=== PATIENT | female | born 1930 | race Caucasian/White ===

== ENCOUNTER 2016-12-14 12:22 | Emergency (ER) | payer MEDICARE, BC ==
--- NOTE | 2016-12-14 14:28 | EDM.PDOC ---
ED HPI GENERAL MEDICAL PROBLEM - General Chief Complaint: Genitourinary Problem Stated Complaint: POST-OP BLEEDING Time Seen by Provider: 12/14/16 12:36 Source of Information: Reports: Patient, Family (Daughter, son-in-law), RN Notes Reviewed History Limitations: Reports: No Limitations - History of Present Illness INITIAL COMMENTS - FREE TEXT/NARRATIVE: The patient and her family state that the patient had 2 bladder ulcers, therefore underwent cystoscopy and cauterization per the Urologist Dr. Ring in [place], yesterday. The patient states that she was passing some clots when she left the facility, however, they have increased, and today she is passing large clots. The patient expressly denies having any pain. They have not contacted Dr. Lew. The patient is not on any anticoagulants. The patient's PCP is Lissa Tom. Abdominal Pain Score (Numeric/FACES): 2 - Related Data Allergies Allergy/AdvReac Type Severity Reaction Status Date / Time codeine Allergy Cannot Verified 02/02/16 10:58 Remember Sulfa (Sulfonamide Allergy Fatigue Verified 02/02/16 10:58 Antibiotics) Home Meds: Home Meds Estrogens, Conjugated [Premarin Vaginal Crm] 1 applic VAG ASDIRECTED 10/25/14 [ History] Gabapentin [Neurontin] 800 mg PO TID 10/25/14 [History] Hydrochlorothiazide 12.5 mg PO DAILY 10/25/14 [History] Losartan [Cozaar] 100 mg PO DAILY 10/25/14 [History] Meclizine [Antivert] 25 mg PO TID PRN 10/25/14 [History] Multivitamin [Qpd-Xkcvcu-Vnqve] 1 each PO DAILY 10/25/14 [History] Nitrofurantoin Macrocrystal [Macrodantin] 1 cap PO DAILY 10/25/14 [History] Oxybutynin 5 mg PO DAILY PRN 10/25/14 [History] Pentosan Polysulfate Sodium [Elmiron] 100 mg PO TID 10/25/14 [History] Potassium Chloride 10 meq PO DAILY 10/25/14 [History] Pravastatin Sodium [Pravastatin (Pravachol)] 40 mg PO DAILY 10/25/14 [History] Atropine/Diphenoxylate [Lomotil 0.025-2.5 MG] 1 tab PO BID PRN 10/26/14 [History ] Calcium Carbonate/Vitamin D3 [Calcium 600 + D Tablet] 1 tab PO BID 10/26/14 [ History] Cranberry Extract [Cranberry] 400 cap PO BID 10/26/14 [History] Cyanocobalamin (Vitamin B12) [Vitamin B12] 5,000 mcg PO DAILY 10/26/14 [History] Hydrocodone/Acetaminophen [Hydrocodon-Acetaminophn 10-325] 1 tab PO Q4HR PRN [History] Nystatin 100,000 gram TOP BID PRN 10/26/14 [History] Clopidogrel [Plavix] 75 mg PO DAILY 11/12/15 [History] Furosemide [Lasix] 20 mg PO ASDIRECTED 11/12/15 [History] Iron 2 tab PO DAILY 11/12/15 [History] Nitroglycerin [Nitrostat] 0.4 mg SL ASDIRECTED PRN 11/12/15 [History] Past Medical History HEENT History: Reports: Impaired Vision Cardiovascular History: Reports: Afib (paroxysmal), CAD, Heart Failure, High Cholesterol, Hypertension Gastrointestinal History: Reports: Colon Polyp Genitourinary History: Reports: Renal Calculus, Urinary Incontinence COAL DIGGER History: Reports: (x 8) Hematologic History: Reports: Blood Transfusion(s) - Past Surgical History HEENT Surgical History: Reports: Cataract Surgery, Tonsillectomy Cardiovascular Surgical History: Reports: Coronary Artery Stent (x 3), Valve Replacement (porcine aortic) GI Surgical History: Reports: Appendectomy, Cholecystectomy Female Surgical History: Reports: Hysterectomy Neurological Surgical History: Reports: Lumbar Spine (fusion) Musculoskeletal Surgical History: Reports: Carpal Tunnel (bilateral), Hip Replacement (left, x 2), Knee Replacement (bilateral), Shoulder Surgery ( bilateral, open), Other (See Below) (Bilateral hammertoes. Right 5th toe amputation.) Social & Family History - Family History Family Medical History: Noncontributory - Tobacco Use Smoking Status *Q: Never Smoker Second Hand Smoke Exposure: No - Caffeine Use Caffeine Use: Reports: None - Alcohol Use Alcohol Use History: Yes Alcohol Use Frequency: Rarely - Recreational Drug Use Recreational Drug Use: No - Living Situation & Occupation Living situation: Reports: , Assisted Living Occupation: Retired ED ROS GENERAL - Review of Systems Review Of Systems: See Below Constitutional: Reports: No Symptoms HEENT: Reports: No Symptoms Respiratory: Reports: No Symptoms Cardiovascular: Reports: No Symptoms Endocrine: Reports: No Symptoms GI/Abdominal: Reports: No Symptoms : Reports: No Symptoms Musculoskeletal: Reports: No Symptoms Skin: Reports: No Symptoms Neurological: Reports: No Symptoms Psychiatric: Reports: No Symptoms Hematologic/Lymphatic: Reports: No Symptoms Immunologic: Reports: No Symptoms ED EXAM, RENAL/ - Physical Exam Exam: See Below Exam Limited By: No Limitations General Appearance: Alert, WD/WN, No Apparent Distress Eye Exam: Bilateral Eye: Normal Inspection Ears: Normal External Exam, Hearing Grossly Normal Nose: Normal Inspection, No Blood Throat/Mouth: Normal Inspection, Normal Lips, Normal Voice, No Airway Compromise Head: Atraumatic, Normocephalic Neck: Normal Inspection, Full Range of Motion Respiratory/Chest: No Respiratory Distress, Lungs Clear, Normal Breath Sounds, No Accessory Muscle Use Cardiovascular: Normal Peripheral Pulses, Regular Rate, Rhythm, No Gallop, No JVD, No Murmur, No Rub GI/Abdominal: Normal Bowel Sounds, Soft, No Organomegaly, No Distention, No Abnormal Bruit, No Mass, Tender (Mild, generalized tenderness.) (Female) Exam: Deferred Rectal (Female) Exam: Deferred Back Exam: Normal Inspection, Full Range of Motion, NT Extremities: Normal Inspection, Normal Range of Motion, No Pedal Edema, Normal Capillary Refill Neurological: Alert, Oriented, Normal Cognition, No Motor/Sensory Deficits Psychiatric: Normal Affect Skin Exam: Warm, Dry, Intact, Normal Color, No Rash Lymphatic: No Adenopathy Course - Vital Signs Last Recorded V/S: Last Vital Signs Temp 36.9 C 12/14/16 12:31 Pulse 61 12/14/16 14:45 Resp 15 12/14/16 14:45 BP 122/43 L 12/14/16 14:45 Pulse Ox 98 12/14/16 14:45 Orthostatic Blood Pressure [ 136/50 Standing] Orthostatic Blood Pressure [ 151/53 Sitting] Orthostatic Blood Pressure [ 119/42 Supine] - Orders/Labs/Meds Orders: Active Orders 24 hr Category Date Time Status Bladder Irrigation [RC] CONTINUOUS Care 12/14/16 12:56 Active Contreras Catheter Insertion [Insert Urinary Catheter] [OM. Care 12/14/16 13:00 Ordered PC] Q24H Orthostatic Vital Signs [RC] STAT Care 12/14/16 12:59 Active Urinary Catheter Assessment [RC] ASDIRECTED Care 12/14/16 13:00 Active Labs: Laboratory Tests 12/14/16 12/14/16 Range/Units 13:30 13:30 WBC 9.59 (3.98-10.04) K/mm3 RBC 2.95 L (3.98-5.22) M/mm3 Hgb 9.2 L (11.2-15.7) gm/L Hct 28.7 L (34.1-44.9) % MCV 97.3 H (79.4-94.8) fl MCH 31.2 (25.6-32.2) pg MCHC 32.1 L (32.2-35.5) g/dl RDW Std Deviation 43.3 (36.4-46.3) fL Plt Count 145 L (182-369) K/mm3 MPV 9.4 (9.4-12.3) fl Neutrophils % (Manual) 78 H (40-60) % Band Neutrophils % 0 (0-10) % Lymphocytes % (Manual) 19 L (20-40) % Atypical Lymphs % 0 % Monocytes % (Manual) 2 (2-10) % Eosinophils % (Manual) 1 (0.7-5.8) % Basophils % (Manual) 0 L (0.1-1.2) Platelet Estimate Decreased Plt Morphology Comment Normal Basophilic Stippling 1+ slight Anisocytosis 1+ slight RBC Morph Comment Not Reportable Sodium 139 (136-145) mEq/L Potassium 4.7 (3.5-5.1) mEq/L Chloride 105 (98-107) mEq/L Carbon Dioxide 30 (21-32) mEq/L Anion Gap 8.7 (5-15) BUN 30 H (7-18) mg/dL Creatinine 1.2 H (0.55-1.02) mg/dL Est Cr Clr Drug Dosing 23.72 mL/min Estimated GFR (MDRD) 42 (>60) mL/min BUN/Creatinine Ratio 25.0 H (14-18) Glucose 91 (83-115) mg/dL Calcium 8.9 (8.5-10.1) mg/dL Total Bilirubin 0.4 (0.2-1.0) mg/dL AST 20 (15-37) U/L ALT 17 (14-59) U/L Alkaline Phosphatase 24 L (46-116) U/L Total Protein 6.0 L (6.4-8.2) g/dl Albumin 3.1 L (3.4-5.0) g/dl Globulin 2.9 gm/dL Albumin/Globulin Ratio 1.1 (1-2) - Re-Assessments/Exams Free Text/Narrative Re-Assessment/Exam: 12/14/16 13:40 The patient is not orthostatic. 12/14/16 14:28 The patient's CBI is currently running clear. I will have it discontinued and discharge her home. I'm recommending that the family contact their Urologist, Dr. Ring, to notify him of the patient's ED visit. Departure - Departure Time of Disposition: 14:31 Disposition: Home, Self-Care 01 Condition: Good Clinical Impression: Gross hematuria - Discharge Information Instructions: Hematuria, Adult Referrals: Sravan Ring MD [Ordering Only Provider] - Forms: ED Department Discharge Additional Instructions: Ms. Hernández was seen in the emergency room for urinating large clots, following bladder surgery yesterday. Workup in the ER included blood work, positional blood pressure checks, and continuous bladder irrigation. Her workup was unremarkable. Her blood pressure is stable, and while she is somewhat anemic, it is not low enough to require transfusion. Following bladder irrigation, her urine is now clear. We recommend that you contact the office of Dr. Ring to notify him of today's ER visit. If any other problems, please do not hesitate to return Ms. Hernández to the ER. - My Orders Last 24 Hours: My Active Orders 12/14/16 12:56 Bladder Irrigation [RC] CONTINUOUS 12/14/16 12:59 Orthostatic Vital Signs [RC] STAT 12/14/16 13:00 Contreras Catheter Insertion [Insert Urinary Catheter] [OM.PC] Q24H Urinary Catheter Assessment [RC] ASDIRECTED - Assessment/Plan Last 24 Hours: My Active Orders 12/14/16 12:56 Bladder Irrigation [RC] CONTINUOUS 12/14/16 12:59 Orthostatic Vital Signs [RC] STAT 12/14/16 13:00 Contreras Catheter Insertion [Insert Urinary Catheter] [OM.PC] Q24H Urinary Catheter Assessment [RC] ASDIRECTED
[2016-12-14 16:44] VITALS: BP 122/43
== END 2016-12-14 14:45 | disposition home or self-care (01) ==
LOC: JD.ED 12:22
DX: R31.0 Gross hematuria (principal); I48.0 Paroxysmal atrial fibrillation; I11.0 Hypertensive heart disease with heart failure; I50.9 Heart failure, unspecified; I25.10 Atherosclerotic heart disease of native coronary artery without angina pectoris; E78.00 Pure hypercholesterolemia, unspecified; Z88.2 Allergy status to sulfonamides; Z88.5 Allergy status to narcotic agent; Z79.02 Long term (current) use of antithrombotics/antiplatelets; Z79.899 Other long term (current) drug therapy; Z87.442 Personal history of urinary calculi; Z98.49 Cataract extraction status, unspecified eye; Z95.5 Presence of coronary angioplasty implant and graft; Z95.2 Presence of prosthetic heart valve; Z90.49 Acquired absence of other specified parts of digestive tract; Z90.710 Acquired absence of both cervix and uterus; Z96.653 Presence of artificial knee joint, bilateral; Z98.890 Other specified postprocedural states; Z96.643 Presence of artificial hip joint, bilateral
CPT/HCPCS: 36415; 51700; 51702; 80053; 85025; 99283; 99284-25

== ENCOUNTER 2017-03-13 10:30 | Observation (INO) | payer MEDICARE, BC ==
[2017-03-13] MEDS ORDERED: Sodium Chloride 0.9% 10 ML Syringe FLUSH PRN (11:08)
[2017-03-13] MEDS ORDERED: Sodium Chloride 0.9% 1,000 ML IV ONE (11:10)
--- NOTE | 2017-03-13 11:23 | EDM.PDOC ---
ED HPI GENERAL MEDICAL PROBLEM - General Chief Complaint: Genitourinary Problem Stated Complaint: POSS. UTI/WEAKNESS Time Seen by Provider: 03/13/17 10:48 Source of Information: Reports: Patient History Limitations: Reports: No Limitations - History of Present Illness INITIAL COMMENTS - FREE TEXT/NARRATIVE: Patient is a-year-old female presents ED complaining of increased fatigue, weakness, and chills. Patient states last night she had company over and at approximately 11:00 developed sudden onset of feeling tired with weakness. Patient states she had no strength to take her clothing off sitting on the edge of her bed. Patient states she could not get into her bed due to weakness. Patient developed fever and chills last night. States she has history of chronic uti's and has been taking macrobid daily up until a wk ago. States she has chronic dysuria and was feeling well thus prompting her to stop taking the macrobid. States at times she has hematuria but notes none as of recent. Son questions if patient was confused last night since she states was unable to locate bed remote that was sitting next to her. Patient needed assistance due to weakness. Per family patient is acting appropriately with admission. Patient denies fever, sore throat, cough, shortness of breath, chest pain, dizziness, abdominal pain, body aches, headache, digital the swelling, or any focal neurological deficits. - Related Data Allergies Allergy/AdvReac Type Severity Reaction Status Date / Time codeine Allergy Cannot Verified 03/13/17 17:06 Remember Sulfa (Sulfonamide Allergy Fatigue Verified 03/13/17 17:06 Antibiotics) sulfamethoxazole Allergy Rash Verified 03/13/17 17:06 [From Bactrim] trimethoprim [From Bactrim] Allergy Rash Verified 03/13/17 17:06 Home Meds: Home Meds Gabapentin [Neurontin] 800 mg PO TID 10/25/14 [History] Hydrochlorothiazide 12.5 mg PO DAILY 10/25/14 [History] Losartan [Cozaar] 100 mg PO DAILY 10/25/14 [History] Meclizine [Antivert] 25 mg PO TID PRN 10/25/14 [History] Multivitamin [Ozz-Ugrbbj-Jcvpt] 1 each PO DAILY 10/25/14 [History] Oxybutynin 5 mg PO DAILY PRN 10/25/14 [History] Pentosan Polysulfate Sodium [Elmiron] 100 mg PO TID 10/25/14 [History] Potassium Chloride 10 meq PO DAILY 10/25/14 [History] Pravastatin Sodium [Pravastatin (Pravachol)] 20 mg PO BEDTIME 10/25/14 [History] Hydrocodone/Acetaminophen [Hydrocodon-Acetaminophn 10-325] 5 - 325 mg PO Q4HR PRN 10/26/14 [History] Aspirin 162.5 mg PO DAILY 03/13/17 [History] Calc/D3/Mag/Zn/[place] [place] [Calcium 600 MG Plus Vit D] 1,200 mg PO BID [History] Cyanocobalamin (Vitamin B-12) [Vitamin B-12] 100 mcg PO DAILY 03/13/17 [History] Zolpidem [Ambien] 2.5 mg PO BEDTIME PRN 03/13/17 [History] Past Medical History HEENT History: Reports: Impaired Vision Cardiovascular History: Reports: Afib, CAD, Heart Failure, High Cholesterol, Hypertension Gastrointestinal History: Reports: Colon Polyp Genitourinary History: Reports: Renal Calculus, Urinary Incontinence, UTI, Recurrent Other Genitourinary History: cyst on kidney [employer] History: Reports: Other OB/BYN History: 8 pregnacies Neurological History: Reports: None Endocrine/Metabolic History: Reports: Diabetes, Type II Hematologic History: Reports: Anemia, Blood Transfusion(s), Iron Deficiency - Past Surgical History HEENT Surgical History: Reports: Cataract Surgery, Tonsillectomy Cardiovascular Surgical History: Reports: Coronary Artery Stent, Valve Replacement GI Surgical History: Reports: Appendectomy, Cholecystectomy Female Surgical History: Reports: Hysterectomy Neurological Surgical History: Reports: Lumbar Spine Musculoskeletal Surgical History: Reports: Carpal Tunnel, Hip Replacement, Knee Replacement, Shoulder Surgery, Other (See Below) Other Musculoskeletal Surgeries/Procedures:: bilateral knees, bilateral shoulders, and hip 2x Social & Family History - Family History Family Medical History: Noncontributory - Tobacco Use Smoking Status *Q: Never Smoker Second Hand Smoke Exposure: No - Caffeine Use Caffeine Use: Reports: None - Recreational Drug Use Recreational Drug Use: No - Living Situation & Occupation Living situation: Reports: , Assisted Living Occupation: Retired ED ROS GENERAL - Review of Systems Review Of Systems: See Below Constitutional: Reports: Chills, Malaise, Weakness, Fatigue, Decreased Appetite. Denies: Fever HEENT: Reports: No Symptoms Respiratory: Reports: No Symptoms Cardiovascular: Reports: No Symptoms GI/Abdominal: Reports: No Symptoms : Reports: Dysuria, Frequency, Urgency Musculoskeletal: Reports: No Symptoms Neurological: Reports: Difficulty Walking (weakness). Denies: Dizziness, Headache, Numbness, Tingling ED EXAM, RENAL/ - Physical Exam Exam: See Below Exam Limited By: No Limitations General Appearance: Alert, WD/WN, No Apparent Distress Eye Exam: Bilateral Eye: EOMI, PERRL Ears: Hearing Grossly Normal Nose: Normal Inspection Throat/Mouth: Normal Voice, No Airway Compromise, Other (dry oral mucosa) Neck: Normal Inspection, Supple Respiratory/Chest: No Respiratory Distress, Lungs Clear, Normal Breath Sounds, No Accessory Muscle Use, Chest Non-Tender Cardiovascular: Normal Peripheral Pulses, Regular Rate, Rhythm, Systolic Murmur (3/6) GI/Abdominal: Normal Bowel Sounds, Soft, Non-Tender, No Organomegaly, No Distention Back Exam: Normal Inspection Extremities: Normal Inspection, Normal Range of Motion, Non-Tender, No Pedal Edema Neurological: Alert, Oriented, CN II-XII Intact, Normal Cognition, No Motor/ Sensory Deficits Psychiatric: Normal Affect, Normal Mood Skin Exam: Warm, Dry, Intact, Normal Color, No Rash Course - Vital Signs Last Recorded V/S: Last Vital Signs Temp 98.4 F 03/13/17 19:51 Pulse 72 03/13/17 19:51 Resp 16 03/13/17 19:51 BP 107/80 03/13/17 19:51 Pulse Ox 92 L 03/13/17 19:51 Orthostatic Blood Pressure [ 138/52 Standing] Orthostatic Blood Pressure [ 127/50 Sitting] Orthostatic Blood Pressure [ 123/43 Supine] - Orders/Labs/Meds Orders: Active Orders 24 hr Category Date Time Status Admission Status [Patient Status] [ADT] Routine ADT 03/13/17 14:29 Active Cardiac Monitoring [RC] . DIRECTED Care 03/13/17 14:29 Active Insert Contreras Catheter [Insert Urinary Catheter] [OM.PC] Care 03/13/17 12:00 Ordered Q24H Orthostatic Vital Signs [RC] ASDIRECTED Care 03/13/17 11:10 Active Peripheral IV Care [RC] Q2HR Care 03/13/17 11:08 Active Urinary Catheter Assessment [RC] ASDIRECTED Care 03/13/17 12:00 Active CULTURE BLOOD [BC] Stat Lab 03/13/17 11:34 Received CULTURE BLOOD [BC] Stat Lab 03/13/17 11:45 Received CULTURE URINE [RM] Stat Lab 03/13/17 12:00 Received Sodium Chloride 0.9% [Saline Flush] Med 03/13/17 11:08 Active 10 ml FLUSH ASDIRECTED PRN Blood Culture x2 Reflex Set [OM.PC] Stat Oth 03/13/17 11:08 Ordered Peripheral IV Insertion Adult [OM.PC] Stat Oth 03/13/17 11:08 Ordered Medication Orders Acetaminophen (Tylenol) 650 mg PO Q4H PRN PRN Reason: Pain (Mild 1-3)/fever Hydrocodone Bitart/Acetaminophen ([place] 325-5 Mg) 1 tab PO Q4H PRN PRN Reason: Pain (moderate 4-6) Last Admin: 03/13/17 18:07 Dose: 1 tab Albuterol/Ipratropium (Duoneb 3.0-0.5 Mg/3 Ml) 3 ml NEB Q4H PRN PRN Reason: Shortness Of Breath/wheezing Bisacodyl (Dulcolax) 5 mg PO DAILY PRN PRN Reason: Constipation Dextrose/Water (Dextrose 50% In Water) 50 ml IVPUSH ASDIRECTED PRN PRN Reason: Hyperglycemia Enoxaparin Sodium (Lovenox) 30 mg SUBCUT DAILY [facility] Gabapentin (Neurontin) 200 mg PO TID [facility] Gabapentin (Neurontin) 600 mg PO ONETIME [facility] Last Admin: 03/13/17 18:20 Dose: 600 mg Gabapentin (Neurontin) 200 mg PO ONETIME [facility] Last Admin: 03/13/17 18:20 Dose: 200 mg Gabapentin (Neurontin) 600 mg PO TID [facility] Hydrochlorothiazide (Hydrochlorothiazide) 12.5 mg PO DAILY [facility] Hydromorphone HCl (Dilaudid) 0.25 mg IVPUSH Q2H PRN PRN Reason: Pain (severe 7-10) Promethazine HCl 12.5 mg/ (Sodium Chloride) 50.5 mls @ 100 mls/hr IV Q6H PRN PRN Reason: Nausea/Vomiting Levofloxacin/Dextrose 500 mg/ (Premix) 100 mls @ 100 mls/hr IV Q24H [facility] Insulin Aspart (Novolog) 0 unit SUBCUT ASDIRECTED [facility] PRN Reason: Protocol Lorazepam (Ativan) 0.25 mg IV Q6H PRN PRN Reason: Anxiety Losartan Potassium (Cozaar) 100 mg PO DAILY [facility] Meclizine HCl (Antivert) 25 mg PO TID PRN PRN Reason: Dizziness Multivitamins (Thera) 1 each PO DAILY [facility] Non-Formulary Medication (Cyanocobalamin (Vitamin B-12)) 100 mcg PO DAILY [facility] Non-Formulary Medication (Pentosan Polysulfate Sodium [Elmiron]) 100 mg PO TID [facility] Gabapanetin 400mg (CapPt Own) 800 each PO ONETIME ONE Stop: 03/13/17 23:01 Ondansetron HCl (Zofran) 4 mg IV Q6H PRN PRN Reason: Nausea/Vomiting Oxybutynin Chloride (Oxybutynin) 5 mg PO DAILY PRN PRN Reason: Other Polyethylene Glycol (Miralax) 17 gm PO DAILY PRN PRN Reason: Constipation Potassium Chloride (Klor-Con 10) 10 meq PO DAILY [facility] Saccharomyces Boulardii (Florastor) 250 mg PO DAILY [facility] Senna/Docusate Sodium (Senna Plus) 1 tab PO BID PRN PRN Reason: Constipation Simvastatin (Zocor) 10 mg PO BEDTIME [facility] Sodium Chloride (Saline Flush) 10 ml FLUSH ASDIRECTED PRN PRN Reason: Keep Vein Open Last Admin: 03/13/17 11:45 Dose: 10 ml Zolpidem Tartrate (Ambien) 2.5 mg PO BEDTIME PRN PRN Reason: Insomnia Labs: Laboratory Tests 03/13/17 03/13/17 03/13/17 Range/Units 11:34 11:34 11:34 WBC 27.31 H (3.98-10.04) K/mm3 RBC 3.25 L (3.98-5.22) M/mm3 Hgb 9.8 L (11.2-15.7) gm/L Hct 30.2 L (34.1-44.9) % MCV 92.9 (79.4-94.8) fl MCH 30.2 (25.6-32.2) pg MCHC 32.5 (32.2-35.5) g/dl RDW Std Deviation 41.9 (36.4-46.3) fL Plt Count 233 (182-369) K/mm3 MPV 8.4 L (9.4-12.3) fl Neut % (Auto) 93.9 H (34.0-71.1) % Lymph % (Auto) 3.6 L (19.3-51.7) % [place] % (Auto) 2.0 L (4.7-12.5) % Eos % (Auto) 0.2 L (0.7-5.8) Baso % (Auto) 0.1 (0.1-1.2) % Neut # (Auto) 25.66 H (1.56-6.13) K/mm3 Lymph # (Auto) 0.97 L (1.18-3.74) K/mm3 [place] # (Auto) 0.54 H (0.24-0.36) K/mm3 Eos # (Auto) 0.06 (0.04-0.36) K/mm3 Baso # (Auto) 0.02 (0.01-0.08) K/mm3 Manual Slide Review Abnormal smear Sodium 142 (136-145) mEq/L Potassium 4.0 (3.5-5.1) mEq/L Chloride 105 (98-107) mEq/L Carbon Dioxide 29 (21-32) mEq/L Anion Gap 12.0 (5-15) BUN 29 H (7-18) mg/dL Creatinine 1.1 H (0.55-1.02) mg/dL Est Cr Clr Drug Dosing 26.68 mL/min Estimated GFR (MDRD) 47 (>60) mL/min BUN/Creatinine Ratio 26.4 H (14-18) Glucose 153 H (83-115) mg/dL Lactic Acid 1.4 (0.4-2.0) mmol/L Calcium 9.1 (8.5-10.1) mg/dL Total Bilirubin 0.4 (0.2-1.0) mg/dL AST 22 (15-37) U/L ALT 28 (14-59) U/L Alkaline Phosphatase 33 L (46-116) U/L Troponin I (0.00-0.056) ng/mL C-Reactive Protein 11.7 H* (<1.0) mg/dL Total Protein 6.7 (6.4-8.2) g/dl Albumin 3.0 L (3.4-5.0) g/dl Globulin 3.7 gm/dL Albumin/Globulin Ratio 0.8 L (1-2) TSH 3rd Generation 0.413 (0.358-3.74) uIU/mL Urine Color (Yellow) Urine Appearance (Clear) Urine pH (5.0-8.0) Ur Specific [place] (1.005-1.030) Urine Protein (Negative) Urine Glucose (UA) (Negative) Urine Ketones (Negative) Urine Occult Blood (Negative) Urine Nitrite (Negative) Urine Bilirubin (Negative) Urine Urobilinogen (0.2-1.0) Ur Leukocyte Esterase (Negative) Urine RBC (0-5) /hpf Urine WBC (0-5) /hpf Ur Epithelial Cells (0-5) /hpf Amorphous Sediment (NOT SEEN) /hpf Urine Bacteria (FEW) /hpf Urine Mucus (FEW) /hpf 03/13/17 03/13/17 Range/Units 11:34 12:00 WBC (3.98-10.04) K/mm3 RBC (3.98-5.22) M/mm3 Hgb (11.2-15.7) gm/L Hct (34.1-44.9) % MCV (79.4-94.8) fl MCH (25.6-32.2) pg MCHC (32.2-35.5) g/dl RDW Std Deviation (36.4-46.3) fL Plt Count (182-369) K/mm3 MPV (9.4-12.3) fl Neut % (Auto) (34.0-71.1) % Lymph % (Auto) (19.3-51.7) % [place] % (Auto) (4.7-12.5) % Eos % (Auto) (0.7-5.8) Baso % (Auto) (0.1-1.2) % Neut # (Auto) (1.56-6.13) K/mm3 Lymph # (Auto) (1.18-3.74) K/mm3 [place] # (Auto) (0.24-0.36) K/mm3 Eos # (Auto) (0.04-0.36) K/mm3 Baso # (Auto) (0.01-0.08) K/mm3 Manual Slide Review Sodium (136-145) mEq/L Potassium (3.5-5.1) mEq/L Chloride (98-107) mEq/L Carbon Dioxide (21-32) mEq/L Anion Gap (5-15) BUN (7-18) mg/dL Creatinine (0.55-1.02) mg/dL Est Cr Clr Drug Dosing mL/min Estimated GFR (MDRD) (>60) mL/min BUN/Creatinine Ratio (14-18) Glucose (83-115) mg/dL Lactic Acid (0.4-2.0) mmol/L Calcium (8.5-10.1) mg/dL Total Bilirubin (0.2-1.0) mg/dL AST (15-37) U/L ALT (14-59) U/L Alkaline Phosphatase (46-116) U/L Troponin I 0.022 (0.00-0.056) ng/mL C-Reactive Protein (<1.0) mg/dL Total Protein (6.4-8.2) g/dl Albumin (3.4-5.0) g/dl Globulin gm/dL Albumin/Globulin Ratio (1-2) TSH 3rd Generation (0.358-3.74) uIU/mL Urine Color Yellow (Yellow) Urine Appearance Clear (Clear) Urine pH 7.0 (5.0-8.0) Ur Specific [place] 1.015 (1.005-1.030) Urine Protein Trace H (Negative) Urine Glucose (UA) Negative (Negative) Urine Ketones Negative (Negative) Urine Occult Blood 1+ H (Negative) Urine Nitrite Negative (Negative) Urine Bilirubin Negative (Negative) Urine Urobilinogen 0.2 (0.2-1.0) Ur Leukocyte Esterase 2+ H (Negative) Urine RBC 5-10 H (0-5) /hpf Urine WBC 20-30 H (0-5) /hpf Ur Epithelial Cells 0-5 (0-5) /hpf Amorphous Sediment Few H (NOT SEEN) /hpf Urine Bacteria Few (FEW) /hpf Urine Mucus Not seen (FEW) /hpf Meds: Medications Generic Name Dose Route Start Last Admin Trade Name Freq PRN Reason Stop Dose Admin Acetaminophen 650 mg 03/13/17 15:48 Tylenol PO Q4H PRN Pain (Mild 1-3)/fever Hydrocodone Bitart/Acetaminophen 1 tab 03/13/17 15:48 03/13/17 18:07 [place] 325-5 Mg PO 1 tab Q4H PRN Administration Pain (moderate 4-6) Albuterol/Ipratropium 3 ml 03/13/17 15:48 Duoneb 3.0-0.5 Mg/3 Ml NEB Q4H PRN Shortness Of Breath/wheezing Bisacodyl 5 mg 03/13/17 15:48 Dulcolax PO DAILY PRN Constipation Dextrose/Water 50 ml 03/13/17 15:59 Dextrose 50% In Water IVPUSH ASDIRECTED PRN Hyperglycemia Enoxaparin Sodium 30 mg 03/14/17 09:00 Lovenox SUBCUT DAILY [facility] Gabapentin 200 mg 03/14/17 09:00 Neurontin PO TID [facility] Gabapentin 600 mg 03/13/17 18:00 03/13/17 18:20 Neurontin PO 600 mg ONETIME [facility] Administration Gabapentin 200 mg 03/13/17 18:00 03/13/17 18:20 Neurontin PO 200 mg ONETIME [facility] Administration Gabapentin 600 mg 03/14/17 09:00 Neurontin PO TID [facility] Hydrochlorothiazide 12.5 mg 03/14/17 09:00 Hydrochlorothiazide PO DAILY [facility] Hydromorphone HCl 0.25 mg 03/13/17 15:48 Dilaudid IVPUSH Q2H PRN Pain (severe 7-10) Promethazine HCl 12.5 mg/ 50.5 mls @ 100 mls/hr 03/13/17 15:48 Sodium Chloride IV Q6H PRN Nausea/Vomiting Levofloxacin/Dextrose 500 mg/ 100 mls @ 100 mls/hr 03/14/17 09:00 Premix IV Q24H [facility] Insulin Aspart 0 unit 03/13/17 16:00 Novolog SUBCUT ASDIRECTED [facility] Protocol Lorazepam 0.25 mg 03/13/17 15:48 Ativan IV Q6H PRN Anxiety Losartan Potassium 100 mg 03/14/17 09:00 Cozaar PO DAILY [facility] Meclizine HCl 25 mg 03/13/17 17:09 Antivert PO TID PRN Dizziness Multivitamins 1 each 03/14/17 09:00 Thera PO DAILY [facility] Non-Formulary Medication 100 mcg 03/14/17 09:00 Cyanocobalamin (Vitamin B-12) PO DAILY [facility] Non-Formulary Medication 100 mg 03/13/17 21:00 Pentosan Polysulfate Sodium [Elmiron] PO TID [facility] Gabapanetin 400mg 800 each 03/13/17 23:00 CapPt Own PO 03/13/17 23:01 ONETIME ONE Ondansetron HCl 4 mg 03/13/17 15:48 Zofran IV Q6H PRN Nausea/Vomiting Oxybutynin Chloride 5 mg 03/13/17 15:53 Oxybutynin PO DAILY PRN Other Polyethylene Glycol 17 gm 03/13/17 15:48 Miralax PO DAILY PRN Constipation Potassium Chloride 10 meq 03/14/17 09:00 Klor-Con 10 PO DAILY [facility] Saccharomyces Boulardii 250 mg 03/14/17 09:00 Florastor PO DAILY [facility] Senna/Docusate Sodium 1 tab 03/13/17 15:48 Senna Plus PO BID PRN Constipation Simvastatin 10 mg 03/13/17 21:00 Zocor PO BEDTIME [facility] Sodium Chloride 10 ml 03/13/17 11:08 03/13/17 11:45 Saline Flush FLUSH 10 ml ASDIRECTED PRN Administration Keep Vein Open Zolpidem Tartrate 2.5 mg 03/13/17 15:53 Ambien PO BEDTIME PRN Insomnia Discontinued Medications Generic Name Dose Route Start Last Admin Trade Name Freq PRN Reason Stop Dose Admin Diphtheria/Tetanus/Acell Pertussis 0.5 ml 03/13/17 16:16 Adacel IM 03/13/17 16:17 .ONCE ONE Docusate Sodium 100 mg 03/13/17 15:48 Colace PO BID PRN Constipation Glipizide 2.5 mg 03/13/17 21:00 Glucotrol Xl PO BID [facility] Sodium Chloride 1,000 mls @ 150 mls/hr 03/13/17 11:10 03/13/17 18:14 Normal Saline IV 03/13/17 17:49 Not Given ONETIME ONE Levofloxacin/Dextrose 750 mg/ 150 mls @ 100 mls/hr 03/13/17 11:58 03/13/17 12 :20 Premix IV 03/13/17 13:27 100 mls/hr ONETIME ONE Administration Sodium Chloride 500 mls @ 250 mls/hr 03/13/17 12:02 03/13/17 12:19 Normal Saline IV 03/13/17 14:01 250 mls/hr .BOLUS ONE Administration Sodium Chloride Confirm 03/13/17 17:31 03/13/17 18:15 Normal Saline Administered 03/13/17 17:32 Not Given Dose 1,000 mls @ as directed .ROUTE .STK-MED ONE Pneumococcal Polyvalent Vaccine 0.5 ml 03/13/17 16:16 Pneumovax 23 IM 03/13/17 16:17 .ONCE ONE Temazepam 7.5 mg 03/13/17 15:48 Restoril PO BEDTIME PRN Sleep - Re-Assessments/Exams Free Text/Narrative Re-Assessment/Exam: IV established with normal saline 150 mL per hour. Initial labs and studies include CBC, chem 14, crp, troponin, TSH, UA, blood cultures 2, urine culture, EKG, orthostatic vitals, and chest x-ray one view. Due to patient's history of congestive heart failure will not be aggressive with fluid administration. Patient's vital signs are stable with a heart rate of 83. She is afebrile at this point. EKG sinus rhythm at a rate of 76, no acute ST changes. Normal EKG. 03/13/17 12:01 CBC indicated elevated white blood count of 27.31, hemoglobin 9.8 , platelet count 233, neutrophil percentage is 93.9 with a left shift of 25.66. Abnormal smear leukocytosis. Reviewed previous urine cultures from August 2016. Escherichia coli present. Susceptible to Levaquin. Ordered Levaquin 750 mg by IV. Still awaiting results of remaining labs. Ordered 250mls/hr to a total of 500 ml bolus of normal saline over two hours. 03/13/17 12:39 Sodium 142, potassium 4.0, AG 12.0, BUN 29, creatinine 1.1, glucose 153, lactic acid 1.4, CRP 11.7, troponin 0.022, and TSH 0.413. UA revealed protein trace, occult blood 1+, leukocyte esterase 2+, rbc's 5-10, wbc's 20-30, amorphous sediment. Discussed patient with Dr. Diana. He agrees to admit the patient. Will have MCG performed for admission to the hospital for UTI. 03/13/17 14:28 Nursing staff states patient meets observation due to MCG findings. Order for admission placed. Departure - Departure Time of Disposition: 14:29 Disposition: Refer to Observation Condition: Fair Clinical Impression: UTI, Urinary tract infectious disease - Discharge Information - My Orders Last 24 Hours: My Active Orders 03/13/17 11:08 Peripheral IV Care [RC] Q2HR Sodium Chloride 0.9% [Saline Flush] 10 ml FLUSH ASDIRECTED PRN Blood Culture x2 Reflex Set [OM.PC] Stat Peripheral IV Insertion Adult [OM.PC] Stat 03/13/17 11:10 Orthostatic Vital Signs [RC] ASDIRECTED 03/13/17 11:34 CULTURE BLOOD [BC] Stat 03/13/17 11:45 CULTURE BLOOD [BC] Stat 03/13/17 12:00 Insert Contreras Catheter [Insert Urinary Catheter] [OM.PC] Q24H Urinary Catheter Assessment [RC] ASDIRECTED CULTURE URINE [RM] Stat 03/13/17 14:29 Admission Status [Patient Status] [ADT] Routine Cardiac Monitoring [RC] . DIRECTED - Assessment/Plan Last 24 Hours: My Active Orders 03/13/17 11:08 Peripheral IV Care [RC] Q2HR Sodium Chloride 0.9% [Saline Flush] 10 ml FLUSH ASDIRECTED PRN Blood Culture x2 Reflex Set [OM.PC] Stat Peripheral IV Insertion Adult [OM.PC] Stat 03/13/17 11:10 Orthostatic Vital Signs [RC] ASDIRECTED 03/13/17 11:34 CULTURE BLOOD [BC] Stat 03/13/17 11:45 CULTURE BLOOD [BC] Stat 03/13/17 12:00 Insert Contreras Catheter [Insert Urinary Catheter] [OM.PC] Q24H Urinary Catheter Assessment [RC] ASDIRECTED CULTURE URINE [RM] Stat 03/13/17 14:29 Admission Status [Patient Status] [ADT] Routine Cardiac Monitoring [RC] . DIRECTED
[2017-03-13] MEDS ORDERED: Levofloxacin/Dextrose 5%-Water 750 MG in Premix Bag 1 BAG IV ONE (11:58)
[2017-03-13] MEDS ORDERED: Sodium Chloride 0.9% 500 ML IV ONE (12:02)
--- NOTE | 2017-03-13 14:50 | PCM.HP ---
H&P History of Present Illness - General Date of Service: 03/13/17 Admit Problem/Dx: UTI Source of Information: Patient, Old Records, Provider, RN Notes Reviewed History Limitations: Reports: Physical Impairment - History of Present Illness Initial Comments - Free Text/Narative: This is an 87 yo elderly white female with past medical hx/o Impaired Vision, Hx /o Atrial Fibrillation, on ASA, CAD S/p Stent Placement, HF with Unknown EF, HLD, HTN, DM2, Peripheral Neuropathy, OA, Anemia 2/2 JULIA and Hx/o MRSA who comes in with multiple complaints of: fatigue, malaise, generalized weakness, fever, chills, decreased appetite and some confusion that suddenly started last night. Patient also admits to having dysuria and urinary frequency. She however denies any sick contact. She further denies any other issues. Patient carries a hx/o urinary incontinence. She was on Macrobid daily up until a week ago due to recurrent UTIs. Her initial workup in the emergency department shows a CBC remarkable for WBC of 27.31, RBC of 2.25, hemoglobin of 9.8, hematocrit 30.2, neutrophils of 92.9% , lymphocytes of 2.6%, monocytes of 2%, and eosinophils of 0.2%. Her chemistry is remarkable for BUN of 29, creatinine of 1.1, glucose of 153, alkaline phosphatase of 33, CRP of 11.7, and albumin of 3. Her UA is suggestive of urinary tract infection. Patient is being admitted for medical treatment of urinary tract infection. She is full code. - Related Data Allergies/Adverse Reactions: Allergies Allergy/AdvReac Type Severity Reaction Status Date / Time codeine Allergy Cannot Verified 03/13/17 17:06 Remember Sulfa (Sulfonamide Allergy Fatigue Verified 03/13/17 17:06 Antibiotics) sulfamethoxazole Allergy Rash Verified 03/13/17 17:06 [From Bactrim] trimethoprim [From Bactrim] Allergy Rash Verified 03/13/17 17:06 Home Medications: Home Meds Gabapentin [Neurontin] 800 mg PO TID 10/25/14 [History] Hydrochlorothiazide 12.5 mg PO DAILY 10/25/14 [History] Losartan [Cozaar] 100 mg PO DAILY 10/25/14 [History] Meclizine [Antivert] 25 mg PO TID PRN 10/25/14 [History] Multivitamin [Pee-Nvzqrs-Qxrcy] 1 each PO DAILY 10/25/14 [History] Oxybutynin 5 mg PO DAILY PRN 10/25/14 [History] Pentosan Polysulfate Sodium [Elmiron] 100 mg PO TID 10/25/14 [History] Potassium Chloride 10 meq PO DAILY 10/25/14 [History] Pravastatin Sodium [Pravastatin (Pravachol)] 20 mg PO BEDTIME 10/25/14 [History] Hydrocodone/Acetaminophen [Hydrocodon-Acetaminophn 10-325] 5 - 325 mg PO Q4HR PRN 10/26/14 [History] Aspirin 162.5 mg PO DAILY 03/13/17 [History] Calc/D3/Mag/Zn/Style Advisor/Dante/[place] [Calcium 600 MG Plus Vit D] 1,200 mg PO BID [History] Cyanocobalamin (Vitamin B-12) [Vitamin B-12] 100 mcg PO DAILY 03/13/17 [History] Zolpidem [Ambien] 2.5 mg PO BEDTIME PRN 03/13/17 [History] Past Medical History HEENT History: Reports: Impaired Vision Cardiovascular History: Reports: Afib, CAD, Heart Failure, High Cholesterol, Hypertension Gastrointestinal History: Reports: Colon Polyp Genitourinary History: Reports: Renal Calculus, Urinary Incontinence, UTI, Recurrent Other Genitourinary History: cyst on kidney [employer] History: Reports: Other OB/BYN History: 8 pregnacies Neurological History: Reports: None Endocrine/Metabolic History: Reports: Diabetes, Type II Hematologic History: Reports: Anemia, Blood Transfusion(s), Iron Deficiency - Past Surgical History HEENT Surgical History: Reports: Cataract Surgery, Tonsillectomy Cardiovascular Surgical History: Reports: Coronary Artery Stent, Valve Replacement GI Surgical History: Reports: Appendectomy, Cholecystectomy Female Surgical History: Reports: Hysterectomy Neurological Surgical History: Reports: Lumbar Spine Musculoskeletal Surgical History: Reports: Carpal Tunnel, Hip Replacement, Knee Replacement, Shoulder Surgery, Other (See Below) Other Musculoskeletal Surgeries/Procedures:: bilateral knees, bilateral shoulders, and hip 2x Social & Family History - Family History Family Medical History: Noncontributory - Tobacco Use Smoking Status *Q: Never Smoker Second Hand Smoke Exposure: No - Caffeine Use Caffeine Use: Reports: None - Recreational Drug Use Recreational Drug Use: No - Living Situation & Occupation Living situation: Reports: , Assisted Living Occupation: Retired H&P Review of Systems - Review of Systems: Review Of Systems: See Below General: Reports: Chills, Malaise, Weakness, Fatigue, Decreased Appetite HEENT: Reports: No Symptoms Pulmonary: Reports: No Symptoms Cardiovascular: Denies: Chest Pain, Palpitations Gastrointestinal: Denies: Abdominal Pain, Decreased Appetite, Nausea, Vomiting Genitourinary: Reports: Dysuria, Frequency, Burning, Urgency, Incontinence. Denies: Hematuria Musculoskeletal: Reports: No Symptoms Skin: Denies: Cyanosis, Mottled, Pallor, Diaphoresis, Pruritis, Rash, Erythema Psychiatric: Denies: Depression, Anxiety, Agitation, Hallucinations Neurological: Reports: Difficulty Walking, Weakness, Gait Disturbance. Denies: Confusion Hematologic/Lymphatic: Reports: No Symptoms Immunologic: Reports: No Symptoms Exam - Exam Exam: See Below - Vital Signs Vital Signs: Last Vital Signs Temp 36.7 C 03/13/17 11:40 Pulse 76 03/13/17 11:40 Resp 16 03/13/17 11:40 BP 122/46 L 03/13/17 11:40 Pulse Ox 93 L 03/13/17 11:40 Weight: 58.513 kg - Exam General: Alert, Oriented, Cooperative HEENT: Conjunctiva Clear, EACs Clear, EOMI, Hearing Intact, Mucosa Moist & [place] , Nares Patent, Normal Nasal Septum, Posterior Pharynx Clear, Pupils Equal, Pupils Reactive Neck: Supple, Trachea Midline Lungs: Clear to Auscultation, Normal Respiratory Effort, Decreased Breath Sounds Cardiovascular: Regular Rate, Regular Rhythm, Systolic Murmur GI/Abdominal Exam: Normal Bowel Sounds, Soft, Non-Tender, No Organomegaly, No Distention, No Abnormal Bruit (Female) Exam: Other (Suprapubic tenderness) Rectal (Female) Exam: Deferred Back Exam: Normal Inspection, Decreased Range of Motion Extremities: Normal Inspection, Normal Range of Motion, Non-Tender, No Pedal Edema, Normal Capillary Refill Peripheral Pulses: 2+: Posterior Tibial (L), Posterior Tibial (R), Dorsalis Pedis (L), Dorsalis Pedis (R) Skin: Warm, Dry, Intact Neuro Extensive - Mental Status: Oriented x3, Normal Cognition, Memory Intact Neuro Extensive - Motor, Sensory, Reflexes: CN II-XII Intact (limited but grossly intact), Abnormal Gait Psychiatric: Alert, Normal Affect, Normal Mood - Patient Data Result Diagrams: 03/14/17 06:45 03/14/17 06:45 *Q Meaningful Use (ADM) - VTE *Q VTE Criteria *Q: - Stroke *Q Stroke Criteria *Q: - AMI *Q AMI Criteria *Q: Problem List Initiated/Reviewed/Updated: Yes Orders Last 24hrs: Medication Orders Sodium Chloride (Normal Saline) 1,000 mls @ 150 mls/hr IV ONETIME ONE Stop: 03/13/17 17:49 Sodium Chloride (Saline Flush) 10 ml FLUSH ASDIRECTED PRN PRN Reason: Keep Vein Open Last Admin: 03/13/17 11:45 Dose: 10 ml Assessment/Plan Comment:: Assessment/Plan: Acute: UTI - Risk factors: Urinary Incontinence and Recurrent UTI - UA pos for UTI - Symptomatic - Hx/o E. coli, Proteus Mirabilis and MRSA in the past - Received Iv Levaquin in ED; will continue ATB daily - UA Cx/Sx Leukocytosis - 2/2 Above - WBC is 27.30 and CRP is 11.7 - Treat underlying cause Generalized Weakness - PT/OT consult - Vit D and TFT in AM Chronic: Impaired Vision Hx/o Atrial Fibrillation, on ASA CAD S/p Stent Placement HF with Unknown EF HLD HTN Urinary Incontinence Recurrent UTI DM2, Accu-check AM/HS, A1C 5.60 on 12/20/16, diet controlled Peripheral Neuropathy OA Anemia, Hgb 9.8, Stable JULIA Hx/o MRSA Plan: Admit to Med-Surge with Tele Routine AM Labs Resume Home Meds PT/OT consult Fall Precautions SW/CM for d/c planning DVT/GI PPx: Additional orders as above Code status: 1
[2017-03-13] MEDS ORDERED: Albuterol/Ipratropium 3.0-0.5 MG/3 ML Neb Soln NEB PRN (15:48)
[2017-03-13] MEDS ORDERED: HYDROmorphone 1 MG/ML Syringe IVPUSH PRN (15:48)
[2017-03-13] MEDS ORDERED: Bisacodyl 5 MG Tab PO PRN (15:48)
[2017-03-13] MEDS ORDERED: Promethazine 12.5 MG in Sodium Chloride 0.9% 50 ML IV PRN (15:48)
[2017-03-13] MEDS ORDERED: LORazepam 2 MG/ML MDV IV PRN (15:48)
[2017-03-13] MEDS ORDERED: Polyethylene Glycol 3350 Powder 17 GM Packet PO PRN (15:48)
[2017-03-13] MEDS ORDERED: Docusate Sodium 100 MG Cap PO PRN (15:48)
[2017-03-13] MEDS ORDERED: Acetaminophen 325 MG Tab PO PRN (15:48)
[2017-03-13] MEDS ORDERED: Temazepam 7.5 MG Cap PO PRN (15:48)
[2017-03-13] MEDS ORDERED: Ondansetron 4 MG/2 ML SDV IV PRN (15:48)
[2017-03-13] MEDS ORDERED: Zolpidem 5 MG Tab PO PRN (15:53)
[2017-03-13] MEDS ORDERED: Oxybutynin 5 MG Tab PO PRN (15:53)
[2017-03-13] MEDS ORDERED: 50% Dextrose in Water 50 ML Syringe IVPUSH PRN (15:59)
[2017-03-13] MEDS ORDERED: Insulin Aspart 100 Units/ML 3 ML Pen SUBCUT SCH (16:00)
[2017-03-13] MEDS ORDERED: Diphtheria,Pertussis(Acell),Tetanus Vaccine 0.5 ML SDV IM ONE (16:16)
[2017-03-13] MEDS ORDERED: Pneumococcal Polyvalent-23 Vaccine 0.5 ML SDV IM ONE (16:16)
[2017-03-13] MEDS ORDERED: Sodium Chloride 0.9% 1,000 ML ONE (17:31)
[2017-03-13] MEDS ORDERED: Gabapentin 600 MG Tab PO SCH (18:00)
[2017-03-13] MEDS ORDERED: Gabapentin 100 MG Cap PO SCH (18:00)
[2017-03-13] MEDS: Acetaminophen/HYDROcodone 325-5 MG Tab PO PRN ×2 (18:07→23:05)
[2017-03-13] MEDS ORDERED: glipiZIDE 2.5 MG Tab.ER PO SCH (21:00)
[2017-03-13] MEDS ORDERED: GABAPENTIN 400 MG PO ONE (23:00)
[2017-03-13] MEDS: Simvastatin 10 MG Tab PO SCH (23:06)
[2017-03-13] MEDS ORDERED: Gabapentin 100 MG Cap PO ONE (23:45)
[2017-03-13] MEDS ORDERED: Gabapentin 600 MG Tab PO ONE (23:45)
[2017-03-14] MEDS ORDERED: HYDROmorphone 0.5 MG/0.5 ML Syringe IVPUSH PRN (07:45)
[2017-03-14] MEDS: Insulin Aspart 100 Units/ML 3 ML Pen SUBCUT SCH ×2 (07:52→23:37)
[2017-03-14] MEDS ORDERED: Gabapentin 100 MG Cap PO SCH (09:00)
[2017-03-14] MEDS ORDERED: Levofloxacin/Dextrose 5%-Water 500 MG in Premix Bag 1 BAG IV SCH (09:00)
[2017-03-14] MEDS: Aspirin 81 MG Tab.EC PO SCH (09:08)
[2017-03-14] MEDS: Multivitamins,Therapeutic Tab PO SCH (09:11)
[2017-03-14] MEDS: Potassium Chloride 10 MEQ Tab.ER**PT OWN PO SCH (09:11)
[2017-03-14] MEDS: Hydrochlorothiazide 25 MG Tab PO SCH (09:11)
[2017-03-14] MEDS: Losartan 100 MG Tab PO SCH (09:11)
[2017-03-14] MEDS: Enoxaparin 30 MG/0.3 ML Syringe SUBCUT SCH (09:12)
--- NOTE | 2017-03-14 10:47 | PCM.PN ---
- General Info Date of Service: 03/14/17 Admission Dx/Problem (Free Text): CHLOÉ Saeed is a pleasant 87yo female seen this morning, doing well. States "still hurts when I urinate" but otherwise has no other complaints or concerns. Denies SOB, CP, palpitations, dizziness, STARKS, abdominal pain, n/v/d or back pain. Did have BM this morning without difficulty. States feels "a little stronger than yesterday". PT/OT is working with her. Tells me she stopped her Macrobid a week ago for chronic UTI's and felt burning with urination a day or so ago and became very weak. Functional Status: Reports: Pain Controlled, Tolerating Diet, Ambulating, Urinating - Review of Systems General: Reports: Weakness. Denies: Fever HEENT: Reports: No Symptoms Pulmonary: Denies: Shortness of Breath, Cough Cardiovascular: Denies: Chest Pain, Dyspnea on Exertion Gastrointestinal: Reports: No Symptoms. Denies: Abdominal Pain, Diarrhea, Nausea, Vomiting Genitourinary: Reports: Dysuria, Other (hx frequent UTI's -- recently stopped/DC 'd daily macrobid) Neurological: Reports: No Symptoms Psychiatric: Reports: No Symptoms - Patient Data Vitals - Most Recent: Last Vital Signs Temp 98.2 F 03/14/17 04:14 Pulse 68 03/14/17 04:15 Resp 12 03/14/17 04:14 BP 111/48 L 03/14/17 09:11 Pulse Ox 91 L 03/14/17 04:15 Weight - Most Recent: 129 lb I&O - Last 24 Hours: Intake & Output 03/13/17 03/14/17 03/14/17 22:59 06:59 14:59 Intake Total 800 480 Balance 800 480 Lab Results Last 24 Hours: Laboratory Results - last 24 hr 03/13/17 03/13/17 03/14/17 Range/Units 17:30 21:06 06:45 WBC 12.63 H (3.98-10.04) K/mm3 RBC 3.15 L (3.98-5.22) M/mm3 Hgb 9.5 L (11.2-15.7) gm/L Hct 29.8 L (34.1-44.9) % MCV 94.6 (79.4-94.8) fl MCH 30.2 (25.6-32.2) pg MCHC 31.9 L (32.2-35.5) g/dl RDW Std Deviation 43.0 (36.4-46.3) fL Plt Count 206 (182-369) K/mm3 MPV 8.8 L (9.4-12.3) fl Neut % (Auto) 83.2 H (34.0-71.1) % Lymph % (Auto) 7.5 L (19.3-51.7) % [place] % (Auto) 4.4 L (4.7-12.5) % Eos % (Auto) 4.4 (0.7-5.8) Baso % (Auto) 0.2 (0.1-1.2) % Neut # (Auto) 10.51 H (1.56-6.13) K/mm3 Lymph # (Auto) 0.95 L (1.18-3.74) K/mm3 [place] # (Auto) 0.56 H (0.24-0.36) K/mm3 Eos # (Auto) 0.55 H (0.04-0.36) K/mm3 Baso # (Auto) 0.02 (0.01-0.08) K/mm3 Manual Slide Review Abnormal smear Sodium (136-145) mEq/L Potassium (3.5-5.1) mEq/L Chloride (98-107) mEq/L Carbon Dioxide (21-32) mEq/L Anion Gap (5-15) BUN (7-18) mg/dL Creatinine (0.55-1.02) mg/dL Est Cr Clr Drug Dosing mL/min Estimated GFR (MDRD) (>60) mL/min BUN/Creatinine Ratio (14-18) Glucose (83-115) mg/dL POC Glucose 101 (83-110) mg/dL Calcium (8.5-10.1) mg/dL Magnesium (1.8-2.4) mg/dl C-Reactive Protein (<1.0) mg/dL Free T4 (0.76-1.46) ng/dL TSH 3rd Generation (0.358-3.74) uIU/mL MRSA (PCR) Positive H 03/14/17 03/14/17 Range/Units 06:45 06:46 WBC (3.98-10.04) K/mm3 RBC (3.98-5.22) M/mm3 Hgb (11.2-15.7) gm/L Hct (34.1-44.9) % MCV (79.4-94.8) fl MCH (25.6-32.2) pg MCHC (32.2-35.5) g/dl RDW Std Deviation (36.4-46.3) fL Plt Count (182-369) K/mm3 MPV (9.4-12.3) fl Neut % (Auto) (34.0-71.1) % Lymph % (Auto) (19.3-51.7) % [place] % (Auto) (4.7-12.5) % Eos % (Auto) (0.7-5.8) Baso % (Auto) (0.1-1.2) % Neut # (Auto) (1.56-6.13) K/mm3 Lymph # (Auto) (1.18-3.74) K/mm3 [place] # (Auto) (0.24-0.36) K/mm3 Eos # (Auto) (0.04-0.36) K/mm3 Baso # (Auto) (0.01-0.08) K/mm3 Manual Slide Review Sodium 145 (136-145) mEq/L Potassium 4.0 (3.5-5.1) mEq/L Chloride 109 H (98-107) mEq/L Carbon Dioxide 27 (21-32) mEq/L Anion Gap 13.0 (5-15) BUN 25 H (7-18) mg/dL Creatinine 1.1 H (0.55-1.02) mg/dL Est Cr Clr Drug Dosing 26.68 mL/min Estimated GFR (MDRD) 47 (>60) mL/min BUN/Creatinine Ratio 22.7 H (14-18) Glucose 100 (83-115) mg/dL POC Glucose 100 (83-110) mg/dL Calcium 9.0 (8.5-10.1) mg/dL Magnesium 1.7 L (1.8-2.4) mg/dl C-Reactive Protein 14.1 H* (<1.0) mg/dL Free T4 1.10 (0.76-1.46) ng/dL TSH 3rd Generation 0.424 (0.358-3.74) uIU/mL MRSA (PCR) Med Orders - Current: Current Medications Acetaminophen (Tylenol) 650 mg PO Q4H PRN PRN Reason: Pain (Mild 1-3)/fever Hydrocodone Bitart/Acetaminophen (Buchtel 325-5 Mg) 1 tab PO Q4H PRN PRN Reason: Pain (moderate 4-6) Last Admin: 03/13/17 23:05 Dose: 1 tab Albuterol/Ipratropium (Duoneb 3.0-0.5 Mg/3 Ml) 3 ml NEB Q4H PRN PRN Reason: Shortness Of Breath/wheezing Aspirin (Halfprin) 162 mg PO DAILY [facility] Last Admin: 03/14/17 09:08 Dose: 162 mg Bisacodyl (Dulcolax) 5 mg PO DAILY PRN PRN Reason: Constipation Dextrose/Water (Dextrose 50% In Water) 50 ml IVPUSH ASDIRECTED PRN PRN Reason: Hyperglycemia Enoxaparin Sodium (Lovenox) 30 mg SUBCUT DAILY [facility] Last Admin: 03/14/17 09:12 Dose: 30 mg Hydrochlorothiazide (Hydrochlorothiazide) 12.5 mg PO DAILY [facility] Last Admin: 03/14/17 09:11 Dose: 12.5 mg Hydromorphone HCl (Dilaudid) 0.25 mg IVPUSH Q2H PRN PRN Reason: Pain (severe 7-10) Promethazine HCl 12.5 mg/ (Sodium Chloride) 50.5 mls @ 100 mls/hr IV Q6H PRN PRN Reason: Nausea/Vomiting Levofloxacin/Dextrose 250 mg/ (Premix) 50 mls @ 50 mls/hr IV Q24H [facility] Insulin Aspart (Novolog) 0 unit SUBCUT ,21 [facility] PRN Reason: Protocol Last Admin: 03/14/17 07:52 Dose: Not Given Lorazepam (Ativan) 0.25 mg IV Q6H PRN PRN Reason: Anxiety Losartan Potassium (Cozaar) 100 mg PO DAILY [facility] Last Admin: 03/14/17 09:11 Dose: 100 mg Meclizine HCl (Antivert) 25 mg PO TID PRN PRN Reason: Dizziness Multivitamins (Thera) 1 each PO DAILY [facility] Last Admin: 03/14/17 09:11 Dose: 1 each Non-Formulary Medication (Cyanocobalamin (Vitamin B-12)) 100 mcg PO DAILY [facility] Gabapentin 400mg (CapsPt Own) 800 each PO TID [facility] Ondansetron HCl (Zofran) 4 mg IV Q6H PRN PRN Reason: Nausea/Vomiting Oxybutynin Chloride (Oxybutynin) 5 mg PO DAILY PRN PRN Reason: Other Pentosan Polysulfate Sodium [Elmiron] 100 Mg) 0 each PO TID [facility] Polyethylene Glycol (Miralax) 17 gm PO DAILY PRN PRN Reason: Constipation Potassium Chloride (Klor-Con 10) 10 meq PO DAILY [facility] Last Admin: 03/14/17 09:11 Dose: 10 meq Saccharomyces Boulardii (Florastor) 250 mg PO DAILY [facility] Senna/Docusate Sodium (Senna Plus) 1 tab PO BID PRN PRN Reason: Constipation Last Admin: 03/13/17 23:05 Dose: 1 tab Simvastatin (Zocor) 10 mg PO BEDTIME [facility] Last Admin: 03/13/17 23:06 Dose: 10 mg Sodium Chloride (Saline Flush) 10 ml FLUSH ASDIRECTED PRN PRN Reason: Keep Vein Open Last Admin: 03/13/17 11:45 Dose: 10 ml Zolpidem Tartrate (Ambien) 2.5 mg PO BEDTIME PRN PRN Reason: Insomnia Discontinued Medications Diphtheria/Tetanus/Acell Pertussis (Adacel) 0.5 ml IM .ONCE ONE Stop: 03/13/17 16:17 Docusate Sodium (Colace) 100 mg PO BID PRN PRN Reason: Constipation Gabapentin (Neurontin) 600 mg PO ONETIME [facility] Last Admin: 03/13/17 18:20 Dose: 600 mg Gabapentin (Neurontin) 200 mg PO ONETIME [facility] Last Admin: 03/13/17 18:20 Dose: 200 mg Gabapentin (Neurontin) 600 mg PO ONETIME ONE Stop: 03/13/17 23:46 Glipizide (Glucotrol Xl) 2.5 mg PO BID [facility] Hydromorphone HCl (Dilaudid) 0.25 mg IVPUSH Q2H PRN PRN Reason: Pain (severe 7-10) Sodium Chloride (Normal Saline) 1,000 mls @ 150 mls/hr IV ONETIME ONE Stop: 03/13/17 17:49 Last Admin: 03/13/17 18:14 Dose: Not Given Levofloxacin/Dextrose 750 mg/ (Premix) 150 mls @ 100 mls/hr IV ONETIME ONE Stop: 03/13/17 13:27 Last Admin: 03/13/17 12:20 Dose: 100 mls/hr Sodium Chloride (Normal Saline) 500 mls @ 250 mls/hr IV .BOLUS ONE Stop: 03/13/17 14:01 Last Admin: 03/13/17 12:19 Dose: 250 mls/hr Levofloxacin/Dextrose 500 mg/ (Premix) 100 mls @ 100 mls/hr IV Q24H [facility] Sodium Chloride (Normal Saline) Confirm Administered Dose 1,000 mls @ as directed .ROUTE .STK-MED ONE Stop: 03/13/17 17:32 Last Admin: 03/13/17 18:15 Dose: Not Given Insulin Aspart (Novolog) 0 unit SUBCUT ASDIRECTED MARCELLO PRN Reason: Protocol Gabapanetin 400mg (CapPt Own) 800 each PO ONETIME ONE Stop: 03/13/17 23:01 Last Admin: 03/13/17 23:05 Dose: 800 each Pneumococcal Polyvalent Vaccine (Pneumovax 23) 0.5 ml IM .ONCE ONE Stop: 03/13/17 16:17 Temazepam (Restoril) 7.5 mg PO BEDTIME PRN PRN Reason: Sleep - Exam Quality Assessment: DVT Prophylaxis General: Alert, Oriented, Cooperative, No Acute Distress HEENT: Pupils Equal, Pupils Reactive, EOMI Neck: Supple, No JVD Lungs: Clear to Auscultation, Normal Respiratory Effort, Decreased Breath Sounds (bases) Cardiovascular: Regular Rate, Regular Rhythm GI/Abdominal Exam: Normal Bowel Sounds, Soft, Non-Tender (Female) Exam: Deferred Extremities: Normal Inspection, No Pedal Edema, Normal Capillary Refill Neurological: No New Focal Deficit Psy/Mental Status: Alert, Normal Affect, Normal Mood - Problem List & Annotations (1) Generalized weakness SNOMED Code(s): 51435916 Code(s): R53.1 - WEAKNESS Status: Acute Priority: High Current Visit: Yes (2) UTI, Urinary tract infectious disease SNOMED Code(s): 27238310 Code(s): N39.0 - URINARY TRACT INFECTION, SITE NOT SPECIFIED Status: Acute Priority: High Current Visit: Yes (3) Diabetes mellitus type 2 in nonobese SNOMED Code(s): 503385341 Code(s): E11.9 - TYPE 2 DIABETES MELLITUS WITHOUT COMPLICATIONS Status: Chronic Priority: Medium Current Visit: Yes (4) Diabetic neuropathy SNOMED Code(s): 804568201 Code(s): E11.40 - TYPE 2 DIABETES MELLITUS WITH DIABETIC NEUROPATHY, UNSP Status: Chronic Priority: Medium Current Visit: No Qualifiers: Diabetes mellitus type: type 2 (5) Hypertension SNOMED Code(s): 48420206 Code(s): I10 - ESSENTIAL (PRIMARY) HYPERTENSION Status: Chronic Priority : Medium Current Visit: No Qualifiers: Hypertension type: essential hypertension Qualified Code(s): I10 - Essential (primary) hypertension - Problem List Review Problem List Initiated/Reviewed/Updated: Yes - My Orders Last 24 Hours: My Active Orders 03/14/17 10:43 Chest 2V [CR] Routine - Plan Plan:: Assessment/Plan: Acute: UTI - Risk factors: Urinary Incontinence and Recurrent UTI - UA pos for UTI; Symptomatic - Hx/o E. coli, Proteus Mirabilis and MRSA in the past on UC - Received Iv Levaquin in ED; will continue levaquin daily - UA Cx/Sx--no growth as of yet Leukocytosis - 2/2 Above - WBC is 27.30 and CRP is 11.7; repeat today is with WBC of 12.63 and CRP 14.6 - Treat underlying cause Generalized Weakness - PT/OT consult - Vit D and TFT in AM -TSH WNL. -CXR obtained also; shows bilateral blunting of costophrenic angles- await radiologist final interp and order BNP. Documented hx of CHF but unknown EF; will also obtain Echo. Hx of CAD Chronic: Impaired Vision Hx/o Atrial Fibrillation, on ASA- rate controlled CAD S/p Stent Placement HF with Unknown EF HLD HTN- stable Urinary Incontinence with hx of recurrent UTI DM2, Accu-check AM/HS, A1C 5.60 on 12/20/16, diet controlled Peripheral Neuropathy- on gabapentin OA Anemia, Hgb 9.8, Stable JULIA Hx/o MRSA via urine in the past Plan: Admit to Med-Surge with Tele Routine AM Labs Resume Home Meds PT/OT consult Fall Precautions SW/CM for d/c planning--PT recommendations today are SNF vs [facility] vs [facility] on discharge- will cont to assess. DVT/GI PPx Additional orders as above Code status: 1 PCP is Jessy Galeana PA-C with [facility] in [place]
[2017-03-14] MEDS ORDERED: Magnesium Oxide 400 MG Tab PO ONE (11:30)
--- NOTE | 2017-03-14 12:22 | CR ---
Chest: Two views of the chest were obtained. Comparison: Prior chest x-ray of 12/01/16. Aortic stent is seen. Mitral annulus calcification is noted. Heart does not appear enlarged. Tortuous thoracic aorta is seen. Lungs are hyperinflated compatible with emphysematous change. Lungs show no acute infiltrates. Questionable small pleural effusions are present. Previous lumbar spine surgery is noted. Kyphosis, degenerative change and mild scoliosis is seen within the spine. Impression: 1. Possible small pleural effusions. 2. Emphysematous change. 3. Other incidental findings. Diagnostic code #2
[2017-03-14] MEDS: Levofloxacin/Dextrose 5%-Water 250 MG in Premix Bag 1 BAG IV SCH (12:52)
[2017-03-14] MEDS: Saccharomyces Boulardii (Probiotic) 250 MG Cap PO SCH (12:52)
[2017-03-14] MEDS: Pentosan Polysulfate Sodium [Elmiron] 100 MG) PO SCH ×4 (13:22→21:49)
[2017-03-14] MEDS: CYANOCOBALAMIN 100 MCG PO SCH (13:24)
[2017-03-14] MEDS: Acetaminophen/HYDROcodone 325-5 MG Tab PO PRN ×2 (13:25→18:18)
[2017-03-14] MEDS: GABAPENTIN 400 MG PO SCH ×4 (13:26→23:32)
[2017-03-14] MEDS ORDERED: Furosemide 20 MG Tab PO ONE (15:04)
[2017-03-14] MEDS: HYDROCODONE PO PRN (23:32)
[2017-03-14] MEDS: Simvastatin 10 MG Tab PO SCH (23:32)
[2017-03-14] MEDS: ACETAMINOPHEN PO PRN (23:32)
[2017-03-15] MEDS: Insulin Aspart 100 Units/ML 3 ML Pen SUBCUT SCH (08:12)
[2017-03-15] MEDS ORDERED: Cholecalciferol (Vitamin D3) 1,000 Unit Tab PO SCH (09:00)
[2017-03-15] MEDS: Saccharomyces Boulardii (Probiotic) 250 MG Cap PO SCH (10:00)
[2017-03-15] MEDS: Aspirin 81 MG Tab.EC PO SCH (10:15)
[2017-03-15] MEDS: Multivitamins,Therapeutic Tab PO SCH (10:15)
[2017-03-15] MEDS: Potassium Chloride 10 MEQ Tab.ER**PT OWN PO SCH (10:15)
[2017-03-15] MEDS: Losartan 100 MG Tab PO SCH (10:15)
[2017-03-15] MEDS: Enoxaparin 30 MG/0.3 ML Syringe SUBCUT SCH (10:15)
[2017-03-15] MEDS: Hydrochlorothiazide 25 MG Tab PO SCH (10:16)
[2017-03-15] MEDS: GABAPENTIN 400 MG PO SCH ×2 (12:58→15:46)
[2017-03-15] MEDS: Levofloxacin/Dextrose 5%-Water 250 MG in Premix Bag 1 BAG IV SCH (12:58)
[2017-03-15] MEDS: ACETAMINOPHEN PO PRN (13:00)
[2017-03-15] MEDS: HYDROCODONE PO PRN (13:00)
--- NOTE | 2017-03-15 13:24 | PCM.DCSUM1 ---
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 Patient also admits to having dysuria and urinary frequency. She however denies any sick contact. She further denies any other issues. Patient carries a hx/o urinary incontinence. She was on Macrobid daily up until a week ago due to recurrent UTIs. Her initial workup in the emergency department shows a CBC remarkable for WBC of 27.31, RBC of 2.25, hemoglobin of 9.8, hematocrit 30.2, neutrophils of 92.9% , lymphocytes of 2.6%, monocytes of 2%, and eosinophils of 0.2%. Her chemistry is remarkable for BUN of 29, creatinine of 1.1, glucose of 153, alkaline phosphatase of 33, CRP of 11.7, and albumin of 3. Her UA is suggestive of urinary tract infection. Patient is being admitted for medical treatment of urinary tract infection. She is full code. PCP is Jessy Galeana PAC with [facility] here in [place]. Patient was hydrated, started on IV levaquin with good response. Lower abdominal pain and dysuria are improved to resolved. She had CXR that showed mild pleural effusions, BNP was obtained and was with slight increase result. She was given increased dose of lasix with good amount of diuresis. She was asymptomatic from CHF standpoint through her stay. She worked with PT/OT, did well but with recommendations to continue outpatient PT upon discharge, orders are signed and sent to therapy. She will be discharged on PO levaquin x 3 more doses, cranberry tablets and with recommendations to f/up with Jessy Galeana PCP within one week of discharge. - Discharge Data Discharge Date: 03/15/17 (admit date03/13/17) Discharge Disposition: Home, Self-Care 01 Condition: Good - Discharge Diagnosis/Problem(s) (1) Generalized weakness SNOMED Code(s): 93398545 ICD Code: R53.1 - WEAKNESS Status: Acute Priority: High Current Visit: Yes (2) UTI, Urinary tract infectious disease SNOMED Code(s): 97857280 ICD Code: N39.0 - URINARY TRACT INFECTION, SITE NOT SPECIFIED Status: Acute Priority: High Current Visit: Yes (3) Diabetes mellitus type 2 in nonobese SNOMED Code(s): 889614204 ICD Code: E11.9 - TYPE 2 DIABETES MELLITUS WITHOUT COMPLICATIONS Status: Chronic Priority: Medium Current Visit: Yes (4) Diabetic neuropathy SNOMED Code(s): 985219676 ICD Code: E11.40 - TYPE 2 DIABETES MELLITUS WITH DIABETIC NEUROPATHY, UNSP Status: Chronic Priority: Medium Current Visit: No Qualifiers: Diabetes mellitus type: type 2 (5) Hypertension SNOMED Code(s): 22836008 ICD Code: I10 - ESSENTIAL (PRIMARY) HYPERTENSION Status: Chronic Priority : Medium Current Visit: No Qualifiers: Hypertension type: essential hypertension Qualified Code(s): I10 - Essential (primary) hypertension - Patient Summary/Data Operative Procedure(s) Performed: None Complications: None Consults: Consultations 03/13/17 15:52 Consult to Case Management [CONS] Routine Consult to Audience Coordinator [CONS] Routine Consult to Spiritual Care [CONS] Routine OT Evaluation and Treatment [CONS] Routine PT Evaluation and Treatment [CONS] Routine Labs Pending at D/C: None Recommended Follow-up Testing/Procedures: Patient DC instructions: weight yourself every day and keep a record for your doctor Continue with Outpatient Physical Therapy Push fluids Follow up with PCP, Jessy Galeana PA-C within one week of discharge for further evaluation of recurrent/return of UTI Planned Operative Procedure(s) after DC: None Hospital Course: As above - Patient Instructions Diet: Usual Diet as Tolerated, Drink 8-10+ Glasses/Day, Diabetic Diet Activity: As Tolerated (Continue outpatient PT for weakness, strenthening and balance) Driving: Do Not Drive Showering/Bathing: May Shower Notify Provider of: Fever, Increased Pain, Nausea and/or Vomiting - Discharge Plan Prescriptions/Med Rec: Cholecalciferol (Vitamin D3) [Vitamin D3] 1,000 units PO DAILY #30 tablet Cranberry 400 mg PO BID #60 capsule Levofloxacin [Levaquin] 500 mg PO Q24H #3 tablet Home Medications: Home Meds Gabapentin [Neurontin] 800 mg PO TID 10/25/14 [History] Hydrochlorothiazide 12.5 mg PO DAILY 10/25/14 [History] Losartan [Cozaar] 100 mg PO DAILY 10/25/14 [History] Meclizine [Antivert] 25 mg PO TID PRN 10/25/14 [History] Multivitamin [Yof-Bqirit-Enbdp] 1 each PO DAILY 10/25/14 [History] Oxybutynin 5 mg PO DAILY PRN 10/25/14 [History] Potassium Chloride 10 meq PO DAILY 10/25/14 [History] Pravastatin Sodium [Pravastatin (Pravachol)] 20 mg PO BEDTIME 10/25/14 [History] Hydrocodone/Acetaminophen [Hydrocodon-Acetaminophn 10-325] 10 - 325 mg PO TID PRN 10/26/14 [History] Aspirin 162.5 mg PO DAILY 03/13/17 [History] Calc/D3/Mag/Zn/Head [place] [Calcium 600 MG Plus Vit D] 1,200 mg PO BID [History] Cyanocobalamin (Vitamin B-12) [Vitamin B-12] 100 mcg PO DAILY 03/13/17 [History] Zolpidem [Ambien] 2.5 mg PO BEDTIME PRN 03/13/17 [History] Cholecalciferol (Vitamin D3) [Vitamin D3] 1,000 units PO DAILY #30 tablet [Rx] Cranberry 400 mg PO BID #60 capsule 03/15/17 [Rx] Levofloxacin [Levaquin] 500 mg PO Q24H #3 tablet 03/15/17 [Rx] Patient Handouts: Weakness, [id number], Urinary Tract Infection, Adult, Heart Failure, [id number] Referrals: Jessy Galeana PA [Primary Care Provider] - - Discharge Summary/Plan Comment DC Time >30 min.: Yes (40 min) - General Info Date of Service: 03/15/17 Admission Dx/Problem (Free Text: UTI Darlin is seen today; doing much better. Pain to bladder and lower abdomen is minimal to resolved. Dysuria is also resolved. Appetite is improved as is energy and strength. She will be dc'd home today with oral abx. Functional Status: Reports: Pain Controlled, Tolerating Diet, Ambulating, Urinating. Denies: New Symptoms - Review of Systems General: Reports: Weakness (improved). Denies: Fever HEENT: Reports: No Symptoms Pulmonary: Reports: No Symptoms. Denies: Shortness of Breath, Cough Cardiovascular: Reports: No Symptoms. Denies: Chest Pain, Palpitations, Dyspnea on Exertion Gastrointestinal: Reports: No Symptoms. Denies: Abdominal Pain, Diarrhea, Nausea, Vomiting Genitourinary: Reports: Dysuria (resolving and much improved), Urgency (chronic and unchanged), Incontinence (chronic and unchanged). Denies: Frequency, Hematuria, Flank Pain Musculoskeletal: Reports: No Symptoms Skin: Reports: No Symptoms Neurological: Reports: No Symptoms Psychiatric: Reports: No Symptoms - Patient Data Vitals - Most Recent: Last Vital Signs Temp 97.5 F 03/15/17 08:04 Pulse 63 03/15/17 08:04 Resp 18 03/15/17 08:04 BP 156/49 H 03/15/17 10:15 Pulse Ox 93 L 03/15/17 08:04 Weight - Most Recent: 125 lb 6.4 oz I&O - Last 24 hours: Intake & Output 03/14/17 03/15/17 03/15/17 22:59 06:59 14:59 Intake Total 1010 800 210 Balance 1010 800 210 Lab Results - Last 24 hrs: Laboratory Results - last 24 hr 03/14/17 03/14/17 03/15/17 Range/Units 06:45 23:37 05:45 WBC 8.14 (3.98-10.04) K/mm3 RBC 3.27 L (3.98-5.22) M/mm3 Hgb 9.6 L (11.2-15.7) gm/L Hct 30.8 L (34.1-44.9) % MCV 94.2 (79.4-94.8) fl MCH 29.4 (25.6-32.2) pg MCHC 31.2 L (32.2-35.5) g/dl RDW Std Deviation 42.5 (36.4-46.3) fL Plt Count 233 (182-369) K/mm3 MPV 9.1 L (9.4-12.3) fl Neut % (Auto) 69.0 (34.0-71.1) % Lymph % (Auto) 17.4 L (19.3-51.7) % Payne % (Auto) 6.1 (4.7-12.5) % Eos % (Auto) 7.1 H (0.7-5.8) Baso % (Auto) 0.2 (0.1-1.2) % Neut # (Auto) 5.60 (1.56-6.13) K/mm3 Lymph # (Auto) 1.42 (1.18-3.74) K/mm3 Payne # (Auto) 0.50 H (0.24-0.36) K/mm3 Eos # (Auto) 0.58 H (0.04-0.36) K/mm3 Baso # (Auto) 0.02 (0.01-0.08) K/mm3 Sodium (136-145) mEq/L Potassium (3.5-5.1) mEq/L Chloride (98-107) mEq/L Carbon Dioxide (21-32) mEq/L Anion Gap (5-15) BUN (7-18) mg/dL Creatinine (0.55-1.02) mg/dL Est Cr Clr Drug Dosing mL/min Estimated GFR (MDRD) (>60) mL/min BUN/Creatinine Ratio (14-18) Glucose (83-115) mg/dL POC Glucose 112 H (83-110) mg/dL Calcium (8.5-10.1) mg/dL Magnesium (1.8-2.4) mg/dl C-Reactive Protein (<1.0) mg/dL Vitamin D 25-Hydroxy 27 L (30-100) ng/mL 03/15/17 03/15/17 Range/Units 05:45 07:37 WBC (3.98-10.04) K/mm3 RBC (3.98-5.22) M/mm3 Hgb (11.2-15.7) gm/L Hct (34.1-44.9) % MCV (79.4-94.8) fl MCH (25.6-32.2) pg MCHC (32.2-35.5) g/dl RDW Std Deviation (36.4-46.3) fL Plt Count (182-369) K/mm3 MPV (9.4-12.3) fl Neut % (Auto) (34.0-71.1) % Lymph % (Auto) (19.3-51.7) % Payne % (Auto) (4.7-12.5) % Eos % (Auto) (0.7-5.8) Baso % (Auto) (0.1-1.2) % Neut # (Auto) (1.56-6.13) K/mm3 Lymph # (Auto) (1.18-3.74) K/mm3 Payne # (Auto) (0.24-0.36) K/mm3 Eos # (Auto) (0.04-0.36) K/mm3 Baso # (Auto) (0.01-0.08) K/mm3 Sodium 144 (136-145) mEq/L Potassium 3.8 (3.5-5.1) mEq/L Chloride 108 H (98-107) mEq/L Carbon Dioxide 26 (21-32) mEq/L Anion Gap 13.8 (5-15) BUN 26 H (7-18) mg/dL Creatinine 1.1 H (0.55-1.02) mg/dL Est Cr Clr Drug Dosing 26.68 mL/min Estimated GFR (MDRD) 47 (>60) mL/min BUN/Creatinine Ratio 23.6 H (14-18) Glucose 100 (83-115) mg/dL POC Glucose 97 (83-110) mg/dL Calcium 9.3 (8.5-10.1) mg/dL Magnesium 1.6 L (1.8-2.4) mg/dl C-Reactive Protein 7.1 H* (<1.0) mg/dL Vitamin D 25-Hydroxy (30-100) ng/mL Med Orders - Current: Current Medications Acetaminophen (Tylenol) 650 mg PO Q4H PRN PRN Reason: Pain (Mild 1-3)/fever Albuterol/Ipratropium (Duoneb 3.0-0.5 Mg/3 Ml) 3 ml NEB Q4H PRN PRN Reason: Shortness Of Breath/wheezing Aspirin (Halfprin) 162 mg PO DAILY [facility] Last Admin: 03/15/17 10:15 Dose: 162 mg Bisacodyl (Dulcolax) 5 mg PO DAILY PRN PRN Reason: Constipation Cholecalciferol (Vitamin D3) 1,000 units PO DAILY [facility] Last Admin: 03/15/17 10:14 Dose: 1,000 units Dextrose/Water (Dextrose 50% In Water) 50 ml IVPUSH ASDIRECTED PRN PRN Reason: Hyperglycemia Enoxaparin Sodium (Lovenox) 30 mg SUBCUT DAILY [facility] Last Admin: 03/15/17 10:15 Dose: 30 mg Hydrochlorothiazide (Hydrochlorothiazide) 12.5 mg PO DAILY [facility] Last Admin: 03/15/17 10:16 Dose: 12.5 mg Hydromorphone HCl (Dilaudid) 0.25 mg IVPUSH Q2H PRN PRN Reason: Pain (severe 7-10) Levofloxacin/Dextrose 250 mg/ (Premix) 50 mls @ 50 mls/hr IV Q24H [facility] Last Admin: 03/15/17 12:58 Dose: 50 mls/hr Insulin Aspart (Novolog) 0 unit SUBCUT 07,21 [facility] PRN Reason: Protocol Last Admin: 03/15/17 08:12 Dose: Not Given Lorazepam (Ativan) 0.25 mg IV Q6H PRN PRN Reason: Anxiety Losartan Potassium (Cozaar) 100 mg PO DAILY [facility] Last Admin: 03/15/17 10:15 Dose: 100 mg Multivitamins (Thera) 1 each PO DAILY [facility] Last Admin: 03/15/17 10:15 Dose: 1 each Non-Formulary Medication (Cyanocobalamin (Vitamin B-12)) 100 mcg PO DAILY [facility] Last Admin: 03/14/17 13:24 Dose: Not Given Gabapentin 400mg (CapsPt Own) 800 each PO TID [facility] Last Admin: 03/15/17 12:58 Dose: 800 each Acetaminophen/Hydrocodone 325/10mg Pt Own 10 - 325 mg PO TID PRN PRN Reason: Pain Last Admin: 03/15/17 13:00 Dose: 10 mg Ondansetron HCl (Zofran) 4 mg IV Q6H PRN PRN Reason: Nausea/Vomiting Oxybutynin Chloride (Oxybutynin) 5 mg PO DAILY PRN PRN Reason: Other Polyethylene Glycol (Miralax) 17 gm PO DAILY PRN PRN Reason: Constipation Potassium Chloride (Klor-Con 10) 10 meq PO DAILY [facility] Last Admin: 03/15/17 10:15 Dose: 10 meq Saccharomyces Boulardii (Florastor) 250 mg PO DAILY [facility] Last Admin: 03/14/17 12:52 Dose: 250 mg Senna/Docusate Sodium (Senna Plus) 1 tab PO BID PRN PRN Reason: Constipation Last Admin: 03/13/17 23:05 Dose: 1 tab Simvastatin (Zocor) 10 mg PO BEDTIME MARCELLO Last Admin: 03/14/17 23:32 Dose: 10 mg Sodium Chloride (Saline Flush) 10 ml FLUSH ASDIRECTED PRN PRN Reason: Keep Vein Open Last Admin: 03/13/17 11:45 Dose: 10 ml Zolpidem Tartrate (Ambien) 2.5 mg PO BEDTIME PRN PRN Reason: Insomnia Last Admin: 03/15/17 01:53 Dose: 2.5 mg Discontinued Medications Hydrocodone Bitart/Acetaminophen (Fred 325-5 Mg) 1 tab PO Q4H PRN PRN Reason: Pain (moderate 4-6) Last Admin: 03/14/17 18:18 Dose: 1 tab Diphtheria/Tetanus/Acell Pertussis (Adacel) 0.5 ml IM .ONCE ONE Stop: 03/13/17 16:17 Docusate Sodium (Colace) 100 mg PO BID PRN PRN Reason: Constipation Furosemide (Lasix) 20 mg PO ONETIME ONE Stop: 03/14/17 15:05 Last Admin: 03/14/17 15:46 Dose: 20 mg Gabapentin (Neurontin) 600 mg PO ONETIME [facility] Last Admin: 03/13/17 18:20 Dose: 600 mg Gabapentin (Neurontin) 200 mg PO ONETIME [facility] Last Admin: 03/13/17 18:20 Dose: 200 mg Gabapentin (Neurontin) 600 mg PO ONETIME ONE Stop: 03/13/17 23:46 Glipizide (Glucotrol Xl) 2.5 mg PO BID MARCELLO Hydromorphone HCl (Dilaudid) 0.25 mg IVPUSH Q2H PRN PRN Reason: Pain (severe 7-10) Sodium Chloride (Normal Saline) 1,000 mls @ 150 mls/hr IV ONETIME ONE Stop: 03/13/17 17:49 Last Admin: 03/13/17 18:14 Dose: Not Given Levofloxacin/Dextrose 750 mg/ (Premix) 150 mls @ 100 mls/hr IV ONETIME ONE Stop: 03/13/17 13:27 Last Admin: 03/13/17 12:20 Dose: 100 mls/hr Sodium Chloride (Normal Saline) 500 mls @ 250 mls/hr IV .BOLUS ONE Stop: 03/13/17 14:01 Last Admin: 03/13/17 12:19 Dose: 250 mls/hr Promethazine HCl 12.5 mg/ (Sodium Chloride) 50.5 mls @ 100 mls/hr IV Q6H PRN PRN Reason: Nausea/Vomiting Levofloxacin/Dextrose 500 mg/ (Premix) 100 mls @ 100 mls/hr IV Q24H [facility] Sodium Chloride (Normal Saline) Confirm Administered Dose 1,000 mls @ as directed .ROUTE .STK-MED ONE Stop: 03/13/17 17:32 Last Admin: 03/13/17 18:15 Dose: Not Given Insulin Aspart (Novolog) 0 unit SUBCUT ASDIRECTED [facility] PRN Reason: Protocol Magnesium Oxide (Magnesium Oxide) 400 mg PO ONETIME ONE Stop: 03/14/17 11:31 Last Admin: 03/14/17 12:52 Dose: 400 mg Meclizine HCl (Antivert) 25 mg PO TID PRN PRN Reason: Dizziness Gabapanetin 400mg (CapPt Own) 800 each PO ONETIME ONE Stop: 03/13/17 23:01 Last Admin: 03/13/17 23:05 Dose: 800 each Pentosan Polysulfate Sodium [Elmiron] 100 Mg) 0 each PO TID [facility] Last Admin: 03/14/17 21:49 Dose: Not Given Pneumococcal Polyvalent Vaccine (Pneumovax 23) 0.5 ml IM .ONCE ONE Stop: 03/13/17 16:17 Temazepam (Restoril) 7.5 mg PO BEDTIME PRN PRN Reason: Sleep - Exam Quality Assessment: Reports: DVT Prophylaxis General: Reports: Alert, Oriented, Cooperative, No Acute Distress HEENT: Reports: Pupils Equal, EOMI, Mucous Membr. Moist/[place] Neck: Reports: Supple Lungs: Reports: Clear to Auscultation, Normal Respiratory Effort Cardiovascular: Reports: Regular Rate, Regular Rhythm, No Murmurs GI/Abdominal Exam: Normal Bowel Sounds, Soft, Non-Tender (Female) Exam: Deferred Rectal (Female) Exam: Deferred Back Exam: Reports: Normal Inspection. Denies: CVA Tenderness (L), CVA Tenderness (R) Extremities: Normal Inspection, No Pedal Edema, Normal Capillary Refill Neurological: Reports: No New Focal Deficit Psy/Mental Status: Reports: Alert, Normal Affect, Normal Mood *Q Meaningful Use (DIS) - VTE *Q VTE Criteria *Q: - Stroke *Q Stroke Criteria *Q: - AMI *Q AMI Criteria *Q:
[2017-03-15] MEDS: CYANOCOBALAMIN 100 MCG PO SCH (15:46)
[2017-03-15 15:58] VITALS: BP 134/72
== END 2017-03-15 14:40 | disposition home or self-care (01) ==
LOC: JD.ED 10:30 → JD.MS 14:31
PROVIDERS: ADMIT Internal Medicine; ATTEND Internal Medicine
DX: N39.0 Urinary tract infection, site not specified (principal); R53.1 Weakness; I48.91 Unspecified atrial fibrillation; R30.0 Dysuria; R39.15 Urgency of urination; R32 Unspecified urinary incontinence; I11.0 Hypertensive heart disease with heart failure; I50.9 Heart failure, unspecified; I25.10 Atherosclerotic heart disease of native coronary artery without angina pectoris; M19.90 Unspecified osteoarthritis, unspecified site; D50.9 Iron deficiency anemia, unspecified; E78.00 Pure hypercholesterolemia, unspecified; Z88.1 Allergy status to other antibiotic agents; Z88.5 Allergy status to narcotic agent; Z88.2 Allergy status to sulfonamides; Z79.82 Long term (current) use of aspirin; Z79.899 Other long term (current) drug therapy; Z86.14 Personal history of Methicillin resistant Staphylococcus aureus infection; Z86.010 Personal history of colon polyps; Z87.440 Personal history of urinary (tract) infections; Z87.442 Personal history of urinary calculi; Z95.4 Presence of other heart-valve replacement; Z95.5 Presence of coronary angioplasty implant and graft; Z96.649 Presence of unspecified artificial hip joint; Z96.659 Presence of unspecified artificial knee joint; Z90.49 Acquired absence of other specified parts of digestive tract; Z98.890 Other specified postprocedural states
CPT/HCPCS: 36415; 71020; 80048; 80053; 81001; 82306; 82962; 83605; 83735; 83880; 84439; 84443; 84484; 85025; 86140; 87040; 87086; 87641; 93005; 96365; 96366; 96372; 97110; 97116; 97162; 97166; 97530; 99285; A9270; G0378; J1650; J1956; J7040; J7050; P9612; 93010

== ENCOUNTER 2017-03-23 18:15 | Emergency (ER) | payer MEDICARE, BC ==
--- NOTE | 2017-03-23 19:20 | EDM.PDOC ---
ED HPI GENERAL MEDICAL PROBLEM - General Chief Complaint: Genitourinary Problem Stated Complaint: POSS UTI Time Seen by Provider: 03/23/17 19:10 - History of Present Illness INITIAL COMMENTS - FREE TEXT/NARRATIVE: 87-year-old female presents emergency room with fevers chills and suspected repeat urinary tract infection. Patient developed fevers earlier today and has had significant weakness with this this has not been associated with any nausea vomiting no breathing difficulty shortness of breath no chest pain or chest pressure. Patient denies any other problems at this time. Patient was recently admitted with similar symptoms she was here a couple weeks ago. Her last admission on the of this month she was treated with Levaquin and finished an outpatient course of oral Levaquin. When she developed her symptoms this morning she did take a Macrobid however her primary physician advised her not to take anymore of these she is scheduled to have follow-up appointment with her regular physician early this next week. - Related Data Allergies Allergy/AdvReac Type Severity Reaction Status Date / Time codeine Allergy Cannot Verified 03/23/17 18:37 Remember Sulfa (Sulfonamide Allergy Fatigue Verified 03/23/17 18:37 Antibiotics) sulfamethoxazole Allergy Rash Verified 03/23/17 18:37 [From Bactrim] trimethoprim [From Bactrim] Allergy Rash Verified 03/23/17 18:37 Home Meds: Home Meds Gabapentin [Neurontin] 800 mg PO TID 10/25/14 [History] Hydrochlorothiazide 12.5 mg PO DAILY 10/25/14 [History] Losartan [Cozaar] 100 mg PO DAILY 10/25/14 [History] Meclizine [Antivert] 25 mg PO TID PRN 10/25/14 [History] Multivitamin [Hyg-Whoxbn-Ovffs] 1 each PO DAILY 10/25/14 [History] Oxybutynin 5 mg PO DAILY PRN 10/25/14 [History] Potassium Chloride 10 meq PO DAILY 10/25/14 [History] Pravastatin Sodium [Pravastatin (Pravachol)] 20 mg PO BEDTIME 10/25/14 [History] Hydrocodone/Acetaminophen [Hydrocodon-Acetaminophn 10-325] 10 - 325 mg PO TID PRN 10/26/14 [History] Aspirin 162.5 mg PO DAILY 03/13/17 [History] Calc/D3/Mag/Zn/Recycling Director/Adnte/[place] [Calcium 600 MG Plus Vit D] 1,200 mg PO BID [History] Cyanocobalamin (Vitamin B-12) [Vitamin B-12] 100 mcg PO DAILY 03/13/17 [History] Zolpidem [Ambien] 2.5 mg PO BEDTIME PRN 03/13/17 [History] Cholecalciferol (Vitamin D3) [Vitamin D3] 1,000 units PO DAILY #30 tablet [Rx] Cranberry 400 mg PO BID #60 capsule 03/15/17 [Rx] Nitrofurantoin Macrocrystal [Macrodantin] 100 mg PO DAILY 03/23/17 [History] Past Medical History HEENT History: Reports: Impaired Vision Cardiovascular History: Reports: Afib, CAD, Heart Failure, High Cholesterol, Hypertension Gastrointestinal History: Reports: Colon Polyp Genitourinary History: Reports: Renal Calculus, Urinary Incontinence, UTI, Recurrent Other Genitourinary History: cyst on kidney [employer] History: Reports: Other OB/BYN History: 8 pregnacies Musculoskeletal History: Reports: Arthritis Neurological History: Reports: None Endocrine/Metabolic History: Reports: Diabetes, Type II Hematologic History: Reports: Anemia, Blood Transfusion(s), Iron Deficiency - Infectious Disease History Infectious Disease History: Reports: Chicken Pox, Measles, MRSA, Mumps - Past Surgical History HEENT Surgical History: Reports: Cataract Surgery, Tonsillectomy Cardiovascular Surgical History: Reports: Coronary Artery Stent, Valve Replacement GI Surgical History: Reports: Appendectomy, Cholecystectomy Female Surgical History: Reports: Hysterectomy Neurological Surgical History: Reports: Lumbar Spine Musculoskeletal Surgical History: Reports: Carpal Tunnel, Hip Replacement, Knee Replacement, Shoulder Surgery, Other (See Below) Other Musculoskeletal Surgeries/Procedures:: bilateral knees, bilateral shoulders, and hip 2x Social & Family History - Family History Family Medical History: Noncontributory - Tobacco Use Smoking Status *Q: Never Smoker Second Hand Smoke Exposure: No - Caffeine Use Caffeine Use: Reports: None Other Caffeine Use: 1 every other day - Recreational Drug Use Recreational Drug Use: No - Living Situation & Occupation Living situation: Reports: , Assisted Living Occupation: Retired ED ROS GENERAL - Review of Systems Review Of Systems: See Below Constitutional: Reports: Fever, Chills, Malaise, Weakness. Denies: No Symptoms HEENT: Reports: No Symptoms Respiratory: Reports: No Symptoms. Denies: Cough Cardiovascular: Denies: No Symptoms, Chest Pain Endocrine: Reports: No Symptoms GI/Abdominal: Reports: No Symptoms : Reports: Frequency, Urgency. Denies: Hematuria Musculoskeletal: Reports: No Symptoms Skin: Reports: No Symptoms Neurological: Reports: No Symptoms Psychiatric: Reports: No Symptoms ED EXAM, RENAL/ - Physical Exam Exam: See Below Exam Limited By: No Limitations General Appearance: Alert, No Apparent Distress Ears: Normal External Exam, Normal Canal, Hearing Grossly Normal, Normal TMs Nose: Normal Inspection, Normal Mucosa, No Blood Throat/Mouth: Normal Inspection, Normal Lips, Normal Gums, Normal Oropharynx, Normal Voice, No Airway Compromise Head: Atraumatic, Normocephalic Neck: Normal Inspection, Supple, Non-Tender, Full Range of Motion Respiratory/Chest: No Respiratory Distress, Lungs Clear, Normal Breath Sounds Cardiovascular: Regular Rate, Rhythm, No Edema, No Murmur GI/Abdominal: Normal Bowel Sounds, Soft, Other (She has some suprapubic discomfort no rigidity rebound or guarding noted) Back Exam: Normal Inspection. No: CVA Tenderness (L), CVA Tenderness (R) Extremities: Normal Inspection, No Pedal Edema Neurological: Alert Psychiatric: Normal Affect, Normal Mood Skin Exam: Warm, Dry, Intact Course - Vital Signs Last Recorded V/S: Last Vital Signs Temp 38.1 C 03/23/17 22:21 Pulse 113 H 03/23/17 22:21 Resp 20 03/23/17 22:21 BP 134/49 L 03/23/17 22:21 Pulse Ox 92 L 03/23/17 22:21 - Orders/Labs/Meds Orders: Active Orders 24 hr Category Date Time Status EKG Documentation Completion [RC] STAT Care 03/23/17 19:24 Active Chest 1V Frontal [CR] Stat Exams 03/23/17 19:24 Taken CULTURE BLOOD [BC] Stat Lab 03/23/17 19:44 Received CULTURE BLOOD [BC] Stat Lab 03/23/17 19:53 Received Sodium Chloride 0.9% [Normal Saline] 1,000 ml Med 03/23/17 22:15 Active IV ASDIRECTED cefTRIAXone [Rocephin] Med 03/23/17 22:15 Active 1,000 mg IVPUSH Q24H cefTRIAXone [Rocephin] 1 gm Med 03/23/17 22:08 Active Sodium Chloride 0.9% [Normal Saline] 100 ml IV ONETIME Blood Culture x2 Reflex Set [OM.PC] Stat Oth 03/23/17 19:24 Ordered Medication Orders Ceftriaxone Sodium (Rocephin) 1,000 mg IVPUSH Q24H [facility] Last Admin: 03/23/17 22:07 Dose: Not Given Sodium Chloride (Normal Saline) 1,000 mls @ 125 mls/hr IV ASDIRECTED [facility] Last Admin: 03/23/17 22:13 Dose: 125 mls/hr Ceftriaxone Sodium 1 gm/ (Sodium Chloride) 100 mls @ 200 mls/hr IV ONETIME ONE Stop: 03/23/17 22:37 Last Admin: 03/23/17 22:13 Dose: 200 mls/hr Labs: Laboratory Tests 03/23/17 03/23/17 03/23/17 Range/Units 19:00 19:44 19:44 WBC 18.26 H (3.98-10.04) K/mm3 RBC 3.61 L (3.98-5.22) M/mm3 Hgb 10.9 L (11.2-15.7) gm/L Hct 33.4 L (34.1-44.9) % MCV 92.5 (79.4-94.8) fl MCH 30.2 (25.6-32.2) pg MCHC 32.6 (32.2-35.5) g/dl RDW Std Deviation 42.6 (36.4-46.3) fL Plt Count 234 (182-369) K/mm3 MPV 9.5 (9.4-12.3) fl Neutrophils % (Manual) 87 H (40-60) % Band Neutrophils % 10 (0-10) % Lymphocytes % (Manual) 1 L (20-40) % Atypical Lymphs % 0 % Monocytes % (Manual) 2 (2-10) % Eosinophils % (Manual) 0 L (0.7-5.8) % Basophils % (Manual) 0 L (0.1-1.2) Toxic Granulation See note Platelet Estimate Adequate Plt Morphology Comment Normal RBC Morph Comment Normal Sodium 141 (136-145) mEq/L Potassium 4.1 (3.5-5.1) mEq/L Chloride 103 (98-107) mEq/L Carbon Dioxide 26 (21-32) mEq/L Anion Gap 16.1 H (5-15) BUN 30 H (7-18) mg/dL Creatinine 1.3 H (0.55-1.02) mg/dL Est Cr Clr Drug Dosing 22.57 mL/min Estimated GFR (MDRD) 39 (>60) mL/min BUN/Creatinine Ratio 23.1 H (14-18) Glucose 137 H (83-115) mg/dL Lactic Acid (0.4-2.0) mmol/L Calcium 10.1 (8.5-10.1) mg/dL Total Bilirubin 0.5 (0.2-1.0) mg/dL AST 24 (15-37) U/L ALT 23 (14-59) U/L Alkaline Phosphatase 34 L (46-116) U/L Troponin I < 0.017 (0.00-0.056) ng/mL Total Protein 7.3 (6.4-8.2) g/dl Albumin 3.5 (3.4-5.0) g/dl Globulin 3.8 gm/dL Albumin/Globulin Ratio 0.9 L (1-2) Urine Color Yellow (Yellow) Urine Appearance Clear (Clear) Urine pH 6.0 (5.0-8.0) Ur Specific [place] 1.015 (1.005-1.030) Urine Protein Negative (Negative) Urine Glucose (UA) Negative (Negative) Urine Ketones 1+ H (Negative) Urine Occult Blood Trace-intact H (Negative) Urine Nitrite Negative (Negative) Urine Bilirubin Negative (Negative) Urine Urobilinogen 0.2 (0.2-1.0) Ur Leukocyte Esterase 1+ H (Negative) Urine RBC 0-5 (0-5) /hpf Urine WBC 50-75 H (0-5) /hpf Ur Epithelial Cells 0-5 (0-5) /hpf Urine Bacteria Few (FEW) /hpf Urine Mucus Not seen (FEW) /hpf 03/23/17 Range/Units 19:44 WBC (3.98-10.04) K/mm3 RBC (3.98-5.22) M/mm3 Hgb (11.2-15.7) gm/L Hct (34.1-44.9) % MCV (79.4-94.8) fl MCH (25.6-32.2) pg MCHC (32.2-35.5) g/dl RDW Std Deviation (36.4-46.3) fL Plt Count (182-369) K/mm3 MPV (9.4-12.3) fl Neutrophils % (Manual) (40-60) % Band Neutrophils % (0-10) % Lymphocytes % (Manual) (20-40) % Atypical Lymphs % % Monocytes % (Manual) (2-10) % Eosinophils % (Manual) (0.7-5.8) % Basophils % (Manual) (0.1-1.2) Toxic Granulation Platelet Estimate Plt Morphology Comment RBC Morph Comment Sodium (136-145) mEq/L Potassium (3.5-5.1) mEq/L Chloride (98-107) mEq/L Carbon Dioxide (21-32) mEq/L Anion Gap (5-15) BUN (7-18) mg/dL Creatinine (0.55-1.02) mg/dL Est Cr Clr Drug Dosing mL/min Estimated GFR (MDRD) (>60) mL/min BUN/Creatinine Ratio (14-18) Glucose (83-115) mg/dL Lactic Acid 1.4 (0.4-2.0) mmol/L Calcium (8.5-10.1) mg/dL Total Bilirubin (0.2-1.0) mg/dL AST (15-37) U/L ALT (14-59) U/L Alkaline Phosphatase (46-116) U/L Troponin I (0.00-0.056) ng/mL Total Protein (6.4-8.2) g/dl Albumin (3.4-5.0) g/dl Globulin gm/dL Albumin/Globulin Ratio (1-2) Urine Color (Yellow) Urine Appearance (Clear) Urine pH (5.0-8.0) Ur Specific [place] (1.005-1.030) Urine Protein (Negative) Urine Glucose (UA) (Negative) Urine Ketones (Negative) Urine Occult Blood (Negative) Urine Nitrite (Negative) Urine Bilirubin (Negative) Urine Urobilinogen (0.2-1.0) Ur Leukocyte Esterase (Negative) Urine RBC (0-5) /hpf Urine WBC (0-5) /hpf Ur Epithelial Cells (0-5) /hpf Urine Bacteria (FEW) /hpf Urine Mucus (FEW) /hpf Meds: Medications Generic Name Dose Route Start Last Admin Trade Name Freq PRN Reason Stop Dose Admin Ceftriaxone Sodium 1,000 mg 03/23/17 22:15 03/23/17 22:07 Rocephin IVPUSH Not Given Q24H MARCELLO Sodium Chloride 1,000 mls @ 125 mls/hr 03/23/17 22:15 03/23/17 22:13 Normal Saline IV 125 mls/hr ASDIRECTED MARCELLO Administration Ceftriaxone Sodium 1 gm/ 100 mls @ 200 mls/hr 03/23/17 22:08 03/23/17 22:13 Sodium Chloride IV 03/23/17 22:37 200 mls/hr ONETIME ONE Administration Discontinued Medications Generic Name Dose Route Start Last Admin Trade Name Freq PRN Reason Stop Dose Admin Acetaminophen 650 mg 03/23/17 19:28 03/23/17 20:04 Tylenol PO 03/23/17 19:29 650 mg NOW ONE Administration Gabapentin 800 mg 03/23/17 21:51 03/23/17 22:06 Neurontin PO 03/23/17 21:52 800 mg ONETIME ONE Administration Lactated Ringer's 1,000 mls @ 125 mls/hr 03/23/17 19:30 03/23/17 20:05 Ringers, Lactated IV 125 mls/hr ASDIRECTED MARCELLO Administration - Re-Assessments/Exams Free Text/Narrative Re-Assessment/Exam: 03/23/17 19:32 Labs ordered fluids started we'll give a dose of Tylenol patient be started on LR 125 mL an hour her blood pressure is good at this time she is mildly tachycardic 03/23/17 21:43 At this time the patient should be admitted back to the hospital for IV antibiotics however we have no beds available I've attempted to call the hospitalist at [facility] and am waiting for them to return my call. 03/23/17 22:11 Patient will be transferred to [facility] in [place] excepting as we have no beds remaining at our hospital. This is been discussed with the family and the patient they concur Departure - Departure Time of Disposition: 21:40 Disposition: DC/Tfer to Acute Hospital 02 Clinical Impression: Urinary tract infection - Discharge Information Referrals: Jessy Galeana PA [Primary Care Provider] - Forms: ED Department Discharge - My Orders Last 24 Hours: My Active Orders 03/23/17 19:24 EKG Documentation Completion [RC] STAT Chest 1V Frontal [CR] Stat Blood Culture x2 Reflex Set [OM.PC] Stat 03/23/17 19:44 CULTURE BLOOD [BC] Stat 03/23/17 19:53 CULTURE BLOOD [BC] Stat 03/23/17 22:08 cefTRIAXone [Rocephin] 1 gm Sodium Chloride 0.9% [Normal Saline] 100 ml IV ONETIME 03/23/17 22:15 Sodium Chloride 0.9% [Normal Saline] 1,000 ml IV ASDIRECTED cefTRIAXone [Rocephin] 1,000 mg IVPUSH Q24H - Assessment/Plan Last 24 Hours: My Active Orders 03/23/17 19:24 EKG Documentation Completion [RC] STAT Chest 1V Frontal [CR] Stat Blood Culture x2 Reflex Set [OM.PC] Stat 03/23/17 19:44 CULTURE BLOOD [BC] Stat 03/23/17 19:53 CULTURE BLOOD [BC] Stat 03/23/17 22:08 cefTRIAXone [Rocephin] 1 gm Sodium Chloride 0.9% [Normal Saline] 100 ml IV ONETIME 03/23/17 22:15 Sodium Chloride 0.9% [Normal Saline] 1,000 ml IV ASDIRECTED cefTRIAXone [Rocephin] 1,000 mg IVPUSH Q24H
[2017-03-23] MEDS ORDERED: Acetaminophen 325 MG Tab PO ONE (19:28)
[2017-03-23] MEDS ORDERED: Lactated Ringers 1,000 ML IV SCH (19:30)
[2017-03-23] MEDS ORDERED: Gabapentin 300 MG Cap PO ONE (21:51)
[2017-03-23] MEDS ORDERED: cefTRIAXone 1 GM in Sodium Chloride 0.9% 100 ML IV ONE (22:08)
[2017-03-23] MEDS ORDERED: Sodium Chloride 0.9% 1,000 ML IV SCH (22:15)
[2017-03-23] MEDS ORDERED: cefTRIAXone 1,000 MG VIAL IVPUSH SCH (22:15)
[2017-03-23 22:22] VITALS: BP 134/49
--- NOTE | 2017-03-28 12:10 | CR ---
Chest: Portable view of the chest was obtained. Comparison: Prior chest x-ray of 03/14/17. Vascular stent is seen. Heart size is normal. Mild tortuosity of the thoracic aorta is noted. Lungs are hyperinflated compatible with emphysematous change. No acute appearing infiltrates are seen. Bony structures are osteopenic. Calcification is seen around both shoulders most likely representing changes of calcific bursitis and tendinitis. Scoliosis is present within the spine with scattered degenerative endplate spurring and disc space narrowing. Previous lumbar spine surgery is partially seen. Impression: 1. Multiple findings as noted above. Nothing acute is appreciated. Diagnostic code #2
== END 2017-03-23 22:35 ==
LOC: JD.ED 18:15
DX: N39.0 Urinary tract infection, site not specified (principal); I11.0 Hypertensive heart disease with heart failure; I50.9 Heart failure, unspecified; E11.9 Type 2 diabetes mellitus without complications; Z88.5 Allergy status to narcotic agent; Z88.2 Allergy status to sulfonamides; Z88.1 Allergy status to other antibiotic agents; Z79.899 Other long term (current) drug therapy; Z79.82 Long term (current) use of aspirin
CPT/HCPCS: 36415; 71010; 80053; 81001; 83605; 84484; 85025; 87040; 93005; 96361; 96365; 99285; A9270; J0696; J7030; J7040; J7120; P9612; 93010; 99284

== ENCOUNTER 2017-04-08 18:10 | Inpatient (IN) | payer MEDICARE, BC ==
--- NOTE | 2017-04-08 18:35 | EDM.PDOC ---
<Grant Dunn - Last Filed: 04/08/17 19:14> ED HPI GENERAL MEDICAL PROBLEM - General Chief Complaint: Fever Stated Complaint: [facility] Time Seen by Provider: 04/08/17 18:25 - History of Present Illness INITIAL COMMENTS - FREE TEXT/NARRATIVE: 87-year-old female presents emergency room with fevers. These fever started this afternoon. The patient has a complicated history of recurrent urinary tract infections. She was admitted to [facility] after being evaluated in this emergency room on the of last month she was in the hospital for 4 days she went back to her assisted living center with outpatient physical therapy and is done fairly well she was discharged on Augmentin yesterday was her last day. She was supposed to start Macrobid daily today and she did. However she starts running fevers again. The patient complains of some lower abdominal discomfort and some discomfort associated with her restless leg. She has not had any chest pain chest pressure breathing difficulties or shortness of breath no nausea no vomiting. - Related Data Allergies Allergy/AdvReac Type Severity Reaction Status Date / Time codeine Allergy Cannot Verified 04/08/17 18:17 Remember Sulfa (Sulfonamide Allergy Fatigue Verified 04/08/17 18:17 Antibiotics) sulfamethoxazole Allergy Rash Verified 04/08/17 18:17 [From Bactrim] trimethoprim [From Bactrim] Allergy Rash Verified 04/08/17 18:17 Home Meds: Home Meds Gabapentin [Neurontin] 800 mg PO TID 10/25/14 [History] Hydrochlorothiazide 12.5 mg PO DAILY 10/25/14 [History] Losartan [Cozaar] 100 mg PO DAILY 10/25/14 [History] Meclizine [Antivert] 25 mg PO TID PRN 10/25/14 [History] Multivitamin [Puk-Xezqrg-Bffxm] 1 each PO DAILY 10/25/14 [History] Oxybutynin 5 mg PO DAILY PRN 10/25/14 [History] Potassium Chloride 10 meq PO DAILY 10/25/14 [History] Pravastatin Sodium [Pravastatin (Pravachol)] 20 mg PO BEDTIME 10/25/14 [History] Hydrocodone/Acetaminophen [Hydrocodon-Acetaminophn 10-325] 10 - 325 mg PO Q6H PRN 10/26/14 [History] Calc/D3/Mag/Zn/Liquor Tester/Dante/Greenleaf [Calcium 600 MG Plus Vit D] 1,200 mg PO BID [History] Cyanocobalamin (Vitamin B-12) [Vitamin B-12] 100 mcg PO DAILY 03/13/17 [History] Zolpidem [Ambien] 2.5 mg PO BEDTIME PRN 03/13/17 [History] Aspirin [Halfprin] 81 mg PO DAILY 04/08/17 [History] Hydrocodone/Acetaminophen [Hydrocodon-Acetaminophen 5-325] 1 tab PO Q4H PRN 12/16 [History] Pentosan Polysulfate Sodium [Elmiron] 100 mg PO TID 04/08/17 [History] Past Medical History HEENT History: Reports: Impaired Vision Cardiovascular History: Reports: Afib, CAD, Heart Failure, High Cholesterol, Hypertension Gastrointestinal History: Reports: Colon Polyp Genitourinary History: Reports: Renal Calculus, Urinary Incontinence, UTI, Recurrent Other Genitourinary History: cyst on kidney OUTSOLE ROUNDER History: Reports: Other OB/BYN History: 8 pregnacies Musculoskeletal History: Reports: Arthritis Neurological History: Reports: None Endocrine/Metabolic History: Reports: Diabetes, Type II Hematologic History: Reports: Anemia, Blood Transfusion(s), Iron Deficiency - Infectious Disease History Infectious Disease History: Reports: Chicken Pox, Measles, MRSA, Mumps - Past Surgical History HEENT Surgical History: Reports: Cataract Surgery, Tonsillectomy Cardiovascular Surgical History: Reports: Coronary Artery Stent, Valve Replacement GI Surgical History: Reports: Appendectomy, Cholecystectomy Female Surgical History: Reports: Hysterectomy Neurological Surgical History: Reports: Lumbar Spine Musculoskeletal Surgical History: Reports: Carpal Tunnel, Hip Replacement, Knee Replacement, Shoulder Surgery, Other (See Below) Other Musculoskeletal Surgeries/Procedures:: bilateral knees, bilateral shoulders, and hip 2x Social & Family History - Family History Family Medical History: Noncontributory - Tobacco Use Smoking Status *Q: Never Smoker Second Hand Smoke Exposure: No - Caffeine Use Caffeine Use: Reports: None Other Caffeine Use: 1 every other day - Recreational Drug Use Recreational Drug Use: No - Living Situation & Occupation Living situation: Reports: , Assisted Living Occupation: Retired ED ROS GENERAL - Review of Systems Review Of Systems: See Below Constitutional: Reports: Fever, Chills. Denies: Night Sweats HEENT: Reports: No Symptoms Respiratory: Reports: No Symptoms Cardiovascular: Reports: No Symptoms GI/Abdominal: Reports: Abdominal Pain. Denies: Constipation, Diarrhea, Nausea, Vomiting : Reports: Pain Musculoskeletal: Reports: Other (The patient has been in physical therapy from the time of her discharge and this seems to be helping) Skin: Reports: No Symptoms Neurological: Reports: No Symptoms Psychiatric: Reports: No Symptoms ED EXAM, SEPSIS - Physical Exam Exam: See Below Exam Limited By: No Limitations General Appearance: Alert, No Apparent Distress Eye Exam: Bilateral Eye: Normal Inspection Ears: Normal External Exam, Normal Canal, Hearing Grossly Normal, Normal TMs Nose: Normal Inspection, Normal Mucosa Throat/Mouth: Normal Inspection, Normal Lips, Normal Oropharynx, Normal Voice, No Airway Compromise Head: Atraumatic, Normocephalic Neck: Normal Inspection, Supple, Non-Tender, Full Range of Motion. No: Lymphadenopathy (L), Lymphadenopathy (R) Respiratory/Chest: No Respiratory Distress, Lungs Clear, Normal Breath Sounds Cardiovascular: Regular Rate, Rhythm, No Edema, Systolic Murmur (She has a 2 to 3/6 systolic murmur heard best in the aortic position). No: No Murmur GI/Abdominal Exam: Normal Bowel Sounds, Soft, Non-Tender Back: Normal Inspection. No: CVA Tenderness (L), CVA Tenderness (R) Extremities: Normal Inspection, No Pedal Edema, Other (On the base of her right foot high in the medial arch she hasn't callus this is mildly tender no erythema or drainage noted) Neurological: Alert, Oriented, Normal Cognition Psychiatric: Normal Affect, Normal Mood Course - Vital Signs Last Recorded V/S: Last Vital Signs Temp 39.0 C H 04/08/17 19:06 Pulse 106 H 04/08/17 18:18 Resp BP 161/66 H 04/08/17 18:18 Pulse Ox 93 L 04/08/17 18:18 - Orders/Labs/Meds Orders: Active Orders 24 hr Category Date Time Status Chest 1V Frontal [CR] Stat Exams 04/08/17 18:50 Taken CULTURE BLOOD [BC] Stat Lab 04/08/17 19:25 Received CULTURE BLOOD [BC] Stat Lab 04/08/17 19:35 Received Blood Culture x2 Reflex Set [OM.PC] Stat Oth 04/08/17 18:51 Ordered Medication Orders Acetaminophen (Tylenol) 650 mg PO Q4H PRN PRN Reason: Pain (Mild 1-3)/fever Albuterol/Ipratropium (Duoneb 3.0-0.5 Mg/3 Ml) 3 ml NEB Q4H PRN PRN Reason: Shortness Of Breath/wheezing Bisacodyl (Dulcolax) 5 mg PO DAILY PRN PRN Reason: Constipation Docusate Sodium (Colace) 100 mg PO BID PRN PRN Reason: Constipation Sodium Chloride (Normal Saline) 1,000 mls @ 75 mls/hr IV ASDIRECTED [facility] Ondansetron HCl (Zofran Odt) 4 mg PO Q6H PRN PRN Reason: nausea, able to take PO Ondansetron HCl (Zofran) 4 mg IV Q6H PRN PRN Reason: Nausea/Vomiting Polyethylene Glycol (Miralax) 17 gm PO DAILY PRN PRN Reason: Constipation Senna/Docusate Sodium (Senna Plus) 1 tab PO BID PRN PRN Reason: Constipation Temazepam (Restoril) 7.5 mg PO BEDTIME PRN PRN Reason: Sleep Labs: Laboratory Tests 04/08/17 04/08/17 04/08/17 Range/Units 18:55 19:25 19:25 WBC 11.37 H (3.98-10.04) K/mm3 RBC 3.56 L (3.98-5.22) M/mm3 Hgb 10.5 L (11.2-15.7) gm/L Hct 33.2 L (34.1-44.9) % MCV 93.3 (79.4-94.8) fl MCH 29.5 (25.6-32.2) pg MCHC 31.6 L (32.2-35.5) g/dl RDW Std Deviation 44.5 (36.4-46.3) fL Plt Count 201 (182-369) K/mm3 MPV 9.8 (9.4-12.3) fl Neutrophils % (Manual) 84 H (40-60) % Band Neutrophils % 4 (0-10) % Lymphocytes % (Manual) 9 L (20-40) % Atypical Lymphs % 0 % Monocytes % (Manual) 3 (2-10) % Eosinophils % (Manual) 0 L (0.7-5.8) % Basophils % (Manual) 0 L (0.1-1.2) Platelet Estimate Adequate Plt Morphology Comment Normal Hypochromasia 1+ slight Anisocytosis 1+ slight RBC Morph Comment Not Reportable PT 11.4 (8.0-13.0) SECONDS INR 1.04 Sodium (136-145) mEq/L Potassium (3.5-5.1) mEq/L Chloride (98-107) mEq/L Carbon Dioxide (21-32) mEq/L Anion Gap (5-15) BUN (7-18) mg/dL Creatinine (0.55-1.02) mg/dL Est Cr Clr Drug Dosing mL/min Estimated GFR (MDRD) (>60) mL/min BUN/Creatinine Ratio (14-18) Glucose (83-115) mg/dL Lactic Acid (0.4-2.0) mmol/L Calcium (8.5-10.1) mg/dL Total Bilirubin (0.2-1.0) mg/dL AST (15-37) U/L ALT (14-59) U/L Alkaline Phosphatase (46-116) U/L Total Protein (6.4-8.2) g/dl Albumin (3.4-5.0) g/dl Globulin gm/dL Albumin/Globulin Ratio (1-2) Urine Color Light yellow (Yellow) Urine Appearance Clear (Clear) Urine pH 6.0 (5.0-8.0) Ur Specific [place] 1.020 (1.005-1.030) Urine Protein 1+ H (Negative) Urine Glucose (UA) Negative (Negative) Urine Ketones Negative (Negative) Urine Occult Blood Trace-intact H (Negative) Urine Nitrite Negative (Negative) Urine Bilirubin Negative (Negative) Urine Urobilinogen 0.2 (0.2-1.0) Ur Leukocyte Esterase Negative (Negative) Urine RBC 10-20 H (0-5) /hpf Urine WBC 5-10 H (0-5) /hpf Ur Epithelial Cells 0-5 (0-5) /hpf Urine Bacteria Rare (FEW) /hpf Urine Mucus Not seen (FEW) /hpf 04/08/17 04/08/17 Range/Units 19:25 19:25 WBC (3.98-10.04) K/mm3 RBC (3.98-5.22) M/mm3 Hgb (11.2-15.7) gm/L Hct (34.1-44.9) % MCV (79.4-94.8) fl MCH (25.6-32.2) pg MCHC (32.2-35.5) g/dl RDW Std Deviation (36.4-46.3) fL Plt Count (182-369) K/mm3 MPV (9.4-12.3) fl Neutrophils % (Manual) (40-60) % Band Neutrophils % (0-10) % Lymphocytes % (Manual) (20-40) % Atypical Lymphs % % Monocytes % (Manual) (2-10) % Eosinophils % (Manual) (0.7-5.8) % Basophils % (Manual) (0.1-1.2) Platelet Estimate Plt Morphology Comment Hypochromasia Anisocytosis RBC Morph Comment PT (8.0-13.0) SECONDS INR Sodium 140 (136-145) mEq/L Potassium 4.2 (3.5-5.1) mEq/L Chloride 105 (98-107) mEq/L Carbon Dioxide 26 (21-32) mEq/L Anion Gap 13.2 (5-15) BUN 27 H (7-18) mg/dL Creatinine 1.2 H (0.55-1.02) mg/dL Est Cr Clr Drug Dosing 24.45 mL/min Estimated GFR (MDRD) 42 (>60) mL/min BUN/Creatinine Ratio 22.5 H (14-18) Glucose 196 H (83-115) mg/dL Lactic Acid 1.3 (0.4-2.0) mmol/L Calcium 9.9 (8.5-10.1) mg/dL Total Bilirubin 0.4 (0.2-1.0) mg/dL AST 23 (15-37) U/L ALT 21 (14-59) U/L Alkaline Phosphatase 34 L (46-116) U/L Total Protein 7.2 (6.4-8.2) g/dl Albumin 3.5 (3.4-5.0) g/dl Globulin 3.7 gm/dL Albumin/Globulin Ratio 1.0 (1-2) Urine Color (Yellow) Urine Appearance (Clear) Urine pH (5.0-8.0) Ur Specific [place] (1.005-1.030) Urine Protein (Negative) Urine Glucose (UA) (Negative) Urine Ketones (Negative) Urine Occult Blood (Negative) Urine Nitrite (Negative) Urine Bilirubin (Negative) Urine Urobilinogen (0.2-1.0) Ur Leukocyte Esterase (Negative) Urine RBC (0-5) /hpf Urine WBC (0-5) /hpf Ur Epithelial Cells (0-5) /hpf Urine Bacteria (FEW) /hpf Urine Mucus (FEW) /hpf Meds: Medications Generic Name Dose Route Start Last Admin Trade Name Trung PRN Reason Stop Dose Admin Acetaminophen 650 mg 04/08/17 22:41 Tylenol PO Q4H PRN Pain (Mild 1-3)/fever Albuterol/Ipratropium 3 ml 04/08/17 22:41 Duoneb 3.0-0.5 Mg/3 Ml NEB Q4H PRN Shortness Of Breath/wheezing Bisacodyl 5 mg 04/08/17 22:41 Dulcolax PO DAILY PRN Constipation Docusate Sodium 100 mg 04/08/17 22:41 Colace PO BID PRN Constipation Sodium Chloride 1,000 mls @ 75 mls/hr 04/08/17 23:00 Normal Saline IV ASDIRECTED [facility] Ondansetron HCl 4 mg 04/08/17 22:41 Zofran Odt PO Q6H PRN nausea, able to take PO Ondansetron HCl 4 mg 04/08/17 22:41 Zofran IV Q6H PRN Nausea/Vomiting Polyethylene Glycol 17 gm 04/08/17 22:41 Miralax PO DAILY PRN Constipation Senna/Docusate Sodium 1 tab 04/08/17 22:41 Senna Plus PO BID PRN Constipation Temazepam 7.5 mg 04/08/17 22:41 Restoril PO BEDTIME PRN Sleep Discontinued Medications Generic Name Dose Route Start Last Admin Trade Name Freparth PRN Reason Stop Dose Admin Gabapentin 800 mg 04/08/17 19:50 04/08/17 20:02 Neurontin PO 04/08/17 19:51 800 mg ONETIME ONE Administration Departure - Departure Disposition: Refer to Observation Clinical Impression: Febrile illness, acute - Discharge Information <Cesar Glass - Last Filed: 04/09/17 00:35> Course - Re-Assessments/Exams Free Text/Narrative Re-Assessment/Exam: 04/08/17 20:25 Portable chest radiograph reviewed. Cardiac silhouette is within normal limits. No pulmonary vascular congestion. No pleural effusions. No focal infiltrate. No pneumothorax. Aortic stent noted. Hyperinflation and bilateral diaphragmatic flattening, consistent with COPD, noted. Lumbar fusion hardware noted. Formal read per the Radiologist pending. 04/08/17 20:53 Test results discussed with the patient and her son, at the bedside. Today's workup is grossly unremarkable, and does not explain the cause of the patient's fever. She has a mildly elevated WBC count, but only 4% bandemia. Her urinalysis does not reflect a UTI. Her influenza swab returned negative, and her chest radiograph does not find an infiltrate consistent with pneumonia. I am concerned that the patient is weak and confused, and not safe for discharge back to her assisted living. I therefore recommended placement into observation overnight. The patient's son is in agreement. Case discussed with the Hospitalist Dr. Finnegan at 20:49. He [facility] Departure - Departure Time of Disposition: 20:55 Condition: Fair
[2017-04-08] MEDS ORDERED: Gabapentin 100 MG Cap PO ONE (19:50)
[2017-04-08] MEDS ORDERED: Ondansetron 4 MG Tab.DIS PO PRN (22:41)
[2017-04-08] MEDS ORDERED: Docusate Sodium 100 MG Cap PO PRN (22:41)
[2017-04-08] MEDS ORDERED: Albuterol/Ipratropium 3.0-0.5 MG/3 ML Neb Soln NEB PRN (22:41)
[2017-04-08] MEDS ORDERED: Bisacodyl 5 MG Tab PO PRN (22:41)
[2017-04-08] MEDS ORDERED: Polyethylene Glycol 3350 Powder 17 GM Packet PO PRN (22:41)
[2017-04-08] MEDS ORDERED: Ondansetron 4 MG/2 ML SDV IV PRN (22:41)
--- NOTE | 2017-04-08 23:02 | PCM.HP ---
H&P History of Present Illness - General Date of Service: 04/08/17 Admit Problem/Dx: Admission Diagnosis/Problem Admission Diagnosis/Problem Fever Source of Information: Patient, Family, Old Records, Provider, RN History Limitations: Reports: No Limitations - History of Present Illness Initial Comments - Free Text/Narative: Ju Hernández is an 87 yo female who presents to our ED via [facility] with a fever that started this afternoon. She has a rather complex history of recurrent urinary tract infections. On the of last month she was seen in the ED and then admitted to [facility]. She was in the hospital a total of 4 days. She'll return to her assisted-living center and have outpatient physical therapy. She was discharged on Augmentin from the hospital and has done fairly well. Her last day of Augmentin was yesterday. She reportedly talked with her urologist today and was told to start Macrobid daily, which she did, having her first pill this morning. She also complains of some lower abdominal discomfort and pain from her prior restless legs. Denies chest pain, chest pressure, shortness of breath, palpitations, nausea, or vomiting. In the ED temperature 39C. Pulse 106. Blood pressure 161/66. Pulse ox 93%. She was placed on 1 L of oxygen. Labs are obtained: She does have a slight white count at 11.37. Hemoglobin is low at 10.5. Hematocrit low at 33.2. She is normocytic. Platelets 201,000. Neutrophils 84%. Band neutrophils 4%. PT is 11.4. INR 1.04. Sodium is 140. Potassium 4.2. Chloride 105. Carbon dioxide 26. Anion gap 13.2. BUN 27. Creatinine 1.2. EGFR is 42. Glucose is high at 196. Lactic acid is 1.3. Calcium 9.9. Total bilirubin 0.4. AST is 23 , ALT 21, alkaline phosphatase 34. Protein 7.2. Albumin 3.5. UA is negative however one plus protein, trace intact occult blood, 10-20 red blood cells, 5- 10 white blood cells, and rare urine bacteria are noted. Chest x-ray was obtained showing a cardiac silhouette within normal limits. No pulmonary vascular congestion. No pleural effusions, no focal infiltrate, no pneumothorax. Aortic stent is noted. Hyperinflation and bilateral diaphragmatic flattening consistent with COPD as noted. Lumbar fusion hardware is noted. That was interpreted by the ED provider and formal radiologist read is pending. Influenza A and B were both negative. She carries a history of: Impaired vision, A. fib, CAD, CHF, HLD, HTN, recurrent UTIs, arthritis, iron deficiency anemia. 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 She was never a smoker. She is subsequently admitted to the medical floor under observation status. She is a full code. Her PCP is Jessy graham PA-C here at . - Related Data Allergies/Adverse Reactions: Allergies Allergy/AdvReac Type Severity Reaction Status Date / Time codeine Allergy Cannot Verified 04/08/17 18:17 Remember Sulfa (Sulfonamide Allergy Fatigue Verified 04/08/17 18:17 Antibiotics) sulfamethoxazole Allergy Rash Verified 04/08/17 18:17 [From Bactrim] trimethoprim [From Bactrim] Allergy Rash Verified 04/08/17 18:17 Home Medications: Home Meds Gabapentin [Neurontin] 800 mg PO TID 10/25/14 [History] Hydrochlorothiazide 12.5 mg PO DAILY 10/25/14 [History] Losartan [Cozaar] 100 mg PO DAILY 10/25/14 [History] Meclizine [Antivert] 25 mg PO TID PRN 10/25/14 [History] Multivitamin [Zio-Cnilyz-Mixmf] 1 each PO DAILY 10/25/14 [History] Oxybutynin 5 mg PO DAILY PRN 10/25/14 [History] Potassium Chloride 10 meq PO DAILY 10/25/14 [History] Pravastatin Sodium [Pravastatin (Pravachol)] 20 mg PO BEDTIME 10/25/14 [History] Hydrocodone/Acetaminophen [Hydrocodon-Acetaminophn 10-325] 10 - 325 mg PO Q6H PRN 10/26/14 [History] Calc/D3/Mag/Zn/Cruise Agent/Dante/[place] [Calcium 600 MG Plus Vit D] 1,200 mg PO BID [History] Cyanocobalamin (Vitamin B-12) [Vitamin B-12] 100 mcg PO DAILY 03/13/17 [History] Zolpidem [Ambien] 2.5 mg PO BEDTIME PRN 03/13/17 [History] Aspirin [Halfprin] 81 mg PO DAILY 04/08/17 [History] Hydrocodone/Acetaminophen [Hydrocodon-Acetaminophen 5-325] 1 tab PO Q4H PRN 12/16 [History] Pentosan Polysulfate Sodium [Elmiron] 100 mg PO TID 04/08/17 [History] Past Medical History HEENT History: Reports: Impaired Vision Other HEENT History: pt wears glasses Cardiovascular History: Reports: Afib, CAD, Heart Failure, Heart Murmur, High Cholesterol, Hypertension Other Cardiovascular History: aortic valve stenosis Gastrointestinal History: Reports: Colon Polyp Genitourinary History: Reports: Renal Calculus, Urinary Incontinence, UTI, Recurrent Other Genitourinary History: cyst on kidney LIBRARY SERVICES ASSISTANT History: Reports: Other OB/BYN History: 8 pregnacies Musculoskeletal History: Reports: Arthritis Other Musculoskeletal History: restless leg syndrome Neurological History: Reports: None Psychiatric History: Reports: Anxiety, Depression Endocrine/Metabolic History: Reports: Diabetes, Type II Hematologic History: Reports: Anemia, Blood Transfusion(s), Iron Deficiency - Infectious Disease History Infectious Disease History: Reports: Influenza, Measles, MRSA - Past Surgical History HEENT Surgical History: Reports: Cataract Surgery, Tonsillectomy Cardiovascular Surgical History: Reports: Coronary Artery Stent, Valve Replacement GI Surgical History: Reports: Appendectomy, Cholecystectomy Female Surgical History: Reports: Hysterectomy Endocrine Surgical History: Reports: None Neurological Surgical History: Reports: Lumbar Spine Musculoskeletal Surgical History: Reports: Carpal Tunnel, Hip Replacement, Knee Replacement, Shoulder Surgery, Other (See Below) Other Musculoskeletal Surgeries/Procedures:: bilateral knees, bilateral shoulders, and hip 2x Oncologic Surgical History: Reports: None Social & Family History - Family History Family Medical History: Noncontributory - Tobacco Use Smoking Status *Q: Never Smoker Second Hand Smoke Exposure: No - Caffeine Use Caffeine Use: Reports: Coffee Other Caffeine Use: one cup of coffee ever da - Recreational Drug Use Recreational Drug Use: No - Living Situation & Occupation Living situation: Reports: , Assisted Living Occupation: Retired H&P Review of Systems - Review of Systems: Review Of Systems: See Below General: Reports: Fever, Chills, Malaise, Weakness, Fatigue, Decreased Appetite. Denies: Night Sweats, Diaphoresis HEENT: Reports: No Symptoms. Denies: Ear Pain, Eye Pain, Headaches, Hearing Changes, Sinus Congestion, Sore Throat, Visual Changes Pulmonary: Reports: No Symptoms. Denies: Shortness of Breath, Wheezing, Pleuritic Chest Pain, Cough, Sputum Cardiovascular: Reports: No Symptoms. Denies: Chest Pain, Palpitations, Edema Gastrointestinal: Reports: Abdominal Pain, Decreased Appetite. Denies: Constipation, Diarrhea, Difficulty Swallowing, Nausea, Vomiting Genitourinary: Reports: Dysuria, Pain. Denies: Frequency, Burning, Urgency Musculoskeletal: Reports: Leg Pain. Denies: Neck Pain, Shoulder Pain, Arm Pain , Back Pain, Hand Pain, Muscle Pain Skin: Reports: No Symptoms Psychiatric: Reports: No Symptoms Neurological: Reports: No Symptoms. Denies: Confusion, Dizziness, Headache, Numbness, Tingling, Trouble Speaking, Difficulty Walking, Change in Speech Hematologic/Lymphatic: Reports: Anemia (hx/o JULIA ) Immunologic: Reports: No Symptoms Exam - Exam Exam: See Below - Vital Signs Vital Signs: Last Vital Signs Temp 102.2 F H 04/08/17 19:06 Pulse 106 H 04/08/17 18:18 Resp BP 161/66 H 04/08/17 18:18 Pulse Ox 93 L 04/08/17 18:18 Weight: 122 lb 9.6 oz - Exam Quality Assessment: Supplemental Oxygen (1L), DVT Prophylaxis General: Alert, Oriented, Cooperative. No: Mild Distress HEENT: Conjunctiva Clear, EACs Clear, EOMI, Hearing Intact, Mucosa Moist & Petty , Nares Patent, Normal Nasal Septum, Posterior Pharynx Clear, PERRLA Neck: Supple, Trachea Midline. No: JVD, Thyromegaly Lungs: Clear to Auscultation, Normal Respiratory Effort, Other (Mildly tachypnic ). No: Crackles, Rales, Rhonchi, Rub, Stridor, Wheezing Cardiovascular: Regular Rhythm, Tachycardia GI/Abdominal Exam: Normal Bowel Sounds, Soft, Non-Tender, No Organomegaly, No Distention, No Abnormal Bruit, No Mass, Pelvis Stable (Female) Exam: Deferred Rectal (Female) Exam: Deferred Back Exam: Normal Inspection, Full Range of Motion Extremities: Normal Inspection, Normal Range of Motion, Non-Tender, No Pedal Edema, Normal Capillary Refill Peripheral Pulses: 3+: Radial (L), Radial (R), Posterior Tibial (L), Posterior Tibial (R), Dorsalis Pedis (L), Dorsalis Pedis (R) Skin: Warm, Dry, Intact Neurological: Cranial Nerves Intact Neuro Extensive - Mental Status: Alert (Grossly), Oriented x3, Normal Mood/ Affect, Normal Cognition, Memory Intact Neuro Extensive - Motor, Sensory, Reflexes: CN II-XII Intact (Grossly) Psychiatric: Alert, Normal Affect, Normal Mood - Patient Data Result Diagrams: 04/08/17 19:25 04/08/17 19:25 *Q Meaningful Use (ADM) - VTE *Q VTE Criteria *Q: - Stroke *Q Stroke Criteria *Q: - AMI *Q AMI Criteria *Q: - Problem List (1) Febrile illness, acute SNOMED Code(s): 047476004 ICD Code: R50.9 - FEVER, UNSPECIFIED Status: Acute Current Visit: Yes (2) Abdominal pain SNOMED Code(s): 48879497 ICD Code: R10.9 - UNSPECIFIED ABDOMINAL PAIN Status: Acute Current Visit : Yes Qualifiers: Abdominal location: unspecified location Qualified Code(s): R10.9 - Unspecified abdominal pain (3) Generalized weakness SNOMED Code(s): 06463833 ICD Code: R53.1 - WEAKNESS Status: Acute Priority: High Current Visit: Yes Problem List Initiated/Reviewed/Updated: Yes Orders Last 24hrs: Active Orders 24 hr Category Date Time Status Patient Status [ADT] Routine ADT 04/08/17 21:53 Active Ambulate [RC] PER UNIT ROUTINE Care 04/08/17 22:43 Ordered Antiembolic Devices [RC] PER UNIT ROUTINE Care 04/08/17 22:45 Ordered Blood Glucose Check, Bedside [RC] QIDACANDBED Care 04/08/17 22:41 Inactive Height and Weight [RC] DAILY Care 04/08/17 22:41 Ordered Intake and Output [RC] QSHIFT Care 04/08/17 22:43 Ordered Oxygen Therapy [RC] PRN Care 04/08/17 22:43 Ordered Pulse Oximetry [RC] PRN Care 04/08/17 22:43 Ordered RT Aerosol Therapy [RC] ASDIRECTED Care 04/08/17 22:45 Ordered Up With Assistance [RC] ASDIRECTED Care 04/08/17 22:41 Ordered VTE/DVT Education [RC] PER UNIT ROUTINE Care 04/08/17 22:43 Ordered Vital Signs [RC] Q4H Care 04/08/17 22:43 Ordered Consult to Case Management [CONS] Routine Cons 04/08/17 22:41 Ordered Consult to Snow Removal Supervisor [CONS] Routine Cons 04/08/17 22:41 Ordered Consult to Spiritual Care [CONS] Routine Cons 04/08/17 22:41 Ordered OT Evaluation and Treatment [CONS] Routine Cons 04/08/17 22:41 Ordered PT Evaluation and Treatment [CONS] Routine Cons 04/08/17 22:41 Ordered Heart Healthy Diet [DIET] Diet 04/09/17 Breakfast Ordered Acetaminophen [Tylenol] Med 04/08/17 22:41 Ordered 650 mg PO Q4H PRN Albuterol/Ipratropium [DuoNeb 3.0-0.5 MG/3 ML] Med 04/08/17 22:41 Ordered 3 ml NEB Q4H PRN Bisacodyl [Dulcolax] Med 04/08/17 22:41 Ordered 5 mg PO DAILY PRN Docusate Sodium [Colace] Med 04/08/17 22:41 Ordered 100 mg PO BID PRN Docusate Sodium/Sennosides [Senna Plus] Med 04/08/17 22:41 Ordered 1 tab PO BID PRN Ondansetron [Zofran ODT] Med 04/08/17 22:41 Ordered 4 mg PO Q6H PRN Ondansetron [Zofran] Med 04/08/17 22:41 Ordered 4 mg IV Q6H PRN Polyethylene Glycol 3350 [MiraLAX] Med 04/08/17 22:41 Ordered 17 gm PO DAILY PRN Sodium Chloride 0.9% [Normal Saline] 1,000 ml Med 04/08/17 23:00 Ordered IV ASDIRECTED Temazepam [Restoril] Med 04/08/17 22:41 Ordered 7.5 mg PO BEDTIME PRN Antiembolic Hose [OM.PC] Per Unit Routine Oth 04/08/17 22:43 Ordered Resuscitation Status Routine Resus Stat 04/08/17 22:41 Ordered Medication Orders Acetaminophen (Tylenol) 650 mg PO Q4H PRN PRN Reason: Pain (Mild 1-3)/fever Albuterol/Ipratropium (Duoneb 3.0-0.5 Mg/3 Ml) 3 ml NEB Q4H PRN PRN Reason: Shortness Of Breath/wheezing Bisacodyl (Dulcolax) 5 mg PO DAILY PRN PRN Reason: Constipation Docusate Sodium (Colace) 100 mg PO BID PRN PRN Reason: Constipation Sodium Chloride (Normal Saline) 1,000 mls @ 75 mls/hr IV ASDIRECTED MARCELLO Ondansetron HCl (Zofran Odt) 4 mg PO Q6H PRN PRN Reason: nausea, able to take PO Ondansetron HCl (Zofran) 4 mg IV Q6H PRN PRN Reason: Nausea/Vomiting Polyethylene Glycol (Miralax) 17 gm PO DAILY PRN PRN Reason: Constipation Senna/Docusate Sodium (Senna Plus) 1 tab PO BID PRN PRN Reason: Constipation Temazepam (Restoril) 7.5 mg PO BEDTIME PRN PRN Reason: Sleep Assessment/Plan Comment:: I/P: Acute: Acute febrile illness of unknown origin -Started today -Hx/o recurrent UTIs - was recently hospitalized and just finished course of augmentin -Was started on macrobid today, took one pill -Denies cough -Oxygen saturations low in ED and was placed on supplemental O2 at 1L. -IV fluids -Blood cultures ordered -Lactic acid 1.3 -CRP ordered -Tylenol for fever -Consider repeat CXR in 24-48 hours -Consider chest CT -Consider echo Abdominal pain -Suprapubic > LLQ -Hx/o recent UTI -Denies any constipation/diarrhea/changes in bowel habits -Consider abdominal x-ray if pain continues Generalized weakness -Acute on chronic -Has been working with PT since recent hospital discharge -Continue PT/OT here -Likely 2/2 above Chronic: Impaired vision A-fib CAD CHF HLD HTN Recurrent UTIs Arthirits JULIA "Pre-diabetic" - A1C ordered hx/o MRSA infection. Plan: CM/SW for discharge planning PT/OT Other orders as indicated above Home medications as ordered DVT/PE prophylaxis: SOREN hose and lovenox GI prophylaxis: Pepcid Routine AM Labs Code Status: Full Code. Her PCP is Jessy Graham PA-C here at .
[2017-04-09] MEDS: Sodium Chloride 0.9% 1,000 ML IV SCH ×2 (06:11→19:14)
[2017-04-09] MEDS ORDERED: MAG PO SCH (09:00)
[2017-04-09] MEDS ORDERED: Aspirin 81 MG Tab.EC PO SCH (09:00)
[2017-04-09] MEDS ORDERED: HOPS PO SCH (09:00)
[2017-04-09] MEDS ORDERED: VIT D3 PO SCH (09:00)
[2017-04-09] MEDS ORDERED: HYDROCHLOROTHIAZIDE 12.5 MG PO SCH (09:00)
[2017-04-09] MEDS ORDERED: IRON CARBONYL PO SCH (09:00)
[2017-04-09] MEDS ORDERED: Cyanocobalamin (Vitamin B-12) 100 MCG PO SCH (09:00)
[2017-04-09] MEDS ORDERED: [UNRECOGNIZED DRUG - OTHER] PO SCH (09:00)
[2017-04-09] MEDS ORDERED: [UNRECOGNIZED DRUG - OTHER] PO SCH (09:00)
[2017-04-09] MEDS ORDERED: COP PO SCH (09:00)
[2017-04-09] MEDS ORDERED: VIT B12 PO SCH (09:00)
[2017-04-09] MEDS ORDERED: BORON PO SCH (09:00)
[2017-04-09] MEDS ORDERED: BERBERINE HCL PO SCH (09:00)
[2017-04-09] MEDS ORDERED: Acetaminophen/HYDROcodone 325-5 MG Tab PO SCH (09:00)
[2017-04-09] MEDS ORDERED: [UNRECOGNIZED DRUG - OTHER] PO SCH (09:00)
[2017-04-09] MEDS ORDERED: VIT C PO SCH (09:00)
[2017-04-09] MEDS ORDERED: D3 PO SCH (09:00)
[2017-04-09] MEDS ORDERED: [UNRECOGNIZED DRUG - OTHER] PO SCH (09:00)
[2017-04-09] MEDS ORDERED: CALC PO SCH (09:00)
[2017-04-09] MEDS ORDERED: POTASSIUM CHLORIDE 10 MEQ PO SCH (09:00)
[2017-04-09] MEDS ORDERED: MANG PO SCH (09:00)
[2017-04-09] MEDS: GABAPENTIN 400 MG PO SCH ×3 (11:23→21:21)
[2017-04-09] MEDS: ASCORBIC ACID PO SCH ×3 (11:23→21:21)
[2017-04-09] MEDS: [UNRECOGNIZED DRUG - OTHER] PO SCH ×3 (11:23→21:21)
[2017-04-09] MEDS: Nitrofurantoin Monohydrate/Macrocrystalline 100 MG Cap **PTOM PO SCH (11:25)
[2017-04-09] MEDS: METHENAMINE HIPPURATE 1 GM PO SCH ×2 (11:25→21:21)
[2017-04-09] MEDS: Acetaminophen/HYDROcodone 325-5 MG Tab PO SCH ×3 (11:34→21:20)
--- NOTE | 2017-04-09 14:33 | PCM.PN ---
- General Info Date of Service: 04/09/17 Functional Status: Reports: Pain Controlled, Tolerating Diet, Urinating - Review of Systems General: Reports: No Symptoms HEENT: Reports: No Symptoms Pulmonary: Reports: No Symptoms Cardiovascular: Reports: No Symptoms Gastrointestinal: Reports: No Symptoms Genitourinary: Reports: No Symptoms Musculoskeletal: Reports: No Symptoms Skin: Reports: No Symptoms Neurological: Reports: No Symptoms Psychiatric: Reports: No Symptoms - Patient Data Vitals - Most Recent: Last Vital Signs Temp 36.4 C 04/09/17 11:37 Pulse 71 04/09/17 11:37 Resp 20 04/09/17 11:37 BP 116/48 L 04/09/17 11:37 Pulse Ox 98 04/09/17 11:37 Weight - Most Recent: 56.291 kg I&O - Last 24 Hours: Intake & Output 04/08/17 04/09/17 04/09/17 22:59 06:59 14:59 Intake Total 736 200 Balance 736 200 Lab Results Last 24 Hours: Laboratory Results - last 24 hr 04/09/17 04/09/17 04/09/17 Range/Units 06:30 06:30 06:30 WBC 17.27 H (3.98-10.04) K/mm3 RBC 3.07 L (3.98-5.22) M/mm3 Hgb 9.0 L (11.2-15.7) gm/L Hct 28.6 L (34.1-44.9) % MCV 93.2 (79.4-94.8) fl MCH 29.3 (25.6-32.2) pg MCHC 31.5 L (32.2-35.5) g/dl RDW Std Deviation 45.0 (36.4-46.3) fL Plt Count 182 (182-369) K/mm3 MPV 10.1 (9.4-12.3) fl Neut % (Auto) 89.8 H (34.0-71.1) % Lymph % (Auto) 5.6 L (19.3-51.7) % Whiteside % (Auto) 4.1 L (4.7-12.5) % Eos % (Auto) 0.1 L (0.7-5.8) Baso % (Auto) 0.1 (0.1-1.2) % Neut # (Auto) 15.53 H (1.56-6.13) K/mm3 Lymph # (Auto) 0.97 L (1.18-3.74) K/mm3 Whiteside # (Auto) 0.70 H (0.24-0.36) K/mm3 Eos # (Auto) 0.01 L (0.04-0.36) K/mm3 Baso # (Auto) 0.01 (0.01-0.08) K/mm3 Manual Slide Review Abnormal smear Sodium 142 (136-145) mEq/L Potassium 4.0 (3.5-5.1) mEq/L Chloride 107 (98-107) mEq/L Carbon Dioxide 29 (21-32) mEq/L Anion Gap 10.0 (5-15) BUN 23 H (7-18) mg/dL Creatinine 0.9 (0.55-1.02) mg/dL Est Cr Clr Drug Dosing 35.74 mL/min Estimated GFR (MDRD) 59 (>60) mL/min BUN/Creatinine Ratio 25.6 H (14-18) Glucose 135 H (83-115) mg/dL POC Glucose (83-110) mg/dL Hemoglobin A1c (4.50-6.20) % Lactic Acid 1.0 (0.4-2.0) mmol/L Calcium 8.5 (8.5-10.1) mg/dL Magnesium 1.6 L (1.8-2.4) mg/dl C-Reactive Protein 11.6 H* (<1.0) mg/dL Mycoplasma pneumon IgM Negative (NEGATIVE) 04/09/17 04/09/17 04/09/17 Range/Units 06:30 07:07 12:36 WBC (3.98-10.04) K/mm3 RBC (3.98-5.22) M/mm3 Hgb (11.2-15.7) gm/L Hct (34.1-44.9) % MCV (79.4-94.8) fl MCH (25.6-32.2) pg MCHC (32.2-35.5) g/dl RDW Std Deviation (36.4-46.3) fL Plt Count (182-369) K/mm3 MPV (9.4-12.3) fl Neut % (Auto) (34.0-71.1) % Lymph % (Auto) (19.3-51.7) % Whiteside % (Auto) (4.7-12.5) % Eos % (Auto) (0.7-5.8) Baso % (Auto) (0.1-1.2) % Neut # (Auto) (1.56-6.13) K/mm3 Lymph # (Auto) (1.18-3.74) K/mm3 Whiteside # (Auto) (0.24-0.36) K/mm3 Eos # (Auto) (0.04-0.36) K/mm3 Baso # (Auto) (0.01-0.08) K/mm3 Manual Slide Review Sodium (136-145) mEq/L Potassium (3.5-5.1) mEq/L Chloride (98-107) mEq/L Carbon Dioxide (21-32) mEq/L Anion Gap (5-15) BUN (7-18) mg/dL Creatinine (0.55-1.02) mg/dL Est Cr Clr Drug Dosing mL/min Estimated GFR (MDRD) (>60) mL/min BUN/Creatinine Ratio (14-18) Glucose (83-115) mg/dL POC Glucose 135 H 137 H (83-110) mg/dL Hemoglobin A1c 6.20 (4.50-6.20) % Lactic Acid (0.4-2.0) mmol/L Calcium (8.5-10.1) mg/dL Magnesium (1.8-2.4) mg/dl C-Reactive Protein (<1.0) mg/dL Mycoplasma pneumon IgM (NEGATIVE) Med Orders - Current: Current Medications Acetaminophen (Tylenol) 650 mg PO Q4H PRN PRN Reason: Pain (Mild 1-3)/fever Hydrocodone Bitart/Acetaminophen ([place] 325-5 Mg) 1 tab PO TID [facility] Last Admin: 04/09/17 11:34 Dose: 1 tab Albuterol/Ipratropium (Duoneb 3.0-0.5 Mg/3 Ml) 3 ml NEB Q4H PRN PRN Reason: Shortness Of Breath/wheezing Bisacodyl (Dulcolax) 5 mg PO DAILY PRN PRN Reason: Constipation Docusate Sodium (Colace) 100 mg PO BID PRN PRN Reason: Constipation Sodium Chloride (Normal Saline) 1,000 mls @ 75 mls/hr IV ASDIRECTED [facility] Last Admin: 04/09/17 06:11 Dose: 75 mls/hr Nitrofurantoin Macrocrystals (Macrobid) 100 mg PO WITHLUNCH [facility] Last Admin: 04/09/17 11:25 Dose: 100 mg Ondansetron HCl (Zofran Odt) 4 mg PO Q6H PRN PRN Reason: nausea, able to take PO Ondansetron HCl (Zofran) 4 mg IV Q6H PRN PRN Reason: Nausea/Vomiting Gabapentin 400mg (Capsules) 0 each PO TID [facility] Last Admin: 04/09/17 11:23 Dose: 2 each L Acidophil/B Lactis /B Longum [Florajen3 ] 1 Cap 0 each PO ACBRK [facility] Methenamine (Hippurate 1g Tablets) 0 each PO BID [facility] Last Admin: 04/09/17 11:25 Dose: 1 each Vit C With (Flavonoids 500mg Cap) 0 each PO TID [facility] Last Admin: 04/09/17 11:23 Dose: 1 each Polyethylene Glycol (Miralax) 17 gm PO DAILY PRN PRN Reason: Constipation Senna/Docusate Sodium (Senna Plus) 1 tab PO BID PRN PRN Reason: Constipation Temazepam (Restoril) 7.5 mg PO BEDTIME PRN PRN Reason: Sleep Discontinued Medications Hydrocodone Bitart/Acetaminophen ([place] 325-5 Mg) 1 tab PO TID [facility] Last Admin: 04/09/17 11:59 Dose: Not Given Aspirin (Halfprin) 81 mg PO DAILY [facility] Last Admin: 04/09/17 11:58 Dose: Not Given Gabapentin (Neurontin) 800 mg PO ONETIME ONE Stop: 04/08/17 19:51 Last Admin: 04/08/17 20:02 Dose: 800 mg Hydrochlorothiazide (Hydrochlorothiazide) 12.5 mg PO DAILY [facility] Last Admin: 04/09/17 11:59 Dose: Not Given Non-Formulary Medication (Vit D3 & K/Berberine Hcl/Hops [Ostera]) 1 cap PO DAILY [facility] Last Admin: 04/09/17 12:00 Dose: Not Given Calc/D3/Mag/Zn/Watch Technician/Dante/[place] [Calcium 600 Mg Plus Vit D] 0 each PO BID [facility] Last Admin: 04/09/17 11:59 Dose: Not Given Cyanocobalamin ( Vitamin B-12) 100 Mcg 0 each PO DAILY [facility] Last Admin: 04/09/17 12:00 Dose: Not Given Iron,Carbonyl/Vit C/Vit B12/Fa [Iron 100 Plus Softgel] 0 each PO DAILY [facility] Last Admin: 04/09/17 12:00 Dose: Not Given Centrum Silver - (Multivitamins) 0 each PO DAILY [facility] Last Admin: 04/09/17 11:59 Dose: Not Given Potassium Chloride [ Potassium Chloride] 10 Meq 0 each PO DAILY [facility] Last Admin: 04/09/17 12:00 Dose: Not Given Pravastatin 20 Mg 20 each PO BEDTIME [facility] Senna/Docusate Sodium (Senna Plus) 1 tab PO BID [facility] Last Admin: 04/09/17 12:00 Dose: Not Given - Exam Quality Assessment: DVT Prophylaxis General: Alert, Oriented, Cooperative, No Acute Distress HEENT: Pupils Equal, Pupils Reactive, EOMI Neck: Supple, Trachea Midline Lungs: Normal Respiratory Effort Cardiovascular: Regular Rate GI/Abdominal Exam: Normal Bowel Sounds, Soft, Non-Tender, No Organomegaly, No Distention (Female) Exam: Deferred Back Exam: Normal Inspection Extremities: Normal Inspection, No Pedal Edema Skin: Warm Neurological: No New Focal Deficit Psy/Mental Status: Alert, Normal Affect - Problem List Review Problem List Initiated/Reviewed/Updated: Yes - My Orders Last 24 Hours: My Active Orders 04/10/17 08:00 Chest 2V [CR] Routine - Plan Plan:: I/P: Acute: Acute febrile illness of unknown origin -Started today -Hx/o recurrent UTIs - was recently hospitalized and just finished course of augmentin -Was started on macrobid today, took one pill -Denies cough -Oxygen saturations low in ED and was placed on supplemental O2 at 1L. -IV fluids -Blood cultures ordered -Lactic acid 1.3 -CRP ordered -Tylenol for fever -Consider repeat CXR in 24-48 hours -Consider chest CT -Consider echo Abdominal pain -Suprapubic > LLQ -Hx/o recent UTI -Denies any constipation/diarrhea/changes in bowel habits -Consider abdominal x-ray if pain continues Generalized weakness -Acute on chronic -Has been working with PT since recent hospital discharge -Continue PT/OT here -Likely 2/2 above Chronic: Impaired vision A-fib CAD CHF HLD HTN Recurrent UTIs Arthirits JULIA "Pre-diabetic" - A1C ordered hx/o MRSA infection. Plan: CM/SW for discharge planning PT/OT Other orders as indicated above Home medications as ordered DVT/PE prophylaxis: SOREN hose and lovenox GI prophylaxis: Pepcid Routine AM Labs Code Status: Full Code. Her PCP is Jessy Galeana PA-C here at [facility]. DC 24-48 hours
--- NOTE | 2017-04-09 16:07 | CR ---
Chest: Portable view of the chest was obtained. Comparison: Prior chest x-ray of 03/23/17. Heart size is normal. Mild tortuosity of the thoracic aorta is seen. Intracardiac stent is seen. Lung markings are mildly increased which appear stable from prior exam. Scoliosis and degenerative change is noted within the spine. Previous lower lumbar spine surgery is noted. Degenerative change is partially seen within the right shoulder. Impression: 1. Findings as noted above believed to be stable. Nothing acute is appreciated. Diagnostic code #2
[2017-04-09] MEDS ORDERED: Magnesium Sulfate/Water 2 GM in Premix Bag 1 BAG IV ONE (16:25)
[2017-04-09] MEDS: Acetaminophen 325 MG Tab PO PRN (21:19)
[2017-04-09] MEDS: Temazepam 7.5 MG Cap PO PRN (23:23)
[2017-04-10] MEDS: ACIDOPHIL PO SCH (06:21)
[2017-04-10] MEDS: B LONGUM PO SCH (06:21)
[2017-04-10] MEDS: B LACTIS PO SCH (06:21)
--- NOTE | 2017-04-10 08:30 | CR ---
Chest: 2 views of the chest were obtained. Comparison: Prior chest x-ray of 04/08/17. Heart size is within normal limits. Mild tortuosity of the thoracic aorta is seen. Blunting of the costophrenic angles are seen which is slightly more prominent than on prior study suspicious for small pleural effusions. Lung markings are diffusely increased which appear stable. Intracardiac stent is again noted. Degenerative change, scoliosis and previous surgery is noted within the spine. Impression: 1. Small pleural effusions were are an interval change from previous exam. 2. Diffuse increased lung markings which are remaining fairly stable. 3. Other incidental findings. Diagnostic code #3
[2017-04-10] MEDS: Acetaminophen/HYDROcodone 325-5 MG Tab PO SCH ×2 (08:31→20:13)
[2017-04-10] MEDS: GABAPENTIN 400 MG PO SCH ×3 (08:32→20:14)
[2017-04-10] MEDS: METHENAMINE HIPPURATE 1 GM PO SCH ×2 (08:33→20:14)
[2017-04-10] MEDS: ASCORBIC ACID PO SCH ×3 (08:33→20:14)
[2017-04-10] MEDS: [UNRECOGNIZED DRUG - OTHER] PO SCH ×3 (08:33→20:14)
[2017-04-10] MEDS: Sodium Chloride 0.9% 1,000 ML IV SCH (08:37)
[2017-04-10] MEDS: Nitrofurantoin Monohydrate/Macrocrystalline 100 MG Cap **PTOM PO SCH (08:39)
[2017-04-10] MEDS: Losartan 100 MG Tab PO SCH ×2 (11:23→20:12)
--- NOTE | 2017-04-10 15:06 | PCM.PN ---
- General Info Date of Service: 04/10/17 Functional Status: Reports: Tolerating Diet, Ambulating, Urinating - Review of Systems General: Reports: Weakness HEENT: Reports: No Symptoms Pulmonary: Reports: Shortness of Breath Cardiovascular: Reports: No Symptoms Gastrointestinal: Reports: No Symptoms Genitourinary: Reports: No Symptoms Musculoskeletal: Reports: No Symptoms Skin: Reports: No Symptoms Neurological: Reports: No Symptoms Psychiatric: Reports: No Symptoms - Patient Data Vitals - Most Recent: Last Vital Signs Temp 36.7 C 04/10/17 11:28 Pulse 67 04/10/17 11:29 Resp 18 04/10/17 11:28 BP 138/42 L 04/10/17 11:28 Pulse Ox 94 L 04/10/17 11:29 Weight - Most Recent: 56.291 kg I&O - Last 24 Hours: Intake & Output 04/10/17 04/10/17 04/10/17 06:59 14:59 22:59 Intake Total 2200 340 Output Total 250 Balance 1950 340 Lab Results Last 24 Hours: Laboratory Results - last 24 hr 04/09/17 04/10/17 04/10/17 Range/Units 20:31 06:15 06:15 WBC 12.20 H (3.98-10.04) K/mm3 RBC 3.03 L (3.98-5.22) M/mm3 Hgb 9.0 L (11.2-15.7) gm/L Hct 28.4 L (34.1-44.9) % MCV 93.7 (79.4-94.8) fl MCH 29.7 (25.6-32.2) pg MCHC 31.7 L (32.2-35.5) g/dl RDW Std Deviation 45.4 (36.4-46.3) fL Plt Count 147 L (182-369) K/mm3 MPV 10.0 (9.4-12.3) fl Neut % (Auto) 88.9 H (34.0-71.1) % Lymph % (Auto) 8.1 L (19.3-51.7) % Benzie % (Auto) 2.7 L (4.7-12.5) % Eos % (Auto) 0 L (0.7-5.8) Baso % (Auto) 0.1 (0.1-1.2) % Neut # (Auto) 10.85 H (1.56-6.13) K/mm3 Lymph # (Auto) 0.99 L (1.18-3.74) K/mm3 Benzie # (Auto) 0.33 (0.24-0.36) K/mm3 Eos # (Auto) 0.00 L (0.04-0.36) K/mm3 Baso # (Auto) 0.01 (0.01-0.08) K/mm3 Manual Slide Review Abnormal smear Sodium 142 (136-145) mEq/L Potassium 3.8 (3.5-5.1) mEq/L Chloride 107 (98-107) mEq/L Carbon Dioxide 26 (21-32) mEq/L Anion Gap 12.8 (5-15) BUN 21 H (7-18) mg/dL Creatinine 0.9 (0.55-1.02) mg/dL Est Cr Clr Drug Dosing 35.74 mL/min Estimated GFR (MDRD) 59 (>60) mL/min BUN/Creatinine Ratio 23.3 H (14-18) Glucose 124 H (83-115) mg/dL POC Glucose 107 (83-110) mg/dL Calcium 8.4 L (8.5-10.1) mg/dL Magnesium 2.0 (1.8-2.4) mg/dl C-Reactive Protein 17.8 H* (<1.0) mg/dL 04/10/17 04/10/17 Range/Units 06:17 10:50 WBC (3.98-10.04) K/mm3 RBC (3.98-5.22) M/mm3 Hgb (11.2-15.7) gm/L Hct (34.1-44.9) % MCV (79.4-94.8) fl MCH (25.6-32.2) pg MCHC (32.2-35.5) g/dl RDW Std Deviation (36.4-46.3) fL Plt Count (182-369) K/mm3 MPV (9.4-12.3) fl Neut % (Auto) (34.0-71.1) % Lymph % (Auto) (19.3-51.7) % Benzie % (Auto) (4.7-12.5) % Eos % (Auto) (0.7-5.8) Baso % (Auto) (0.1-1.2) % Neut # (Auto) (1.56-6.13) K/mm3 Lymph # (Auto) (1.18-3.74) K/mm3 Benzie # (Auto) (0.24-0.36) K/mm3 Eos # (Auto) (0.04-0.36) K/mm3 Baso # (Auto) (0.01-0.08) K/mm3 Manual Slide Review Sodium (136-145) mEq/L Potassium (3.5-5.1) mEq/L Chloride (98-107) mEq/L Carbon Dioxide (21-32) mEq/L Anion Gap (5-15) BUN (7-18) mg/dL Creatinine (0.55-1.02) mg/dL Est Cr Clr Drug Dosing mL/min Estimated GFR (MDRD) (>60) mL/min BUN/Creatinine Ratio (14-18) Glucose (83-115) mg/dL POC Glucose 126 H 141 H (83-110) mg/dL Calcium (8.5-10.1) mg/dL Magnesium (1.8-2.4) mg/dl C-Reactive Protein (<1.0) mg/dL Med Orders - Current: Current Medications Acetaminophen (Tylenol) 650 mg PO Q4H PRN PRN Reason: Pain (Mild 1-3)/fever Last Admin: 04/09/17 21:19 Dose: 650 mg Hydrocodone Bitart/Acetaminophen ([place] 325-5 Mg) 1 tab PO BID [facility] Albuterol/Ipratropium (Duoneb 3.0-0.5 Mg/3 Ml) 3 ml NEB Q4H PRN PRN Reason: Shortness Of Breath/wheezing Bisacodyl (Dulcolax) 5 mg PO DAILY PRN PRN Reason: Constipation Docusate Sodium (Colace) 100 mg PO BID PRN PRN Reason: Constipation Losartan Potassium (Cozaar) 50 mg PO BID [facility] Last Admin: 04/10/17 11:23 Dose: 50 mg Ondansetron HCl (Zofran Odt) 4 mg PO Q6H PRN PRN Reason: nausea, able to take PO Ondansetron HCl (Zofran) 4 mg IV Q6H PRN PRN Reason: Nausea/Vomiting Gabapentin 400mg (Capsules) 0 each PO TID [facility] Last Admin: 04/10/17 14:01 Dose: 2 each L Acidophil/B Lactis /B Longum [Florajen3 ] 1 Cap 0 each PO ACBRK [facility] Last Admin: 04/10/17 06:21 Dose: 1 each Methenamine (Hippurate 1g Tablets) 0 each PO BID [facility] Last Admin: 04/10/17 08:33 Dose: 1 each Vit C With (Flavonoids 500mg Cap) 0 each PO TID [facility] Last Admin: 04/10/17 14:02 Dose: 1 each Polyethylene Glycol (Miralax) 17 gm PO DAILY PRN PRN Reason: Constipation Senna/Docusate Sodium (Senna Plus) 1 tab PO BID PRN PRN Reason: Constipation Temazepam (Restoril) 7.5 mg PO BEDTIME PRN PRN Reason: Sleep Last Admin: 04/09/17 23:23 Dose: 7.5 mg Discontinued Medications Hydrocodone Bitart/Acetaminophen ([place] 325-5 Mg) 1 tab PO TID [facility] Last Admin: 04/09/17 11:59 Dose: Not Given Hydrocodone Bitart/Acetaminophen ([place] 325-5 Mg) 1 tab PO TID [facility] Last Admin: 04/10/17 08:31 Dose: 1 tab Aspirin (Halfprin) 81 mg PO DAILY [facility] Last Admin: 04/09/17 11:58 Dose: Not Given Gabapentin (Neurontin) 800 mg PO ONETIME ONE Stop: 04/08/17 19:51 Last Admin: 04/08/17 20:02 Dose: 800 mg Hydrochlorothiazide (Hydrochlorothiazide) 12.5 mg PO DAILY [facility] Last Admin: 04/09/17 11:59 Dose: Not Given Sodium Chloride (Normal Saline) 1,000 mls @ 75 mls/hr IV ASDIRECTED [facility] Last Admin: 04/10/17 08:37 Dose: 75 mls/hr Magnesium Sulfate 2 gm/ Premix 50 mls @ 25 mls/hr IV ONETIME ONE Stop: 04/09/17 18:24 Last Admin: 04/09/17 16:53 Dose: 25 mls/hr Losartan Potassium (Cozaar) 50 mg PO BID [facility] Nitrofurantoin Macrocrystals (Macrobid) 100 mg PO WITHLUNCH [facility] Last Admin: 04/10/17 08:39 Dose: 100 mg Non-Formulary Medication (Vit D3 & K/Berberine Hcl/Hops [Ostera]) 1 cap PO DAILY [facility] Last Admin: 04/09/17 12:00 Dose: Not Given Calc/D3/Mag/Zn/Shingle Trimmer/Dante/[place] [Calcium 600 Mg Plus Vit D] 0 each PO BID [facility] Last Admin: 04/09/17 11:59 Dose: Not Given Cyanocobalamin ( Vitamin B-12) 100 Mcg 0 each PO DAILY [facility] Last Admin: 04/09/17 12:00 Dose: Not Given Iron,Carbonyl/Vit C/Vit B12/Fa [Iron 100 Plus Softgel] 0 each PO DAILY [facility] Last Admin: 04/09/17 12:00 Dose: Not Given Centrum Silver - (Multivitamins) 0 each PO DAILY [facility] Last Admin: 04/09/17 11:59 Dose: Not Given Potassium Chloride [ Potassium Chloride] 10 Meq 0 each PO DAILY [facility] Last Admin: 04/09/17 12:00 Dose: Not Given Pravastatin 20 Mg 20 each PO BEDTIME [facility] Senna/Docusate Sodium (Senna Plus) 1 tab PO BID [facility] Last Admin: 04/09/17 12:00 Dose: Not Given - Exam Quality Assessment: DVT Prophylaxis General: Alert, Oriented, Cooperative HEENT: Pupils Equal, Pupils Reactive, EOMI Neck: Supple, Trachea Midline Lungs: Normal Respiratory Effort, Decreased Breath Sounds Cardiovascular: Regular Rate GI/Abdominal Exam: Normal Bowel Sounds, Soft, Non-Tender, No Organomegaly, No Distention (Female) Exam: Deferred Back Exam: Normal Inspection Extremities: Normal Inspection, Normal Range of Motion, Non-Tender Skin: Warm Neurological: No New Focal Deficit Psy/Mental Status: Alert - Problem List Review Problem List Initiated/Reviewed/Updated: Yes - My Orders Last 24 Hours: My Active Orders 04/09/17 17:30 Patient Status [ADT] Routine 04/10/17 10:30 Losartan [Cozaar] 50 mg PO BID 04/10/17 21:00 Acetaminophen/HYDROcodone [[place] 325-5 MG] 1 tab PO BID - Plan Plan:: I/P: Acute: Acute febrile illness of unknown origin -Started today -Hx/o recurrent UTIs - was recently hospitalized and just finished course of augmentin -Was started on macrobid today, took one pill -Denies cough -Oxygen saturations low in ED and was placed on supplemental O2 at 1L. -IV fluids -Blood cultures ordered -Lactic acid 1.3 -CRP ordered -Tylenol for fever -Consider repeat CXR in 24-48 hours -Consider chest CT -Consider echo Abdominal pain -Suprapubic > LLQ -Hx/o recent UTI -Denies any constipation/diarrhea/changes in bowel habits -Consider abdominal x-ray if pain continues Generalized weakness -Acute on chronic -Has been working with PT since recent hospital discharge -Continue PT/OT here -Likely 2/2 above Chronic: Impaired vision A-fib CAD CHF HLD HTN Recurrent UTIs Arthirits JULIA "Pre-diabetic" - A1C ordered hx/o MRSA infection. Plan: CM/SW for discharge planning PT/OT Other orders as indicated above Home medications as ordered DVT/PE prophylaxis: SOREN hose and lovenox GI prophylaxis: Pepcid Routine AM Labs Code Status: Full Code. Her PCP is Jessy Galeana PA-C here at [facility]. DC 24-48 hours
[2017-04-10] MEDS: Acetaminophen 325 MG Tab PO PRN (20:11)
[2017-04-10] MEDS ORDERED: Losartan 100 MG Tab PO SCH (21:00)
[2017-04-10] MEDS: Temazepam 7.5 MG Cap PO PRN (21:44)
[2017-04-11] MEDS: ACIDOPHIL PO SCH (05:35)
[2017-04-11] MEDS: B LONGUM PO SCH (05:35)
[2017-04-11] MEDS: B LACTIS PO SCH (05:35)
[2017-04-11] MEDS ORDERED: hydrALAZINE 20 MG/ML SDV IVPUSH ONE (06:33)
[2017-04-11] MEDS: Acetaminophen/HYDROcodone 325-5 MG Tab PO SCH ×3 (08:38→20:32)
[2017-04-11] MEDS ORDERED: Furosemide 40 MG/4 ML VIAL IVPUSH ONE ×2 (08:40→14:00)
[2017-04-11] MEDS: ASCORBIC ACID PO SCH ×3 (08:47→20:33)
[2017-04-11] MEDS: GABAPENTIN 400 MG PO SCH ×3 (08:47→20:31)
[2017-04-11] MEDS: [UNRECOGNIZED DRUG - OTHER] PO SCH ×3 (08:47→20:33)
[2017-04-11] MEDS: Losartan 100 MG Tab PO SCH ×2 (08:47→20:30)
[2017-04-11] MEDS: METHENAMINE HIPPURATE 1 GM PO SCH ×2 (08:47→20:33)
--- NOTE | 2017-04-11 08:52 | PCM.DCSUM1 ---
Discharge Summary - Hospital Course Free Text/Narrative:: Ju Hernández is an 87 yo female who presents to our ED via [facility] with a fever that started this afternoon. She has a rather complex history of recurrent urinary tract infections. On the of last month she was seen in the ED and then admitted to [facility] in [place]. She was in the hospital a total of 4 days. She'll return to her assisted-living center and have outpatient physical therapy. She was discharged on Augmentin from the hospital and has done fairly well. Her last day of Augmentin was yesterday. She reportedly talked with her urologist today and was told to start Macrobid daily, which she did, having her first pill this morning. She also complains of some lower abdominal discomfort and pain from her prior restless legs. Denies chest pain, chest pressure, shortness of breath, palpitations, nausea, or vomiting. In the ED temperature 39C. Pulse 106. Blood pressure 161/66. Pulse ox 93%. She was placed on 1 L of oxygen. Labs are obtained: She does have a slight white count at 11.37. Hemoglobin is low at 10.5. Hematocrit low at 33.2. She is normocytic. Platelets 201,000. Neutrophils 84%. Band neutrophils 4%. PT is 11.4. INR 1.04. Sodium is 140. Potassium 4.2. Chloride 105. Carbon dioxide 26. Anion gap 13.2. BUN 27. Creatinine 1.2. EGFR is 42. Glucose is high at 196. Lactic acid is 1.3. Calcium 9.9. Total bilirubin 0.4. AST is 23 , ALT 21, alkaline phosphatase 34. Protein 7.2. Albumin 3.5. UA is negative however one plus protein, trace intact occult blood, 10-20 red blood cells, 5- 10 white blood cells, and rare urine bacteria are noted. Chest x-ray was obtained showing a cardiac silhouette within normal limits. No pulmonary vascular congestion. No pleural effusions, no focal infiltrate, no pneumothorax. Aortic stent is noted. Hyperinflation and bilateral diaphragmatic flattening consistent with COPD as noted. Lumbar fusion hardware is noted. That was interpreted by the ED provider and formal radiologist read is pending. Influenza A and B were both negative. She carries a history of: Impaired vision, A. fib, CAD, CHF, HLD, HTN, recurrent UTIs, arthritis, iron deficiency anemia. 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 She was never a smoker. She is subsequently admitted to the medical floor under observation status. She is a full code. Her PCP is Jessy graham PA-C here at [facility]. - Discharge Data Discharge Date: 04/11/17 (admit date 04/09/17) Discharge Disposition: Home, Self-Care 01 Condition: Good - Discharge Diagnosis/Problem(s) (1) H/O recurrent urinary tract infection SNOMED Code(s): 466591094 ICD Code: Z87.440 - PERSONAL HISTORY OF URINARY (TRACT) INFECTIONS Status: Chronic Priority: High Current Visit: Yes (2) Abdominal pain SNOMED Code(s): 45931719 ICD Code: R10.9 - UNSPECIFIED ABDOMINAL PAIN Status: Resolved Priority: High Current Visit: Yes Qualifiers: Abdominal location: unspecified location Qualified Code(s): R10.9 - Unspecified abdominal pain (3) Febrile illness, acute SNOMED Code(s): 235021493 ICD Code: R50.9 - FEVER, UNSPECIFIED Status: Resolved Priority: High Current Visit: Yes (4) Generalized weakness SNOMED Code(s): 20934935 ICD Code: R53.1 - WEAKNESS Status: Acute Priority: Medium Current Visit : Yes (5) Diabetes mellitus type 2 in nonobese SNOMED Code(s): 359987014 ICD Code: E11.9 - TYPE 2 DIABETES MELLITUS WITHOUT COMPLICATIONS Status: Chronic Priority: Medium Current Visit: Yes (6) Hypertension SNOMED Code(s): 63067161 ICD Code: I10 - ESSENTIAL (PRIMARY) HYPERTENSION Status: Chronic Priority : Medium Current Visit: Yes Qualifiers: Hypertension type: essential hypertension Qualified Code(s): I10 - Essential (primary) hypertension - Patient Summary/Data Operative Procedure(s) Performed: None Complications: None Consults: None--consider Urology eval as outpatient for recurrent UTI's. Labs Pending at D/C: None Recommended Follow-up Testing/Procedures: Patient DC instructions: Follow up with PCP, Jessy Graham PA-C within one week of discharge. Push fluids. Continue all usual home medications. Consider follow up/consult with Urology for recurrent UTI's/bladder infections. Planned Operative Procedure(s) after DC: None Hospital Course: As above - Patient Instructions Diet: Heart Healthy Diet, Drink 8-10+ Glasses/Day Activity: As Tolerated Showering/Bathing: May Shower Notify Provider of: Fever, Increased Pain, Nausea and/or Vomiting - Discharge Plan Home Medications: Home Meds Gabapentin [Neurontin] 800 mg PO TID 10/25/14 [History] Hydrochlorothiazide 12.5 mg PO DAILY 10/25/14 [History] Multivitamin [[id number]] 1 each PO DAILY 10/25/14 [History] Potassium Chloride 10 meq PO DAILY 10/25/14 [History] Pravastatin Sodium [Pravastatin (Pravachol)] 20 mg PO BEDTIME 10/25/14 [History] Calc/D3/Mag/Zn/Granulating Machine Operator/Dante/[place] [Calcium 600 MG Plus Vit D] 600 mg PO BID [History] Cyanocobalamin (Vitamin B-12) [Vitamin B-12] 100 mcg PO DAILY 03/13/17 [History] Aspirin [Halfprin] 81 mg PO DAILY 04/08/17 [History] Cholecalciferol (Vitamin D3) [Vitamin D] 5,000 unit PO 04/08/17 [History] Hydrocodone/Acetaminophen [Hydrocodon-Acetaminophen 5-325] 1 tab PO TID [History] Nitrofurantoin Monohyd/M-Cryst [Macrobid 100 mg Capsule] 100 mg PO DAILY [History] Sennosides [Senna] 1 tab PO BID 04/08/17 [History] Iron,Carbonyl/Vit C/Vit B12/Fa [Iron 100 Plus Tablet] 2 tab PO DAILY 04/09/17 [ History] L Acidophil/B Lactis/B Longum [Florajen3] 1 cap PO DAILY 04/09/17 [History] Losartan [Cozaar] 100 mg PO DAILY 04/09/17 [History] Methenamine Hippurate 1 tab PO BID 04/09/17 [History] Vit C/Hesperidin/Bioflavonoids [Pleitez-C 500 Tablet] 1 cap PO TID 04/09/17 [History ] Vit D3 & K/Berberine HCl/Hops [Ostera] 1 cap PO DAILY 04/09/17 [History] Patient Handouts: Type 2 Diabetes Mellitus, Adult, Hypomagnesemia, Urinary Tract Infection, Adult, Hypertension - Discharge Summary/Plan Comment DC Time >30 min.: Yes (40min) - General Info Date of Service: 04/11/17 Admission Dx/Problem (Free Text: Admission Diagnosis/Problem Admission Diagnosis/Problem Fever Suspected UTI on admit with hx of recurrent UTI; all other labs and eval are unremarkable. She had just finished course of augmentin as OP, took macrobid day [employer] OFF[employer]. Doing well today. Plans for DC home later today. Functional Status: Reports: Pain Controlled, Tolerating Diet, Ambulating, Urinating - Review of Systems General: Reports: Weakness (improved). Denies: Fever HEENT: Reports: No Symptoms Pulmonary: Reports: No Symptoms Cardiovascular: Reports: No Symptoms Gastrointestinal: Reports: No Symptoms. Denies: Abdominal Pain, Nausea, Vomiting Genitourinary: Reports: No Symptoms Musculoskeletal: Reports: No Symptoms - Patient Data Vitals - Most Recent: Last Vital Signs Temp 98.8 F 04/11/17 07:35 Pulse 96 04/11/17 08:45 Resp 16 04/11/17 07:36 BP 136/51 L 04/11/17 08:47 Pulse Ox 95 04/11/17 08:45 Weight - Most Recent: 125 lb 1.6 oz I&O - Last 24 hours: Intake & Output 04/10/17 04/11/17 04/11/17 22:59 06:59 14:59 Intake Total 2326 500 Output Total 200 100 Balance 2126 400 Lab Results - Last 24 hrs: Laboratory Results - last 24 hr 04/10/17 04/10/17 04/10/17 Range/Units 10:50 17:13 20:49 WBC (3.98-10.04) K/mm3 RBC (3.98-5.22) M/mm3 Hgb (11.2-15.7) gm/L Hct (34.1-44.9) % MCV (79.4-94.8) fl MCH (25.6-32.2) pg MCHC (32.2-35.5) g/dl RDW Std Deviation (36.4-46.3) fL Plt Count (182-369) K/mm3 MPV (9.4-12.3) fl Neut % (Auto) (34.0-71.1) % Lymph % (Auto) (19.3-51.7) % Mitchell % (Auto) (4.7-12.5) % Eos % (Auto) (0.7-5.8) Baso % (Auto) (0.1-1.2) % Neut # (Auto) (1.56-6.13) K/mm3 Lymph # (Auto) (1.18-3.74) K/mm3 Mitchell # (Auto) (0.24-0.36) K/mm3 Eos # (Auto) (0.04-0.36) K/mm3 Baso # (Auto) (0.01-0.08) K/mm3 Sodium (136-145) mEq/L Potassium (3.5-5.1) mEq/L Chloride (98-107) mEq/L Carbon Dioxide (21-32) mEq/L Anion Gap (5-15) BUN (7-18) mg/dL Creatinine (0.55-1.02) mg/dL Est Cr Clr Drug Dosing mL/min Estimated GFR (MDRD) (>60) mL/min BUN/Creatinine Ratio (14-18) Glucose (83-115) mg/dL POC Glucose 141 H 101 148 H (83-110) mg/dL Calcium (8.5-10.1) mg/dL Magnesium (1.8-2.4) mg/dl C-Reactive Protein (<1.0) mg/dL 04/11/17 04/11/17 04/11/17 Range/Units 05:34 06:05 06:05 WBC 7.08 (3.98-10.04) K/mm3 RBC 3.36 L (3.98-5.22) M/mm3 Hgb 9.8 L (11.2-15.7) gm/L Hct 31.3 L (34.1-44.9) % MCV 93.2 (79.4-94.8) fl MCH 29.2 (25.6-32.2) pg MCHC 31.3 L (32.2-35.5) g/dl RDW Std Deviation 45.6 (36.4-46.3) fL Plt Count 178 L (182-369) K/mm3 MPV 10.0 (9.4-12.3) fl Neut % (Auto) 75.9 H (34.0-71.1) % Lymph % (Auto) 13.1 L (19.3-51.7) % Mitchell % (Auto) 6.4 (4.7-12.5) % Eos % (Auto) 4.2 (0.7-5.8) Baso % (Auto) 0.1 (0.1-1.2) % Neut # (Auto) 5.37 (1.56-6.13) K/mm3 Lymph # (Auto) 0.93 L (1.18-3.74) K/mm3 Mitchell # (Auto) 0.45 H (0.24-0.36) K/mm3 Eos # (Auto) 0.30 (0.04-0.36) K/mm3 Baso # (Auto) 0.01 (0.01-0.08) K/mm3 Sodium 143 (136-145) mEq/L Potassium 3.8 (3.5-5.1) mEq/L Chloride 108 H (98-107) mEq/L Carbon Dioxide 27 (21-32) mEq/L Anion Gap 11.8 (5-15) BUN 17 (7-18) mg/dL Creatinine 0.9 (0.55-1.02) mg/dL Est Cr Clr Drug Dosing 35.74 mL/min Estimated GFR (MDRD) 59 (>60) mL/min BUN/Creatinine Ratio 18.9 H (14-18) Glucose 98 (83-115) mg/dL POC Glucose 110 (83-110) mg/dL Calcium 9.2 (8.5-10.1) mg/dL Magnesium 1.8 (1.8-2.4) mg/dl C-Reactive Protein 16.5 H* (<1.0) mg/dL Med Orders - Current: Current Medications Acetaminophen (Tylenol) 650 mg PO Q4H PRN PRN Reason: Pain (Mild 1-3)/fever Last Admin: 04/10/17 20:11 Dose: 650 mg Hydrocodone Bitart/Acetaminophen ([place] 325-5 Mg) 1 tab PO BID [facility] Last Admin: 04/11/17 08:38 Dose: Not Given Albuterol/Ipratropium (Duoneb 3.0-0.5 Mg/3 Ml) 3 ml NEB Q4H PRN PRN Reason: Shortness Of Breath/wheezing Bisacodyl (Dulcolax) 5 mg PO DAILY PRN PRN Reason: Constipation Docusate Sodium (Colace) 100 mg PO BID PRN PRN Reason: Constipation Losartan Potassium (Cozaar) 50 mg PO BID [facility] Last Admin: 04/11/17 08:47 Dose: 50 mg Ondansetron HCl (Zofran Odt) 4 mg PO Q6H PRN PRN Reason: nausea, able to take PO Ondansetron HCl (Zofran) 4 mg IV Q6H PRN PRN Reason: Nausea/Vomiting Gabapentin 400mg (Capsules) 0 each PO TID [facility] Last Admin: 04/11/17 08:47 Dose: 2 each L Acidophil/B Lactis /B Longum [Florajen3 ] 1 Cap 0 each PO ACBRK [facility] Last Admin: 04/11/17 05:35 Dose: 1 each Methenamine (Hippurate 1g Tablets) 0 each PO BID [facility] Last Admin: 04/11/17 08:47 Dose: 1 each Vit C With (Flavonoids 500mg Cap) 0 each PO TID [facility] Last Admin: 04/11/17 08:47 Dose: 1 each Polyethylene Glycol (Miralax) 17 gm PO DAILY PRN PRN Reason: Constipation Senna/Docusate Sodium (Senna Plus) 1 tab PO BID PRN PRN Reason: Constipation Temazepam (Restoril) 7.5 mg PO BEDTIME PRN PRN Reason: Sleep Last Admin: 04/10/17 21:44 Dose: 7.5 mg Discontinued Medications Hydrocodone Bitart/Acetaminophen ([place] 325-5 Mg) 1 tab PO TID [facility] Last Admin: 04/09/17 11:59 Dose: Not Given Hydrocodone Bitart/Acetaminophen ([place] 325-5 Mg) 1 tab PO TID [facility] Last Admin: 04/10/17 08:31 Dose: 1 tab Aspirin (Halfprin) 81 mg PO DAILY [facility] Last Admin: 04/09/17 11:58 Dose: Not Given Furosemide (Lasix) 10 mg IVPUSH NOW ONE Stop: 04/11/17 08:41 Gabapentin (Neurontin) 800 mg PO ONETIME ONE Stop: 04/08/17 19:51 Last Admin: 04/08/17 20:02 Dose: 800 mg Hydralazine HCl (Apresoline) 10 mg IVPUSH ONETIME ONE Stop: 04/11/17 06:34 Last Admin: 04/11/17 06:58 Dose: 10 mg Hydrochlorothiazide (Hydrochlorothiazide) 12.5 mg PO DAILY [facility] Last Admin: 04/09/17 11:59 Dose: Not Given Sodium Chloride (Normal Saline) 1,000 mls @ 75 mls/hr IV ASDIRECTED [facility] Last Admin: 04/10/17 08:37 Dose: 75 mls/hr Magnesium Sulfate 2 gm/ Premix 50 mls @ 25 mls/hr IV ONETIME ONE Stop: 04/09/17 18:24 Last Admin: 04/09/17 16:53 Dose: 25 mls/hr Losartan Potassium (Cozaar) 50 mg PO BID [facility] Nitrofurantoin Macrocrystals (Macrobid) 100 mg PO WITHLUNCH [facility] Last Admin: 04/10/17 08:39 Dose: 100 mg Non-Formulary Medication (Vit D3 & K/Berberine Hcl/Hops [Ostera]) 1 cap PO DAILY [facility] Last Admin: 04/09/17 12:00 Dose: Not Given Calc/D3/Mag/Zn/Granulating Machine Operator/Dante/[place] [Calcium 600 Mg Plus Vit D] 0 each PO BID [facility] Last Admin: 04/09/17 11:59 Dose: Not Given Cyanocobalamin ( Vitamin B-12) 100 Mcg 0 each PO DAILY [facility] Last Admin: 04/09/17 12:00 Dose: Not Given Iron,Carbonyl/Vit C/Vit B12/Fa [Iron 100 Plus Softgel] 0 each PO DAILY [facility] Last Admin: 04/09/17 12:00 Dose: Not Given Centrum Silver - (Multivitamins) 0 each PO DAILY [facility] Last Admin: 04/09/17 11:59 Dose: Not Given Potassium Chloride [ Potassium Chloride] 10 Meq 0 each PO DAILY [facility] Last Admin: 04/09/17 12:00 Dose: Not Given Pravastatin 20 Mg 20 each PO BEDTIME [facility] Senna/Docusate Sodium (Senna Plus) 1 tab PO BID [facility] Last Admin: 04/09/17 12:00 Dose: Not Given - Exam Quality Assessment: Reports: DVT Prophylaxis General: Reports: Alert, Cooperative, No Acute Distress HEENT: Reports: Pupils Equal, EOMI, Mucous Membr. Moist/[place] Neck: Reports: Supple Lungs: Reports: Clear to Auscultation, Normal Respiratory Effort, Decreased Breath Sounds (bases) Cardiovascular: Reports: Regular Rate, Regular Rhythm GI/Abdominal Exam: Normal Bowel Sounds, Soft, Non-Tender (Female) Exam: Deferred Rectal (Female) Exam: Deferred Extremities: Normal Inspection, No Pedal Edema, Normal Capillary Refill Neurological: Reports: No New Focal Deficit Psy/Mental Status: Reports: Alert, Normal Affect, Normal Mood *Q Meaningful Use (DIS) - VTE *Q VTE Criteria *Q: - Stroke *Q Stroke Criteria *Q: - AMI *Q AMI Criteria *Q:
[2017-04-11] MEDS ORDERED: Sodium Chloride 0.9% 10 ML Syringe FLUSH PRN (09:52)
[2017-04-11] MEDS ORDERED: Iopamidol 755 Mg/ML 100 ML Bottle IVPUSH ONE (09:52)
[2017-04-11] MEDS ORDERED: Sodium Chloride 0.9% 100 ML IV SCH (10:00)
[2017-04-11] MEDS: VIT B12 PO SCH ×2 (10:25→20:32)
[2017-04-11] MEDS: [UNRECOGNIZED DRUG - OTHER] PO SCH ×2 (10:25→20:32)
[2017-04-11] MEDS: IRON CARBONYL PO SCH ×2 (10:25→20:32)
[2017-04-11] MEDS: VIT C PO SCH ×2 (10:25→20:32)
--- NOTE | 2017-04-11 11:52 | CT ---
CT chest Technique: Multiple axial sections through the chest were obtained. Intravenous contrast was utilized. Study has been performed as a pulmonary angiogram protocol. Findings: Pulmonary arteries are well-opacified. No filling defects are seen to indicate pulmonary embolism. Small to moderate sized pleural effusions are seen. Aortic stent is present. Mediastinum and hilar regions show no adenopathy or mass. No axillary adenopathy is seen. Compressive atelectasis is seen adjacent to both pleural effusions. Lungs otherwise are clear. Bone window settings were reviewed which show scattered degenerative change throughout the spine. Impression: 1. Small to moderate sized bilateral pleural effusions with adjacent compressive atelectasis. 2. No findings of pulmonary embolism. 3. Other incidental findings. Diagnostic code #3
--- NOTE | 2017-04-11 12:40 | PCM.PN ---
- General Info Date of Service: 04/11/17 Admission Dx/Problem (Free Text): Admission Diagnosis/Problem Admission Diagnosis/Problem Fever Suspected UTI on admit with hx of recurrent UTI; all other labs and eval are unremarkable. She had just finished course of augmentin as OP, took macrobid day DRY CLIPPER TENDER, starting daily prophylactic dose. Patient with fever last night. She feels "not right" in her chest this morning. She is maintaining oxygen saturations on RA. B/P was quite elevated this morning , apresoline one time given with good results. D-dimer ordered and was +, CTA shows bilateral pleural effusions with compressive atelectasis by Radiologists report. Negative trop and CKMB this morning. Functional Status: Reports: Pain Controlled, Tolerating Diet, Ambulating, Urinating (UO has been on the + side (2,000ml) the past few days by chart review ) - Review of Systems General: Reports: Fever, Weakness, Fatigue HEENT: Reports: No Symptoms Pulmonary: Reports: Shortness of Breath (sensation). Denies: Pleuritic Chest Pain, Cough, Sputum, Hemoptysis Cardiovascular: Reports: No Symptoms. Denies: Chest Pain, Dyspnea on Exertion, Orthopnea, Lightheadedness Gastrointestinal: Reports: No Symptoms Musculoskeletal: Denies: Back Pain - Patient Data Vitals - Most Recent: Last Vital Signs Temp 98.8 F 04/11/17 07:35 Pulse 96 04/11/17 08:45 Resp 16 04/11/17 07:36 BP 136/51 L 04/11/17 08:47 Pulse Ox 95 04/11/17 08:45 Weight - Most Recent: 125 lb 1.6 oz I&O - Last 24 Hours: Intake & Output 04/10/17 04/11/17 04/11/17 22:59 06:59 14:59 Intake Total 2326 500 120 Output Total 200 100 Balance 2126 400 120 Lab Results Last 24 Hours: Laboratory Results - last 24 hr 04/10/17 04/10/17 04/11/17 Range/Units 17:13 20:49 05:34 WBC (3.98-10.04) K/mm3 RBC (3.98-5.22) M/mm3 Hgb (11.2-15.7) gm/L Hct (34.1-44.9) % MCV (79.4-94.8) fl MCH (25.6-32.2) pg MCHC (32.2-35.5) g/dl RDW Std Deviation (36.4-46.3) fL Plt Count (182-369) K/mm3 MPV (9.4-12.3) fl Neut % (Auto) (34.0-71.1) % Lymph % (Auto) (19.3-51.7) % [place] % (Auto) (4.7-12.5) % Eos % (Auto) (0.7-5.8) Baso % (Auto) (0.1-1.2) % Neut # (Auto) (1.56-6.13) K/mm3 Lymph # (Auto) (1.18-3.74) K/mm3 [place] # (Auto) (0.24-0.36) K/mm3 Eos # (Auto) (0.04-0.36) K/mm3 Baso # (Auto) (0.01-0.08) K/mm3 D-Dimer, Quantitative (0.19-0.59) mg/L Sodium (136-145) mEq/L Potassium (3.5-5.1) mEq/L Chloride (98-107) mEq/L Carbon Dioxide (21-32) mEq/L Anion Gap (5-15) BUN (7-18) mg/dL Creatinine (0.55-1.02) mg/dL Est Cr Clr Drug Dosing mL/min Estimated GFR (MDRD) (>60) mL/min BUN/Creatinine Ratio (14-18) Glucose (83-115) mg/dL POC Glucose 101 148 H 110 (83-110) mg/dL Calcium (8.5-10.1) mg/dL Magnesium (1.8-2.4) mg/dl CK-MB (CK-2) (0-3.6) ng/ml Troponin I (0.00-0.056) ng/mL C-Reactive Protein (<1.0) mg/dL 04/11/17 04/11/17 04/11/17 Range/Units 06:05 06:05 06:05 WBC 7.08 (3.98-10.04) K/mm3 RBC 3.36 L (3.98-5.22) M/mm3 Hgb 9.8 L (11.2-15.7) gm/L Hct 31.3 L (34.1-44.9) % MCV 93.2 (79.4-94.8) fl MCH 29.2 (25.6-32.2) pg MCHC 31.3 L (32.2-35.5) g/dl RDW Std Deviation 45.6 (36.4-46.3) fL Plt Count 178 L (182-369) K/mm3 MPV 10.0 (9.4-12.3) fl Neut % (Auto) 75.9 H (34.0-71.1) % Lymph % (Auto) 13.1 L (19.3-51.7) % [place] % (Auto) 6.4 (4.7-12.5) % Eos % (Auto) 4.2 (0.7-5.8) Baso % (Auto) 0.1 (0.1-1.2) % Neut # (Auto) 5.37 (1.56-6.13) K/mm3 Lymph # (Auto) 0.93 L (1.18-3.74) K/mm3 [place] # (Auto) 0.45 H (0.24-0.36) K/mm3 Eos # (Auto) 0.30 (0.04-0.36) K/mm3 Baso # (Auto) 0.01 (0.01-0.08) K/mm3 D-Dimer, Quantitative 1.60 H (0.19-0.59) mg/L Sodium 143 (136-145) mEq/L Potassium 3.8 (3.5-5.1) mEq/L Chloride 108 H (98-107) mEq/L Carbon Dioxide 27 (21-32) mEq/L Anion Gap 11.8 (5-15) BUN 17 (7-18) mg/dL Creatinine 0.9 (0.55-1.02) mg/dL Est Cr Clr Drug Dosing 35.74 mL/min Estimated GFR (MDRD) 59 (>60) mL/min BUN/Creatinine Ratio 18.9 H (14-18) Glucose 98 (83-115) mg/dL POC Glucose (83-110) mg/dL Calcium 9.2 (8.5-10.1) mg/dL Magnesium 1.8 (1.8-2.4) mg/dl CK-MB (CK-2) (0-3.6) ng/ml Troponin I (0.00-0.056) ng/mL C-Reactive Protein 16.5 H* (<1.0) mg/dL 04/11/17 04/11/17 Range/Units 11:05 11:26 WBC (3.98-10.04) K/mm3 RBC (3.98-5.22) M/mm3 Hgb (11.2-15.7) gm/L Hct (34.1-44.9) % MCV (79.4-94.8) fl MCH (25.6-32.2) pg MCHC (32.2-35.5) g/dl RDW Std Deviation (36.4-46.3) fL Plt Count (182-369) K/mm3 MPV (9.4-12.3) fl Neut % (Auto) (34.0-71.1) % Lymph % (Auto) (19.3-51.7) % [place] % (Auto) (4.7-12.5) % Eos % (Auto) (0.7-5.8) Baso % (Auto) (0.1-1.2) % Neut # (Auto) (1.56-6.13) K/mm3 Lymph # (Auto) (1.18-3.74) K/mm3 [place] # (Auto) (0.24-0.36) K/mm3 Eos # (Auto) (0.04-0.36) K/mm3 Baso # (Auto) (0.01-0.08) K/mm3 D-Dimer, Quantitative (0.19-0.59) mg/L Sodium (136-145) mEq/L Potassium (3.5-5.1) mEq/L Chloride (98-107) mEq/L Carbon Dioxide (21-32) mEq/L Anion Gap (5-15) BUN (7-18) mg/dL Creatinine (0.55-1.02) mg/dL Est Cr Clr Drug Dosing mL/min Estimated GFR (MDRD) (>60) mL/min BUN/Creatinine Ratio (14-18) Glucose (83-115) mg/dL POC Glucose 142 H (83-110) mg/dL Calcium (8.5-10.1) mg/dL Magnesium (1.8-2.4) mg/dl CK-MB (CK-2) 0.8 (0-3.6) ng/ml Troponin I < 0.017 (0.00-0.056) ng/mL C-Reactive Protein (<1.0) mg/dL Med Orders - Current: Current Medications Acetaminophen (Tylenol) 650 mg PO Q4H PRN PRN Reason: Pain (Mild 1-3)/fever Last Admin: 04/10/17 20:11 Dose: 650 mg Hydrocodone Bitart/Acetaminophen ([place] 325-5 Mg) 1 tab PO BID [facility] Last Admin: 04/11/17 10:25 Dose: 1 tab Albuterol/Ipratropium (Duoneb 3.0-0.5 Mg/3 Ml) 3 ml NEB Q4H PRN PRN Reason: Shortness Of Breath/wheezing Bisacodyl (Dulcolax) 5 mg PO DAILY PRN PRN Reason: Constipation Docusate Sodium (Colace) 100 mg PO BID PRN PRN Reason: Constipation Furosemide (Lasix) 40 mg IVPUSH NOW ONE Stop: 04/11/17 14:01 Losartan Potassium (Cozaar) 50 mg PO BID [facility] Last Admin: 04/11/17 08:47 Dose: 50 mg Ondansetron HCl (Zofran Odt) 4 mg PO Q6H PRN PRN Reason: nausea, able to take PO Ondansetron HCl (Zofran) 4 mg IV Q6H PRN PRN Reason: Nausea/Vomiting Gabapentin 400mg (Capsules) 0 each PO TID [facility] Last Admin: 04/11/17 08:47 Dose: 2 each L Acidophil/B Lactis /B Longum [Florajen3 ] 1 Cap 0 each PO ACBRK [facility] Last Admin: 04/11/17 05:35 Dose: 1 each Methenamine (Hippurate 1g Tablets) 0 each PO BID [facility] Last Admin: 04/11/17 08:47 Dose: 1 each Vit C With (Flavonoids 500mg Cap) 0 each PO TID [facility] Last Admin: 04/11/17 08:47 Dose: 1 each Iron,Carbonyl/Vit C/Vit B12/Fa [Ultimate Iron Softgels] 0 each PO BID [facility] Last Admin: 04/11/17 10:25 Dose: 1 each Polyethylene Glycol (Miralax) 17 gm PO DAILY PRN PRN Reason: Constipation Senna/Docusate Sodium (Senna Plus) 1 tab PO BID PRN PRN Reason: Constipation Temazepam (Restoril) 7.5 mg PO BEDTIME PRN PRN Reason: Sleep Last Admin: 04/10/17 21:44 Dose: 7.5 mg Discontinued Medications Hydrocodone Bitart/Acetaminophen ([place] 325-5 Mg) 1 tab PO TID [facility] Last Admin: 04/09/17 11:59 Dose: Not Given Hydrocodone Bitart/Acetaminophen ([place] 325-5 Mg) 1 tab PO TID [facility] Last Admin: 04/10/17 08:31 Dose: 1 tab Aspirin (Halfprin) 81 mg PO DAILY [facility] Last Admin: 04/09/17 11:58 Dose: Not Given Furosemide (Lasix) 10 mg IVPUSH NOW ONE Stop: 04/11/17 08:41 Last Admin: 04/11/17 08:53 Dose: 10 mg Gabapentin (Neurontin) 800 mg PO ONETIME ONE Stop: 04/08/17 19:51 Last Admin: 04/08/17 20:02 Dose: 800 mg Hydralazine HCl (Apresoline) 10 mg IVPUSH ONETIME ONE Stop: 04/11/17 06:34 Last Admin: 04/11/17 06:58 Dose: 10 mg Hydrochlorothiazide (Hydrochlorothiazide) 12.5 mg PO DAILY [facility] Last Admin: 04/09/17 11:59 Dose: Not Given Sodium Chloride (Normal Saline) 1,000 mls @ 75 mls/hr IV ASDIRECTED [facility] Last Admin: 04/10/17 08:37 Dose: 75 mls/hr Magnesium Sulfate 2 gm/ Premix 50 mls @ 25 mls/hr IV ONETIME ONE Stop: 04/09/17 18:24 Last Admin: 04/09/17 16:53 Dose: 25 mls/hr Sodium Chloride (Normal Saline) 100 mls @ 80 mls/hr IV ASDIRECTED [facility] Stop: 04/11/17 12:00 Last Admin: 04/11/17 10:08 Dose: 80 mls/hr Iopamidol (Isovue-370 (76%)) 100 ml IVPUSH ONETIME ONE Stop: 04/11/17 09:53 Last Admin: 04/11/17 10:08 Dose: 60 ml Losartan Potassium (Cozaar) 50 mg PO BID [facility] Nitrofurantoin Macrocrystals (Macrobid) 100 mg PO WITHLUNCH [facility] Last Admin: 04/10/17 08:39 Dose: 100 mg Non-Formulary Medication (Vit D3 & K/[place] Hcl/Hops [Ostera]) 1 cap PO DAILY [facility] Last Admin: 04/09/17 12:00 Dose: Not Given Calc/D3/Mag/Zn/Manager Transportation Planning/[place] [Calcium 600 Mg Plus Vit D] 0 each PO BID [facility] Last Admin: 04/09/17 11:59 Dose: Not Given Cyanocobalamin ( Vitamin B-12) 100 Mcg 0 each PO DAILY [facility] Last Admin: 04/09/17 12:00 Dose: Not Given Iron,Carbonyl/Vit C/Vit B12/Fa [Iron 100 Plus Softgel] 0 each PO DAILY [facility] Last Admin: 04/09/17 12:00 Dose: Not Given Centrum Silver - (Multivitamins) 0 each PO DAILY [facility] Last Admin: 04/09/17 11:59 Dose: Not Given Potassium Chloride [ Potassium Chloride] 10 Meq 0 each PO DAILY [facility] Last Admin: 04/09/17 12:00 Dose: Not Given Pravastatin 20 Mg 20 each PO BEDTIME [facility] Senna/Docusate Sodium (Senna Plus) 1 tab PO BID [facility] Last Admin: 04/09/17 12:00 Dose: Not Given Sodium Chloride (Saline Flush) 10 ml FLUSH ONETIME PRN PRN Reason: IV FLUSH Stop: 04/11/17 12:00 Last Admin: 04/11/17 10:08 Dose: 10 ml - Exam Quality Assessment: DVT Prophylaxis General: Alert, Oriented, Cooperative, No Acute Distress HEENT: Pupils Equal, EOMI, Mucous Membr. Moist/[place] Neck: Supple Lungs: Clear to Auscultation, Normal Respiratory Effort, Decreased Breath Sounds , Rales (faint at BL bases) Cardiovascular: Regular Rate, Regular Rhythm GI/Abdominal Exam: Normal Bowel Sounds, Soft, Non-Tender (Female) Exam: Deferred Extremities: Normal Capillary Refill Peripheral Pulses: 1+: Dorsalis Pedis (L), Dorsalis Pedis (R) Neurological: No New Focal Deficit Psy/Mental Status: Alert, Normal Affect, Normal Mood - Problem List & Annotations (1) Febrile illness, acute SNOMED Code(s): 978759665 Code(s): R50.9 - FEVER, UNSPECIFIED Status: Acute Priority: High Current Visit: Yes (2) H/O recurrent urinary tract infection SNOMED Code(s): 002793357 Code(s): Z87.440 - PERSONAL HISTORY OF URINARY (TRACT) INFECTIONS Status: Chronic Priority: High Current Visit: Yes (3) Abdominal pain SNOMED Code(s): 97493543 Code(s): R10.9 - UNSPECIFIED ABDOMINAL PAIN Status: Resolved Priority: High Current Visit: Yes Qualifiers: Abdominal location: unspecified location Qualified Code(s): R10.9 - Unspecified abdominal pain (4) Generalized weakness SNOMED Code(s): 38900173 Code(s): R53.1 - WEAKNESS Status: Acute Priority: Medium Current Visit : Yes (5) Diabetes mellitus type 2 in nonobese SNOMED Code(s): 221186875 Code(s): E11.9 - TYPE 2 DIABETES MELLITUS WITHOUT COMPLICATIONS Status: Chronic Priority: Medium Current Visit: Yes (6) Hypertension SNOMED Code(s): 31723201 Code(s): I10 - ESSENTIAL (PRIMARY) HYPERTENSION Status: Chronic Priority : Medium Current Visit: Yes Qualifiers: Hypertension type: essential hypertension Qualified Code(s): I10 - Essential (primary) hypertension - Problem List Review Problem List Initiated/Reviewed/Updated: Yes - My Orders Last 24 Hours: My Active Orders 04/11/17 12:27 Ambulate [RC] Q2HWA 04/11/17 12:28 RT Incentive Spirometry [RC] Q2HWA PRO B-TYPE NATRIUR PEPT,BNPPRO [CHEM] Routine RT Flutter Valve Therapy [RT Acapella] [RESPCARE] Routine 04/11/17 12:30 Echo Comp wo Cont [US] Routine 04/11/17 14:00 Furosemide [Lasix] 40 mg IVPUSH NOW ONE 04/12/17 05:00 PRO B-TYPE NATRIUR PEPT,BNPPRO [CHEM] Routine - Plan Plan:: I/P: Acute: Acute febrile illness of unknown origin -Hx/o recurrent UTIs - was recently hospitalized and just finished course of augmentin -Was started on macrobid once daily- prophylaxis dose just DRY CLIPPER TENDER -Tylenol for fever -Repeat CXR was stable with bilat small effusions -Sensation of SOB this morning; d.dimer is + at 1.6. CTA of chest obtained showing bilateral small to moderate sized effusions with compressive atelectasis. Suspect acute CHF exacerbation with bilateral pleural effusions, UO on the + side for the past few days -IV lasix given this am 10mg, will schedule 40mg this afternoon -Follow am labs, K+ and Mg -BNP ordered -Echo today -Negative troponin and CKMB this morning Abdominal pain--resolved -Suprapubic > LLQ -Hx/o recent UTI -Denies any constipation/diarrhea/changes in bowel habits -Consider abdominal x-ray if pain continues Generalized weakness -Acute on chronic -Has been working with PT since recent hospital discharge -Continue PT/OT here -Add TSH -Likely 2/2 above Chronic: Impaired vision A-fib--rate controlled in the 70's CAD CHF--will attempt to obtain old echo HLD HTN--hypertension this morning with systolic of 190; apresoline x 1 dose given with good improvement down to 130's systolic Recurrent UTIs Arthirits JULIA "Pre-diabetic" - A1C ordered -- 6.2 hx/o MRSA infection. Plan: CM/SW for discharge planning--likely DC in 24-48 hours pending status and VS. PT/OT Other orders as indicated above Home medications as ordered DVT/PE prophylaxis: SOREN hose and lovenox GI prophylaxis: Pepcid Routine AM Labs Code Status: Full Code. Her PCP is Jessy Galeana PA-C here at [facility].
[2017-04-11] MEDS: cefTRIAXone 2 GM in Sodium Chloride 0.9% 100 ML IV SCH (20:27)
[2017-04-11] MEDS: Acetaminophen 325 MG Tab PO PRN (20:30)
[2017-04-11] MEDS: Temazepam 7.5 MG Cap PO PRN (22:23)
[2017-04-12] MEDS: ACIDOPHIL PO SCH (07:49)
[2017-04-12] MEDS: B LONGUM PO SCH (07:49)
[2017-04-12] MEDS: B LACTIS PO SCH (07:49)
[2017-04-12] MEDS: Losartan 100 MG Tab PO SCH ×2 (08:55→20:47)
[2017-04-12] MEDS: Furosemide 20 MG Tab PO SCH ×2 (08:55→13:22)
[2017-04-12] MEDS: Acetaminophen/HYDROcodone 325-5 MG Tab PO SCH ×2 (08:55→20:47)
[2017-04-12] MEDS: VIT C PO SCH ×2 (08:56→20:49)
[2017-04-12] MEDS: GABAPENTIN 400 MG PO SCH ×3 (08:56→20:48)
[2017-04-12] MEDS: VIT B12 PO SCH ×2 (08:56→20:49)
[2017-04-12] MEDS: [UNRECOGNIZED DRUG - OTHER] PO SCH ×2 (08:56→20:49)
[2017-04-12] MEDS: IRON CARBONYL PO SCH ×2 (08:56→20:49)
[2017-04-12] MEDS: [UNRECOGNIZED DRUG - OTHER] PO SCH ×3 (08:57→20:49)
[2017-04-12] MEDS: ASCORBIC ACID PO SCH ×3 (08:57→20:49)
[2017-04-12] MEDS: METHENAMINE HIPPURATE 1 GM PO SCH ×2 (08:57→20:50)
[2017-04-12] MEDS ORDERED: Bumetanide 1 MG Tab PO ONE (09:43)
--- NOTE | 2017-04-12 09:47 | PCM.PN ---
<Renita Pittman - Last Filed: 04/12/17 10:05> - General Info Date of Service: 04/12/17 Admission Dx/Problem (Free Text): Admission Diagnosis/Problem Admission Diagnosis/Problem Fever Suspected UTI on admit with hx of recurrent UTI; all other labs and eval are unremarkable. She had just finished course of augmentin as OP, took macrobid day LOOM DOFFER, starting daily prophylactic dose. Patient with fever last night again; 100.1 at 2030. Resolved this morning. Echocardiogram is pending. Functional Status: Reports: Pain Controlled, Tolerating Diet, Ambulating, Urinating, Incentive Spirometry - Review of Systems General: Reports: Fever (100.1 last night), Weakness (generalized) HEENT: Reports: No Symptoms Pulmonary: Reports: No Symptoms Cardiovascular: Reports: No Symptoms Gastrointestinal: Reports: No Symptoms Genitourinary: Reports: Frequency, Incontinence Musculoskeletal: Reports: No Symptoms Neurological: Reports: No Symptoms Psychiatric: Reports: No Symptoms - Patient Data Vitals - Most Recent: Last Vital Signs Temp 98.2 F 04/12/17 07:34 Pulse 85 04/12/17 07:37 Resp 20 04/12/17 07:34 BP 156/67 H 04/12/17 08:55 Pulse Ox 92 L 04/12/17 07:37 Weight - Most Recent: 55.384 kg I&O - Last 24 Hours: Intake & Output 04/11/17 04/12/17 04/12/17 22:59 06:59 14:59 Intake Total 1040 900 Output Total 300 100 Balance 740 800 Lab Results Last 24 Hours: Laboratory Results - last 24 hr 04/11/17 04/11/17 04/11/17 Range/Units 11:05 11:05 11:26 WBC (3.98-10.04) K/mm3 RBC (3.98-5.22) M/mm3 Hgb (11.2-15.7) gm/L Hct (34.1-44.9) % MCV (79.4-94.8) fl MCH (25.6-32.2) pg MCHC (32.2-35.5) g/dl RDW Std Deviation (36.4-46.3) fL Plt Count (182-369) K/mm3 MPV (9.4-12.3) fl Neut % (Auto) (34.0-71.1) % Lymph % (Auto) (19.3-51.7) % Reeves % (Auto) (4.7-12.5) % Eos % (Auto) (0.7-5.8) Baso % (Auto) (0.1-1.2) % Neut # (Auto) (1.56-6.13) K/mm3 Lymph # (Auto) (1.18-3.74) K/mm3 Reeves # (Auto) (0.24-0.36) K/mm3 Eos # (Auto) (0.04-0.36) K/mm3 Baso # (Auto) (0.01-0.08) K/mm3 Sodium (136-145) mEq/L Potassium (3.5-5.1) mEq/L Chloride (98-107) mEq/L Carbon Dioxide (21-32) mEq/L Anion Gap (5-15) BUN (7-18) mg/dL Creatinine (0.55-1.02) mg/dL Est Cr Clr Drug Dosing mL/min Estimated GFR (MDRD) (>60) mL/min BUN/Creatinine Ratio (14-18) Glucose (83-115) mg/dL POC Glucose 142 H (83-110) mg/dL Calcium (8.5-10.1) mg/dL Magnesium (1.8-2.4) mg/dl CK-MB (CK-2) 0.8 (0-3.6) ng/ml Troponin I < 0.017 (0.00-0.056) ng/mL C-Reactive Protein (<1.0) mg/dL NT-Pro-B Natriuret Pep 4267 H (0-450) pg/mL 04/11/17 04/11/17 04/12/17 Range/Units 17:02 20:39 06:50 WBC 7.33 (3.98-10.04) K/mm3 RBC 3.36 L (3.98-5.22) M/mm3 Hgb 9.8 L (11.2-15.7) gm/L Hct 30.7 L (34.1-44.9) % MCV 91.4 (79.4-94.8) fl MCH 29.2 (25.6-32.2) pg MCHC 31.9 L (32.2-35.5) g/dl RDW Std Deviation 44.6 (36.4-46.3) fL Plt Count 231 (182-369) K/mm3 MPV 10.1 (9.4-12.3) fl Neut % (Auto) 71.1 (34.0-71.1) % Lymph % (Auto) 15.0 L (19.3-51.7) % Reeves % (Auto) 8.7 (4.7-12.5) % Eos % (Auto) 4.1 (0.7-5.8) Baso % (Auto) 0.4 (0.1-1.2) % Neut # (Auto) 5.21 (1.56-6.13) K/mm3 Lymph # (Auto) 1.10 L (1.18-3.74) K/mm3 Reeves # (Auto) 0.64 H (0.24-0.36) K/mm3 Eos # (Auto) 0.30 (0.04-0.36) K/mm3 Baso # (Auto) 0.03 (0.01-0.08) K/mm3 Sodium (136-145) mEq/L Potassium (3.5-5.1) mEq/L Chloride (98-107) mEq/L Carbon Dioxide (21-32) mEq/L Anion Gap (5-15) BUN (7-18) mg/dL Creatinine (0.55-1.02) mg/dL Est Cr Clr Drug Dosing mL/min Estimated GFR (MDRD) (>60) mL/min BUN/Creatinine Ratio (14-18) Glucose (83-115) mg/dL POC Glucose 103 190 H (83-110) mg/dL Calcium (8.5-10.1) mg/dL Magnesium (1.8-2.4) mg/dl CK-MB (CK-2) (0-3.6) ng/ml Troponin I (0.00-0.056) ng/mL C-Reactive Protein (<1.0) mg/dL NT-Pro-B Natriuret Pep (0-450) pg/mL 04/12/17 04/12/17 04/12/17 Range/Units 06:50 06:50 07:49 WBC (3.98-10.04) K/mm3 RBC (3.98-5.22) M/mm3 Hgb (11.2-15.7) gm/L Hct (34.1-44.9) % MCV (79.4-94.8) fl MCH (25.6-32.2) pg MCHC (32.2-35.5) g/dl RDW Std Deviation (36.4-46.3) fL Plt Count (182-369) K/mm3 MPV (9.4-12.3) fl Neut % (Auto) (34.0-71.1) % Lymph % (Auto) (19.3-51.7) % Reeves % (Auto) (4.7-12.5) % Eos % (Auto) (0.7-5.8) Baso % (Auto) (0.1-1.2) % Neut # (Auto) (1.56-6.13) K/mm3 Lymph # (Auto) (1.18-3.74) K/mm3 Reeves # (Auto) (0.24-0.36) K/mm3 Eos # (Auto) (0.04-0.36) K/mm3 Baso # (Auto) (0.01-0.08) K/mm3 Sodium 142 (136-145) mEq/L Potassium 3.4 L (3.5-5.1) mEq/L Chloride 106 (98-107) mEq/L Carbon Dioxide 28 (21-32) mEq/L Anion Gap 11.4 (5-15) BUN 16 (7-18) mg/dL Creatinine 0.9 (0.55-1.02) mg/dL Est Cr Clr Drug Dosing 35.74 mL/min Estimated GFR (MDRD) 59 (>60) mL/min BUN/Creatinine Ratio 17.8 (14-18) Glucose 109 (83-115) mg/dL POC Glucose 115 H (83-110) mg/dL Calcium 9.4 (8.5-10.1) mg/dL Magnesium 1.6 L (1.8-2.4) mg/dl CK-MB (CK-2) (0-3.6) ng/ml Troponin I (0.00-0.056) ng/mL C-Reactive Protein 8.2 H* (<1.0) mg/dL NT-Pro-B Natriuret Pep 2721 H (0-450) pg/mL Med Orders - Current: Current Medications Acetaminophen (Tylenol) 650 mg PO Q4H PRN PRN Reason: Pain (Mild 1-3)/fever Last Admin: 04/11/17 20:30 Dose: 650 mg Hydrocodone Bitart/Acetaminophen (Wood 325-5 Mg) 1 tab PO BID [facility] Last Admin: 04/12/17 08:55 Dose: 1 tab Albuterol/Ipratropium (Duoneb 3.0-0.5 Mg/3 Ml) 3 ml NEB Q4H PRN PRN Reason: Shortness Of Breath/wheezing Bisacodyl (Dulcolax) 5 mg PO DAILY PRN PRN Reason: Constipation Docusate Sodium (Colace) 100 mg PO BID PRN PRN Reason: Constipation Furosemide (Lasix) 20 mg PO BIDDIURETIC [facility] Last Admin: 04/12/17 08:55 Dose: 20 mg Ceftriaxone Sodium 2 gm/ (Sodium Chloride) 100 mls @ 200 mls/hr IV Q24H [facility] Last Admin: 04/11/17 20:27 Dose: 200 mls/hr Losartan Potassium (Cozaar) 50 mg PO BID [facility] Last Admin: 04/12/17 08:55 Dose: 50 mg Ondansetron HCl (Zofran Odt) 4 mg PO Q6H PRN PRN Reason: nausea, able to take PO Ondansetron HCl (Zofran) 4 mg IV Q6H PRN PRN Reason: Nausea/Vomiting Gabapentin 400mg (Capsules) 0 each PO TID [facility] Last Admin: 04/12/17 08:56 Dose: 2 each L Acidophil/B Lactis /B Longum [Florajen3 ] 1 Cap 0 each PO ACBRK [facility] Last Admin: 04/12/17 07:49 Dose: 1 each Methenamine (Hippurate 1g Tablets) 0 each PO BID [facility] Last Admin: 04/12/17 08:57 Dose: 1 each Vit C With (Flavonoids 500mg Cap) 0 each PO TID [facility] Last Admin: 04/12/17 08:57 Dose: 1 each Iron,Carbonyl/Vit C/Vit B12/Fa [Ultimate Iron Softgels] 0 each PO BID [facility] Last Admin: 04/12/17 08:56 Dose: 1 each Polyethylene Glycol (Miralax) 17 gm PO DAILY PRN PRN Reason: Constipation Senna/Docusate Sodium (Senna Plus) 1 tab PO BID PRN PRN Reason: Constipation Temazepam (Restoril) 7.5 mg PO BEDTIME PRN PRN Reason: Sleep Last Admin: 04/11/17 22:23 Dose: 7.5 mg Discontinued Medications Hydrocodone Bitart/Acetaminophen (Wood 325-5 Mg) 1 tab PO TID [facility] Last Admin: 04/09/17 11:59 Dose: Not Given Hydrocodone Bitart/Acetaminophen (Wood 325-5 Mg) 1 tab PO TID [facility] Last Admin: 04/10/17 08:31 Dose: 1 tab Aspirin (Halfprin) 81 mg PO DAILY [facility] Last Admin: 04/09/17 11:58 Dose: Not Given Furosemide (Lasix) 10 mg IVPUSH NOW ONE Stop: 04/11/17 08:41 Last Admin: 04/11/17 08:53 Dose: 10 mg Furosemide (Lasix) 40 mg IVPUSH NOW ONE Stop: 04/11/17 14:01 Last Admin: 04/11/17 14:28 Dose: 40 mg Gabapentin (Neurontin) 800 mg PO ONETIME ONE Stop: 04/08/17 19:51 Last Admin: 04/08/17 20:02 Dose: 800 mg Hydralazine HCl (Apresoline) 10 mg IVPUSH ONETIME ONE Stop: 04/11/17 06:34 Last Admin: 04/11/17 06:58 Dose: 10 mg Hydrochlorothiazide (Hydrochlorothiazide) 12.5 mg PO DAILY [facility] Last Admin: 04/09/17 11:59 Dose: Not Given Sodium Chloride (Normal Saline) 1,000 mls @ 75 mls/hr IV ASDIRECTED [facility] Last Admin: 04/10/17 08:37 Dose: 75 mls/hr Magnesium Sulfate 2 gm/ Premix 50 mls @ 25 mls/hr IV ONETIME ONE Stop: 04/09/17 18:24 Last Admin: 04/09/17 16:53 Dose: 25 mls/hr Sodium Chloride (Normal Saline) 100 mls @ 80 mls/hr IV ASDIRECTED [facility] Stop: 04/11/17 12:00 Last Admin: 04/11/17 10:08 Dose: 80 mls/hr Iopamidol (Isovue-370 (76%)) 100 ml IVPUSH ONETIME ONE Stop: 04/11/17 09:53 Last Admin: 04/11/17 10:08 Dose: 60 ml Losartan Potassium (Cozaar) 50 mg PO BID [facility] Nitrofurantoin Macrocrystals (Macrobid) 100 mg PO WITHLUNCH [facility] Last Admin: 04/10/17 08:39 Dose: 100 mg Non-Formulary Medication (Vit D3 & K/[place] Hcl/Hops [Ostera]) 1 cap PO DAILY [facility] Last Admin: 04/09/17 12:00 Dose: Not Given Calc/D3/Mag/Zn/[employer]/Dante/[place] [Calcium 600 Mg Plus Vit D] 0 each PO BID [facility] Last Admin: 04/09/17 11:59 Dose: Not Given Cyanocobalamin ( Vitamin B-12) 100 Mcg 0 each PO DAILY [facility] Last Admin: 04/09/17 12:00 Dose: Not Given Iron,Carbonyl/Vit C/Vit B12/Fa [Iron 100 Plus Softgel] 0 each PO DAILY [facility] Last Admin: 04/09/17 12:00 Dose: Not Given Centrum Silver - (Multivitamins) 0 each PO DAILY [facility] Last Admin: 04/09/17 11:59 Dose: Not Given Potassium Chloride [ Potassium Chloride] 10 Meq 0 each PO DAILY [facility] Last Admin: 04/09/17 12:00 Dose: Not Given Pravastatin 20 Mg 20 each PO BEDTIME [facility] Senna/Docusate Sodium (Senna Plus) 1 tab PO BID [facility] Last Admin: 04/09/17 12:00 Dose: Not Given Sodium Chloride (Saline Flush) 10 ml FLUSH ONETIME PRN PRN Reason: IV FLUSH Stop: 04/11/17 12:00 Last Admin: 04/11/17 10:08 Dose: 10 ml - Exam Quality Assessment: DVT Prophylaxis General: Alert, Oriented, Cooperative, No Acute Distress HEENT: Pupils Equal, Pupils Reactive, Mucous Membr. Moist/[place] Neck: Supple Lungs: Clear to Auscultation, Normal Respiratory Effort Cardiovascular: Regular Rate, Regular Rhythm, Murmurs (holosystolic) GI/Abdominal Exam: Normal Bowel Sounds, Soft, Non-Tender Extremities: Normal Capillary Refill Peripheral Pulses: 2+: Dorsalis Pedis (L), Dorsalis Pedis (R) Neurological: No New Focal Deficit Psy/Mental Status: Alert, Normal Affect, Normal Mood - Problem List & Annotations (1) Febrile illness, acute SNOMED Code(s): 452247771 Code(s): R50.9 - FEVER, UNSPECIFIED Status: Acute Priority: High Current Visit: Yes (2) H/O recurrent urinary tract infection SNOMED Code(s): 192000836 Code(s): Z87.440 - PERSONAL HISTORY OF URINARY (TRACT) INFECTIONS Status: Chronic Priority: High Current Visit: Yes (3) Abdominal pain SNOMED Code(s): 83655126 Code(s): R10.9 - UNSPECIFIED ABDOMINAL PAIN Status: Resolved Priority: High Current Visit: Yes QualifierTitle: Abdominal location: unspecified location Qualified Code(s ): R10.9 - Unspecified abdominal pain (4) Generalized weakness SNOMED Code(s): 78104040 Code(s): R53.1 - WEAKNESS Status: Acute Priority: Medium Current Visit : Yes (5) Diabetes mellitus type 2 in nonobese SNOMED Code(s): 384495177 Code(s): E11.9 - TYPE 2 DIABETES MELLITUS WITHOUT COMPLICATIONS Status: Chronic Priority: Medium Current Visit: Yes (6) Hypertension SNOMED Code(s): 12220324 Code(s): I10 - ESSENTIAL (PRIMARY) HYPERTENSION Status: Chronic Priority : Medium Current Visit: Yes QualifierTitle: Hypertension type: essential hypertension Qualified Code( s): I10 - Essential (primary) hypertension - Problem List Review Problem List Initiated/Reviewed/Updated: Yes - My Orders Last 24 Hours: My Active Orders 04/11/17 12:27 Ambulate [RC] Q2HWA 04/11/17 12:28 RT Incentive Spirometry [RC] Q2HWA RT Flutter Valve Therapy [RT Acapella] [RESPCARE] Routine 04/12/17 08:00 Furosemide [Lasix] 20 mg PO BIDDIURETIC 04/12/17 09:43 Bumetanide [Bumex] 1 mg PO ONETIME ONE - Plan Plan:: I/P: Acute: Acute febrile illness of unknown origin- temp max 100.1 at 2030 last night -Hx/o recurrent UTIs - was recently hospitalized and just finished course of augmentin--UC and BC negative -Was started on macrobid daily prophylactic LOOM DOFFER -Rocephin IV started yesterday -CXR repeat with small pleural effusions, no findings of PNA. On RA now. Negative mycoplasma. -D-dimer minimally elevated at 1.6; CTA obtained yesterday showing small to moderate pleural effusion bilat with compressive atelectasis, no PE. Venous doppler studies to be done today. 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- done in [place] "a few years ago or so"- echo completed yesterday Mild CHF exacerbation -BL effusions -Elevated BNP -Lasix IV yesterday and start 20mg PO BID today -Echo obtained yesterday Hypokalemia -Replace and follow -d/t diuretic therapy yesterday Hypomagnesemia -Replace and follow Abdominal pain--resolved -Suprapubic > LLQ -Hx/o recent and recurrent UTI -Denies any constipation/diarrhea/changes in bowel habits Generalized weakness -Acute on chronic -Has been working with PT since recent hospital discharge -Continue PT/OT here -TSH Chronic: Impaired vision A-fib- rate controlled Hx of tissue valve replacement, suspect aortic CAD CHF---acute exacerbation as above HLD HTN--elevated readings in mornings x 2 days Recurrent UTIs--recommend Urology referral/follow up after discharge [facility]thirits JULIA "Pre-diabetic" - A1C ordered --6.2 hx/o MRSA infection. Plan: CM/SW for discharge planning--awaiting echo results; monitor temp. Recommend afebrile x 24 hours prior to discharge PT/OT Other orders as indicated above Home medications as ordered DVT/PE prophylaxis: SOREN hose and lovenox GI prophylaxis: Pepcid Routine AM Labs Code Status: Full Code. Her PCP is Jessy Galeana PA-C here at [facility]. <Maribeth Goins - Last Filed: 04/12/17 18:21> - Patient Data Vitals - Most Recent: Last Vital Signs Temp 37.0 C 04/12/17 15:47 Pulse 79 04/12/17 15:47 Resp 18 04/12/17 15:47 BP 148/55 H 04/12/17 15:47 Pulse Ox 94 L 04/12/17 15:47 I&O - Last 24 Hours: Intake & Output 04/12/17 04/12/17 04/12/17 06:59 14:59 22:59 Intake Total 900 120 800 Output Total 100 Balance 800 120 800 Lab Results Last 24 Hours: Laboratory Results - last 24 hr 04/11/17 04/12/17 04/12/17 Range/Units 20:39 06:50 06:50 WBC 7.33 (3.98-10.04) K/mm3 RBC 3.36 L (3.98-5.22) M/mm3 Hgb 9.8 L (11.2-15.7) gm/L Hct 30.7 L (34.1-44.9) % MCV 91.4 (79.4-94.8) fl MCH 29.2 (25.6-32.2) pg MCHC 31.9 L (32.2-35.5) g/dl RDW Std Deviation 44.6 (36.4-46.3) fL Plt Count 231 (182-369) K/mm3 MPV 10.1 (9.4-12.3) fl Neut % (Auto) 71.1 (34.0-71.1) % Lymph % (Auto) 15.0 L (19.3-51.7) % Reeves % (Auto) 8.7 (4.7-12.5) % Eos % (Auto) 4.1 (0.7-5.8) Baso % (Auto) 0.4 (0.1-1.2) % Neut # (Auto) 5.21 (1.56-6.13) K/mm3 Lymph # (Auto) 1.10 L (1.18-3.74) K/mm3 Reeves # (Auto) 0.64 H (0.24-0.36) K/mm3 Eos # (Auto) 0.30 (0.04-0.36) K/mm3 Baso # (Auto) 0.03 (0.01-0.08) K/mm3 Sodium 142 (136-145) mEq/L Potassium 3.4 L (3.5-5.1) mEq/L Chloride 106 (98-107) mEq/L Carbon Dioxide 28 (21-32) mEq/L Anion Gap 11.4 (5-15) BUN 16 (7-18) mg/dL Creatinine 0.9 (0.55-1.02) mg/dL Est Cr Clr Drug Dosing 35.74 mL/min Estimated GFR (MDRD) 59 (>60) mL/min BUN/Creatinine Ratio 17.8 (14-18) Glucose 109 (83-115) mg/dL POC Glucose 190 H (83-110) mg/dL Calcium 9.4 (8.5-10.1) mg/dL Magnesium 1.6 L (1.8-2.4) mg/dl C-Reactive Protein 8.2 H* (<1.0) mg/dL NT-Pro-B Natriuret Pep (0-450) pg/mL TSH 3rd Generation (0.358-3.74) uIU/mL 04/12/17 04/12/17 04/12/17 Range/Units 06:50 06:50 07:49 WBC (3.98-10.04) K/mm3 RBC (3.98-5.22) M/mm3 Hgb (11.2-15.7) gm/L Hct (34.1-44.9) % MCV (79.4-94.8) fl MCH (25.6-32.2) pg MCHC (32.2-35.5) g/dl RDW Std Deviation (36.4-46.3) fL Plt Count (182-369) K/mm3 MPV (9.4-12.3) fl Neut % (Auto) (34.0-71.1) % Lymph % (Auto) (19.3-51.7) % Reeves % (Auto) (4.7-12.5) % Eos % (Auto) (0.7-5.8) Baso % (Auto) (0.1-1.2) % Neut # (Auto) (1.56-6.13) K/mm3 Lymph # (Auto) (1.18-3.74) K/mm3 Reeves # (Auto) (0.24-0.36) K/mm3 Eos # (Auto) (0.04-0.36) K/mm3 Baso # (Auto) (0.01-0.08) K/mm3 Sodium (136-145) mEq/L Potassium (3.5-5.1) mEq/L Chloride (98-107) mEq/L Carbon Dioxide (21-32) mEq/L Anion Gap (5-15) BUN (7-18) mg/dL Creatinine (0.55-1.02) mg/dL Est Cr Clr Drug Dosing mL/min Estimated GFR (MDRD) (>60) mL/min BUN/Creatinine Ratio (14-18) Glucose (83-115) mg/dL POC Glucose 115 H (83-110) mg/dL Calcium (8.5-10.1) mg/dL Magnesium (1.8-2.4) mg/dl C-Reactive Protein (<1.0) mg/dL NT-Pro-B Natriuret Pep 2721 H (0-450) pg/mL TSH 3rd Generation 0.950 (0.358-3.74) uIU/mL 04/12/17 04/12/17 Range/Units 11:16 17:24 WBC (3.98-10.04) K/mm3 RBC (3.98-5.22) M/mm3 Hgb (11.2-15.7) gm/L Hct (34.1-44.9) % MCV (79.4-94.8) fl MCH (25.6-32.2) pg MCHC (32.2-35.5) g/dl RDW Std Deviation (36.4-46.3) fL Plt Count (182-369) K/mm3 MPV (9.4-12.3) fl Neut % (Auto) (34.0-71.1) % Lymph % (Auto) (19.3-51.7) % Reeves % (Auto) (4.7-12.5) % Eos % (Auto) (0.7-5.8) Baso % (Auto) (0.1-1.2) % Neut # (Auto) (1.56-6.13) K/mm3 Lymph # (Auto) (1.18-3.74) K/mm3 Reeves # (Auto) (0.24-0.36) K/mm3 Eos # (Auto) (0.04-0.36) K/mm3 Baso # (Auto) (0.01-0.08) K/mm3 Sodium (136-145) mEq/L Potassium (3.5-5.1) mEq/L Chloride (98-107) mEq/L Carbon Dioxide (21-32) mEq/L Anion Gap (5-15) BUN (7-18) mg/dL Creatinine (0.55-1.02) mg/dL Est Cr Clr Drug Dosing mL/min Estimated GFR (MDRD) (>60) mL/min BUN/Creatinine Ratio (14-18) Glucose (83-115) mg/dL POC Glucose 172 H 107 (83-110) mg/dL Calcium (8.5-10.1) mg/dL Magnesium (1.8-2.4) mg/dl C-Reactive Protein (<1.0) mg/dL NT-Pro-B Natriuret Pep (0-450) pg/mL TSH 3rd Generation (0.358-3.74) uIU/mL [place]ose Results Last 24 Hours: Microbiology 04/11/17 20:10 Urine Culture - Preliminary Urine, Clean Catch Gram Positive Cocci Med Orders - Current: Current Medications Acetaminophen (Tylenol) 650 mg PO Q4H PRN PRN Reason: Pain (Mild 1-3)/fever Last Admin: 04/11/17 20:30 Dose: 650 mg Hydrocodone Bitart/Acetaminophen (Wood 325-5 Mg) 1 tab PO BID [facility] Last Admin: 04/12/17 08:55 Dose: 1 tab Albuterol/Ipratropium (Duoneb 3.0-0.5 Mg/3 Ml) 3 ml NEB Q4H PRN PRN Reason: Shortness Of Breath/wheezing Bisacodyl (Dulcolax) 5 mg PO DAILY PRN PRN Reason: Constipation Docusate Sodium (Colace) 100 mg PO BID PRN PRN Reason: Constipation Enoxaparin Sodium (Lovenox) 30 mg SUBCUT DAILY [facility] Last Admin: 04/12/17 11:08 Dose: 30 mg Furosemide (Lasix) 20 mg PO BIDDIURETIC [facility] Last Admin: 04/12/17 13:22 Dose: 20 mg Ceftriaxone Sodium 2 gm/ (Sodium Chloride) 100 mls @ 200 mls/hr IV Q24H [facility] Last Admin: 04/11/17 20:27 Dose: 200 mls/hr Doxycycline Hyclate 100 mg/ (Sodium Chloride) 100 mls @ 100 mls/hr IV Q12H [facility] Last Admin: 04/12/17 13:22 Dose: 100 mls/hr Losartan Potassium (Cozaar) 50 mg PO BID [facility] Last Admin: 04/12/17 08:55 Dose: 50 mg Ondansetron HCl (Zofran Odt) 4 mg PO Q6H PRN PRN Reason: nausea, able to take PO Ondansetron HCl (Zofran) 4 mg IV Q6H PRN PRN Reason: Nausea/Vomiting Gabapentin 400mg (Capsules) 0 each PO TID [facility] Last Admin: 04/12/17 16:22 Dose: 2 each L Acidophil/B Lactis /B Longum [Florajen3 ] 1 Cap 0 each PO ACBRK [facility] Last Admin: 04/12/17 07:49 Dose: 1 each Methenamine (Hippurate 1g Tablets) 0 each PO BID [facility] Last Admin: 04/12/17 08:57 Dose: 1 each Vit C With (Flavonoids 500mg Cap) 0 each PO TID [facility] Last Admin: 04/12/17 16:22 Dose: 1 each Iron,Carbonyl/Vit C/Vit B12/Fa [Ultimate Iron Softgels] 0 each PO BID [facility] Last Admin: 04/12/17 08:56 Dose: 1 each Polyethylene Glycol (Miralax) 17 gm PO DAILY PRN PRN Reason: Constipation Senna/Docusate Sodium (Senna Plus) 1 tab PO BID PRN PRN Reason: Constipation Temazepam (Restoril) 7.5 mg PO BEDTIME PRN PRN Reason: Sleep Last Admin: 04/11/17 22:23 Dose: 7.5 mg Discontinued Medications Hydrocodone Bitart/Acetaminophen (Wood 325-5 Mg) 1 tab PO TID [facility] Last Admin: 04/09/17 11:59 Dose: Not Given Hydrocodone Bitart/Acetaminophen (Wood 325-5 Mg) 1 tab PO TID [facility] Last Admin: 04/10/17 08:31 Dose: 1 tab Aspirin (Halfprin) 81 mg PO DAILY [facility] Last Admin: 04/09/17 11:58 Dose: Not Given Bumetanide (Bumex) 1 mg PO ONETIME ONE Stop: 04/12/17 09:44 Last Admin: 04/12/17 09:46 Dose: Not Given Furosemide (Lasix) 10 mg IVPUSH NOW ONE Stop: 04/11/17 08:41 Last Admin: 04/11/17 08:53 Dose: 10 mg Furosemide (Lasix) 40 mg IVPUSH NOW ONE Stop: 04/11/17 14:01 Last Admin: 04/11/17 14:28 Dose: 40 mg Gabapentin (Neurontin) 800 mg PO ONETIME ONE Stop: 04/08/17 19:51 Last Admin: 04/08/17 20:02 Dose: 800 mg Hydralazine HCl (Apresoline) 10 mg IVPUSH ONETIME ONE Stop: 04/11/17 06:34 Last Admin: 04/11/17 06:58 Dose: 10 mg Hydrochlorothiazide (Hydrochlorothiazide) 12.5 mg PO DAILY [facility] Last Admin: 04/09/17 11:59 Dose: Not Given Sodium Chloride (Normal Saline) 1,000 mls @ 75 mls/hr IV ASDIRECTED [facility] Last Admin: 04/10/17 08:37 Dose: 75 mls/hr Magnesium Sulfate 2 gm/ Premix 50 mls @ 25 mls/hr IV ONETIME ONE Stop: 04/09/17 18:24 Last Admin: 04/09/17 16:53 Dose: 25 mls/hr Sodium Chloride (Normal Saline) 100 mls @ 80 mls/hr IV ASDIRECTED [facility] Stop: 04/11/17 12:00 Last Admin: 04/11/17 10:08 Dose: 80 mls/hr Iopamidol (Isovue-370 (76%)) 100 ml IVPUSH ONETIME ONE Stop: 04/11/17 09:53 Last Admin: 04/11/17 10:08 Dose: 60 ml Losartan Potassium (Cozaar) 50 mg PO BID [facility] Magnesium Oxide (Magnesium Oxide) 800 mg PO ONETIME ONE Stop: 04/12/17 10:01 Last Admin: 04/12/17 11:08 Dose: 800 mg Nitrofurantoin Macrocrystals (Macrobid) 100 mg PO WITHLUNCH [facility] Last Admin: 04/10/17 08:39 Dose: 100 mg Non-Formulary Medication (Vit D3 & K/Berberine Hcl/Hops [Ostera]) 1 cap PO DAILY [facility] Last Admin: 04/09/17 12:00 Dose: Not Given Calc/D3/Mag/Zn/[employer]/Dante/[place] [Calcium 600 Mg Plus Vit D] 0 each PO BID [facility] Last Admin: 04/09/17 11:59 Dose: Not Given Cyanocobalamin ( Vitamin B-12) 100 Mcg 0 each PO DAILY [facility] Last Admin: 04/09/17 12:00 Dose: Not Given Iron,Carbonyl/Vit C/Vit B12/Fa [Iron 100 Plus Softgel] 0 each PO DAILY [facility] Last Admin: 04/09/17 12:00 Dose: Not Given Centrum Silver - (Multivitamins) 0 each PO DAILY [facility] Last Admin: 04/09/17 11:59 Dose: Not Given Potassium Chloride [ Potassium Chloride] 10 Meq 0 each PO DAILY [facility] Last Admin: 04/09/17 12:00 Dose: Not Given Pravastatin 20 Mg 20 each PO BEDTIME [facility] Potassium Chloride (Klor-Con M20) 40 meq PO ONETIME ONE Stop: 04/12/17 10:01 Last Admin: 04/12/17 11:08 Dose: 40 meq Senna/Docusate Sodium (Senna Plus) 1 tab PO BID [facility] Last Admin: 04/09/17 12:00 Dose: Not Given Sodium Chloride (Saline Flush) 10 ml FLUSH ONETIME PRN PRN Reason: IV FLUSH Stop: 04/11/17 12:00 Last Admin: 04/11/17 10:08 Dose: 10 ml - My Orders Last 24 Hours: My Active Orders 04/11/17 20:00 [email or web address] [Rocephin] 2 gm Sodium Chloride 0.9% [Normal Saline] 100 ml IV Q24H 04/11/17 20:10 CULTURE URINE [RM] Routine 04/12/17 13:00 Doxycycline [Vibramycin] 100 mg Sodium Chloride 0.9% [Normal Saline] 100 ml IV Q12H - Plan Plan:: URCX--->Enterococcus, sensitivity pending.
[2017-04-12] MEDS ORDERED: Magnesium Oxide 400 MG Tab PO ONE (10:00)
[2017-04-12] MEDS ORDERED: Potassium Chloride 20 MEQ Tab.ER PO ONE (10:00)
[2017-04-12] MEDS: Enoxaparin 30 MG/0.3 ML Syringe SUBCUT SCH (11:08)
[2017-04-12] MEDS: Doxycycline 100 MG in Sodium Chloride 0.9% 100 ML IV SCH (13:22)
--- NOTE | 2017-04-12 14:02 | US ---
Bilateral lower extremity deep venous ultrasound: Duplex and color flow imaging was obtained of the right and left common femoral, proximal greater saphenous, superficial femoral, popliteal, posterior tibial and peroneal veins. Findings: Normal phasic flow, augmentation and compression are seen. Impression: 1. No evidence of deep venous thrombosis is seen within either the right or left lower extremities. Diagnostic code #1
[2017-04-12] MEDS: cefTRIAXone 2 GM in Sodium Chloride 0.9% 100 ML IV SCH (20:47)
[2017-04-12] MEDS: Temazepam 7.5 MG Cap PO PRN (22:03)
[2017-04-13] MEDS: Doxycycline 100 MG in Sodium Chloride 0.9% 100 ML IV SCH ×2 (01:43→13:04)
[2017-04-13] MEDS: Furosemide 20 MG Tab PO SCH ×2 (05:33→13:04)
[2017-04-13] MEDS: B LONGUM PO SCH (05:35)
[2017-04-13] MEDS: ACIDOPHIL PO SCH (05:35)
[2017-04-13] MEDS: B LACTIS PO SCH (05:35)
[2017-04-13] MEDS: Acetaminophen 325 MG Tab PO PRN (06:30)
[2017-04-13] MEDS ORDERED: Magnesium Sulfate/Water 4 GM in Premix Bag 1 BAG IV ONE (07:49)
[2017-04-13] MEDS: Acetaminophen/HYDROcodone 325-5 MG Tab PO SCH ×3 (08:59→21:31)
[2017-04-13] MEDS: Losartan 100 MG Tab PO SCH ×2 (09:00→21:03)
[2017-04-13] MEDS: Enoxaparin 30 MG/0.3 ML Syringe SUBCUT SCH (09:01)
[2017-04-13] MEDS: [UNRECOGNIZED DRUG - OTHER] PO SCH ×3 (09:06→21:06)
[2017-04-13] MEDS: ASCORBIC ACID PO SCH ×3 (09:06→21:06)
[2017-04-13] MEDS: [UNRECOGNIZED DRUG - OTHER] PO SCH ×2 (09:07→21:05)
[2017-04-13] MEDS: IRON CARBONYL PO SCH ×2 (09:07→21:05)
[2017-04-13] MEDS: VIT B12 PO SCH ×2 (09:07→21:05)
[2017-04-13] MEDS: GABAPENTIN 400 MG PO SCH ×3 (09:07→21:04)
[2017-04-13] MEDS: VIT C PO SCH ×2 (09:07→21:05)
[2017-04-13] MEDS: METHENAMINE HIPPURATE 1 GM PO SCH ×2 (09:08→21:07)
--- NOTE | 2017-04-13 12:18 | PCM.PN ---
- General Info Date of Service: 04/13/17 Admission Dx/Problem (Free Text): Rafael Saeed is seen this morning. Just ambulated with PT, feels weak but improving. She is happy to report she was afebrile overnight. UC is now growing gram + cocci; awaiting sensitivities. She continues on Rocephin, day 2 and doxycycline day 1. She plans a rehab stay at [facility]. Functional Status: Reports: Pain Controlled, Tolerating Diet, Ambulating, Urinating, Incentive Spirometry. Denies: New Symptoms - Review of Systems General: Reports: Weakness (improving). Denies: Fever HEENT: Reports: No Symptoms Pulmonary: Reports: No Symptoms Cardiovascular: Reports: No Symptoms Gastrointestinal: Reports: No Symptoms. Denies: Abdominal Pain, Diarrhea, Nausea, Vomiting Genitourinary: Reports: No Symptoms, Frequency (chronic), Incontinence (chronic) . Denies: Dysuria, Hematuria, Flank Pain Musculoskeletal: Reports: Back Pain (chronic- at baseline) Neurological: Reports: No Symptoms Psychiatric: Reports: No Symptoms - Patient Data Vitals - Most Recent: Last Vital Signs Temp 98.1 F 04/13/17 12:00 Pulse 78 04/13/17 11:44 Resp 18 04/13/17 11:44 BP 138/92 H 04/13/17 11:46 Pulse Ox 95 04/13/17 11:44 Weight - Most Recent: 120 lb 12.8 oz I&O - Last 24 Hours: Intake & Output 04/12/17 04/13/17 04/13/17 22:59 06:59 14:59 Intake Total 1280 1000 180 Output Total 300 Balance 1280 700 180 Lab Results Last 24 Hours: Laboratory Results - last 24 hr 04/12/17 04/12/17 04/13/17 Range/Units 17:24 21:08 05:58 WBC (3.98-10.04) K/mm3 RBC (3.98-5.22) M/mm3 Hgb (11.2-15.7) gm/L Hct (34.1-44.9) % MCV (79.4-94.8) fl MCH (25.6-32.2) pg MCHC (32.2-35.5) g/dl RDW Std Deviation (36.4-46.3) fL Plt Count (182-369) K/mm3 MPV (9.4-12.3) fl Neut % (Auto) (34.0-71.1) % Lymph % (Auto) (19.3-51.7) % [place] % (Auto) (4.7-12.5) % Eos % (Auto) (0.7-5.8) Baso % (Auto) (0.1-1.2) % Neut # (Auto) (1.56-6.13) K/mm3 Lymph # (Auto) (1.18-3.74) K/mm3 [place] # (Auto) (0.24-0.36) K/mm3 Eos # (Auto) (0.04-0.36) K/mm3 Baso # (Auto) (0.01-0.08) K/mm3 Manual Slide Review Sodium (136-145) mEq/L Potassium (3.5-5.1) mEq/L Chloride (98-107) mEq/L Carbon Dioxide (21-32) mEq/L Anion Gap (5-15) BUN (7-18) mg/dL Creatinine (0.55-1.02) mg/dL Est Cr Clr Drug Dosing mL/min Estimated GFR (MDRD) (>60) mL/min BUN/Creatinine Ratio (14-18) Glucose (83-115) mg/dL POC Glucose 107 135 H 105 (83-110) mg/dL Calcium (8.5-10.1) mg/dL Magnesium (1.8-2.4) mg/dl C-Reactive Protein (<1.0) mg/dL 04/13/17 04/13/17 04/13/17 Range/Units 06:00 06:00 10:48 WBC 6.73 (3.98-10.04) K/mm3 RBC 3.48 L (3.98-5.22) M/mm3 Hgb 10.2 L (11.2-15.7) gm/L Hct 32.0 L (34.1-44.9) % MCV 92.0 (79.4-94.8) fl MCH 29.3 (25.6-32.2) pg MCHC 31.9 L (32.2-35.5) g/dl RDW Std Deviation 44.9 (36.4-46.3) fL Plt Count 237 (182-369) K/mm3 MPV 10.1 (9.4-12.3) fl Neut % (Auto) 59.9 (34.0-71.1) % Lymph % (Auto) 21.5 (19.3-51.7) % [place] % (Auto) 10.8 (4.7-12.5) % Eos % (Auto) 4.6 (0.7-5.8) Baso % (Auto) 0.4 (0.1-1.2) % Neut # (Auto) 4.02 (1.56-6.13) K/mm3 Lymph # (Auto) 1.45 (1.18-3.74) K/mm3 [place] # (Auto) 0.73 H (0.24-0.36) K/mm3 Eos # (Auto) 0.31 (0.04-0.36) K/mm3 Baso # (Auto) 0.03 (0.01-0.08) K/mm3 Manual Slide Review Normal smear Sodium 143 (136-145) mEq/L Potassium 3.7 (3.5-5.1) mEq/L Chloride 105 (98-107) mEq/L Carbon Dioxide 29 (21-32) mEq/L Anion Gap 12.7 (5-15) BUN 17 (7-18) mg/dL Creatinine 1.0 (0.55-1.02) mg/dL Est Cr Clr Drug Dosing 32.17 mL/min Estimated GFR (MDRD) 52 (>60) mL/min BUN/Creatinine Ratio 17.0 (14-18) Glucose 102 (83-115) mg/dL POC Glucose 148 H (83-110) mg/dL Calcium 9.5 (8.5-10.1) mg/dL Magnesium 1.3 L (1.8-2.4) mg/dl C-Reactive Protein 4.8 H* (<1.0) mg/dL [place] Results Last 24 Hours: Microbiology 04/11/17 20:10 Urine Culture - Preliminary Urine, Clean Catch Gram Positive Cocci Med Orders - Current: Current Medications Acetaminophen (Tylenol) 650 mg PO Q4H PRN PRN Reason: Pain (Mild 1-3)/fever Last Admin: 04/13/17 06:30 Dose: 650 mg Hydrocodone Bitart/Acetaminophen ([place] 325-5 Mg) 1 tab PO BID [facility] Last Admin: 04/13/17 08:59 Dose: 1 tab Albuterol/Ipratropium (Duoneb 3.0-0.5 Mg/3 Ml) 3 ml NEB Q4H PRN PRN Reason: Shortness Of Breath/wheezing Bisacodyl (Dulcolax) 5 mg PO DAILY PRN PRN Reason: Constipation Docusate Sodium (Colace) 100 mg PO BID PRN PRN Reason: Constipation Enoxaparin Sodium (Lovenox) 30 mg SUBCUT DAILY [facility] Last Admin: 04/13/17 09:01 Dose: 30 mg Furosemide (Lasix) 20 mg PO BIDDIURETIC [facility] Last Admin: 04/13/17 05:33 Dose: 20 mg Ceftriaxone Sodium 2 gm/ (Sodium Chloride) 100 mls @ 200 mls/hr IV Q24H [facility] Last Admin: 04/12/17 20:47 Dose: 200 mls/hr Doxycycline Hyclate 100 mg/ (Sodium Chloride) 100 mls @ 100 mls/hr IV Q12H [facility] Last Admin: 04/13/17 01:43 Dose: 100 mls/hr Losartan Potassium (Cozaar) 50 mg PO BID [facility] Last Admin: 04/13/17 09:00 Dose: 50 mg Ondansetron HCl (Zofran Odt) 4 mg PO Q6H PRN PRN Reason: nausea, able to take PO Ondansetron HCl (Zofran) 4 mg IV Q6H PRN PRN Reason: Nausea/Vomiting Gabapentin 400mg (Capsules) 0 each PO TID [facility] Last Admin: 04/13/17 09:07 Dose: 1 each L Acidophil/B Lactis /B Longum [Florajen3 ] 1 Cap 0 each PO ACBRK [facility] Last Admin: 04/13/17 05:35 Dose: 1 each Methenamine (Hippurate 1g Tablets) 0 each PO BID [facility] Last Admin: 04/13/17 09:08 Dose: 1 each Vit C With (Flavonoids 500mg Cap) 0 each PO TID [facility] Last Admin: 04/13/17 09:06 Dose: 1 each Iron,Carbonyl/Vit C/Vit B12/Fa [Ultimate Iron Softgels] 0 each PO BID [facility] Last Admin: 04/13/17 09:07 Dose: 1 each Polyethylene Glycol (Miralax) 17 gm PO DAILY PRN PRN Reason: Constipation Senna/Docusate Sodium (Senna Plus) 1 tab PO BID PRN PRN Reason: Constipation Temazepam (Restoril) 7.5 mg PO BEDTIME PRN PRN Reason: Sleep Last Admin: 04/12/17 22:03 Dose: 7.5 mg Discontinued Medications Hydrocodone Bitart/Acetaminophen (Toano 325-5 Mg) 1 tab PO TID [facility] Last Admin: 04/09/17 11:59 Dose: Not Given Hydrocodone Bitart/Acetaminophen (Toano 325-5 Mg) 1 tab PO TID [facility] Last Admin: 04/10/17 08:31 Dose: 1 tab Aspirin (Halfprin) 81 mg PO DAILY [facility] Last Admin: 04/09/17 11:58 Dose: Not Given Bumetanide (Bumex) 1 mg PO ONETIME ONE Stop: 04/12/17 09:44 Last Admin: 04/12/17 09:46 Dose: Not Given Furosemide (Lasix) 10 mg IVPUSH NOW ONE Stop: 04/11/17 08:41 Last Admin: 04/11/17 08:53 Dose: 10 mg Furosemide (Lasix) 40 mg IVPUSH NOW ONE Stop: 04/11/17 14:01 Last Admin: 04/11/17 14:28 Dose: 40 mg Gabapentin (Neurontin) 800 mg PO ONETIME ONE Stop: 04/08/17 19:51 Last Admin: 04/08/17 20:02 Dose: 800 mg Hydralazine HCl (Apresoline) 10 mg IVPUSH ONETIME ONE Stop: 04/11/17 06:34 Last Admin: 04/11/17 06:58 Dose: 10 mg Hydrochlorothiazide (Hydrochlorothiazide) 12.5 mg PO DAILY [facility] Last Admin: 04/09/17 11:59 Dose: Not Given Sodium Chloride (Normal Saline) 1,000 mls @ 75 mls/hr IV ASDIRECTED [facility] Last Admin: 04/10/17 08:37 Dose: 75 mls/hr Magnesium Sulfate 2 gm/ Premix 50 mls @ 25 mls/hr IV ONETIME ONE Stop: 04/09/17 18:24 Last Admin: 04/09/17 16:53 Dose: 25 mls/hr Sodium Chloride (Normal Saline) 100 mls @ 80 mls/hr IV ASDIRECTED [facility] Stop: 04/11/17 12:00 Last Admin: 04/11/17 10:08 Dose: 80 mls/hr Magnesium Sulfate 4 gm/ Premix 100 mls @ 25 mls/hr IV ONETIME ONE Stop: 04/13/17 11:48 Last Admin: 04/13/17 08:59 Dose: 25 mls/hr Iopamidol (Isovue-370 (76%)) 100 ml IVPUSH ONETIME ONE Stop: 04/11/17 09:53 Last Admin: 04/11/17 10:08 Dose: 60 ml Losartan Potassium (Cozaar) 50 mg PO BID [facility] Magnesium Oxide (Magnesium Oxide) 800 mg PO ONETIME ONE Stop: 04/12/17 10:01 Last Admin: 04/12/17 11:08 Dose: 800 mg Nitrofurantoin Macrocrystals (Macrobid) 100 mg PO WITHLUNCH [facility] Last Admin: 04/10/17 08:39 Dose: 100 mg Non-Formulary Medication (Vit D3 & K/[place] Hcl/Hops [Ostera]) 1 cap PO DAILY [facility] Last Admin: 04/09/17 12:00 Dose: Not Given Calc/D3/Mag/Zn/Account Contact Associate/Dante/Inez [Calcium 600 Mg Plus Vit D] 0 each PO BID [facility] Last Admin: 04/09/17 11:59 Dose: Not Given Cyanocobalamin ( Vitamin B-12) 100 Mcg 0 each PO DAILY [facility] Last Admin: 04/09/17 12:00 Dose: Not Given Iron,Carbonyl/Vit C/Vit B12/Fa [Iron 100 Plus Softgel] 0 each PO DAILY [facility] Last Admin: 04/09/17 12:00 Dose: Not Given Centrum Silver - (Multivitamins) 0 each PO DAILY [facility] Last Admin: 04/09/17 11:59 Dose: Not Given Potassium Chloride [ Potassium Chloride] 10 Meq 0 each PO DAILY [facility] Last Admin: 04/09/17 12:00 Dose: Not Given Pravastatin 20 Mg 20 each PO BEDTIME [facility] Potassium Chloride (Klor-Con M20) 40 meq PO ONETIME ONE Stop: 04/12/17 10:01 Last Admin: 04/12/17 11:08 Dose: 40 meq Senna/Docusate Sodium (Senna Plus) 1 tab PO BID [facility] Last Admin: 04/09/17 12:00 Dose: Not Given Sodium Chloride (Saline Flush) 10 ml FLUSH ONETIME PRN PRN Reason: IV FLUSH Stop: 04/11/17 12:00 Last Admin: 04/11/17 10:08 Dose: 10 ml - Exam Quality Assessment: DVT Prophylaxis General: Alert, Oriented, Cooperative, No Acute Distress, Other (pleasant and talkative this morning) HEENT: Pupils Equal, Pupils Reactive, Mucous Membr. Moist/[place] Neck: Supple Lungs: Clear to Auscultation, Normal Respiratory Effort Cardiovascular: Regular Rate, Regular Rhythm GI/Abdominal Exam: Normal Bowel Sounds, Soft, Non-Tender (Female) Exam: Deferred Back Exam: Normal Inspection Extremities: No Pedal Edema, Normal Capillary Refill Peripheral Pulses: 1+: Dorsalis Pedis (L), Dorsalis Pedis (R) Neurological: No New Focal Deficit Psy/Mental Status: Alert, Normal Affect, Normal Mood - Problem List & Annotations (1) Febrile illness, acute SNOMED Code(s): 063393416 Code(s): R50.9 - FEVER, UNSPECIFIED Status: Resolved Priority: High Current Visit: Yes (2) H/O recurrent urinary tract infection SNOMED Code(s): 135384130 Code(s): Z87.440 - PERSONAL HISTORY OF URINARY (TRACT) INFECTIONS Status: Chronic Priority: High Current Visit: Yes (3) Abdominal pain SNOMED Code(s): 08034642 Code(s): R10.9 - UNSPECIFIED ABDOMINAL PAIN Status: Resolved Priority: High Current Visit: Yes Qualifiers: Abdominal location: unspecified location Qualified Code(s): R10.9 - Unspecified abdominal pain (4) Generalized weakness SNOMED Code(s): 71003443 Code(s): R53.1 - WEAKNESS Status: Acute Priority: Medium Current Visit : Yes (5) Diabetes mellitus type 2 in nonobese SNOMED Code(s): 075465023 Code(s): E11.9 - TYPE 2 DIABETES MELLITUS WITHOUT COMPLICATIONS Status: Chronic Priority: Medium Current Visit: Yes (6) Hypertension SNOMED Code(s): 29447825 Code(s): I10 - ESSENTIAL (PRIMARY) HYPERTENSION Status: Chronic Priority : Medium Current Visit: Yes Qualifiers: Hypertension type: essential hypertension Qualified Code(s): I10 - Essential (primary) hypertension (7) Urinary tract infection SNOMED Code(s): 51017063 Code(s): N39.0 - URINARY TRACT INFECTION, SITE NOT SPECIFIED Status: Acute Priority: High Current Visit: Yes Qualifiers: Encounter type: initial encounter - Problem List Review Problem List Initiated/Reviewed/Updated: Yes - My Orders Last 24 Hours: My Active Orders 04/14/17 05:11 BASIC METABOLIC PANEL,BMP [CHEM] AM C-REACTIVE PROTEIN [CHEM] AM CBC WITH AUTO DIFF [HEME] AM MAGNESIUM [CHEM] AM 04/15/17 05:11 BASIC METABOLIC PANEL,BMP [CHEM] AM C-REACTIVE PROTEIN [CHEM] AM CBC WITH AUTO DIFF [HEME] AM MAGNESIUM [CHEM] AM - Plan Plan:: I/P: Acute: Acute febrile illness -- no fever for 24 hours since start of Rocephin. UC now + for gram + cocci; cont Rocephin and add doxycycline. Awaiting sensitivity. 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 On RA now. Negative mycoplasma. -D-dimer minimally elevated at 1.6; CTA obtained yesterday showing small to moderate pleural effusion bilat with compressive atelectasis, no PE. Venous doppler studies to be done today. 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 Mild CHF exacerbation -BL effusions -Elevated BNP -Lasix IV yesterday and start 20mg PO BID today -Echo obtained awaiting results Hypokalemia--resolved -Replace and follow -d/t diuretic therapy yesterday Hypomagnesemia--1.3 today -4gm IV ordered -Replace and follow Abdominal pain--resolved -Suprapubic > LLQ -Hx/o recent and recurrent UTI -Denies any constipation/diarrhea/changes in bowel habits Generalized weakness -Acute on chronic -Has been working with PT since recent hospital discharge -Continue PT/OT here -TSH--WNL Chronic: Impaired vision A-fib- rate controlled Hx of tissue valve replacement, suspect aortic CAD CHF---acute exacerbation as above HLD HTN--elevated readings in mornings x 2 days Recurrent UTIs--recommend Urology referral/follow up after discharge; sees Dr. Bhakta Arthritis JULIA "Pre-diabetic" - A1C ordered --6.2 hx/o MRSA infection. Plan: CM/SW for discharge planning--Afebrile now. Awaiting Urine sensitivity. Will plan DC in next 48 hours to [facility] for rehab stay. PT/OT Other orders as indicated above Home medications as ordered DVT/PE prophylaxis: lovenox; she is refusing kiara hose GI prophylaxis: Pepcid Routine AM Labs Code Status: Full Code. Her PCP is Jessy Galeana PA-C here at [facility].
[2017-04-13] MEDS: cefTRIAXone 2 GM in Sodium Chloride 0.9% 100 ML IV SCH (20:54)
[2017-04-13] MEDS: Temazepam 7.5 MG Cap PO PRN (21:40)
[2017-04-14] MEDS: Acetaminophen 325 MG Tab PO PRN ×2 (00:38→20:55)
[2017-04-14] MEDS: Doxycycline 100 MG in Sodium Chloride 0.9% 100 ML IV SCH (00:40)
[2017-04-14] MEDS: B LONGUM PO SCH (06:25)
[2017-04-14] MEDS: B LACTIS PO SCH (06:25)
[2017-04-14] MEDS: ACIDOPHIL PO SCH (06:25)
[2017-04-14] MEDS: Furosemide 20 MG Tab PO SCH ×2 (06:25→14:12)
[2017-04-14] MEDS: Enoxaparin 30 MG/0.3 ML Syringe SUBCUT SCH (09:27)
[2017-04-14] MEDS: Acetaminophen/HYDROcodone 325-5 MG Tab PO SCH ×2 (09:28→20:37)
[2017-04-14] MEDS: Nitrofurantoin Monohydrate/Macrocrystalline 100 MG Cap PO SCH ×2 (09:28→20:19)
[2017-04-14] MEDS: Losartan 100 MG Tab PO SCH ×2 (09:28→23:27)
[2017-04-14] MEDS: GABAPENTIN 400 MG PO SCH ×3 (09:29→20:38)
[2017-04-14] MEDS: [UNRECOGNIZED DRUG - OTHER] PO SCH ×2 (09:30→20:39)
[2017-04-14] MEDS: IRON CARBONYL PO SCH ×2 (09:30→20:39)
[2017-04-14] MEDS: VIT B12 PO SCH ×2 (09:30→20:39)
[2017-04-14] MEDS: METHENAMINE HIPPURATE 1 GM PO SCH ×2 (09:30→20:39)
[2017-04-14] MEDS: VIT C PO SCH ×2 (09:30→20:39)
[2017-04-14] MEDS: [UNRECOGNIZED DRUG - OTHER] PO SCH ×3 (09:31→21:15)
[2017-04-14] MEDS: ASCORBIC ACID PO SCH ×3 (09:31→21:15)
--- NOTE | 2017-04-14 11:48 | PCM.PN ---
<Renita Pittman - Last Filed: 04/14/17 11:43> - General Info Date of Service: 04/14/17 Admission Dx/Problem (Free Text): Rafael Saeed is seen this morning. Feels energy and stamina is slowly improving. UC with enterococcus; resistant to tetracycline- doxy IV will be stopped; sensitive to macrobid--will start PO abx. Reviewed with patient. She plans a rehab stay at [facility], will plan for tomorrow if she remains stable. She is happy about this. Functional Status: Reports: Pain Controlled, Tolerating Diet, Ambulating, Urinating, Incentive Spirometry - Review of Systems General: Reports: Weakness. Denies: Fever HEENT: Reports: No Symptoms Pulmonary: Reports: No Symptoms. Denies: Shortness of Breath, Cough Cardiovascular: Reports: No Symptoms. Denies: Chest Pain, Palpitations, Dyspnea on Exertion Gastrointestinal: Reports: No Symptoms. Denies: Abdominal Pain, Diarrhea, Nausea, Vomiting Genitourinary: Reports: Frequency (chronic), Urgency (chronic), Incontinence ( chronic). Denies: Dysuria Musculoskeletal: Reports: No Symptoms Skin: Reports: No Symptoms Neurological: Reports: No Symptoms Psychiatric: Reports: No Symptoms - Patient Data Vitals - Most Recent: Last Vital Signs Temp 98.1 F 04/14/17 07:45 Pulse 87 04/14/17 07:45 Resp 16 04/14/17 07:45 BP 151/68 H 04/14/17 07:45 Pulse Ox 93 L 04/14/17 07:45 Weight - Most Recent: 120 lb 8 oz I&O - Last 24 Hours: Intake & Output 04/13/17 04/14/17 04/14/17 22:59 06:59 14:59 Intake Total 1220 700 Output Total 200 Balance 1220 500 Lab Results Last 24 Hours: Laboratory Results - last 24 hr 04/13/17 04/13/17 04/14/17 Range/Units 16:39 21:02 05:40 WBC 7.39 (3.98-10.04) K/mm3 RBC 3.40 L (3.98-5.22) M/mm3 Hgb 10.0 L (11.2-15.7) gm/L Hct 31.4 L (34.1-44.9) % MCV 92.4 (79.4-94.8) fl MCH 29.4 (25.6-32.2) pg MCHC 31.8 L (32.2-35.5) g/dl RDW Std Deviation 45.2 (36.4-46.3) fL Plt Count 268 (182-369) K/mm3 MPV 9.4 (9.4-12.3) fl Neut % (Auto) 60.8 (34.0-71.1) % Lymph % (Auto) 19.1 L (19.3-51.7) % [place] % (Auto) 9.9 (4.7-12.5) % Eos % (Auto) 3.8 (0.7-5.8) Baso % (Auto) 0.4 (0.1-1.2) % Neut # (Auto) 4.50 (1.56-6.13) K/mm3 Lymph # (Auto) 1.41 (1.18-3.74) K/mm3 [place] # (Auto) 0.73 H (0.24-0.36) K/mm3 Eos # (Auto) 0.28 (0.04-0.36) K/mm3 Baso # (Auto) 0.03 (0.01-0.08) K/mm3 Manual Slide Review Normal smear Sodium (136-145) mEq/L Potassium (3.5-5.1) mEq/L Chloride (98-107) mEq/L Carbon Dioxide (21-32) mEq/L Anion Gap (5-15) BUN (7-18) mg/dL Creatinine (0.55-1.02) mg/dL Est Cr Clr Drug Dosing mL/min Estimated GFR (MDRD) (>60) mL/min BUN/Creatinine Ratio (14-18) Glucose (83-115) mg/dL POC Glucose 133 H 164 H (83-110) mg/dL Calcium (8.5-10.1) mg/dL Magnesium (1.8-2.4) mg/dl C-Reactive Protein (<1.0) mg/dL 04/14/17 04/14/17 Range/Units 05:40 06:30 WBC (3.98-10.04) K/mm3 RBC (3.98-5.22) M/mm3 Hgb (11.2-15.7) gm/L Hct (34.1-44.9) % MCV (79.4-94.8) fl MCH (25.6-32.2) pg MCHC (32.2-35.5) g/dl RDW Std Deviation (36.4-46.3) fL Plt Count (182-369) K/mm3 MPV (9.4-12.3) fl Neut % (Auto) (34.0-71.1) % Lymph % (Auto) (19.3-51.7) % [place] % (Auto) (4.7-12.5) % Eos % (Auto) (0.7-5.8) Baso % (Auto) (0.1-1.2) % Neut # (Auto) (1.56-6.13) K/mm3 Lymph # (Auto) (1.18-3.74) K/mm3 [place] # (Auto) (0.24-0.36) K/mm3 Eos # (Auto) (0.04-0.36) K/mm3 Baso # (Auto) (0.01-0.08) K/mm3 Manual Slide Review Sodium 141 (136-145) mEq/L Potassium 4.1 (3.5-5.1) mEq/L Chloride 104 (98-107) mEq/L Carbon Dioxide 29 (21-32) mEq/L Anion Gap 12.1 (5-15) BUN 24 H (7-18) mg/dL Creatinine 0.9 (0.55-1.02) mg/dL Est Cr Clr Drug Dosing 35.74 mL/min Estimated GFR (MDRD) 59 (>60) mL/min BUN/Creatinine Ratio 26.7 H (14-18) Glucose 113 (83-115) mg/dL POC Glucose 126 H (83-110) mg/dL Calcium 9.5 (8.5-10.1) mg/dL Magnesium 1.9 (1.8-2.4) mg/dl C-Reactive Protein 3.1 H* (<1.0) mg/dL Moose Results Last 24 Hours: Microbiology 04/11/17 20:10 Urine Culture - Final Urine, Clean Catch Enterococcus Faecalis Med Orders - Current: Current Medications Acetaminophen (Tylenol) 650 mg PO Q4H PRN PRN Reason: Pain (Mild 1-3)/fever Last Admin: 04/14/17 00:38 Dose: 650 mg Hydrocodone Bitart/Acetaminophen ([place] 325-5 Mg) 1 tab PO BID [facility] Last Admin: 04/14/17 09:28 Dose: Not Given Albuterol/Ipratropium (Duoneb 3.0-0.5 Mg/3 Ml) 3 ml NEB Q4H PRN PRN Reason: Shortness Of Breath/wheezing Bisacodyl (Dulcolax) 5 mg PO DAILY PRN PRN Reason: Constipation Docusate Sodium (Colace) 100 mg PO BID PRN PRN Reason: Constipation Enoxaparin Sodium (Lovenox) 30 mg SUBCUT DAILY [facility] Last Admin: 04/14/17 09:27 Dose: 30 mg Furosemide (Lasix) 20 mg PO BIDDIURETIC [facility] Last Admin: 04/14/17 06:25 Dose: 20 mg Ceftriaxone Sodium 2 gm/ (Sodium Chloride) 100 mls @ 200 mls/hr IV Q24H [facility] Last Admin: 04/13/17 20:54 Dose: 200 mls/hr Losartan Potassium (Cozaar) 50 mg PO BID [facility] Last Admin: 04/14/17 09:28 Dose: 50 mg Nitrofurantoin Macrocrystals (Macrobid) 100 mg PO BID [facility] Last Admin: 04/14/17 09:28 Dose: 100 mg Ondansetron HCl (Zofran Odt) 4 mg PO Q6H PRN PRN Reason: nausea, able to take PO Ondansetron HCl (Zofran) 4 mg IV Q6H PRN PRN Reason: Nausea/Vomiting Gabapentin 400mg (Capsules) 0 each PO TID [facility] Last Admin: 04/14/17 09:29 Dose: 2 each L Acidophil/B Lactis /B Longum [Florajen3 ] 1 Cap 0 each PO ACBRK [facility] Last Admin: 04/14/17 06:25 Dose: 1 each Methenamine (Hippurate 1g Tablets) 0 each PO BID [facility] Last Admin: 04/14/17 09:30 Dose: 1 each Vit C With (Flavonoids 500mg Cap) 0 each PO TID [facility] Last Admin: 04/14/17 09:31 Dose: 1 each Iron,Carbonyl/Vit C/Vit B12/Fa [Ultimate Iron Softgels] 0 each PO BID [facility] Last Admin: 04/14/17 09:30 Dose: 1 each Polyethylene Glycol (Miralax) 17 gm PO DAILY PRN PRN Reason: Constipation Senna/Docusate Sodium (Senna Plus) 1 tab PO BID PRN PRN Reason: Constipation Temazepam (Restoril) 7.5 mg PO BEDTIME PRN PRN Reason: Sleep Last Admin: 04/13/17 21:40 Dose: 7.5 mg Discontinued Medications Hydrocodone Bitart/Acetaminophen ([place] 325-5 Mg) 1 tab PO TID [facility] Last Admin: 04/09/17 11:59 Dose: Not Given Hydrocodone Bitart/Acetaminophen ([place] 325-5 Mg) 1 tab PO TID [facility] Last Admin: 04/10/17 08:31 Dose: 1 tab Aspirin (Halfprin) 81 mg PO DAILY [facility] Last Admin: 04/09/17 11:58 Dose: Not Given Bumetanide (Bumex) 1 mg PO ONETIME ONE Stop: 04/12/17 09:44 Last Admin: 04/12/17 09:46 Dose: Not Given Furosemide (Lasix) 10 mg IVPUSH NOW ONE Stop: 04/11/17 08:41 Last Admin: 04/11/17 08:53 Dose: 10 mg Furosemide (Lasix) 40 mg IVPUSH NOW ONE Stop: 04/11/17 14:01 Last Admin: 04/11/17 14:28 Dose: 40 mg Gabapentin (Neurontin) 800 mg PO ONETIME ONE Stop: 04/08/17 19:51 Last Admin: 04/08/17 20:02 Dose: 800 mg Hydralazine HCl (Apresoline) 10 mg IVPUSH ONETIME ONE Stop: 04/11/17 06:34 Last Admin: 04/11/17 06:58 Dose: 10 mg Hydrochlorothiazide (Hydrochlorothiazide) 12.5 mg PO DAILY [facility] Last Admin: 04/09/17 11:59 Dose: Not Given Sodium Chloride (Normal Saline) 1,000 mls @ 75 mls/hr IV ASDIRECTED [facility] Last Admin: 04/10/17 08:37 Dose: 75 mls/hr Magnesium Sulfate 2 gm/ Premix 50 mls @ 25 mls/hr IV ONETIME ONE Stop: 04/09/17 18:24 Last Admin: 04/09/17 16:53 Dose: 25 mls/hr Sodium Chloride (Normal Saline) 100 mls @ 80 mls/hr IV ASDIRECTED [facility] Stop: 04/11/17 12:00 Last Admin: 04/11/17 10:08 Dose: 80 mls/hr Doxycycline Hyclate 100 mg/ (Sodium Chloride) 100 mls @ 100 mls/hr IV Q12H [facility] Last Admin: 04/14/17 00:40 Dose: 100 mls/hr Magnesium Sulfate 4 gm/ Premix 100 mls @ 25 mls/hr IV ONETIME ONE Stop: 04/13/17 11:48 Last Admin: 04/13/17 08:59 Dose: 25 mls/hr Iopamidol (Isovue-370 (76%)) 100 ml IVPUSH ONETIME ONE Stop: 04/11/17 09:53 Last Admin: 04/11/17 10:08 Dose: 60 ml Losartan Potassium (Cozaar) 50 mg PO BID [facility] Magnesium Oxide (Magnesium Oxide) 800 mg PO ONETIME ONE Stop: 04/12/17 10:01 Last Admin: 04/12/17 11:08 Dose: 800 mg Nitrofurantoin Macrocrystals (Macrobid) 100 mg PO WITHLUNCH [facility] Last Admin: 04/10/17 08:39 Dose: 100 mg Non-Formulary Medication (Vit D3 & K/[place] Hcl/Hops [Ostera]) 1 cap PO DAILY [facility] Last Admin: 04/09/17 12:00 Dose: Not Given Calc/D3/Mag/Zn/Credit Resolution Representative/Dante/Converse [Calcium 600 Mg Plus Vit D] 0 each PO BID [facility] Last Admin: 04/09/17 11:59 Dose: Not Given Cyanocobalamin ( Vitamin B-12) 100 Mcg 0 each PO DAILY [facility] Last Admin: 04/09/17 12:00 Dose: Not Given Iron,Carbonyl/Vit C/Vit B12/Fa [Iron 100 Plus Softgel] 0 each PO DAILY [facility] Last Admin: 04/09/17 12:00 Dose: Not Given Centrum Silver - (Multivitamins) 0 each PO DAILY [facility] Last Admin: 04/09/17 11:59 Dose: Not Given Potassium Chloride [ Potassium Chloride] 10 Meq 0 each PO DAILY [facility] Last Admin: 04/09/17 12:00 Dose: Not Given Pravastatin 20 Mg 20 each PO BEDTIME [facility] Potassium Chloride (Klor-Con M20) 40 meq PO ONETIME ONE Stop: 04/12/17 10:01 Last Admin: 04/12/17 11:08 Dose: 40 meq Senna/Docusate Sodium (Senna Plus) 1 tab PO BID [facility] Last Admin: 04/09/17 12:00 Dose: Not Given Sodium Chloride (Saline Flush) 10 ml FLUSH ONETIME PRN PRN Reason: IV FLUSH Stop: 04/11/17 12:00 Last Admin: 04/11/17 10:08 Dose: 10 ml - Exam Quality Assessment: DVT Prophylaxis General: Alert, Oriented, Cooperative, No Acute Distress HEENT: Pupils Equal, EOMI, Mucous Membr. Moist/[place] Neck: Supple Lungs: Clear to Auscultation, Normal Respiratory Effort Cardiovascular: Irregular Rhythm GI/Abdominal Exam: Normal Bowel Sounds, Soft, Non-Tender (Female) Exam: Deferred Extremities: No Pedal Edema, Normal Capillary Refill Peripheral Pulses: 1+: Dorsalis Pedis (L), Dorsalis Pedis (R) Neurological: No New Focal Deficit Psy/Mental Status: Alert, Normal Affect, Normal Mood - Problem List & Annotations (1) Urinary tract infection SNOMED Code(s): 96903000 Code(s): N39.0 - URINARY TRACT INFECTION, SITE NOT SPECIFIED Status: Acute Priority: High Current Visit: Yes QualifierTitle: Encounter type: initial encounter (2) Febrile illness, acute SNOMED Code(s): 657872325 Code(s): R50.9 - FEVER, UNSPECIFIED Status: Resolved Priority: High Current Visit: Yes (3) H/O recurrent urinary tract infection SNOMED Code(s): 442615755 Code(s): Z87.440 - PERSONAL HISTORY OF URINARY (TRACT) INFECTIONS Status: Chronic Priority: High Current Visit: Yes (4) Abdominal pain SNOMED Code(s): 32452027 Code(s): R10.9 - UNSPECIFIED ABDOMINAL PAIN Status: Resolved Priority: High Current Visit: Yes QualifierTitle: Abdominal location: unspecified location Qualified Code(s ): R10.9 - Unspecified abdominal pain (5) Generalized weakness SNOMED Code(s): 74130425 Code(s): R53.1 - WEAKNESS Status: Acute Priority: Medium Current Visit : Yes (6) Diabetes mellitus type 2 in nonobese SNOMED Code(s): 773498044 Code(s): E11.9 - TYPE 2 DIABETES MELLITUS WITHOUT COMPLICATIONS Status: Chronic Priority: Medium Current Visit: Yes (7) Hypertension SNOMED Code(s): 87629006 Code(s): I10 - ESSENTIAL (PRIMARY) HYPERTENSION Status: Chronic Priority : Medium Current Visit: Yes QualifierTitle: Hypertension type: essential hypertension Qualified Code( s): I10 - Essential (primary) hypertension - Problem List Review Problem List Initiated/Reviewed/Updated: Yes - My Orders Last 24 Hours: My Active Orders 04/14/17 09:00 Nitrofurantoin [place]/Macrocryst [Macrobid] 100 mg PO BID 04/15/17 05:11 BASIC METABOLIC PANEL,BMP [CHEM] AM C-REACTIVE PROTEIN [CHEM] AM CBC WITH AUTO DIFF [HEME] AM MAGNESIUM [CHEM] AM - Plan Plan:: I/P: Acute: Acute febrile illness -- no fever for 24 hours since start of Rocephin. UC with enterococcus; cont Rocephin --RESISTANT to tetracycline, will stop doxycycline; add macrobid BID -Hx/o recurrent UTIs - was recently hospitalized and just finished course of augmentin--UC and BC negative -CXR repeat with small pleural effusions, no findings of PNA. On RA now. Negative mycoplasma. -D-dimer minimally elevated at 1.6; CTA obtained yesterday showing small to moderate pleural effusion bilat with compressive atelectasis, no PE. Venous doppler studies to be done today. 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 Mild CHF exacerbation--improving, no peripheral edema today -BL effusions -Elevated BNP -Lasix IV has been transitioned to 20mg PO BID today -Echo obtained awaiting results Hypokalemia--resolved -Replace and follow -d/t diuretic therapy yesterday Hypomagnesemia--1.3 today--WNL today -4gm IV ordered -Replace and follow Abdominal pain--resolved -Suprapubic > LLQ -Hx/o recent and recurrent UTI -Denies any constipation/diarrhea/changes in bowel habits Generalized weakness--slowly improving -Acute on chronic -Has been working with PT since recent hospital discharge -Continue PT/OT here -TSH--WNL -Plans for SNF/rehab stay Chronic: Impaired vision A-fib- rate controlled Hx of tissue valve replacement, suspect aortic CAD CHF---acute exacerbation as above HLD HTN--elevated readings in mornings x 2 days Recurrent UTIs--recommend Urology referral/follow up after discharge; sees Dr. Bhakta Arthritis JULIA "Pre-diabetic" - A1C ordered --6.2 hx/o MRSA infection. Plan: CM/SW for discharge planning--Afebrile now. Awaiting Urine sensitivity. Will plan DC in next 24 hours- likely tomorrow, to [facility] for rehab stay. PT/OT Other orders as indicated above Home medications as ordered DVT/PE prophylaxis: lovenox; she is refusing kiara hose GI prophylaxis: Pepcid Routine AM Labs Code Status: Full Code. Her PCP is Jessy Galeana PA-C here at [facility]. <French King - Last Filed: 04/14/17 18:45> - Patient Data Vitals - Most Recent: Last Vital Signs Temp 98.1 F 04/14/17 16:03 Pulse 95 04/14/17 15:27 Resp 17 04/14/17 15:27 BP 147/81 H 04/14/17 15:27 Pulse Ox 92 L 04/14/17 15:27 I&O - Last 24 Hours: Intake & Output 04/14/17 04/14/17 04/14/17 06:59 14:59 22:59 Intake Total 700 180 Output Total 200 Balance 500 180 Lab Results Last 24 Hours: Laboratory Results - last 24 hr 04/13/17 04/14/17 04/14/17 Range/Units 21:02 05:40 05:40 WBC 7.39 (3.98-10.04) K/mm3 RBC 3.40 L (3.98-5.22) M/mm3 Hgb 10.0 L (11.2-15.7) gm/L Hct 31.4 L (34.1-44.9) % MCV 92.4 (79.4-94.8) fl MCH 29.4 (25.6-32.2) pg MCHC 31.8 L (32.2-35.5) g/dl RDW Std Deviation 45.2 (36.4-46.3) fL Plt Count 268 (182-369) K/mm3 MPV 9.4 (9.4-12.3) fl Neut % (Auto) 60.8 (34.0-71.1) % Lymph % (Auto) 19.1 L (19.3-51.7) % [place] % (Auto) 9.9 (4.7-12.5) % Eos % (Auto) 3.8 (0.7-5.8) Baso % (Auto) 0.4 (0.1-1.2) % Neut # (Auto) 4.50 (1.56-6.13) K/mm3 Lymph # (Auto) 1.41 (1.18-3.74) K/mm3 [place] # (Auto) 0.73 H (0.24-0.36) K/mm3 Eos # (Auto) 0.28 (0.04-0.36) K/mm3 Baso # (Auto) 0.03 (0.01-0.08) K/mm3 Manual Slide Review Normal smear Sodium 141 (136-145) mEq/L Potassium 4.1 (3.5-5.1) mEq/L Chloride 104 (98-107) mEq/L Carbon Dioxide 29 (21-32) mEq/L Anion Gap 12.1 (5-15) BUN 24 H (7-18) mg/dL Creatinine 0.9 (0.55-1.02) mg/dL Est Cr Clr Drug Dosing 35.74 mL/min Estimated GFR (MDRD) 59 (>60) mL/min BUN/Creatinine Ratio 26.7 H (14-18) Glucose 113 (83-115) mg/dL POC Glucose 164 H (83-110) mg/dL Calcium 9.5 (8.5-10.1) mg/dL Magnesium 1.9 (1.8-2.4) mg/dl C-Reactive Protein 3.1 H* (<1.0) mg/dL 04/14/17 04/14/17 04/14/17 Range/Units 06:30 11:43 17:23 WBC (3.98-10.04) K/mm3 RBC (3.98-5.22) M/mm3 Hgb (11.2-15.7) gm/L Hct (34.1-44.9) % MCV (79.4-94.8) fl MCH (25.6-32.2) pg MCHC (32.2-35.5) g/dl RDW Std Deviation (36.4-46.3) fL Plt Count (182-369) K/mm3 MPV (9.4-12.3) fl Neut % (Auto) (34.0-71.1) % Lymph % (Auto) (19.3-51.7) % [place] % (Auto) (4.7-12.5) % Eos % (Auto) (0.7-5.8) Baso % (Auto) (0.1-1.2) % Neut # (Auto) (1.56-6.13) K/mm3 Lymph # (Auto) (1.18-3.74) K/mm3 [place] # (Auto) (0.24-0.36) K/mm3 Eos # (Auto) (0.04-0.36) K/mm3 Baso # (Auto) (0.01-0.08) K/mm3 Manual Slide Review Sodium (136-145) mEq/L Potassium (3.5-5.1) mEq/L Chloride (98-107) mEq/L Carbon Dioxide (21-32) mEq/L Anion Gap (5-15) BUN (7-18) mg/dL Creatinine (0.55-1.02) mg/dL Est Cr Clr Drug Dosing mL/min Estimated GFR (MDRD) (>60) mL/min BUN/Creatinine Ratio (14-18) Glucose (83-115) mg/dL POC Glucose 126 H 138 H 151 H (83-110) mg/dL Calcium (8.5-10.1) mg/dL Magnesium (1.8-2.4) mg/dl C-Reactive Protein (<1.0) mg/dL Moose Results Last 24 Hours: Microbiology 04/11/17 20:10 Urine Culture - Final Urine, Clean Catch Enterococcus Faecalis Med Orders - Current: Current Medications Acetaminophen (Tylenol) 650 mg PO Q4H PRN PRN Reason: Pain (Mild 1-3)/fever Last Admin: 04/14/17 00:38 Dose: 650 mg Hydrocodone Bitart/Acetaminophen ([place] 325-5 Mg) 1 tab PO BID [facility] Last Admin: 04/14/17 09:28 Dose: Not Given Albuterol/Ipratropium (Duoneb 3.0-0.5 Mg/3 Ml) 3 ml NEB Q4H PRN PRN Reason: Shortness Of Breath/wheezing Bisacodyl (Dulcolax) 5 mg PO DAILY PRN PRN Reason: Constipation Docusate Sodium (Colace) 100 mg PO BID PRN PRN Reason: Constipation Enoxaparin Sodium (Lovenox) 30 mg SUBCUT DAILY [facility] Last Admin: 04/14/17 09:27 Dose: 30 mg Furosemide (Lasix) 20 mg PO BIDDIURETIC [facility] Last Admin: 04/14/17 14:12 Dose: 20 mg Ceftriaxone Sodium 2 gm/ (Sodium Chloride) 100 mls @ 200 mls/hr IV Q24H [facility] Last Admin: 04/13/17 20:54 Dose: 200 mls/hr Losartan Potassium (Cozaar) 50 mg PO BID [facility] Last Admin: 04/14/17 09:28 Dose: 50 mg Nitrofurantoin Macrocrystals (Macrobid) 100 mg PO BID [facility] Last Admin: 04/14/17 09:28 Dose: 100 mg Ondansetron HCl (Zofran Odt) 4 mg PO Q6H PRN PRN Reason: nausea, able to take PO Ondansetron HCl (Zofran) 4 mg IV Q6H PRN PRN Reason: Nausea/Vomiting Last Admin: 04/14/17 17:33 Dose: 4 mg Gabapentin 400mg (Capsules) 0 each PO TID [facility] Last Admin: 04/14/17 14:14 Dose: 2 each L Acidophil/B Lactis /B Longum [Florajen3 ] 1 Cap 0 each PO ACBRK [facility] Last Admin: 04/14/17 06:25 Dose: 1 each Methenamine (Hippurate 1g Tablets) 0 each PO BID [facility] Last Admin: 04/14/17 09:30 Dose: 1 each Vit C With (Flavonoids 500mg Cap) 0 each PO TID [facility] Last Admin: 04/14/17 14:14 Dose: 1 each Iron,Carbonyl/Vit C/Vit B12/Fa [Ultimate Iron Softgels] 0 each PO BID [facility] Last Admin: 04/14/17 09:30 Dose: 1 each Polyethylene Glycol (Miralax) 17 gm PO DAILY PRN PRN Reason: Constipation Senna/Docusate Sodium (Senna Plus) 1 tab PO BID PRN PRN Reason: Constipation Temazepam (Restoril) 7.5 mg PO BEDTIME PRN PRN Reason: Sleep Last Admin: 04/13/17 21:40 Dose: 7.5 mg Discontinued Medications Hydrocodone Bitart/Acetaminophen ([place] 325-5 Mg) 1 tab PO TID [facility] Last Admin: 04/09/17 11:59 Dose: Not Given Hydrocodone Bitart/Acetaminophen ([place] 325-5 Mg) 1 tab PO TID [facility] Last Admin: 04/10/17 08:31 Dose: 1 tab Aspirin (Halfprin) 81 mg PO DAILY [facility] Last Admin: 04/09/17 11:58 Dose: Not Given Bumetanide (Bumex) 1 mg PO ONETIME ONE Stop: 04/12/17 09:44 Last Admin: 04/12/17 09:46 Dose: Not Given Furosemide (Lasix) 10 mg IVPUSH NOW ONE Stop: 04/11/17 08:41 Last Admin: 04/11/17 08:53 Dose: 10 mg Furosemide (Lasix) 40 mg IVPUSH NOW ONE Stop: 04/11/17 14:01 Last Admin: 04/11/17 14:28 Dose: 40 mg Gabapentin (Neurontin) 800 mg PO ONETIME ONE Stop: 04/08/17 19:51 Last Admin: 04/08/17 20:02 Dose: 800 mg Hydralazine HCl (Apresoline) 10 mg IVPUSH ONETIME ONE Stop: 04/11/17 06:34 Last Admin: 04/11/17 06:58 Dose: 10 mg Hydrochlorothiazide (Hydrochlorothiazide) 12.5 mg PO DAILY [facility] Last Admin: 04/09/17 11:59 Dose: Not Given Sodium Chloride (Normal Saline) 1,000 mls @ 75 mls/hr IV ASDIRECTED [facility] Last Admin: 04/10/17 08:37 Dose: 75 mls/hr Magnesium Sulfate 2 gm/ Premix 50 mls @ 25 mls/hr IV ONETIME ONE Stop: 04/09/17 18:24 Last Admin: 04/09/17 16:53 Dose: 25 mls/hr Sodium Chloride (Normal Saline) 100 mls @ 80 mls/hr IV ASDIRECTED [facility] Stop: 04/11/17 12:00 Last Admin: 04/11/17 10:08 Dose: 80 mls/hr Doxycycline Hyclate 100 mg/ (Sodium Chloride) 100 mls @ 100 mls/hr IV Q12H [facility] Last Admin: 04/14/17 00:40 Dose: 100 mls/hr Magnesium Sulfate 4 gm/ Premix 100 mls @ 25 mls/hr IV ONETIME ONE Stop: 04/13/17 11:48 Last Admin: 04/13/17 08:59 Dose: 25 mls/hr Iopamidol (Isovue-370 (76%)) 100 ml IVPUSH ONETIME ONE Stop: 04/11/17 09:53 Last Admin: 04/11/17 10:08 Dose: 60 ml Losartan Potassium (Cozaar) 50 mg PO BID [facility] Magnesium Oxide (Magnesium Oxide) 800 mg PO ONETIME ONE Stop: 04/12/17 10:01 Last Admin: 04/12/17 11:08 Dose: 800 mg Nitrofurantoin Macrocrystals (Macrobid) 100 mg PO WITHLUNCH [facility] Last Admin: 04/10/17 08:39 Dose: 100 mg Non-Formulary Medication (Vit D3 & K/Berberine Hcl/Hops [Ostera]) 1 cap PO DAILY [facility] Last Admin: 04/09/17 12:00 Dose: Not Given Calc/D3/Mag/Zn/Credit Resolution Representative/Dante/Converse [Calcium 600 Mg Plus Vit D] 0 each PO BID [facility] Last Admin: 04/09/17 11:59 Dose: Not Given Cyanocobalamin ( Vitamin B-12) 100 Mcg 0 each PO DAILY [facility] Last Admin: 04/09/17 12:00 Dose: Not Given Iron,Carbonyl/Vit C/Vit B12/Fa [Iron 100 Plus Softgel] 0 each PO DAILY [facility] Last Admin: 04/09/17 12:00 Dose: Not Given Centrum Silver - (Multivitamins) 0 each PO DAILY [facility] Last Admin: 04/09/17 11:59 Dose: Not Given Potassium Chloride [ Potassium Chloride] 10 Meq 0 each PO DAILY [facility] Last Admin: 04/09/17 12:00 Dose: Not Given Pravastatin 20 Mg 20 each PO BEDTIME [facility] Potassium Chloride (Klor-Con M20) 40 meq PO ONETIME ONE Stop: 04/12/17 10:01 Last Admin: 04/12/17 11:08 Dose: 40 meq Senna/Docusate Sodium (Senna Plus) 1 tab PO BID [facility] Last Admin: 04/09/17 12:00 Dose: Not Given Sodium Chloride (Saline Flush) 10 ml FLUSH ONETIME PRN PRN Reason: IV FLUSH Stop: 04/11/17 12:00 Last Admin: 04/11/17 10:08 Dose: 10 ml - Problem List & Annotations (1) Febrile illness, acute SNOMED Code(s): 254691932 Code(s): R50.9 - FEVER, UNSPECIFIED Status: Resolved Priority: High Current Visit: Yes (2) Abdominal pain SNOMED Code(s): 64708594 Code(s): R10.9 - UNSPECIFIED ABDOMINAL PAIN Status: Resolved Priority: High Current Visit: Yes Qualifiers: Abdominal location: unspecified location Qualified Code(s): R10.9 - Unspecified abdominal pain (3) Generalized weakness SNOMED Code(s): 80104116 Code(s): R53.1 - WEAKNESS Status: Acute Priority: Medium Current Visit : Yes - Plan Plan:: LOS >96 hours due to need for continued IV medications.
[2017-04-14] MEDS ORDERED: Ampicillin 2 GM in Sodium Chloride 0.9% 100 ML IV SCH ×2 (19:00→20:00)
[2017-04-14] MEDS: Ampicillin 2 GM in Sodium Chloride 0.9% 100 ML IV SCH (20:17)
[2017-04-14] MEDS: Temazepam 7.5 MG Cap PO PRN (20:51)
[2017-04-15] MEDS: Ampicillin 2 GM in Sodium Chloride 0.9% 100 ML IV SCH ×4 (01:01→20:39)
[2017-04-15] MEDS: Furosemide 20 MG Tab PO SCH ×2 (07:33→13:32)
[2017-04-15] MEDS: ACIDOPHIL PO SCH (07:33)
[2017-04-15] MEDS: B LONGUM PO SCH (07:33)
[2017-04-15] MEDS: B LACTIS PO SCH (07:33)
[2017-04-15] MEDS ORDERED: Magnesium Oxide 400 MG Tab PO ONE (07:34)
--- NOTE | 2017-04-15 07:40 | PCM.PN ---
- General Info Date of Service: 04/15/17 Admission Dx/Problem (Free Text): Fever Darlin is seen today. Feeling "pretty good". Up and ambulatory. Did have temp of 100.9 overnight, now also on 1L/NC of supplemental oxygen. WBC is up today. Functional Status: Reports: Pain Controlled, Tolerating Diet, Ambulating, Urinating, Incentive Spirometry - Review of Systems General: Reports: Fever (100.9 overnight) HEENT: Reports: No Symptoms Pulmonary: Reports: No Symptoms. Denies: Shortness of Breath, Cough Cardiovascular: Reports: No Symptoms. Denies: Chest Pain, Palpitations Gastrointestinal: Reports: No Symptoms. Denies: Abdominal Pain, Diarrhea, Nausea, Vomiting Genitourinary: Reports: Frequency, Urgency, Incontinence (occasional) Neurological: Reports: No Symptoms Psychiatric: Reports: No Symptoms - Patient Data Vitals - Most Recent: Last Vital Signs Temp 98.6 F 04/15/17 04:41 Pulse 78 04/15/17 04:41 Resp 13 04/15/17 04:41 BP 111/45 L 04/15/17 04:41 Pulse Ox 94 L 04/15/17 04:41 Weight - Most Recent: 119 lb 12.8 oz I&O - Last 24 Hours: Intake & Output 04/14/17 04/15/17 04/15/17 22:59 06:59 14:59 Intake Total 740 600 Output Total 450 Balance 290 600 Lab Results Last 24 Hours: Laboratory Results - last 24 hr 04/14/17 04/14/17 04/14/17 Range/Units 05:40 11:43 17:23 Manual Slide Review Normal smear Sodium (136-145) mEq/L Potassium (3.5-5.1) mEq/L Chloride (98-107) mEq/L Carbon Dioxide (21-32) mEq/L Anion Gap (5-15) BUN (7-18) mg/dL Creatinine (0.55-1.02) mg/dL Est Cr Clr Drug Dosing mL/min Estimated GFR (MDRD) (>60) mL/min BUN/Creatinine Ratio (14-18) Glucose (83-115) mg/dL POC Glucose 138 H 151 H (83-110) mg/dL Calcium (8.5-10.1) mg/dL Magnesium (1.8-2.4) mg/dl C-Reactive Protein (<1.0) mg/dL 04/14/17 04/15/17 04/15/17 Range/Units 23:33 05:51 06:42 Manual Slide Review Sodium 142 (136-145) mEq/L Potassium 4.1 (3.5-5.1) mEq/L Chloride 102 (98-107) mEq/L Carbon Dioxide 28 (21-32) mEq/L Anion Gap 16.1 H (5-15) BUN 36 H (7-18) mg/dL Creatinine 1.4 H (0.55-1.02) mg/dL Est Cr Clr Drug Dosing 22.98 mL/min Estimated GFR (MDRD) 35 (>60) mL/min BUN/Creatinine Ratio 25.7 H (14-18) Glucose 130 H (83-115) mg/dL POC Glucose 186 H 131 H (83-110) mg/dL Calcium 9.2 (8.5-10.1) mg/dL Magnesium 1.7 L (1.8-2.4) mg/dl C-Reactive Protein 10.7 H* (<1.0) mg/dL Moose Results Last 24 Hours: Microbiology 04/11/17 20:10 Urine Culture - Final Urine, Clean Catch Enterococcus Faecalis Med Orders - Current: Current Medications Acetaminophen (Tylenol) 650 mg PO Q4H PRN PRN Reason: Pain (Mild 1-3)/fever Last Admin: 04/14/17 20:55 Dose: 650 mg Hydrocodone Bitart/Acetaminophen ([place] 325-5 Mg) 1 tab PO BID [facility] Last Admin: 04/14/17 20:37 Dose: Not Given Albuterol/Ipratropium (Duoneb 3.0-0.5 Mg/3 Ml) 3 ml NEB Q4H PRN PRN Reason: Shortness Of Breath/wheezing Bisacodyl (Dulcolax) 5 mg PO DAILY PRN PRN Reason: Constipation Docusate Sodium (Colace) 100 mg PO BID PRN PRN Reason: Constipation Enoxaparin Sodium (Lovenox) 30 mg SUBCUT DAILY [facility] Last Admin: 04/14/17 09:27 Dose: 30 mg Furosemide (Lasix) 20 mg PO BIDDIURETIC [facility] Last Admin: 04/15/17 07:33 Dose: 20 mg Ampicillin Sodium 2 gm/ Sodium (Chloride) 100 mls @ 200 mls/hr IV Q6H [facility] Last Admin: 04/15/17 01:01 Dose: 200 mls/hr Sodium Chloride (Normal Saline) 1,000 mls @ 100 mls/hr IV ASDIRECTED [facility] Losartan Potassium (Cozaar) 50 mg PO BID [facility] Last Admin: 04/14/17 23:27 Dose: Not Given Nitrofurantoin Macrocrystals (Macrobid) 100 mg PO BID [facility] Last Admin: 04/14/17 20:19 Dose: 100 mg Ondansetron HCl (Zofran Odt) 4 mg PO Q6H PRN PRN Reason: nausea, able to take PO Ondansetron HCl (Zofran) 4 mg IV Q6H PRN PRN Reason: Nausea/Vomiting Last Admin: 04/14/17 17:33 Dose: 4 mg Gabapentin 400mg (Capsules) 0 each PO TID [facility] Last Admin: 04/14/17 20:38 Dose: 800 each L Acidophil/B Lactis /B Longum [Florajen3 ] 1 Cap 0 each PO ACBRK [facility] Last Admin: 04/15/17 07:33 Dose: 1 each Methenamine (Hippurate 1g Tablets) 0 each PO BID [facility] Last Admin: 04/14/17 20:39 Dose: 1 each Vit C With (Flavonoids 500mg Cap) 0 each PO TID [facility] Last Admin: 04/14/17 21:15 Dose: 1 each Iron,Carbonyl/Vit C/Vit B12/Fa [Ultimate Iron Softgels] 0 each PO BID [facility] Last Admin: 04/14/17 20:39 Dose: 1 each Polyethylene Glycol (Miralax) 17 gm PO DAILY PRN PRN Reason: Constipation Saccharomyces Boulardii (Florastor) 250 mg PO BID [facility] Senna/Docusate Sodium (Senna Plus) 1 tab PO BID PRN PRN Reason: Constipation Temazepam (Restoril) 7.5 mg PO BEDTIME PRN PRN Reason: Sleep Last Admin: 04/14/17 20:51 Dose: 7.5 mg Discontinued Medications Hydrocodone Bitart/Acetaminophen ([place] 325-5 Mg) 1 tab PO TID [facility] Last Admin: 04/09/17 11:59 Dose: Not Given Hydrocodone Bitart/Acetaminophen ([place] 325-5 Mg) 1 tab PO TID [facility] Last Admin: 04/10/17 08:31 Dose: 1 tab Aspirin (Halfprin) 81 mg PO DAILY [facility] Last Admin: 04/09/17 11:58 Dose: Not Given Bumetanide (Bumex) 1 mg PO ONETIME ONE Stop: 04/12/17 09:44 Last Admin: 04/12/17 09:46 Dose: Not Given Furosemide (Lasix) 10 mg IVPUSH NOW ONE Stop: 04/11/17 08:41 Last Admin: 04/11/17 08:53 Dose: 10 mg Furosemide (Lasix) 40 mg IVPUSH NOW ONE Stop: 04/11/17 14:01 Last Admin: 04/11/17 14:28 Dose: 40 mg Gabapentin (Neurontin) 800 mg PO ONETIME ONE Stop: 04/08/17 19:51 Last Admin: 04/08/17 20:02 Dose: 800 mg Hydralazine HCl (Apresoline) 10 mg IVPUSH ONETIME ONE Stop: 04/11/17 06:34 Last Admin: 04/11/17 06:58 Dose: 10 mg Hydrochlorothiazide (Hydrochlorothiazide) 12.5 mg PO DAILY [facility] Last Admin: 04/09/17 11:59 Dose: Not Given Sodium Chloride (Normal Saline) 1,000 mls @ 75 mls/hr IV ASDIRECTED [facility] Last Admin: 04/10/17 08:37 Dose: 75 mls/hr Magnesium Sulfate 2 gm/ Premix 50 mls @ 25 mls/hr IV ONETIME ONE Stop: 04/09/17 18:24 Last Admin: 04/09/17 16:53 Dose: 25 mls/hr Sodium Chloride (Normal Saline) 100 mls @ 80 mls/hr IV ASDIRECTED [facility] Stop: 04/11/17 12:00 Last Admin: 04/11/17 10:08 Dose: 80 mls/hr Ceftriaxone Sodium 2 gm/ (Sodium Chloride) 100 mls @ 200 mls/hr IV Q24H [facility] Last Admin: 04/13/17 20:54 Dose: 200 mls/hr Doxycycline Hyclate 100 mg/ (Sodium Chloride) 100 mls @ 100 mls/hr IV Q12H [facility] Last Admin: 04/14/17 00:40 Dose: 100 mls/hr Magnesium Sulfate 4 gm/ Premix 100 mls @ 25 mls/hr IV ONETIME ONE Stop: 04/13/17 11:48 Last Admin: 04/13/17 08:59 Dose: 25 mls/hr Ampicillin Sodium 2 gm/ Sodium (Chloride) 100 mls @ 200 mls/hr IV Q6H [facility] Last Admin: 04/14/17 23:48 Dose: Not Given Ampicillin Sodium 2 gm/ Sodium (Chloride) 100 mls @ 200 mls/hr IV Q6H [facility] Iopamidol (Isovue-370 (76%)) 100 ml IVPUSH ONETIME ONE Stop: 04/11/17 09:53 Last Admin: 04/11/17 10:08 Dose: 60 ml Losartan Potassium (Cozaar) 50 mg PO BID [facility] Magnesium Oxide (Magnesium Oxide) 800 mg PO ONETIME ONE Stop: 04/12/17 10:01 Last Admin: 04/12/17 11:08 Dose: 800 mg Magnesium Oxide (Magnesium Oxide) 400 mg PO ONETIME ONE Stop: 04/15/17 07:35 Nitrofurantoin Macrocrystals (Macrobid) 100 mg PO WITHLUNCH [facility] Last Admin: 04/10/17 08:39 Dose: 100 mg Non-Formulary Medication (Vit D3 & K/[place] Hcl/Hops [Ostera]) 1 cap PO DAILY [facility] Last Admin: 04/09/17 12:00 Dose: Not Given Calc/D3/Mag/Zn/Mother'S Helper/[place]ante/[place] [Calcium 600 Mg Plus Vit D] 0 each PO BID [facility] Last Admin: 04/09/17 11:59 Dose: Not Given Cyanocobalamin ( Vitamin B-12) 100 Mcg 0 each PO DAILY [facility] Last Admin: 04/09/17 12:00 Dose: Not Given Iron,Carbonyl/Vit C/Vit B12/Fa [Iron 100 Plus Softgel] 0 each PO DAILY [facility] Last Admin: 04/09/17 12:00 Dose: Not Given Centrum Silver - (Multivitamins) 0 each PO DAILY [facility] Last Admin: 04/09/17 11:59 Dose: Not Given Potassium Chloride [ Potassium Chloride] 10 Meq 0 each PO DAILY [facility] Last Admin: 04/09/17 12:00 Dose: Not Given Pravastatin 20 Mg 20 each PO BEDTIME [facility] Potassium Chloride (Klor-Con M20) 40 meq PO ONETIME ONE Stop: 04/12/17 10:01 Last Admin: 04/12/17 11:08 Dose: 40 meq Senna/Docusate Sodium (Senna Plus) 1 tab PO BID [facility] Last Admin: 04/09/17 12:00 Dose: Not Given Sodium Chloride (Saline Flush) 10 ml FLUSH ONETIME PRN PRN Reason: IV FLUSH Stop: 04/11/17 12:00 Last Admin: 04/11/17 10:08 Dose: 10 ml - Exam Quality Assessment: DVT Prophylaxis HEENT: Pupils Equal, Pupils Reactive, Mucous Membr. Moist/[place] Neck: Supple Lungs: Decreased Breath Sounds Cardiovascular: Regular Rate, Regular Rhythm, Murmurs GI/Abdominal Exam: Normal Bowel Sounds, Soft, Non-Tender (Female) Exam: Deferred Extremities: No Pedal Edema, Normal Capillary Refill Peripheral Pulses: 1+: Dorsalis Pedis (L), Dorsalis Pedis (R) Neurological: No New Focal Deficit Psy/Mental Status: Alert, Normal Affect, Normal Mood - Problem List & Annotations (1) Urinary tract infection SNOMED Code(s): 46302637 Code(s): N39.0 - URINARY TRACT INFECTION, SITE NOT SPECIFIED Status: Acute Priority: High Current Visit: Yes Qualifiers: Encounter type: initial encounter (2) Febrile illness, acute SNOMED Code(s): 180853476 Code(s): R50.9 - FEVER, UNSPECIFIED Status: Acute Priority: High Current Visit: Yes (3) H/O recurrent urinary tract infection SNOMED Code(s): 834611359 Code(s): Z87.440 - PERSONAL HISTORY OF URINARY (TRACT) INFECTIONS Status: Chronic Priority: High Current Visit: Yes (4) Generalized weakness SNOMED Code(s): 50363120 Code(s): R53.1 - WEAKNESS Status: Acute Priority: Medium Current Visit : Yes (5) Diabetes mellitus type 2 in nonobese SNOMED Code(s): 174793182 Code(s): E11.9 - TYPE 2 DIABETES MELLITUS WITHOUT COMPLICATIONS Status: Chronic Priority: Medium Current Visit: Yes (6) Hypertension SNOMED Code(s): 78824048 Code(s): I10 - ESSENTIAL (PRIMARY) HYPERTENSION Status: Chronic Priority : Medium Current Visit: Yes Qualifiers: Hypertension type: essential hypertension Qualified Code(s): I10 - Essential (primary) hypertension (7) Abdominal pain SNOMED Code(s): 28204897 Code(s): R10.9 - UNSPECIFIED ABDOMINAL PAIN Status: Resolved Priority: High Current Visit: Yes Qualifiers: Abdominal location: unspecified location Qualified Code(s): R10.9 - Unspecified abdominal pain - Problem List Review Problem List Initiated/Reviewed/Updated: Yes - My Orders Last 24 Hours: My Active Orders 04/14/17 09:00 Nitrofurantoin [place]/Macrocryst [Macrobid] 100 mg PO BID 04/15/17 05:51 CBC WITH AUTO DIFF [HEME] AM 04/15/17 07:45 Sodium Chloride 0.9% [Normal Saline] 1,000 ml IV ASDIRECTED 04/15/17 09:00 Saccharomyces Boulardii [Florastor] 250 mg PO BID 04/16/17 05:11 BASIC METABOLIC PANEL,BMP [CHEM] AM C-REACTIVE PROTEIN [CHEM] AM CBC WITH AUTO DIFF [HEME] AM MAGNESIUM [CHEM] AM 04/17/17 05:11 BASIC METABOLIC PANEL,BMP [CHEM] AM C-REACTIVE PROTEIN [CHEM] AM CBC WITH AUTO DIFF [HEME] AM MAGNESIUM [CHEM] AM 04/18/17 05:11 BASIC METABOLIC PANEL,BMP [CHEM] AM C-REACTIVE PROTEIN [CHEM] AM CBC WITH AUTO DIFF [HEME] AM MAGNESIUM [CHEM] AM 04/19/17 05:11 BASIC METABOLIC PANEL,BMP [CHEM] AM C-REACTIVE PROTEIN [CHEM] AM CBC WITH AUTO DIFF [HEME] AM MAGNESIUM [CHEM] AM 04/20/17 05:11 BASIC METABOLIC PANEL,BMP [CHEM] AM C-REACTIVE PROTEIN [CHEM] AM CBC WITH AUTO DIFF [HEME] AM MAGNESIUM [CHEM] AM - Plan Plan:: I/P: Acute: Acute febrile illness -- Now with fever overnight of 100.9; WBC and CRP elevated this morning UC with enterococcus; -RESISTANT to tetracycline, will stop doxycycline; add macrobid BID; changed rocephin to ampicillin last night at 1999. -BC were repeated last night with temp spike. -Hx/o recurrent UTIs - was recently hospitalized and just finished course of augmentin--UC and BC negative -CXR repeat with small pleural effusions, no findings of PNA. Negative mycoplasma. Will repeat CXR again this morning -D-dimer minimally elevated at 1.6; CTA obtained yesterday showing small to moderate pleural effusion bilat with compressive atelectasis, no PE. Venous doppler studies to be done today. 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 Mild CHF exacerbation--improving, no peripheral edema today -BL effusions--recheck CXR today to assure no development of PNA with elevated WBC and CRP today--no acute changes or concerns for PNA. -Elevated BNP--recheck BNP today -Lasix IV has been transitioned to 20mg PO BID -Echo obtained --results as above Hypokalemia--resolved -Replace and follow -d/t diuretic therapy yesterday Hypomagnesemia--1.7 today -400mg PO today -Replace and follow Abdominal pain--resolved -Suprapubic > LLQ -Hx/o recent and recurrent UTI -Denies any constipation/diarrhea/changes in bowel habits Generalized weakness--slowly improving -Acute on chronic -Has been working with PT since recent hospital discharge -Continue PT/OT here -TSH--WNL -Plans for SNF/rehab stay Chronic: Impaired vision A-fib- rate controlled Hx of tissue valve replacement, biprosthetic tissue aortic valve CAD CHF---acute exacerbation as above HLD HTN--controlled Recurrent UTIs--recommend Urology referral/follow up after discharge; sees Dr. Bhakta Arthritis JULIA "Pre-diabetic" - A1C ordered --6.2 hx/o MRSA infection. Plan: CM/SW for discharge planning--Was plan for DC today however now febrile overnight, now on 1L/NC with elevated WBC and CRP today; Was switched to ampicillin last night which is sensitive for enterococcus/UTI. Will obtain another CXR today to assure no development of PNA. Hold discharge and continue to monitor/follow labs and VS. PT/OT Other orders as indicated above Home medications as ordered DVT/PE prophylaxis: lovenox; she is refusing kiara hose GI prophylaxis: Pepcid Routine AM Labs Code Status: Full Code. Her PCP is Jessy Galeana PA-C here at [facility]. LOS >96 hours due to need for continued IV abx for UTI; now with fever and elevated WBC this morning.
[2017-04-15] MEDS: Sodium Chloride 0.9% 1,000 ML IV SCH ×2 (08:49→22:17)
[2017-04-15] MEDS: [UNRECOGNIZED DRUG - OTHER] PO SCH ×2 (08:51→20:47)
[2017-04-15] MEDS: IRON CARBONYL PO SCH ×2 (08:51→20:47)
[2017-04-15] MEDS: VIT C PO SCH ×2 (08:51→20:47)
[2017-04-15] MEDS: VIT B12 PO SCH ×2 (08:51→20:47)
[2017-04-15] MEDS: GABAPENTIN 400 MG PO SCH ×3 (08:52→20:47)
[2017-04-15] MEDS: ASCORBIC ACID PO SCH ×3 (08:52→20:49)
[2017-04-15] MEDS: Saccharomyces Boulardii (Probiotic) 250 MG Cap PO SCH ×2 (08:52→20:43)
[2017-04-15] MEDS: [UNRECOGNIZED DRUG - OTHER] PO SCH ×3 (08:52→20:49)
[2017-04-15] MEDS: Nitrofurantoin Monohydrate/Macrocrystalline 100 MG Cap PO SCH ×2 (08:53→20:45)
[2017-04-15] MEDS: Enoxaparin 30 MG/0.3 ML Syringe SUBCUT SCH (08:53)
[2017-04-15] MEDS: Acetaminophen/HYDROcodone 325-5 MG Tab PO SCH ×2 (08:53→20:45)
[2017-04-15] MEDS: METHENAMINE HIPPURATE 1 GM PO SCH ×2 (08:53→20:48)
[2017-04-15] MEDS: Losartan 100 MG Tab PO SCH ×2 (08:58→20:44)
--- NOTE | 2017-04-15 11:06 | CR ---
Chest: Two views of the chest were obtained. Comparison: Prior chest CT of 04/11/17 and chest x-ray of 04/10/17. Small bilateral pleural effusions are seen posteriorly. Lungs are hyperinflated compatible with emphysematous change. Cardiac stent is again seen. Lungs otherwise are clear. Heart size is normal. Tortuous thoracic aorta is seen. Bony structures show mild scattered degenerative change within the spine. Previous lumbar spine surgery is noted. Impression: 1. Small bilateral pleural effusions. 2. Other incidental findings. Nothing acute is otherwise seen. Diagnostic code #3
--- NOTE | 2017-04-15 15:44 | CT ---
CT abdomen and pelvis Technique: Multiple axial sections were obtained from above the dome of the diaphragm inferiorly through the pubic symphysis. Intravenous and oral contrast not utilized which limits details. Findings: Trace pleural effusion on the right and small left-sided pleural effusion is seen. Atelectasis noted within the left base. Noncontrast appearance of the liver appears within normal limits. Spleen appears within normal limits. Mitral annulus calcification is incidentally noted. Adrenal glands show no nodule. 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 Kidneys show no hydronephrosis. Pancreas is atrophied. Aorta shows diffuse atherosclerotic change without aneurysmal dilatation. Atherosclerotic change continues into the iliac vessels. No pelvic mass or adenopathy is seen. Artifact is noted within the pelvis from left hip prosthesis. Sigmoid diverticuli are seen without inflammatory change of diverticulitis. Appendix not visualized with certainty. Artifact also noted within the abdomen from previous lumbar spine surgery at L3-L5. Diffuse degenerative change is seen within other portions of the spine. Impression: 1. Trace pleural effusion on the right and small pleural effusion on the left. Left basilar atelectasis is seen. 2. 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 3. Other incidental findings. Nothing acute is appreciated on CT abdomen or pelvis exam. Diagnostic code #3
[2017-04-15] MEDS: Temazepam 7.5 MG Cap PO PRN (20:52)
[2017-04-16] MEDS: Ampicillin 2 GM in Sodium Chloride 0.9% 100 ML IV SCH ×4 (01:29→19:36)
[2017-04-16] MEDS: Sodium Chloride 0.9% 1,000 ML IV SCH ×2 (05:53→16:34)
[2017-04-16] MEDS: B LONGUM PO SCH (05:54)
[2017-04-16] MEDS: ACIDOPHIL PO SCH (05:54)
[2017-04-16] MEDS: Furosemide 20 MG Tab PO SCH ×2 (05:54→14:38)
[2017-04-16] MEDS: B LACTIS PO SCH (05:54)
[2017-04-16] MEDS: Acetaminophen/HYDROcodone 325-5 MG Tab PO SCH ×2 (08:27→20:19)
[2017-04-16] MEDS: Saccharomyces Boulardii (Probiotic) 250 MG Cap PO SCH ×2 (08:27→20:19)
[2017-04-16] MEDS: Losartan 100 MG Tab PO SCH ×2 (08:31→20:20)
[2017-04-16] MEDS: Nitrofurantoin Monohydrate/Macrocrystalline 100 MG Cap PO SCH ×2 (08:31→20:19)
[2017-04-16] MEDS: Enoxaparin 30 MG/0.3 ML Syringe SUBCUT SCH (08:32)
[2017-04-16] MEDS: GABAPENTIN 400 MG PO SCH ×3 (08:33→20:23)
[2017-04-16] MEDS: VIT B12 PO SCH ×2 (08:34→20:23)
[2017-04-16] MEDS: [UNRECOGNIZED DRUG - OTHER] PO SCH ×2 (08:34→20:23)
[2017-04-16] MEDS: IRON CARBONYL PO SCH ×2 (08:34→20:23)
[2017-04-16] MEDS: VIT C PO SCH ×2 (08:34→20:23)
[2017-04-16] MEDS: METHENAMINE HIPPURATE 1 GM PO SCH ×2 (08:34→20:24)
[2017-04-16] MEDS: [UNRECOGNIZED DRUG - OTHER] PO SCH ×3 (08:35→20:25)
[2017-04-16] MEDS: ASCORBIC ACID PO SCH ×3 (08:35→20:25)
--- NOTE | 2017-04-16 09:45 | PCM.PN ---
- General Info Date of Service: 04/16/17 Functional Status: Reports: Pain Controlled, Tolerating Diet, Urinating - Review of Systems General: Reports: No Symptoms HEENT: Reports: No Symptoms Pulmonary: Reports: No Symptoms Cardiovascular: Reports: No Symptoms Gastrointestinal: Reports: No Symptoms Genitourinary: Reports: No Symptoms Musculoskeletal: Reports: No Symptoms Skin: Reports: No Symptoms Neurological: Reports: No Symptoms Psychiatric: Reports: No Symptoms - Patient Data Vitals - Most Recent: Last Vital Signs Temp 36.6 C 04/16/17 07:46 Pulse 81 04/16/17 07:46 Resp 19 04/16/17 07:46 BP 130/73 04/16/17 08:31 Pulse Ox 95 04/16/17 07:46 Weight - Most Recent: 56.064 kg I&O - Last 24 Hours: Intake & Output 04/15/17 04/16/17 04/16/17 22:59 06:59 14:59 Intake Total 2009 1969 Balance 2009 1969 Lab Results Last 24 Hours: Laboratory Results - last 24 hr 04/15/17 04/15/17 04/15/17 Range/Units 11:31 16:49 17:20 WBC (3.98-10.04) K/mm3 RBC (3.98-5.22) M/mm3 Hgb (11.2-15.7) gm/L Hct (34.1-44.9) % MCV (79.4-94.8) fl MCH (25.6-32.2) pg MCHC (32.2-35.5) g/dl RDW Std Deviation (36.4-46.3) fL Plt Count (182-369) K/mm3 MPV (9.4-12.3) fl Neut % (Auto) (34.0-71.1) % Lymph % (Auto) (19.3-51.7) % [place] % (Auto) (4.7-12.5) % Eos % (Auto) (0.7-5.8) Baso % (Auto) (0.1-1.2) % Neut # (Auto) (1.56-6.13) K/mm3 Lymph # (Auto) (1.18-3.74) K/mm3 [place] # (Auto) (0.24-0.36) K/mm3 Eos # (Auto) (0.04-0.36) K/mm3 Baso # (Auto) (0.01-0.08) K/mm3 Manual Slide Review Sodium (136-145) mEq/L Potassium (3.5-5.1) mEq/L Chloride (98-107) mEq/L Carbon Dioxide (21-32) mEq/L Anion Gap (5-15) BUN (7-18) mg/dL Creatinine (0.55-1.02) mg/dL Est Cr Clr Drug Dosing mL/min Estimated GFR (MDRD) (>60) mL/min BUN/Creatinine Ratio (14-18) Glucose (83-115) mg/dL POC Glucose 187 H 122 H (83-110) mg/dL Calcium (8.5-10.1) mg/dL Magnesium (1.8-2.4) mg/dl C-Reactive Protein (<1.0) mg/dL NT-Pro-B Natriuret Pep 882 H (0-450) pg/mL 04/15/17 04/16/17 04/16/17 Range/Units 21:00 06:12 06:12 WBC 9.41 (3.98-10.04) K/mm3 RBC 3.10 L (3.98-5.22) M/mm3 Hgb 9.0 L (11.2-15.7) gm/L Hct 29.2 L (34.1-44.9) % MCV 94.2 (79.4-94.8) fl MCH 29.0 (25.6-32.2) pg MCHC 30.8 L (32.2-35.5) g/dl RDW Std Deviation 46.4 H (36.4-46.3) fL Plt Count 232 (182-369) K/mm3 MPV 9.1 L (9.4-12.3) fl Neut % (Auto) 78.1 H (34.0-71.1) % Lymph % (Auto) 9.8 L (19.3-51.7) % [place] % (Auto) 5.4 (4.7-12.5) % Eos % (Auto) 4.7 (0.7-5.8) Baso % (Auto) 0.2 (0.1-1.2) % Neut # (Auto) 7.35 H (1.56-6.13) K/mm3 Lymph # (Auto) 0.92 L (1.18-3.74) K/mm3 [place] # (Auto) 0.51 H (0.24-0.36) K/mm3 Eos # (Auto) 0.44 H (0.04-0.36) K/mm3 Baso # (Auto) 0.02 (0.01-0.08) K/mm3 Manual Slide Review Normal smear Sodium 146 H (136-145) mEq/L Potassium 3.6 (3.5-5.1) mEq/L Chloride 108 H (98-107) mEq/L Carbon Dioxide 29 (21-32) mEq/L Anion Gap 12.6 (5-15) BUN 31 H (7-18) mg/dL Creatinine 0.9 (0.55-1.02) mg/dL Est Cr Clr Drug Dosing 35.74 mL/min Estimated GFR (MDRD) 59 (>60) mL/min BUN/Creatinine Ratio 34.4 H (14-18) Glucose 102 (83-115) mg/dL POC Glucose 137 H (83-110) mg/dL Calcium 9.1 (8.5-10.1) mg/dL Magnesium 1.7 L (1.8-2.4) mg/dl C-Reactive Protein 13.0 H* (<1.0) mg/dL NT-Pro-B Natriuret Pep (0-450) pg/mL 04/16/17 Range/Units 06:49 WBC (3.98-10.04) K/mm3 RBC (3.98-5.22) M/mm3 Hgb (11.2-15.7) gm/L Hct (34.1-44.9) % MCV (79.4-94.8) fl MCH (25.6-32.2) pg MCHC (32.2-35.5) g/dl RDW Std Deviation (36.4-46.3) fL Plt Count (182-369) K/mm3 MPV (9.4-12.3) fl Neut % (Auto) (34.0-71.1) % Lymph % (Auto) (19.3-51.7) % [place] % (Auto) (4.7-12.5) % Eos % (Auto) (0.7-5.8) Baso % (Auto) (0.1-1.2) % Neut # (Auto) (1.56-6.13) K/mm3 Lymph # (Auto) (1.18-3.74) K/mm3 [place] # (Auto) (0.24-0.36) K/mm3 Eos # (Auto) (0.04-0.36) K/mm3 Baso # (Auto) (0.01-0.08) K/mm3 Manual Slide Review Sodium (136-145) mEq/L Potassium (3.5-5.1) mEq/L Chloride (98-107) mEq/L Carbon Dioxide (21-32) mEq/L Anion Gap (5-15) BUN (7-18) mg/dL Creatinine (0.55-1.02) mg/dL Est Cr Clr Drug Dosing mL/min Estimated GFR (MDRD) (>60) mL/min BUN/Creatinine Ratio (14-18) Glucose (83-115) mg/dL POC Glucose 125 H (83-110) mg/dL Calcium (8.5-10.1) mg/dL Magnesium (1.8-2.4) mg/dl C-Reactive Protein (<1.0) mg/dL NT-Pro-B Natriuret Pep (0-450) pg/mL [place] Results Last 24 Hours: Microbiology 04/14/17 18:07 Aerobic Blood Culture - Preliminary Blood - Venous - Lab Draw NO GROWTH AFTER 1 DAY Anaerobic Blood Culture - Preliminary NO GROWTH AFTER 1 DAY 04/14/17 18:01 Aerobic Blood Culture - Preliminary Blood - Venous NO GROWTH AFTER 1 DAY Anaerobic Blood Culture - Preliminary NO GROWTH AFTER 1 DAY Med Orders - Current: Current Medications Acetaminophen (Tylenol) 650 mg PO Q4H PRN PRN Reason: Pain (Mild 1-3)/fever Last Admin: 04/14/17 20:55 Dose: 650 mg Hydrocodone Bitart/Acetaminophen ([place] 325-5 Mg) 1 tab PO BID MARCELLO Last Admin: 04/16/17 08:27 Dose: 1 tab Albuterol/Ipratropium (Duoneb 3.0-0.5 Mg/3 Ml) 3 ml NEB Q4H PRN PRN Reason: Shortness Of Breath/wheezing Bisacodyl (Dulcolax) 5 mg PO DAILY PRN PRN Reason: Constipation Docusate Sodium (Colace) 100 mg PO BID PRN PRN Reason: Constipation Enoxaparin Sodium (Lovenox) 30 mg SUBCUT DAILY [facility] Last Admin: 04/16/17 08:32 Dose: 30 mg Furosemide (Lasix) 20 mg PO BIDDIURETIC [facility] Last Admin: 04/16/17 05:54 Dose: 20 mg Ampicillin Sodium 2 gm/ Sodium (Chloride) 100 mls @ 200 mls/hr IV Q6H [facility] Last Admin: 04/16/17 08:23 Dose: 200 mls/hr Sodium Chloride (Normal Saline) 1,000 mls @ 100 mls/hr IV ASDIRECTED [facility] Last Admin: 04/16/17 05:53 Dose: 100 mls/hr Losartan Potassium (Cozaar) 50 mg PO BID [facility] Last Admin: 04/16/17 08:31 Dose: 50 mg Nitrofurantoin Macrocrystals (Macrobid) 100 mg PO BID [facility] Last Admin: 04/16/17 08:31 Dose: 100 mg Ondansetron HCl (Zofran Odt) 4 mg PO Q6H PRN PRN Reason: nausea, able to take PO Ondansetron HCl (Zofran) 4 mg IV Q6H PRN PRN Reason: Nausea/Vomiting Last Admin: 04/14/17 17:33 Dose: 4 mg Gabapentin 400mg (Capsules) 0 each PO TID [facility] Last Admin: 04/16/17 08:33 Dose: 2 each L Acidophil/B Lactis /B Longum [Florajen3 ] 1 Cap 0 each PO ACBRK [facility] Last Admin: 04/16/17 05:54 Dose: 1 each Methenamine (Hippurate 1g Tablets) 0 each PO BID [facility] Last Admin: 04/16/17 08:34 Dose: 1 each Vit C With (Flavonoids 500mg Cap) 0 each PO TID [facility] Last Admin: 04/16/17 08:35 Dose: 1 each Iron,Carbonyl/Vit C/Vit B12/Fa [Ultimate Iron Softgels] 0 each PO BID [facility] Last Admin: 04/16/17 08:34 Dose: 1 each Polyethylene Glycol (Miralax) 17 gm PO DAILY PRN PRN Reason: Constipation Saccharomyces Boulardii (Florastor) 250 mg PO BID [facility] Last Admin: 04/16/17 08:27 Dose: 250 mg Senna/Docusate Sodium (Senna Plus) 1 tab PO BID PRN PRN Reason: Constipation Temazepam (Restoril) 7.5 mg PO BEDTIME PRN PRN Reason: Sleep Last Admin: 04/15/17 20:52 Dose: 7.5 mg Discontinued Medications Hydrocodone Bitart/Acetaminophen ([place] 325-5 Mg) 1 tab PO TID [facility] Last Admin: 04/09/17 11:59 Dose: Not Given Hydrocodone Bitart/Acetaminophen ([place] 325-5 Mg) 1 tab PO TID [facility] Last Admin: 04/10/17 08:31 Dose: 1 tab Aspirin (Halfprin) 81 mg PO DAILY [facility] Last Admin: 04/09/17 11:58 Dose: Not Given Bumetanide (Bumex) 1 mg PO ONETIME ONE Stop: 04/12/17 09:44 Last Admin: 04/12/17 09:46 Dose: Not Given Furosemide (Lasix) 10 mg IVPUSH NOW ONE Stop: 04/11/17 08:41 Last Admin: 04/11/17 08:53 Dose: 10 mg Furosemide (Lasix) 40 mg IVPUSH NOW ONE Stop: 04/11/17 14:01 Last Admin: 04/11/17 14:28 Dose: 40 mg Gabapentin (Neurontin) 800 mg PO ONETIME ONE Stop: 04/08/17 19:51 Last Admin: 04/08/17 20:02 Dose: 800 mg Hydralazine HCl (Apresoline) 10 mg IVPUSH ONETIME ONE Stop: 04/11/17 06:34 Last Admin: 04/11/17 06:58 Dose: 10 mg Hydrochlorothiazide (Hydrochlorothiazide) 12.5 mg PO DAILY [facility] Last Admin: 04/09/17 11:59 Dose: Not Given Sodium Chloride (Normal Saline) 1,000 mls @ 75 mls/hr IV ASDIRECTED [facility] Last Admin: 04/10/17 08:37 Dose: 75 mls/hr Magnesium Sulfate 2 gm/ Premix 50 mls @ 25 mls/hr IV ONETIME ONE Stop: 04/09/17 18:24 Last Admin: 04/09/17 16:53 Dose: 25 mls/hr Sodium Chloride (Normal Saline) 100 mls @ 80 mls/hr IV ASDIRECTED [facility] Stop: 04/11/17 12:00 Last Admin: 04/11/17 10:08 Dose: 80 mls/hr Ceftriaxone Sodium 2 gm/ (Sodium Chloride) 100 mls @ 200 mls/hr IV Q24H [facility] Last Admin: 04/13/17 20:54 Dose: 200 mls/hr Doxycycline Hyclate 100 mg/ (Sodium Chloride) 100 mls @ 100 mls/hr IV Q12H [facility] Last Admin: 04/14/17 00:40 Dose: 100 mls/hr Magnesium Sulfate 4 gm/ Premix 100 mls @ 25 mls/hr IV ONETIME ONE Stop: 04/13/17 11:48 Last Admin: 04/13/17 08:59 Dose: 25 mls/hr Ampicillin Sodium 2 gm/ Sodium (Chloride) 100 mls @ 200 mls/hr IV Q6H [facility] Last Admin: 04/14/17 23:48 Dose: Not Given Ampicillin Sodium 2 gm/ Sodium (Chloride) 100 mls @ 200 mls/hr IV Q6H [facility] Iopamidol (Isovue-370 (76%)) 100 ml IVPUSH ONETIME ONE Stop: 04/11/17 09:53 Last Admin: 04/11/17 10:08 Dose: 60 ml Losartan Potassium (Cozaar) 50 mg PO BID [facility] Magnesium Oxide (Magnesium Oxide) 800 mg PO ONETIME ONE Stop: 04/12/17 10:01 Last Admin: 04/12/17 11:08 Dose: 800 mg Magnesium Oxide (Magnesium Oxide) 400 mg PO ONETIME ONE Stop: 04/15/17 07:35 Last Admin: 04/15/17 08:53 Dose: 400 mg Nitrofurantoin Macrocrystals (Macrobid) 100 mg PO WITHLUNCH [facility] Last Admin: 04/10/17 08:39 Dose: 100 mg Non-Formulary Medication (Vit D3 & K/Berberine Hcl/Hops [Ostera]) 1 cap PO DAILY [facility] Last Admin: 04/09/17 12:00 Dose: Not Given Calc/D3/Mag/Zn/Wire Inserter/Dante/Waubay [Calcium 600 Mg Plus Vit D] 0 each PO BID [facility] Last Admin: 04/09/17 11:59 Dose: Not Given Cyanocobalamin ( Vitamin B-12) 100 Mcg 0 each PO DAILY [facility] Last Admin: 04/09/17 12:00 Dose: Not Given Iron,Carbonyl/Vit C/Vit B12/Fa [Iron 100 Plus Softgel] 0 each PO DAILY [facility] Last Admin: 04/09/17 12:00 Dose: Not Given Centrum Silver - (Multivitamins) 0 each PO DAILY [facility] Last Admin: 04/09/17 11:59 Dose: Not Given Potassium Chloride [ Potassium Chloride] 10 Meq 0 each PO DAILY [facility] Last Admin: 04/09/17 12:00 Dose: Not Given Pravastatin 20 Mg 20 each PO BEDTIME [facility] Potassium Chloride (Klor-Con M20) 40 meq PO ONETIME ONE Stop: 04/12/17 10:01 Last Admin: 04/12/17 11:08 Dose: 40 meq Senna/Docusate Sodium (Senna Plus) 1 tab PO BID [facility] Last Admin: 04/09/17 12:00 Dose: Not Given Sodium Chloride (Saline Flush) 10 ml FLUSH ONETIME PRN PRN Reason: IV FLUSH Stop: 04/11/17 12:00 Last Admin: 04/11/17 10:08 Dose: 10 ml - Exam Quality Assessment: Supplemental Oxygen, DVT Prophylaxis General: Alert, Oriented, Cooperative, No Acute Distress HEENT: Pupils Equal, Pupils Reactive, EOMI Neck: Supple, Trachea Midline Lungs: Normal Respiratory Effort, Decreased Breath Sounds Cardiovascular: Regular Rate, Regular Rhythm GI/Abdominal Exam: Normal Bowel Sounds, Soft, Non-Tender, No Organomegaly, No Distention (Female) Exam: Deferred Back Exam: Normal Inspection Extremities: Normal Inspection, Non-Tender Skin: Warm Neurological: No New Focal Deficit Psy/Mental Status: Alert, Normal Affect, Normal Mood - Problem List Review Problem List Initiated/Reviewed/Updated: Yes - Plan Plan:: I/P: Acute: Acute febrile illness -- Now with fever overnight of 100.9; WBC and CRP elevated this morning UC with enterococcus; -RESISTANT to tetracycline, will stop doxycycline; add macrobid BID; changed rocephin to ampicillin. WBCs dropped from 22.17 to 9.41 -BC were repeated last night with temp spike. -Hx/o recurrent UTIs - was recently hospitalized and just finished course of augmentin--UC and BC negative -CXR repeat with small pleural effusions, no findings of PNA. Negative mycoplasma. Will repeat CXR again this morning -D-dimer minimally elevated at 1.6; CTA obtained yesterday showing small to moderate pleural effusion bilat with compressive atelectasis, no PE. Venous doppler studies to be done today. 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 Mild CHF exacerbation--improving, no peripheral edema today -BL effusions--recheck CXR today to assure no development of PNA with elevated WBC and CRP today--no acute changes or concerns for PNA. -Elevated BNP--recheck BNP today -Lasix IV has been transitioned to 20mg PO BID -Echo obtained --results as above Hypokalemia--resolved -Replace and follow -d/t diuretic therapy yesterday Hypomagnesemia--1.7 today -400mg PO today -Replace and follow Abdominal pain--resolved -Suprapubic > LLQ -Hx/o recent and recurrent UTI -Denies any constipation/diarrhea/changes in bowel habits Generalized weakness--slowly improving -Acute on chronic -Has been working with PT since recent hospital discharge -Continue PT/OT here -TSH--WNL -Plans for SNF/rehab stay Chronic: Impaired vision A-fib- rate controlled Hx of tissue valve replacement, biprosthetic tissue aortic valve CAD CHF---acute exacerbation as above HLD HTN--controlled Recurrent UTIs--recommend Urology referral/follow up after discharge; sees Dr. Bhakta Arthritis JULIA "Pre-diabetic" - A1C ordered --6.2 hx/o MRSA infection. Plan: CM/SW for discharge planning--DC Mon or Tu PT/OT Other orders as indicated above Home medications as ordered DVT/PE prophylaxis: lovenox; she is refusing kiara hose GI prophylaxis: Pepcid Routine AM Labs Code Status: Full Code. Her PCP is Jessy Galeana PA-C here at [facility]. LOS >96 hours due to need for continued IV abx for UTI; now with fever and elevated WBC this morning.
[2017-04-16] MEDS: Acetaminophen 325 MG Tab PO PRN (15:22)
[2017-04-16] MEDS ORDERED: Ibuprofen 600 MG Tab PO PRN (17:15)
[2017-04-16] MEDS: Temazepam 7.5 MG Cap PO PRN (20:42)
[2017-04-17] MEDS: Ampicillin 2 GM in Sodium Chloride 0.9% 100 ML IV SCH ×4 (02:29→21:43)
[2017-04-17] MEDS: Sodium Chloride 0.9% 1,000 ML IV SCH ×2 (02:29→12:45)
[2017-04-17] MEDS: B LACTIS PO SCH (06:39)
[2017-04-17] MEDS: B LONGUM PO SCH (06:39)
[2017-04-17] MEDS: Furosemide 20 MG Tab PO SCH ×2 (06:39→15:16)
[2017-04-17] MEDS: ACIDOPHIL PO SCH (06:39)
[2017-04-17] MEDS: Losartan 100 MG Tab PO SCH ×2 (08:40→20:21)
[2017-04-17] MEDS: Acetaminophen/HYDROcodone 325-5 MG Tab PO SCH ×2 (08:41→20:18)
[2017-04-17] MEDS: Nitrofurantoin Monohydrate/Macrocrystalline 100 MG Cap PO SCH ×2 (08:41→20:17)
[2017-04-17] MEDS: Enoxaparin 30 MG/0.3 ML Syringe SUBCUT SCH (08:42)
[2017-04-17] MEDS: Saccharomyces Boulardii (Probiotic) 250 MG Cap PO SCH ×2 (08:42→20:17)
[2017-04-17] MEDS: GABAPENTIN 400 MG PO SCH ×3 (08:44→20:19)
[2017-04-17] MEDS: VIT B12 PO SCH ×2 (08:45→20:20)
[2017-04-17] MEDS: VIT C PO SCH ×2 (08:45→20:20)
[2017-04-17] MEDS: [UNRECOGNIZED DRUG - OTHER] PO SCH ×2 (08:45→20:20)
[2017-04-17] MEDS: METHENAMINE HIPPURATE 1 GM PO SCH ×2 (08:45→20:19)
[2017-04-17] MEDS: IRON CARBONYL PO SCH ×2 (08:45→20:20)
[2017-04-17] MEDS: ASCORBIC ACID PO SCH ×3 (08:46→20:20)
[2017-04-17] MEDS: [UNRECOGNIZED DRUG - OTHER] PO SCH ×3 (08:46→20:20)
--- NOTE | 2017-04-17 12:15 | PCM.PN ---
- General Info Date of Service: 04/17/17 Admission Dx/Problem (Free Text): Fever Darlin is seen today. Feeling "pretty good". Up and ambulatory. Did have temp of 100.9 overnight, now also on 1L/NC of supplemental oxygen. WBC is up today. Subjective Update: Follow Up Functional Status: Reports: Pain Controlled, Tolerating Diet, Urinating. Denies : New Symptoms - Review of Systems General: Denies: Fever, Chills HEENT: Reports: No Symptoms Pulmonary: Denies: Shortness of Breath Cardiovascular: Denies: Chest Pain Gastrointestinal: Denies: Abdominal Pain, Nausea, Vomiting Genitourinary: Reports: No Symptoms Musculoskeletal: Reports: No Symptoms Skin: Denies: Cyanosis, Pallor, Rash Neurological: Denies: Confusion, Difficulty Walking, Weakness, Gait Disturbance Psychiatric: Denies: Depression, Anxiety, Agitation, Hallucinations Systems Review Comment:: No overnight or acute issues. She is appears to be doing just fine. She has no new complaints. She has been afebrile w/o leukocytosis. Her Sodium is slightly elevated at 147 and Mg level is 1.5. She reports no new complaints. - Patient Data Vitals - Most Recent: Last Vital Signs Temp 36.7 C 04/17/17 08:14 Pulse 83 04/17/17 08:14 Resp 14 04/17/17 08:14 BP 140/60 04/17/17 10:45 Pulse Ox 93 L 04/17/17 08:14 Weight - Most Recent: 57.243 kg I&O - Last 24 Hours: Intake & Output 04/16/17 04/17/17 04/17/17 22:59 06:59 14:59 Intake Total 1882 1750 Balance 1882 1750 Lab Results Last 24 Hours: Laboratory Results - last 24 hr 04/16/17 04/16/17 04/17/17 Range/Units 17:08 20:28 06:27 WBC 8.90 (3.98-10.04) K/mm3 RBC 3.13 L (3.98-5.22) M/mm3 Hgb 9.1 L (11.2-15.7) gm/L Hct 29.4 L (34.1-44.9) % MCV 93.9 (79.4-94.8) fl MCH 29.1 (25.6-32.2) pg MCHC 31.0 L (32.2-35.5) g/dl RDW Std Deviation 45.8 (36.4-46.3) fL Plt Count 266 (182-369) K/mm3 MPV 9.1 L (9.4-12.3) fl Neut % (Auto) 77.7 H (34.0-71.1) % Lymph % (Auto) 9.7 L (19.3-51.7) % [place] % (Auto) 5.6 (4.7-12.5) % Eos % (Auto) 4.8 (0.7-5.8) Baso % (Auto) 0.3 (0.1-1.2) % Neut # (Auto) 6.91 H (1.56-6.13) K/mm3 Lymph # (Auto) 0.86 L (1.18-3.74) K/mm3 [place] # (Auto) 0.50 H (0.24-0.36) K/mm3 Eos # (Auto) 0.43 H (0.04-0.36) K/mm3 Baso # (Auto) 0.03 (0.01-0.08) K/mm3 Manual Slide Review Normal smear Sodium (136-145) mEq/L Potassium (3.5-5.1) mEq/L Chloride (98-107) mEq/L Carbon Dioxide (21-32) mEq/L Anion Gap (5-15) BUN (7-18) mg/dL Creatinine (0.55-1.02) mg/dL Est Cr Clr Drug Dosing mL/min Estimated GFR (MDRD) (>60) mL/min BUN/Creatinine Ratio (14-18) Glucose (83-115) mg/dL POC Glucose 112 H 201 H (83-110) mg/dL Calcium (8.5-10.1) mg/dL Magnesium (1.8-2.4) mg/dl C-Reactive Protein (<1.0) mg/dL 04/17/17 04/17/17 04/17/17 Range/Units 06:27 06:41 11:01 WBC (3.98-10.04) K/mm3 RBC (3.98-5.22) M/mm3 Hgb (11.2-15.7) gm/L Hct (34.1-44.9) % MCV (79.4-94.8) fl MCH (25.6-32.2) pg MCHC (32.2-35.5) g/dl RDW Std Deviation (36.4-46.3) fL Plt Count (182-369) K/mm3 MPV (9.4-12.3) fl Neut % (Auto) (34.0-71.1) % Lymph % (Auto) (19.3-51.7) % [place] % (Auto) (4.7-12.5) % Eos % (Auto) (0.7-5.8) Baso % (Auto) (0.1-1.2) % Neut # (Auto) (1.56-6.13) K/mm3 Lymph # (Auto) (1.18-3.74) K/mm3 [place] # (Auto) (0.24-0.36) K/mm3 Eos # (Auto) (0.04-0.36) K/mm3 Baso # (Auto) (0.01-0.08) K/mm3 Manual Slide Review Sodium 147 H (136-145) mEq/L Potassium 3.6 (3.5-5.1) mEq/L Chloride 110 H (98-107) mEq/L Carbon Dioxide 28 (21-32) mEq/L Anion Gap 12.6 (5-15) BUN 23 H (7-18) mg/dL Creatinine 0.8 (0.55-1.02) mg/dL Est Cr Clr Drug Dosing 40.21 mL/min Estimated GFR (MDRD) > 60 (>60) mL/min BUN/Creatinine Ratio 28.8 H (14-18) Glucose 98 (83-115) mg/dL POC Glucose 108 195 H (83-110) mg/dL Calcium 9.0 (8.5-10.1) mg/dL Magnesium 1.5 L (1.8-2.4) mg/dl C-Reactive Protein 6.7 H* (<1.0) mg/dL Moose Results Last 24 Hours: Microbiology 04/14/17 18:07 Aerobic Blood Culture - Preliminary Blood - Venous - Lab Draw NO GROWTH AFTER 2 DAYS Anaerobic Blood Culture - Preliminary NO GROWTH AFTER 2 DAYS 04/14/17 18:01 Aerobic Blood Culture - Preliminary Blood - Venous NO GROWTH AFTER 2 DAYS Anaerobic Blood Culture - Preliminary NO GROWTH AFTER 2 DAYS Med Orders - Current: Current Medications Acetaminophen (Tylenol) 650 mg PO Q4H PRN PRN Reason: Pain (Mild 1-3)/fever Last Admin: 04/16/17 15:22 Dose: 650 mg Hydrocodone Bitart/Acetaminophen ([place] 325-5 Mg) 1 tab PO BID [facility] Last Admin: 04/17/17 08:41 Dose: 1 tab Albuterol/Ipratropium (Duoneb 3.0-0.5 Mg/3 Ml) 3 ml NEB Q4H PRN PRN Reason: Shortness Of Breath/wheezing Bisacodyl (Dulcolax) 5 mg PO DAILY PRN PRN Reason: Constipation Docusate Sodium (Colace) 100 mg PO BID PRN PRN Reason: Constipation Enoxaparin Sodium (Lovenox) 30 mg SUBCUT DAILY [facility] Last Admin: 04/17/17 08:42 Dose: 30 mg Furosemide (Lasix) 20 mg PO BIDDIURETIC [facility] Last Admin: 04/17/17 06:39 Dose: 20 mg Ampicillin Sodium 2 gm/ Sodium (Chloride) 100 mls @ 200 mls/hr IV Q6H [facility] Last Admin: 04/17/17 08:35 Dose: 200 mls/hr Sodium Chloride (Normal Saline) 1,000 mls @ 100 mls/hr IV ASDIRECTED [facility] Last Admin: 04/17/17 02:29 Dose: 100 mls/hr Ibuprofen (Motrin) 600 mg PO Q6H PRN PRN Reason: Pain/Fever Last Admin: 04/16/17 17:23 Dose: 600 mg Losartan Potassium (Cozaar) 50 mg PO BID [facility] Last Admin: 04/17/17 08:40 Dose: 50 mg Nitrofurantoin Macrocrystals (Macrobid) 100 mg PO BID [facility] Last Admin: 04/17/17 08:41 Dose: 100 mg Ondansetron HCl (Zofran Odt) 4 mg PO Q6H PRN PRN Reason: nausea, able to take PO Ondansetron HCl (Zofran) 4 mg IV Q6H PRN PRN Reason: Nausea/Vomiting Last Admin: 04/14/17 17:33 Dose: 4 mg Gabapentin 400mg (Capsules) 0 each PO TID [facility] Last Admin: 04/17/17 08:44 Dose: 2 each L Acidophil/B Lactis /B Longum [Florajen3 ] 1 Cap 0 each PO ACBRK [facility] Last Admin: 04/17/17 06:39 Dose: 1 each Methenamine (Hippurate 1g Tablets) 0 each PO BID [facility] Last Admin: 04/17/17 08:45 Dose: 1 each Vit C With (Flavonoids 500mg Cap) 0 each PO TID [facility] Last Admin: 04/17/17 08:46 Dose: 1 each Iron,Carbonyl/Vit C/Vit B12/Fa [Ultimate Iron Softgels] 0 each PO BID [facility] Last Admin: 04/17/17 08:45 Dose: 1 each Polyethylene Glycol (Miralax) 17 gm PO DAILY PRN PRN Reason: Constipation Saccharomyces Boulardii (Florastor) 250 mg PO BID [facility] Last Admin: 04/17/17 08:42 Dose: 250 mg Senna/Docusate Sodium (Senna Plus) 1 tab PO BID PRN PRN Reason: Constipation Temazepam (Restoril) 7.5 mg PO BEDTIME PRN PRN Reason: Sleep Last Admin: 04/16/17 20:42 Dose: 7.5 mg Discontinued Medications Hydrocodone Bitart/Acetaminophen ([place] 325-5 Mg) 1 tab PO TID [facility] Last Admin: 04/09/17 11:59 Dose: Not Given Hydrocodone Bitart/Acetaminophen ([place] 325-5 Mg) 1 tab PO TID [facility] Last Admin: 04/10/17 08:31 Dose: 1 tab Aspirin (Halfprin) 81 mg PO DAILY [facility] Last Admin: 04/09/17 11:58 Dose: Not Given Bumetanide (Bumex) 1 mg PO ONETIME ONE Stop: 04/12/17 09:44 Last Admin: 04/12/17 09:46 Dose: Not Given Furosemide (Lasix) 10 mg IVPUSH NOW ONE Stop: 04/11/17 08:41 Last Admin: 04/11/17 08:53 Dose: 10 mg Furosemide (Lasix) 40 mg IVPUSH NOW ONE Stop: 04/11/17 14:01 Last Admin: 04/11/17 14:28 Dose: 40 mg Gabapentin (Neurontin) 800 mg PO ONETIME ONE Stop: 04/08/17 19:51 Last Admin: 04/08/17 20:02 Dose: 800 mg Hydralazine HCl (Apresoline) 10 mg IVPUSH ONETIME ONE Stop: 04/11/17 06:34 Last Admin: 04/11/17 06:58 Dose: 10 mg Hydrochlorothiazide (Hydrochlorothiazide) 12.5 mg PO DAILY [facility] Last Admin: 04/09/17 11:59 Dose: Not Given Sodium Chloride (Normal Saline) 1,000 mls @ 75 mls/hr IV ASDIRECTED [facility] Last Admin: 04/10/17 08:37 Dose: 75 mls/hr Magnesium Sulfate 2 gm/ Premix 50 mls @ 25 mls/hr IV ONETIME ONE Stop: 04/09/17 18:24 Last Admin: 04/09/17 16:53 Dose: 25 mls/hr Sodium Chloride (Normal Saline) 100 mls @ 80 mls/hr IV ASDIRECTED [facility] Stop: 04/11/17 12:00 Last Admin: 04/11/17 10:08 Dose: 80 mls/hr Ceftriaxone Sodium 2 gm/ (Sodium Chloride) 100 mls @ 200 mls/hr IV Q24H [facility] Last Admin: 04/13/17 20:54 Dose: 200 mls/hr Doxycycline Hyclate 100 mg/ (Sodium Chloride) 100 mls @ 100 mls/hr IV Q12H [facility] Last Admin: 04/14/17 00:40 Dose: 100 mls/hr Magnesium Sulfate 4 gm/ Premix 100 mls @ 25 mls/hr IV ONETIME ONE Stop: 04/13/17 11:48 Last Admin: 04/13/17 08:59 Dose: 25 mls/hr Ampicillin Sodium 2 gm/ Sodium (Chloride) 100 mls @ 200 mls/hr IV Q6H [facility] Last Admin: 04/14/17 23:48 Dose: Not Given Ampicillin Sodium 2 gm/ Sodium (Chloride) 100 mls @ 200 mls/hr IV Q6H [facility] Iopamidol (Isovue-370 (76%)) 100 ml IVPUSH ONETIME ONE Stop: 04/11/17 09:53 Last Admin: 04/11/17 10:08 Dose: 60 ml Losartan Potassium (Cozaar) 50 mg PO BID [facility] Magnesium Oxide (Magnesium Oxide) 800 mg PO ONETIME ONE Stop: 04/12/17 10:01 Last Admin: 04/12/17 11:08 Dose: 800 mg Magnesium Oxide (Magnesium Oxide) 400 mg PO ONETIME ONE Stop: 04/15/17 07:35 Last Admin: 04/15/17 08:53 Dose: 400 mg Nitrofurantoin Macrocrystals (Macrobid) 100 mg PO WITHLUNCH [facility] Last Admin: 04/10/17 08:39 Dose: 100 mg Non-Formulary Medication (Vit D3 & K/[place] Hcl/Hops [Ostera]) 1 cap PO DAILY [facility] Last Admin: 04/09/17 12:00 Dose: Not Given Calc/D3/Mag/Zn/Bag Loader/Dante/[place] [Calcium 600 Mg Plus Vit D] 0 each PO BID [facility] Last Admin: 04/09/17 11:59 Dose: Not Given Cyanocobalamin ( Vitamin B-12) 100 Mcg 0 each PO DAILY [facility] Last Admin: 04/09/17 12:00 Dose: Not Given Iron,Carbonyl/Vit C/Vit B12/Fa [Iron 100 Plus Softgel] 0 each PO DAILY [facility] Last Admin: 04/09/17 12:00 Dose: Not Given Centrum Silver - (Multivitamins) 0 each PO DAILY [facility] Last Admin: 04/09/17 11:59 Dose: Not Given Potassium Chloride [ Potassium Chloride] 10 Meq 0 each PO DAILY [facility] Last Admin: 04/09/17 12:00 Dose: Not Given Pravastatin 20 Mg 20 each PO BEDTIME [facility] Potassium Chloride (Klor-Con M20) 40 meq PO ONETIME ONE Stop: 04/12/17 10:01 Last Admin: 04/12/17 11:08 Dose: 40 meq Senna/Docusate Sodium (Senna Plus) 1 tab PO BID [facility] Last Admin: 04/09/17 12:00 Dose: Not Given Sodium Chloride (Saline Flush) 10 ml FLUSH ONETIME PRN PRN Reason: IV FLUSH Stop: 04/11/17 12:00 Last Admin: 04/11/17 10:08 Dose: 10 ml - Exam General: Alert, Cooperative, No Acute Distress HEENT: Pupils Equal, Pupils Reactive, EOMI, Mucous Membr. Moist/[place] Neck: Supple, Trachea Midline, No JVD, No Thyromegaly Lungs: Normal Respiratory Effort, Decreased Breath Sounds Cardiovascular: Regular Rate, Regular Rhythm GI/Abdominal Exam: Normal Bowel Sounds, Soft, Non-Tender, No Organomegaly, No Distention, No Abnormal Bruit, No Mass (Female) Exam: Deferred Back Exam: Normal Inspection, Decreased Range of Motion Extremities: Normal Inspection, Normal Range of Motion, Non-Tender, No Pedal Edema, Normal Capillary Refill Peripheral Pulses: 2+: Dorsalis Pedis (L), Dorsalis Pedis (R) Skin: Warm, Dry, Intact Neurological: No New Focal Deficit Psy/Mental Status: Alert, Normal Affect, Normal Mood - Problem List Review Problem List Initiated/Reviewed/Updated: Yes - Plan Plan:: I/P: Acute: Febrile illness - Has not had any fever of 100.9; WBC is wnl and she has been afebrile - UC with enterococcus; RESISTANT to tetracycline, d/c'd doxycycline; added macrobid BID - Changed Rocephin to Ampicillin - Repeat BCs were negative - Hx/o recurrent UTIs - was recently hospitalized and just finished course of augmentin--UC and BC negative - CXR repeat with small pleural effusions, no findings of PNA. Negative mycoplasma. 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 - Elevated BNP--recheck BNP 882 - Continue oral diuretic - Echo obtained --results as above Hypomagnesemia - Mg 1.7--> 1.5 - Continue Mg supplement - Replace and follow Generalized weakness-- Continue to Improve - Acute on chronic - Has been working with PT since recent hospital discharge - Continue PT/OT - TSH--WNL - Plans for SNF/rehab stay Resolved: Hypokalemia - Replace and follow - D/t diuretic therapy yesterday Abdominal Pain - Suprapubic > LLQ - Hx/o recent and recurrent UTI - Denies any constipation/diarrhea/changes in bowel habits Chronic: Impaired vision A-fib- rate controlled Hx of tissue valve replacement, biprosthetic tissue aortic valve CAD CHF---acute exacerbation as above HLD HTN--controlled Recurrent UTIs--recommend Urology referral/follow up after discharge; sees Dr. Bhakta Arthritis JULIA "Pre-diabetic" - A1C ordered --6.2 hx/o MRSA infection. Plan: She is clinically stable Continue PT/OT Routine AM Labs Other orders as indicated above DVT/PE prophylaxis: lovenox Sub Q daily GI prophylaxis: Pepcid CM/SW for discharge planning--DC Mon or Tues Code Status: Full Code. Her PCP is Jessy Galeana PA-C here at [facility] LOS >96 hours due pending placement; possible d/c in AM. Spoke to family members at bedside and updated them about her clinical progress and d/c plan
[2017-04-17] MEDS ORDERED: hydrALAZINE 20 MG/ML SDV IVPUSH PRN (17:31)
[2017-04-17] MEDS ORDERED: Magnesium Sulfate/Water 2 GM in Premix Bag 1 BAG IV ONE (17:32)
[2017-04-17] MEDS: Temazepam 7.5 MG Cap PO PRN (21:55)
[2017-04-18] MEDS: Ampicillin 2 GM in Sodium Chloride 0.9% 100 ML IV SCH ×2 (02:42→08:59)
[2017-04-18] MEDS: Furosemide 20 MG Tab PO SCH (06:24)
[2017-04-18] MEDS: B LONGUM PO SCH (06:25)
[2017-04-18] MEDS: B LACTIS PO SCH (06:25)
[2017-04-18] MEDS: ACIDOPHIL PO SCH (06:25)
--- NOTE | 2017-04-18 07:35 | PCM.DCSUM1 ---
Discharge Summary - Hospital Course Free Text/Narrative:: Ju Hernández is an 87 yo female who presents to our ED via [facility] with a fever that started this afternoon. She has a rather complex history of recurrent urinary tract infections. On the of last month she was seen in the ED and then admitted to [facility] in [place]. She was in the hospital a total of 4 days. She'll return to her assisted-living center and have outpatient physical therapy. She was discharged on Augmentin from the hospital and has done fairly well. Her last day of Augmentin was yesterday. She reportedly talked with her urologist today and was told to start Macrobid daily, which she did, having her first pill this morning. She also complains of some lower abdominal discomfort and pain from her prior restless legs. Denies chest pain, chest pressure, shortness of breath, palpitations, nausea, or vomiting. In the ED temperature 39C. Pulse 106. Blood pressure 161/66. Pulse ox 93%. She was placed on 1 L of oxygen. Labs are obtained: She does have a slight white count at 11.37. Hemoglobin is low at 10.5. Hematocrit low at 33.2. She is normocytic. Platelets 201,000. Neutrophils 84%. Band neutrophils 4%. PT is 11.4. INR 1.04. Sodium is 140. Potassium 4.2. Chloride 105. Carbon dioxide 26. Anion gap 13.2. BUN 27. Creatinine 1.2. EGFR is 42. Glucose is high at 196. Lactic acid is 1.3. Calcium 9.9. Total bilirubin 0.4. AST is 23 , ALT 21, alkaline phosphatase 34. Protein 7.2. Albumin 3.5. UA is negative however one plus protein, trace intact occult blood, 10-20 red blood cells, 5- 10 white blood cells, and rare urine bacteria are noted. Chest x-ray was obtained showing a cardiac silhouette within normal limits. No pulmonary vascular congestion. No pleural effusions, no focal infiltrate, no pneumothorax. Aortic stent is noted. Hyperinflation and bilateral diaphragmatic flattening consistent with COPD as noted. Lumbar fusion hardware is noted. That was interpreted by the ED provider and formal radiologist read is pending. Influenza A and B were both negative. She carries a history of: Impaired vision, A. fib, CAD, CHF, HLD, HTN, recurrent UTIs, arthritis, iron deficiency anemia. 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 She was never a smoker. She is subsequently admitted to the medical floor under observation status. She is a full code. Her PCP is Jessy graham PA-C here at [facility]. Once in our care it was noted her fevers were low grade and never over 100.9. Her temperature did fluctuate a bit. UC was positive for enterococcus which was resistant to tetracycline. Doxycycline was discontinued and macrobid was started. Rocephin was changed to ampicillin. Repeat BCs were negative. CXR showed small pleural effusons, no PNA. Negative mycoplasma pneumonia. D-dimer was slightly elevated at 1.6 and a CTA was obtained showing small to moderate pleural effusions bilaterally with compressive atelectasis. No PE was noted. Venous doppler studies were negative for DVT. 2D echo was obtained showing normal EF at 60%, grade 2 diastolic dysfunction, severely dilated left atrium, normal biprosthetic aortic valve, severe MA calcification. She was found to have a mild CHF exacerbation. Peripheral edema improved with oral diuretic. Magnesium was found to be low and supplemented. Her generalized weakness continued to improve and she did well with physical therapy. He had some hypokalemia which resolved and is likely due to diuretic therapy. A1C was ordered as she reported she is "prediabetic." A1C was 6.2. Overall she has improved, however she does remain weak. She has had continued incontinence while here. She will be discharged today to [facility] for a rehabilitation stay. She will benefit with continued PT. She should continue to follow-up with her urologist, Dr. Ring. She should also follow-up with her PCP in 7-10 days. - Discharge Data Discharge Date: 04/18/17 (Admit date: 04/09/17) Discharge Disposition: DC/Tfer to SNF 03 Condition: Good - Discharge Diagnosis/Problem(s) (1) Febrile illness, acute SNOMED Code(s): 595625851 ICD Code: R50.9 - FEVER, UNSPECIFIED Status: Resolved Priority: High Current Visit: Yes (2) Abdominal pain SNOMED Code(s): 32869207 ICD Code: R10.9 - UNSPECIFIED ABDOMINAL PAIN Status: Resolved Priority: High Current Visit: Yes Qualifiers: Abdominal location: unspecified location Qualified Code(s): R10.9 - Unspecified abdominal pain (3) Generalized weakness SNOMED Code(s): 79673938 ICD Code: R53.1 - WEAKNESS Status: Acute Priority: Medium Current Visit : Yes - Patient Instructions Diet: Heart Healthy Diet, Drink 8-10+ Glasses/Day Activity: As Tolerated Showering/Bathing: May Shower Notify Provider of: Fever, Increased Pain, Nausea and/or Vomiting - Discharge Plan Prescriptions/Med Rec: Nitrofurantoin Monohyd/M-Cryst [IJD: Nitrofurantoin Bonner-MCR] 100 mg PO BID 7 Days #14 capsule Home Medications: Home Meds Gabapentin [Neurontin] 800 mg PO TID 10/25/14 [History] Hydrochlorothiazide 12.5 mg PO DAILY 10/25/14 [History] Multivitamin [Nxz-Lhwafn-Mfenm] 1 each PO DAILY 10/25/14 [History] Potassium Chloride 10 meq PO DAILY 10/25/14 [History] Pravastatin Sodium [Pravastatin (Pravachol)] 20 mg PO BEDTIME 10/25/14 [History] Calc/D3/Mag/Zn/Ticket Maker/Dante/Scarbro [Calcium 600 MG Plus Vit D] 600 mg PO BID [History] Cyanocobalamin (Vitamin B-12) [Vitamin B-12] 100 mcg PO DAILY 03/13/17 [History] Aspirin [Halfprin] 81 mg PO DAILY 04/08/17 [History] Cholecalciferol (Vitamin D3) [Vitamin D] 5,000 unit PO 04/08/17 [History] Hydrocodone/Acetaminophen [Hydrocodon-Acetaminophen 5-325] 1 tab PO TID [History] Nitrofurantoin Monohyd/M-Cryst [Macrobid 100 mg Capsule] 100 mg PO DAILY [History] Sennosides [Senna] 1 tab PO BID 04/08/17 [History] Iron,Carbonyl/Vit C/Vit B12/Fa [Iron 100 Plus Tablet] 2 tab PO DAILY 04/09/17 [ History] L Acidophil/B Lactis/B Longum [Florajen3] 1 cap PO DAILY 04/09/17 [History] Losartan [Cozaar] 100 mg PO DAILY 04/09/17 [History] Methenamine Hippurate 1 tab PO BID 04/09/17 [History] Vit C/Hesperidin/Bioflavonoids [Pleitez-C 500 Tablet] 1 cap PO TID 04/09/17 [History ] Vit D3 & K/Berberine HCl/Hops [Ostera] 1 cap PO DAILY 04/09/17 [History] Nitrofurantoin Monohyd/M-Cryst [IJD: Nitrofurantoin Bonner-MCR] 100 mg PO BID 7 Days #14 capsule 04/18/17 [Rx] Patient Handouts: Type 2 Diabetes Mellitus, Adult, Hypomagnesemia, Urinary Tract Infection, Adult, Hypertension - Discharge Summary/Plan Comment DC Time >30 min.: Yes (45 min) - General Info Date of Service: 04/18/17 Admission Dx/Problem (Free Text: Fever Subjective Update: Follow Up Functional Status: Reports: Pain Controlled, Tolerating Diet, Ambulating, Urinating - Review of Systems General: Reports: Weakness, Fatigue, Malaise HEENT: Reports: No Symptoms. Denies: Dysphasia, Eye Pain, Headaches, Sinus Congestion, Sore Throat Pulmonary: Reports: No Symptoms. Denies: Shortness of Breath, Pleuritic Chest Pain, Cough, Sputum, Wheezing Cardiovascular: Reports: Dyspnea on Exertion. Denies: Chest Pain, Palpitations , Edema Gastrointestinal: Denies: Abdominal Pain, Constipation, Diarrhea, Nausea, Vomiting Genitourinary: Reports: Incontinence. Denies: Frequency, Burning, Pain, Urgency Musculoskeletal: Reports: No Symptoms Skin: Reports: No Symptoms Neurological: Reports: No Symptoms. Denies: Confusion, Dizziness, Headache, Numbness, Paresthesia, Tremors, Trouble Speaking Psychiatric: Reports: No Symptoms. Denies: Confusion, Depression, Mood Lability , Anxiety, Agitation - Patient Data Vitals - Most Recent: Last Vital Signs Temp 98.6 F 04/18/17 04:22 Pulse 75 04/18/17 04:22 Resp 16 04/18/17 04:22 BP 144/62 H 04/18/17 04:00 Pulse Ox 95 04/18/17 04:22 Weight - Most Recent: 125 lb 4.8 oz I&O - Last 24 hours: Intake & Output 04/17/17 04/18/17 04/18/17 22:59 06:59 14:59 Intake Total 2970 850 Output Total 150 200 Balance 2820 650 Lab Results - Last 24 hrs: Laboratory Results - last 24 hr 04/17/17 04/17/17 04/17/17 Range/Units 06:27 11:01 16:42 WBC 8.90 (3.98-10.04) K/mm3 RBC 3.13 L (3.98-5.22) M/mm3 Hgb 9.1 L (11.2-15.7) gm/L Hct 29.4 L (34.1-44.9) % MCV 93.9 (79.4-94.8) fl MCH 29.1 (25.6-32.2) pg MCHC 31.0 L (32.2-35.5) g/dl RDW Std Deviation 45.8 (36.4-46.3) fL Plt Count 266 (182-369) K/mm3 MPV 9.1 L (9.4-12.3) fl Neut % (Auto) 77.7 H (34.0-71.1) % Lymph % (Auto) 9.7 L (19.3-51.7) % Bonner % (Auto) 5.6 (4.7-12.5) % Eos % (Auto) 4.8 (0.7-5.8) Baso % (Auto) 0.3 (0.1-1.2) % Neut # (Auto) 6.91 H (1.56-6.13) K/mm3 Lymph # (Auto) 0.86 L (1.18-3.74) K/mm3 Bonner # (Auto) 0.50 H (0.24-0.36) K/mm3 Eos # (Auto) 0.43 H (0.04-0.36) K/mm3 Baso # (Auto) 0.03 (0.01-0.08) K/mm3 Manual Slide Review Normal smear POC Glucose 195 H 142 H (83-110) mg/dL 04/17/17 04/18/17 Range/Units 21:50 06:52 WBC (3.98-10.04) K/mm3 RBC (3.98-5.22) M/mm3 Hgb (11.2-15.7) gm/L Hct (34.1-44.9) % MCV (79.4-94.8) fl MCH (25.6-32.2) pg MCHC (32.2-35.5) g/dl RDW Std Deviation (36.4-46.3) fL Plt Count (182-369) K/mm3 MPV (9.4-12.3) fl Neut % (Auto) (34.0-71.1) % Lymph % (Auto) (19.3-51.7) % Bonner % (Auto) (4.7-12.5) % Eos % (Auto) (0.7-5.8) Baso % (Auto) (0.1-1.2) % Neut # (Auto) (1.56-6.13) K/mm3 Lymph # (Auto) (1.18-3.74) K/mm3 Bonner # (Auto) (0.24-0.36) K/mm3 Eos # (Auto) (0.04-0.36) K/mm3 Baso # (Auto) (0.01-0.08) K/mm3 Manual Slide Review POC Glucose 153 H 108 (83-110) mg/dL BRADEN Results - Last 24 hrs: Microbiology 04/14/17 18:07 Aerobic Blood Culture - Preliminary Blood - Venous - Lab Draw NO GROWTH AFTER 3 DAYS Anaerobic Blood Culture - Preliminary NO GROWTH AFTER 3 DAYS 04/14/17 18:01 Aerobic Blood Culture - Preliminary Blood - Venous NO GROWTH AFTER 3 DAYS Anaerobic Blood Culture - Preliminary NO GROWTH AFTER 3 DAYS Med Orders - Current: Current Medications Acetaminophen (Tylenol) 650 mg PO Q4H PRN PRN Reason: Pain (Mild 1-3)/fever Last Admin: 04/16/17 15:22 Dose: 650 mg Hydrocodone Bitart/Acetaminophen ([place] 325-5 Mg) 1 tab PO BID [facility] Last Admin: 04/17/17 20:18 Dose: 1 tab Albuterol/Ipratropium (Duoneb 3.0-0.5 Mg/3 Ml) 3 ml NEB Q4H PRN PRN Reason: Shortness Of Breath/wheezing Bisacodyl (Dulcolax) 5 mg PO DAILY PRN PRN Reason: Constipation Docusate Sodium (Colace) 100 mg PO BID PRN PRN Reason: Constipation Enoxaparin Sodium (Lovenox) 30 mg SUBCUT DAILY [facility] Last Admin: 04/17/17 08:42 Dose: 30 mg Furosemide (Lasix) 20 mg PO BIDDIURETIC [facility] Last Admin: 04/18/17 06:24 Dose: 20 mg Hydralazine HCl (Apresoline) 10 mg IVPUSH Q4H PRN PRN Reason: Hypertension Ampicillin Sodium 2 gm/ Sodium (Chloride) 100 mls @ 200 mls/hr IV Q6H [facility] Last Admin: 04/18/17 02:42 Dose: 200 mls/hr Ibuprofen (Motrin) 600 mg PO Q6H PRN PRN Reason: Pain/Fever Last Admin: 04/16/17 17:23 Dose: 600 mg Losartan Potassium (Cozaar) 50 mg PO BID [facility] Last Admin: 04/17/17 20:21 Dose: 50 mg Magnesium Sulfate (Pharmacy To Dose - Magnesium Replacement) 0 dose .XX ASDIRECTED PRN PRN Reason: RX TO WATCH MAG LEVELS Nitrofurantoin Macrocrystals (Macrobid) 100 mg PO BID [facility] Last Admin: 04/17/17 20:17 Dose: 100 mg Ondansetron HCl (Zofran Odt) 4 mg PO Q6H PRN PRN Reason: nausea, able to take PO Ondansetron HCl (Zofran) 4 mg IV Q6H PRN PRN Reason: Nausea/Vomiting Last Admin: 04/14/17 17:33 Dose: 4 mg Gabapentin 400mg (Capsules) 0 each PO TID [facility] Last Admin: 04/17/17 20:19 Dose: 2 each L Acidophil/B Lactis /B Longum [Florajen3 ] 1 Cap 0 each PO ACBRK [facility] Last Admin: 04/18/17 06:25 Dose: 1 each Methenamine (Hippurate 1g Tablets) 0 each PO BID [facility] Last Admin: 04/17/17 20:19 Dose: 1 each Vit C With (Flavonoids 500mg Cap) 0 each PO TID [facility] Last Admin: 04/17/17 20:20 Dose: 1 each Iron,Carbonyl/Vit C/Vit B12/Fa [Ultimate Iron Softgels] 0 each PO BID [facility] Last Admin: 04/17/17 20:20 Dose: 1 each Polyethylene Glycol (Miralax) 17 gm PO DAILY PRN PRN Reason: Constipation Saccharomyces Boulardii (Florastor) 250 mg PO BID [facility] Last Admin: 04/17/17 20:17 Dose: 250 mg Senna/Docusate Sodium (Senna Plus) 1 tab PO BID PRN PRN Reason: Constipation Temazepam (Restoril) 7.5 mg PO BEDTIME PRN PRN Reason: Sleep Last Admin: 04/17/17 21:55 Dose: 7.5 mg Discontinued Medications Hydrocodone Bitart/Acetaminophen ([place] 325-5 Mg) 1 tab PO TID [facility] Last Admin: 04/09/17 11:59 Dose: Not Given Hydrocodone Bitart/Acetaminophen ([place] 325-5 Mg) 1 tab PO TID [facility] Last Admin: 04/10/17 08:31 Dose: 1 tab Aspirin (Halfprin) 81 mg PO DAILY [facility] Last Admin: 04/09/17 11:58 Dose: Not Given Bumetanide (Bumex) 1 mg PO ONETIME ONE Stop: 04/12/17 09:44 Last Admin: 04/12/17 09:46 Dose: Not Given Furosemide (Lasix) 10 mg IVPUSH NOW ONE Stop: 04/11/17 08:41 Last Admin: 04/11/17 08:53 Dose: 10 mg Furosemide (Lasix) 40 mg IVPUSH NOW ONE Stop: 04/11/17 14:01 Last Admin: 04/11/17 14:28 Dose: 40 mg Gabapentin (Neurontin) 800 mg PO ONETIME ONE Stop: 04/08/17 19:51 Last Admin: 04/08/17 20:02 Dose: 800 mg Hydralazine HCl (Apresoline) 10 mg IVPUSH ONETIME ONE Stop: 04/11/17 06:34 Last Admin: 04/11/17 06:58 Dose: 10 mg Hydrochlorothiazide (Hydrochlorothiazide) 12.5 mg PO DAILY [facility] Last Admin: 04/09/17 11:59 Dose: Not Given Sodium Chloride (Normal Saline) 1,000 mls @ 75 mls/hr IV ASDIRECTED [facility] Last Admin: 04/10/17 08:37 Dose: 75 mls/hr Magnesium Sulfate 2 gm/ Premix 50 mls @ 25 mls/hr IV ONETIME ONE Stop: 04/09/17 18:24 Last Admin: 04/09/17 16:53 Dose: 25 mls/hr Sodium Chloride (Normal Saline) 100 mls @ 80 mls/hr IV ASDIRECTED [facility] Stop: 04/11/17 12:00 Last Admin: 04/11/17 10:08 Dose: 80 mls/hr Ceftriaxone Sodium 2 gm/ (Sodium Chloride) 100 mls @ 200 mls/hr IV Q24H [facility] Last Admin: 04/13/17 20:54 Dose: 200 mls/hr Doxycycline Hyclate 100 mg/ (Sodium Chloride) 100 mls @ 100 mls/hr IV Q12H [facility] Last Admin: 04/14/17 00:40 Dose: 100 mls/hr Magnesium Sulfate 4 gm/ Premix 100 mls @ 25 mls/hr IV ONETIME ONE Stop: 04/13/17 11:48 Last Admin: 04/13/17 08:59 Dose: 25 mls/hr Ampicillin Sodium 2 gm/ Sodium (Chloride) 100 mls @ 200 mls/hr IV Q6H [facility] Last Admin: 04/14/17 23:48 Dose: Not Given Ampicillin Sodium 2 gm/ Sodium (Chloride) 100 mls @ 200 mls/hr IV Q6H [facility] Sodium Chloride (Normal Saline) 1,000 mls @ 100 mls/hr IV ASDIRECTED [facility] Last Admin: 04/17/17 12:45 Dose: 100 mls/hr Magnesium Sulfate 2 gm/ Premix 50 mls @ 25 mls/hr IV ONETIME ONE Stop: 04/17/17 19:31 Last Admin: 04/17/17 18:42 Dose: 25 mls/hr Iopamidol (Isovue-370 (76%)) 100 ml IVPUSH ONETIME ONE Stop: 04/11/17 09:53 Last Admin: 04/11/17 10:08 Dose: 60 ml Losartan Potassium (Cozaar) 50 mg PO BID [facility] Magnesium Oxide (Magnesium Oxide) 800 mg PO ONETIME ONE Stop: 04/12/17 10:01 Last Admin: 04/12/17 11:08 Dose: 800 mg Magnesium Oxide (Magnesium Oxide) 400 mg PO ONETIME ONE Stop: 04/15/17 07:35 Last Admin: 04/15/17 08:53 Dose: 400 mg Nitrofurantoin Macrocrystals (Macrobid) 100 mg PO WITHLUNCH [facility] Last Admin: 04/10/17 08:39 Dose: 100 mg Non-Formulary Medication (Vit D3 & K/Berberine Hcl/Hops [Ostera]) 1 cap PO DAILY [facility] Last Admin: 04/09/17 12:00 Dose: Not Given Calc/D3/Mag/Zn/Ticket Maker/Dante/Scarbro [Calcium 600 Mg Plus Vit D] 0 each PO BID [facility] Last Admin: 04/09/17 11:59 Dose: Not Given Cyanocobalamin ( Vitamin B-12) 100 Mcg 0 each PO DAILY [facility] Last Admin: 04/09/17 12:00 Dose: Not Given Iron,Carbonyl/Vit C/Vit B12/Fa [Iron 100 Plus Softgel] 0 each PO DAILY [facility] Last Admin: 04/09/17 12:00 Dose: Not Given Centrum Silver - (Multivitamins) 0 each PO DAILY [facility] Last Admin: 04/09/17 11:59 Dose: Not Given Potassium Chloride [ Potassium Chloride] 10 Meq 0 each PO DAILY [facility] Last Admin: 04/09/17 12:00 Dose: Not Given Pravastatin 20 Mg 20 each PO BEDTIME [facility] Potassium Chloride (Klor-Con M20) 40 meq PO ONETIME ONE Stop: 04/12/17 10:01 Last Admin: 04/12/17 11:08 Dose: 40 meq Senna/Docusate Sodium (Senna Plus) 1 tab PO BID [facility] Last Admin: 04/09/17 12:00 Dose: Not Given Sodium Chloride (Saline Flush) 10 ml FLUSH ONETIME PRN PRN Reason: IV FLUSH Stop: 04/11/17 12:00 Last Admin: 04/11/17 10:08 Dose: 10 ml - Exam Quality Assessment: Reports: DVT Prophylaxis General: Reports: Alert, Oriented, Cooperative, No Acute Distress HEENT: Reports: Pupils Equal, Pupils Reactive, EOMI, Mucous Membr. Moist/Glendo Neck: Reports: Supple, Trachea Midline, No JVD Lungs: Reports: Clear to Auscultation, Normal Respiratory Effort Cardiovascular: Reports: Regular Rate, Regular Rhythm GI/Abdominal Exam: Normal Bowel Sounds, Soft, Non-Tender, No Organomegaly, No Distention, No Abnormal Bruit, No Mass, Pelvis Stable (Female) Exam: Deferred Rectal (Female) Exam: Deferred Back Exam: Reports: Normal Inspection, Decreased Range of Motion Extremities: Normal Inspection, Normal Range of Motion, Non-Tender, No Pedal Edema, Normal Capillary Refill Skin: Reports: Warm, Dry, Intact Neurological: Reports: No New Focal Deficit Psy/Mental Status: Reports: Alert, Normal Affect, Normal Mood *Q Meaningful Use (DIS) - VTE *Q VTE Criteria *Q: - Stroke *Q Stroke Criteria *Q: - AMI *Q AMI Criteria *Q:
[2017-04-18] MEDS: Acetaminophen/HYDROcodone 325-5 MG Tab PO SCH (09:01)
[2017-04-18] MEDS: Losartan 100 MG Tab PO SCH (09:01)
[2017-04-18] MEDS: Enoxaparin 30 MG/0.3 ML Syringe SUBCUT SCH (09:02)
[2017-04-18] MEDS: Saccharomyces Boulardii (Probiotic) 250 MG Cap PO SCH (09:02)
[2017-04-18] MEDS: Nitrofurantoin Monohydrate/Macrocrystalline 100 MG Cap PO SCH (09:02)
[2017-04-18] MEDS: VIT C PO SCH (09:04)
[2017-04-18] MEDS: [UNRECOGNIZED DRUG - OTHER] PO SCH (09:04)
[2017-04-18] MEDS: IRON CARBONYL PO SCH (09:04)
[2017-04-18] MEDS: GABAPENTIN 400 MG PO SCH (09:04)
[2017-04-18] MEDS: VIT B12 PO SCH (09:04)
[2017-04-18] MEDS: METHENAMINE HIPPURATE 1 GM PO SCH (09:05)
[2017-04-18] MEDS: ASCORBIC ACID PO SCH (09:05)
[2017-04-18] MEDS: [UNRECOGNIZED DRUG - OTHER] PO SCH (09:05)
[2017-04-18 11:15] VITALS: BP 155/54
[2017-04-19] MEDS ORDERED: Cholecalciferol (Vitamin D3) 1,000 Unit Tab PO SCH (09:00)
== END 2017-04-18 11:05 | DRG 690 ==
LOC: JD.ED 18:10 → JD.MS 21:12 → OBSVTOIN 04-09 17:30
PROVIDERS: ADMIT Internal Medicine; ATTEND Internal Medicine
DX: N39.0 Urinary tract infection, site not specified (principal); R50.9 Fever, unspecified; R53.1 Weakness; R10.32 Left lower quadrant pain; I48.91 Unspecified atrial fibrillation; I25.10 Atherosclerotic heart disease of native coronary artery without angina pectoris; I11.0 Hypertensive heart disease with heart failure; I50.9 Heart failure, unspecified; Z95.5 Presence of coronary angioplasty implant and graft; E78.5 Hyperlipidemia, unspecified; M19.90 Unspecified osteoarthritis, unspecified site; R73.03 Prediabetes; D50.9 Iron deficiency anemia, unspecified; G89.29 Other chronic pain; G25.81 Restless legs syndrome; M81.0 Age-related osteoporosis without current pathological fracture; Z95.2 Presence of prosthetic heart valve; H54.7 Unspecified visual loss; Z87.440 Personal history of urinary (tract) infections; Z86.14 Personal history of Methicillin resistant Staphylococcus aureus infection; E87.6 Hypokalemia; E83.42 Hypomagnesemia; B95.2 Enterococcus as the cause of diseases classified elsewhere; R79.1 Abnormal coagulation profile; R32 Unspecified urinary incontinence; Z88.1 Allergy status to other antibiotic agents; Z88.2 Allergy status to sulfonamides; Z88.5 Allergy status to narcotic agent; Z79.82 Long term (current) use of aspirin; Z79.899 Other long term (current) drug therapy
CPT/HCPCS: 36415 ×2; 71010; 80048; 80053; 81001; 82962 ×3; 83036; 83605 ×2; 83735; 85025 ×2; 85610; 86140; 86738; 87040 ×2; 87804 ×2; 97162; 97530; 99285; A9270 ×3; J7040; P9612; 71020; 71020-26; 71275; 71275-26; 74176; 74176-26; 82553; 83880; 84443; 84484; 85379; 87086; 87088; 87186; 87899; 93306; 93970; 93970-26; 94667; 94760; 94761; 96361; 96365; 97110-GO; 97110-GP; 97112-GP; 97113-GP; 97116-GP; 97166-GO; 99284; G0378; J0290; J0360; J0696; J1650; J1940; J2405; J3475; J7030; J7050; Q9967

== ENCOUNTER 2018-05-04 11:20 | Emergency (ER) | payer MEDICARE, BC ==
[2018-05-04 11:41] VITALS: BP 135/50
--- NOTE | 2018-05-04 12:53 | EDM.PDOC ---
ED HPI GENERAL MEDICAL PROBLEM - General Chief Complaint: Neuro Symptoms/Deficits Stated Complaint: WEAK AND FALLING Time Seen by Provider: 05/04/18 11:33 Source of Information: Reports: Patient, Family, RN Notes Reviewed History Limitations: Reports: No Limitations - History of Present Illness INITIAL COMMENTS - FREE TEXT/NARRATIVE: Patient is an 88 year old female who is brought in by her son today for the feelings of general weakness. She is a resident of [facility], which is an assisted living facility. The patient states that she has been feeling increasingly weak and fatigued lately. She states that when she is walking that her legs begin to feel weak and then she falls down. She denies any pain in her legs or trauma after the falls. She denies any LOC with the falls or hitting her head. The son states that she has not been eating much due to a low appetite , and has been sleeping a lot lately. Today it was reported that she could hardly get out of bed due to weakness. She denies any feelings of being sick, such as fever/chills, nausea/vomiting/diarrhea, and further denies any sick contacts. Of note-she does have a history of interstitial cystitis and does get frequent UTIs. She denies any chest pain or shortness of breath. She states that she also has a history of anemia and has not taken her iron pills the last 2 days. Her son notes that she has felt generally weakened since she had her aortic valve replaced around 3 years ago. - Related Data Allergies Allergy/AdvReac Type Severity Reaction Status Date / Time codeine Allergy Cannot Verified 05/04/18 11:41 Remember sulfamethoxazole Allergy Rash Verified 05/04/18 11:41 [From Bactrim] trimethoprim [From Bactrim] Allergy Rash Verified 05/04/18 11:41 Sulfa (Sulfonamide AdvReac Fatigue Verified 05/04/18 11:41 Antibiotics) Home Meds: Home Meds Gabapentin [Neurontin] 800 mg PO TID 10/25/14 [History] Hydrochlorothiazide 12.5 mg PO DAILY 10/25/14 [History] Multivitamin [Glg-Udmodw-[place]] 1 each PO DAILY 10/25/14 [History] Potassium Chloride 10 meq PO DAILY 10/25/14 [History] Pravastatin Sodium [Pravastatin (Pravachol)] 20 mg PO BEDTIME 10/25/14 [History] Calc/D3/Mag/Zn/Bi Architect/[place] [Calcium 600 MG Plus Vit D] 600 mg PO BID [History] Cyanocobalamin (Vitamin B-12) [Vitamin B-12] 100 mcg PO DAILY 03/13/17 [History] Aspirin [Halfprin] 81 mg PO DAILY 04/08/17 [History] Cholecalciferol (Vitamin D3) [Vitamin D] 5,000 unit PO DAILY 04/08/17 [History] Sennosides [Senna] 1 tab PO BID 04/08/17 [History] Iron,Carbonyl/Vit C/Vit B12/Fa [Iron 100 Plus Tablet] 2 tab PO DAILY 04/09/17 [ History] L Acidophil/B Lactis/B Longum [Florajen3] 1 cap PO DAILY 04/09/17 [History] Losartan [Cozaar] 100 mg PO DAILY 04/09/17 [History] Methenamine Hippurate 1 tab PO BID 04/09/17 [History] Vit C/Hesperidin/Bioflavonoids [Pleitez-C 500 Tablet] 1 cap PO TID 04/09/17 [History ] Vit D3 & K/Berberine HCl/Hops [Ostera] 1 cap PO DAILY 04/09/17 [History] Hydrocodone/Acetaminophen [Hydrocodon-Acetaminophen 5-325] 1 tab PO BID #0 04/18 [Rx] Nitrofurantoin Monohyd/M-Cryst [IJD: Nitrofurantoin [place]-MCR] 100 mg PO BID 7 Days #14 capsule 04/18/17 [Rx] Cefdinir [Omnicef] 300 mg PO BID #14 cap 05/04/18 [Rx] Past Medical History HEENT History: Reports: Impaired Vision Other HEENT History: pt wears glasses Cardiovascular History: Reports: Afib, CAD, Heart Failure, Heart Murmur, High Cholesterol, Hypertension Other Cardiovascular History: aortic valve stenosis Gastrointestinal History: Reports: Colon Polyp Genitourinary History: Reports: Renal Calculus, Urinary Incontinence, UTI, Recurrent Other Genitourinary History: cyst on kidney LEATHER STRETCHER History: Reports: Other LEATHER STRETCHER History: 8 pregnacies Musculoskeletal History: Reports: Arthritis Other Musculoskeletal History: restless leg syndrome Neurological History: Reports: None Psychiatric History: Reports: Anxiety, Depression Endocrine/Metabolic History: Reports: Diabetes, Type II Hematologic History: Reports: Anemia, Blood Transfusion(s), Iron Deficiency - Infectious Disease History Infectious Disease History: Reports: Influenza, Measles, MRSA - Past Surgical History HEENT Surgical History: Reports: Cataract Surgery, Tonsillectomy Cardiovascular Surgical History: Reports: Coronary Artery Stent, Valve Replacement GI Surgical History: Reports: Appendectomy, Cholecystectomy Female Surgical History: Reports: Hysterectomy Endocrine Surgical History: Reports: None Neurological Surgical History: Reports: Lumbar Spine Musculoskeletal Surgical History: Reports: Carpal Tunnel, Hip Replacement, Knee Replacement, Shoulder Surgery, Other (See Below) Other Musculoskeletal Surgeries/Procedures:: bilateral knees, bilateral shoulders, and hip 2x Oncologic Surgical History: Reports: None Social & Family History - Family History Family Medical History: Noncontributory - Tobacco Use Smoking Status *Q: Never Smoker Second Hand Smoke Exposure: No - Caffeine Use Caffeine Use: Reports: None Other Caffeine Use: one cup of coffee ever da - Recreational Drug Use Recreational Drug Use: No - Living Situation & Occupation Living situation: Reports: , Assisted Living Occupation: Retired ED ROS GENERAL - Review of Systems Review Of Systems: See Below Constitutional: Reports: Weakness, Fatigue, Decreased Appetite. Denies: Fever, Chills HEENT: Reports: No Symptoms Respiratory: Reports: No Symptoms Cardiovascular: Reports: No Symptoms Endocrine: Reports: No Symptoms GI/Abdominal: Reports: No Symptoms : Reports: No Symptoms Musculoskeletal: Reports: No Symptoms Skin: Reports: No Symptoms Neurological: Reports: Weakness. Denies: Dizziness, Numbness, Paresthesia, Tingling, Difficulty Walking, Gait Disturbance Psychiatric: Reports: No Symptoms Hematologic/Lymphatic: Reports: No Symptoms Immunologic: Reports: No Symptoms ED EXAM, NEURO - Physical Exam Exam: See Below Exam Limited By: No Limitations General Appearance: Alert, WD/WN, No Apparent Distress Eye Exam: Bilateral Eye: EOMI, Normal Inspection, PERRL Ears: Normal External Exam Nose: Normal Inspection Throat/Mouth: Normal Inspection, Normal Oropharynx, No Airway Compromise Head Exam: Atraumatic, Normocephalic Neck: Normal Inspection, Supple, Non-Tender Respiratory/Chest: No Respiratory Distress, Lungs Clear, Normal Breath Sounds, No Accessory Muscle Use, Chest Non-Tender Cardiovascular: Normal Peripheral Pulses, Regular Rate, Rhythm, No Edema, No JVD , No Murmur GI/Abdominal: Normal Bowel Sounds, Soft, Non-Tender, No Distention Neurological: Alert, Normal Mood/Affect, Normal Gait, No Motor/Sensory Deficits , Oriented x 3 Extremities: Normal Inspection, Normal Range of Motion, Normal Capillary Refill Psychiatric: Normal Affect, Normal Mood Skin Exam: Warm, Dry, Intact, Normal Color, No Rash EKG INTERPRETATION EKG Date: 05/04/18 Time: 12:45 Rhythm: NSR Rate (Beats/Min): 71 [place]: Normal P-Wave: Present QRS: Normal ST-T: Normal QT: Normal Comparison: No Change EKG Interpretation Comments: Reviewed with Dr. Guadalupe. Course - Vital Signs Last Recorded V/S: Last Vital Signs Temp 98.5 F 05/04/18 11:35 Pulse 69 05/04/18 11:35 Resp 14 05/04/18 11:35 BP 135/50 L 05/04/18 11:35 Pulse Ox 96 05/04/18 11:35 - Orders/Labs/Meds Orders: Active Orders 24 hr Category Date Time Status EKG Documentation Completion [RC] STAT Care 05/04/18 12:10 Active Peripheral IV Care [RC] . DIRECTED Care 05/04/18 14:22 Active CULTURE URINE [RM] Stat Lab 05/04/18 13:30 Ordered Sodium Chloride 0.9% [Normal Saline] 1,000 ml Med 05/04/18 14:30 Active IV ASDIRECTED Sodium Chloride 0.9% [Saline Flush] Med 05/04/18 14:21 Active 10 ml FLUSH ASDIRECTED PRN Peripheral IV Insertion Adult [OM.PC] Routine Oth 05/04/18 14:22 Ordered Medication Orders Sodium Chloride (Normal Saline) 1,000 mls @ 500 mls/hr IV ASDIRECTED MARCELLO Last Admin: 05/04/18 14:41 Dose: 500 mls/hr Sodium Chloride (Saline Flush) 10 ml FLUSH ASDIRECTED PRN PRN Reason: Keep Vein Open Last Admin: 05/04/18 14:41 Dose: 10 ml Labs: Laboratory Tests 05/04/18 05/04/18 05/04/18 Range/Units 12:29 12:29 12:44 WBC 6.56 (3.98-10.04) K/mm3 RBC 3.23 L (3.98-5.22) M/mm3 Hgb 9.9 L (11.2-15.7) gm/L Hct 32.2 L (34.1-44.9) % MCV 99.7 H (79.4-94.8) fl MCH 30.7 (25.6-32.2) pg MCHC 30.7 L (32.2-35.5) g/dl RDW Std Deviation 43.6 (36.4-46.3) fL Plt Count 216 (182-369) K/mm3 MPV 7.8 L (9.4-12.3) fl Neutrophils % (Manual) 64 H (40-60) % Band Neutrophils % 3 (0-10) % Lymphocytes % (Manual) 26 (20-40) % Atypical Lymphs % 0 % Monocytes % (Manual) 5 (2-10) % Eosinophils % (Manual) 2 (0.7-5.8) % Basophils % (Manual) 0 L (0.1-1.2) Platelet Estimate Adequate Polychromasia 1+ slight Anisocytosis 1+ slight RBC Morph Comment Not Reportable Sodium 146 H (136-145) mEq/L Potassium 4.9 (3.5-5.1) mEq/L Chloride 111 H (98-107) mEq/L Carbon Dioxide 28 (21-32) mEq/L Anion Gap 11.9 (5-15) BUN 37 H (7-18) mg/dL Creatinine 1.2 H (0.55-1.02) mg/dL Est Cr Clr Drug Dosing 22.83 mL/min Estimated GFR (MDRD) 42 (>60) mL/min BUN/Creatinine Ratio 30.8 H (14-18) Glucose 121 H (83-115) mg/dL Calcium 9.3 (8.5-10.1) mg/dL Magnesium 1.9 (1.8-2.4) mg/dl Total Bilirubin 0.2 (0.2-1.0) mg/dL AST 21 (15-37) U/L ALT 34 (14-59) U/L Alkaline Phosphatase 39 L (46-116) U/L Troponin I < 0.017 (0.00-0.056) ng/mL Total Protein 6.8 (6.4-8.2) g/dl Albumin 2.8 L (3.4-5.0) g/dl Globulin 4.0 gm/dL Albumin/Globulin Ratio 0.7 L (1-2) Urine Color Light yellow (Yellow) Urine Appearance Cloudy H (Clear) Urine pH 6.0 (5.0-8.0) Ur Specific [place] 1.020 (1.005-1.030) Urine Protein 2+ H (Negative) Urine Glucose (UA) Negative (Negative) Urine Ketones Negative (Negative) Urine Occult Blood 2+ H (Negative) Urine Nitrite Positive H (Negative) Urine Bilirubin Negative (Negative) Urine Urobilinogen 0.2 (0.2-1.0) Ur Leukocyte Esterase 2+ H (Negative) Urine RBC 0-5 (0-5) /hpf Urine WBC 5-10 H (0-5) /hpf Ur Epithelial Cells 0-5 (0-5) /hpf Urine Bacteria Not seen (FEW) /hpf Urine Mucus Not seen (FEW) /hpf Meds: Medications Generic Name Dose Route Start Last Admin Trade Name Freq PRN Reason Stop Dose Admin Sodium Chloride 1,000 mls @ 500 mls/hr 05/04/18 14:30 05/04/18 14:41 Normal Saline IV 500 mls/hr ASDIRECTED MARCELLO Administration Sodium Chloride 10 ml 05/04/18 14:21 05/04/18 14:41 Saline Flush FLUSH 10 ml ASDIRECTED PRN Administration Keep Vein Open Discontinued Medications Generic Name Dose Route Start Last Admin Trade Name Freq PRN Reason Stop Dose Admin Hydrocodone Bitart/Acetaminophen 1 tab 05/04/18 15:04 05/04/18 15:11 [place] 325-10 Mg PO 05/04/18 15:05 1 tab ONETIME ONE Administration - Re-Assessments/Exams Free Text/Narrative Re-Assessment/Exam: 05/04/18 12:57 Pt presents to the ED for the evaluation of general weakness. She is unsure of just how long she has felt increasingly weak. Have ordered CBC, CMP, UA with culture, magnesium, troponin, CXR, and EKG for further evaluation. 05/04/18 14:15 EKG is done and does not have any change from prior EKG. Labs are back and essentially WNL, she is a little dry, 1 liter of fluids will be given. Her UA is strongly suggestive of UTI, as this was a catheterized urine collection, it is my clinical impression that the does have an active UTI today, which may be causing some of her weakness. Culture has been sent and Dr. Ring will be attempted to be reached to see if he would in fact like us to wait to start antibiotics or wait for culture, due to urine specimen coming from a catheterized sample. 05/04/18 16:26 Dr. Ring was consulted, and with the nitrites being positive, he suggested the start of antibiotics, and to choose one from her last urine culture. He recommended Omnicef if it was sensitive. Omincef 300mg BID for 7 days was sent to [facility] pharmacy. Departure - Departure Time of Disposition: 16:27 Disposition: Home, Self-Care 01 Condition: Fair Clinical Impression: UTI, Urinary tract infectious disease - Discharge Information *PRESCRIPTION DRUG MONITORING PROGRAM REVIEWED*: No *COPY OF PRESCRIPTION DRUG MONITORING REPORT IN PATIENT JARRED: No Prescriptions: Cefdinir [Omnicef] 300 mg PO BID #14 cap Instructions: Urinary Tract Infection, Adult, [id number] Referrals: Ivanna Allen MD [Primary Care Provider] - Forms: ED Department Discharge Additional Instructions: You have been evaluated in the ED for feelings of weakness. You were found to have a urinary tract infection. You have been prescribed Omnicef 300mg BID for 7 days. If your weakness does not resolve after the finish of antibiotics, please follow up with your primary care provider. Please return to ED if your symptoms change or worsen. - My Orders Last 24 Hours: My Active Orders 05/04/18 12:10 EKG Documentation Completion [RC] STAT 05/04/18 13:30 CULTURE URINE [RM] Stat 05/04/18 14:21 Sodium Chloride 0.9% [Saline Flush] 10 ml FLUSH ASDIRECTED PRN 05/04/18 14:22 Peripheral IV Care [RC] . DIRECTED Peripheral IV Insertion Adult [OM.PC] Routine 05/04/18 14:30 Sodium Chloride 0.9% [Normal Saline] 1,000 ml IV ASDIRECTED - Assessment/Plan Last 24 Hours: My Active Orders 05/04/18 12:10 EKG Documentation Completion [RC] STAT 05/04/18 13:30 CULTURE URINE [RM] Stat 05/04/18 14:21 Sodium Chloride 0.9% [Saline Flush] 10 ml FLUSH ASDIRECTED PRN 05/04/18 14:22 Peripheral IV Care [RC] . DIRECTED Peripheral IV Insertion Adult [OM.PC] Routine 05/04/18 14:30 Sodium Chloride 0.9% [Normal Saline] 1,000 ml IV ASDIRECTED
[2018-05-04] MEDS ORDERED: Sodium Chloride 0.9% 10 ML Syringe FLUSH PRN (14:21)
[2018-05-04] MEDS ORDERED: Sodium Chloride 0.9% 1,000 ML IV SCH (14:30)
[2018-05-04] MEDS ORDERED: Acetaminophen/HYDROcodone 325-10 MG Tab PO ONE (15:04)
--- NOTE | 2018-05-04 15:18 | CR ---
Chest: Portable view of the chest was obtained. Comparison: Prior chest x-ray of 04/15/17. Heart is enlarged. Cardiac stent is present. Tortuous thoracic aorta is seen. Lungs are clear with no acute parenchymal change. Bony structures show scoliosis and degenerative change within the spine. Impression: 1. Findings as noted above. Nothing acute is seen on portable chest x-ray. Diagnostic code #2
== END 2018-05-04 16:50 | disposition home or self-care (01) ==
LOC: JD.ED 11:20
DX: N39.0 Urinary tract infection, site not specified (principal); I11.0 Hypertensive heart disease with heart failure; I48.91 Unspecified atrial fibrillation; I50.9 Heart failure, unspecified; F41.9 Anxiety disorder, unspecified; F32.9 Major depressive disorder, single episode, unspecified; E11.9 Type 2 diabetes mellitus without complications; Z88.5 Allergy status to narcotic agent; Z88.2 Allergy status to sulfonamides; Z88.1 Allergy status to other antibiotic agents; Z79.899 Other long term (current) drug therapy
CPT/HCPCS: 36415; 71045; 80053; 81001; 83735; 84484; 85007; 85027; 87086; 87088; 87186; 93005; 96360; 96361; 99285; A9270; J7040; 93010; 99283